=== PATIENT | female | born 1970 | race Caucasian/White ===

== ENCOUNTER 2023-12-09 12:36 | Outpatient (AMB) | payer MEDICARE, SELFPAY ==
[2023-12-09 12:39] VITALS: BP 122/62; PULSE 61; TEMP 37.1; O2SAT 98; BMI 21.6
--- NOTE | 2023-12-09 12:39 | MHC.OFFWIV ---
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 Patient Tobacco Use Status: Current everyday Tobacco user Allergies aspirin Allergy (Intermediate, Verified 12/09/23 12:47) vomiting blood ciprofloxacin [From Cipro] Allergy (Mild, Verified 12/09/23 12:47) temporary paralysis stains Allergy (Intermediate, Uncoded 12/09/23 12:47) severe body aches fentanyl Allergy (Mild, Uncoded 12/09/23 12:47) Difficulty Breathing prenisone Allergy (Mild, Uncoded 12/09/23 12:47) Swelling Do you need a note to return to daycare/school/sports/work: No HPI RADIOLOGY RESIDENT AB issues HPI Details Patient is a 53-year-old female who is new to us, and comes to the walk-in clinic complaining of a few months of abdominal bloating, belching with vomiting, abdominal discomfort, loose stools, malaise, and weight gain. She reports that symptoms started after she had a rash for which she was given prednisone for. She states that she has discussed this with her PCP who advised that she follow-up with her GI specialist, however she is still pending referral. She does have a history of acid reflux, and has continued her Protonix and sucralfate. She had a prescription for Zofran and Bentyl for which she was not refilled and ran out. She states that she has decreased her food intake to one small meal a day as a result of increased discomfort to the abdomen after eating. She has no pain during eating, and can tolerate vinegar and salad dressing. She denies fever or chills, chest pain or current shortness of breath, although she does feel like her abdominal distension makes breathing difficult when she lies on her left side. She reports a history of having an umbilical hernia, for which was not surgically repaired. [facility], [facility] Social History Patient Tobacco Use Status: Current everyday Tobacco user Review of Systems Const All systems reviewed & are unremarkable except as noted in HPI and below Physical Exam Vital Signs: Last Vital Signs Temp 98.7 F 12/09/23 12:39 Pulse 61 12/09/23 12:39 BP 122/62 12/09/23 12:39 Pulse Ox 98 12/09/23 12:39 Oxygen Delivery Method Room Air 12/09/23 12:39 BMI result Body Mass Index 21.6 Const General: cooperative, healthy appearing, no acute distress, alert, awake, Physically active, anxious, tired appearing and well groomed; No comfortable, diaphoretic, ill appearing, intoxicated appearing or poor hygiene Nutritional Appearance: average body habitus Orientation/consciousness: patient oriented x3 Limitations: no limitations Resp Effort & Inspection: normal respiratory effort, able to speak in complete sentences, no audible wheezes, no cough, no grunting, not labored, no nasal flaring, no retractions and symmetric chest movement Auscultation: clear to auscultation bilaterally, no crackles, no rales, no rhonchi, no wheezes, lung sounds not diminished and No rub present Cardio Palpation: normal PMI Rate: regular rate Rhythm: regular rhythm Heart sounds: S1 normal heart sound present and S2 normal heart sound present GI Palpation (GI): Soft to palpation (bloated), Tenderness to palpation present (GI), Guarding due to palpation present (GI) in the LLQ, not rigid, No hepatosplenomegaly present, Hernia present umbilical and No Rebound tenderness present Percussion: Yes normal to percussion General: Yes no CVA tenderness Back/Spine/Pelvis Back: no CVA tenderness Skin Other: Good color, warm and dry Neuro General: patient oriented x3 Psych Appearance: grossly normal Mental Status: mental status grossly normal Speech and movement: Normal speech and movement present Affect: normal affect Attitude: cooperative Thought process: Normal thought process present Insight: Good insight present (Psych) Judgement: Good judgement present (Psych) Results Reviewed Results Reviewed: Plain film x-ray shows no obvious obstruction, although an extensive degree stool in the abdomen. Assessment & Plan Assessment & Plan (1) Abdominal bloating: Code(s): R14.0 - Abdominal distension (gaseous) Plan: Patient now has chronic course of abdominal bloating and generalized (but greatest left lower quadrant) discomfort, associated with loose stools and belching with occasional vomiting. She is extremely anxious on exam today, as she worries about an etiology involving cancer. She has not had much success with seeing her PCP who is not part of the [facility], and she is pending GI referral. We discussed that the exam through the walk-in is limited, and that the safest place for her to rule out a surgical abdomen would be the emergency department. She appears stable with vital signs however, and per her report her tenderness is consistent with her chronic pain. As she does have a history of an umbilical hernia and her pain is adjacent to the umbilicus, it is possible that she has a strangulated hernia however. She declined the emergency department today against medical advice, as she states that it makes her extremely anxious to think about being there. So an x-ray was done today which shows no obvious obstruction, and I did order a CBC as well as a CMP. This should rule a few things out for her. I refilled her Zofran and her Bentyl, and we discussed that she should trial a bland diet, but that she should eliminate 1 source of possible allergen or irritant to her system, either dairy or gluten. In the meantime, she plans to call her PCP on Monday to follow up. If she cannot get in there soon, she plans to come to the walk-in to consider if she is a candidate at that point for an ultrasound of the abdomen. In the meantime, she knows to go to the emergency department if symptoms become more severe. I also wrote her for a very short course of lorazepam, in case she needs it to help with anxiety related to further imaging or going to the emergency department, as she reported that this might be necessary. Orders: Orders Complete Blood Count Auto Diff 12/09/23 R10.9 - Unspecified abdominal pain Comprehensive Met. Panel 12/09/23 R10.9 - Unspecified abdominal pain Lipase 12/09/23 R10.9 - Unspecified abdominal pain Medications: New ondansetron 4 mg PO Q8H PRN 30 tabs 0RF nausea and vomiting lorazepam 0.5 mg PO BID-TID PRN 3 tabs 0RF anxiety dicyclomine 10 mg PO TID PRN 60 caps 0RF abdominal pain Coding Level of Care Code New Pt Level 4 (34098) Diagnoses Abdominal bloating R14.0
== END 2023-12-09 14:26 | disposition home or self-care (01) ==
PROVIDERS: PCP Internal Medicine; Visit Provider Physician Assistant Medical
DX: R14.0 Abdominal distension (gaseous) (principal)
CPT/HCPCS: 99204

== ENCOUNTER 2023-12-09 13:43 | Outpatient (REF) | payer MEDICARE, SELFPAY ==
--- NOTE | ~2023-12-09 | XR_ITS ---
EXAMINATION: XR ABDOMEN COMPLETE CLINICAL INDICATION: Abdominal pain COMPARISON: None available. TECHNIQUE: 2 views of the abdomen. FINDINGS: The bowel gas pattern is normal with no evidence of ileus or obstruction. No unusual soft tissue calcifications are noted. The bones are unremarkable. XR/XR abdomen min 2V IMPRESSION: Unremarkable examination.
[2023-12-09 15:19] LABS: MANUAL DIFF FLAG NO
[2023-12-09 15:20] LABS: Basophils Absolute Auto 0.1 X10*3/uL (0.0-0.2); Basophils Percent Auto 0.5 % (0-2); Eosinophils Absolute Auto 0.1 X10*3/uL (0.0-0.4); Eosinophils Percent Auto 1.2 % (0-4); Hematocrit 41.9 % (37.0-47.0); Hemoglobin 14.2 g/dl (12.0-16.0); Imm Gran Abs Auto 0.02 X10*3/uL (0.00-0.03); Imm Gran Pct Auto 0.2 % (0.0-0.4); Lymphocytes Absolute Auto 2.6 X10*3/uL (1.2-4.9); Lymphocytes Percent Auto 28.2 % (20-40); Mean Corpuscular HGB Conc 33.9 g/dl (31.0-35.0); Mean Corpuscular Hemoglobin 29.8 pg (27.0-33.0); Monocytes Absolute Auto 0.6 X10*3/uL (0.1-1.2); Monocytes Percent Auto 6.3 % (2-11); Neutrophils Absolute Auto 5.8 x10*3/uL (2.0-8.3); Neutrophils Percent Auto 63.6 % (45-73); Platelet Count 282 X10*3/uL (160-400); Red Blood Count 4.76 X10*6/uL (4.20-5.50); Red Cell Distribution Width 13.2 % (11.0-16.0); White Blood Count 9.2 X10*3/uL (4.8-10.8)
[2023-12-09 15:39] LABS: Alanine Aminotransferase 10 U/L (0-31); Albumin Level 4.3 g/dL (3.5-5.0); Alkaline Phosphatase 114 U/L (39-117); Anion Gap 11 (12-20); Aspartate Amino Transferase 17 U/L (5-31); Bilirubin Total 0.2 mg/dL (0.0-1.0); Blood Urea Nitrogen 11 mg/dL (9-16); Calcium 9.7 mg/dL (8.4-10.2); Carbon Dioxide 28 mmol/L (22-29); Chloride 107 mmol/L (96-108); Estimated Glomerular Filt Rate > 60; Glucose Random 89 mg/dL (60-115); Lipase 15 U/L (8-78); Potassium 4.2 mmol/L (3.3-5.1); Sodium 142 mmol/L (135-145); Total Protein 7.5 g/dL (6.5-8.0)
== END 2023-12-09 13:44 | disposition home or self-care (01) ==
LOC: HO.HMGCX 13:43
PROVIDERS: PCP Internal Medicine; Visit Provider Physician Assistant Medical
DX: R10.9 Unspecified abdominal pain (principal)
CPT/HCPCS: 36415; 74019; 80053; 83690; 85025

== ENCOUNTER 2024-08-19 11:33 | Outpatient (REF) | payer MEDICARE, SELFPAY ==
[2024-08-19 18:01] LABS: Influenza A PCR NEGATIVE (Negative); Influenza B PCR NEGATIVE (Negative); Resp Syncy Virus RNA Qual PCR NEGATIVE (Negative); SARS COV2 PCR INHOUSE NEGATIVE (Negative)
== END 2024-08-19 11:34 | disposition home or self-care (01) ==
LOC: HO.LAB 11:33
PROVIDERS: Registered Nurse; PCP Internal Medicine
DX: J06.9 Acute upper respiratory infection, unspecified (principal)
CPT/HCPCS: 0241U; 87880; 99212

== ENCOUNTER 2024-08-19 11:33 | Outpatient (AMB) | payer MEDICARE, SELFPAY ==
[2024-08-19 11:54] VITALS: BP 116/84; PULSE 70; TEMP 36.1; O2SAT 98; BMI 20.8
--- NOTE | 2024-08-19 11:54 | AM.OFFWIN_ITS ---
Intake Vital Signs 08/19/24 11:54 Height 5 ft 1 in Weight 110 lb BMI 20.8 BP 116/84 Blood Pressure Location Lt brachial Position Sitting Pulse 70 Pulse Source Pulse Oximeter Temp 97.0 F Temp Source Temporal Artery Scan Pulse Oximetry (%) 98 Oxygen Delivery Method Room Air Intake Visit Reasons: EP sore throat/Ball of pus back of throat Intake Note: Pt presents to the office today for c/o sore throat, fatigue, weakness x2 days. Patient Tobacco Use Status: Current everyday Tobacco user Allergies aspirin Allergy (Intermediate, Verified 08/19/24 11:56) vomiting blood ciprofloxacin [From Cipro] Allergy (Mild, Verified 08/19/24 11:56) temporary paralysis stains Allergy (Intermediate, Uncoded 08/19/24 11:56) severe body aches fentanyl Allergy (Mild, Uncoded 08/19/24 11:56) Difficulty Breathing prenisone Allergy (Mild, Uncoded 08/19/24 11:56) Swelling HPI EP sore throat/Ball of pus back of throat HPI Details This note is constructed using voice recognition software. While every effort has been made to ensure accuracy, vp cardiovascular service line errors may have been included. The patient is a 54 year old female who presents to the clinic today with sore throat, cough, sinus congestion for the past 4 days. She denies fever, chills, shortness of breath. She reports she was around her grandson who had an upper respiratory infection. Her started a sore throat within the last day. She reports that last night she saw a yellow ball of pus in the back of her throat. She did nothing to try to help alleviate it. She did take some ibuprofen for the pain. [facility] Social History Patient Tobacco Use Status: Current everyday Tobacco user Review of Systems Const All systems reviewed & are unremarkable except as noted in HPI and below Physical Exam Vital Signs: Last Vital Signs Temp 97.0 F 08/19/24 11:54 Pulse 70 08/19/24 11:54 BP 116/84 08/19/24 11:54 Pulse Ox 98 08/19/24 11:54 Oxygen Delivery Method Room Air 08/19/24 11:54 BMI result Body Mass Index 20.8 Const General: cooperative, healthy appearing, comfortable and no acute distress Orientation/consciousness: patient oriented x3 Limitations: no limitations HEENT Head: Yes normal to inspection Ears: hearing grossly normal bilaterally, external ears normal and TM's normal bilaterally General nose exam: Normal external nose present, Normal nares present and No nasal discharge present Face and sinus: Yes normal facial exam and Yes sinuses nontender Mouth: Normal oral and palatal mucosa present and moist mucous membranes Throat: Yes tonsils normal, Yes uvula midline and Yes posterior oropharynx ab normal (Erythema) Eyes General: appearance normal, both eyes and all related structures Neck Neck: Yes normal visual inspection Resp Effort & Inspection: normal respiratory effort, able to speak in complete sentences, Actively coughing, no respiratory distress, not tachypneic, no tripod positioning and no use of accessory muscles Auscultation: clear to auscultation bilaterally Cardio Jugular venous distension: no JVD Rate: regular rate Rhythm: regular rhythm Heart sounds: S1 normal heart sound present, S2 normal heart sound present, no click, no gallops, no murmurs and no rubs Skin General skin exam: no rashes or lesions noted, elasticity normal and turgor normal Neuro General: patient oriented x3 Extrem General: Yes normal to inspection and Yes no clubbing, cyanosis or edema Results AMB Rapid Strep AMB Rapid Strep Negative Last Edit by Neris Souza CMA on 08/19/24 12:08 Assessment & Plan Assessment & Plan (1) URI (upper respiratory infection): Code(s): J06.9 - Acute upper respiratory infection, unspecified Qualifiers: URI type: unspecified URI Qualified Code(s): J06.9 - Acute upper respiratory infection, unspecified Plan: No mass in posterior pharynx as was reported by patient. Viral swab obtained to rule out Covid, Influenza, and RSV based on symptoms. Advised mask wearing while symptomatic and quarantine per current CDC guidelines. Reviewed at home support methods including hydration, humidification, vix vapor rub, sinus rinse, and otc treatment options. Discussed treatment with antiviral therapy for covid with paxlovid and with Tamiflu for influenza, including appropriate use and side effects, and need to start medication within 5 day of symptom onset, preferably within 48 hours of symptom onset. Patient wishes to decline antiviral therapy. Advised follow up with worsening symptoms such as dyspnea at rest, which would require emergent evaluation. Plan See above for full details and plan. Orders: Orders SARS-CoV2/FLU/RSV Today J06.9 - Acute upper respiratory infection, unspecified AMB Rapid Strep Screen Today Z13.9 - Encounter for screening, unspecified Coding Level of Care Code Est Pt Level 3 (56032) Diagnoses Upper respiratory tract infection, unspecified type J06.9 URI type: unspecified URI
== END 2024-08-19 12:23 | disposition home or self-care (01) ==
PROVIDERS: PCP Internal Medicine; Visit Provider Registered Nurse
DX: J06.9 Acute upper respiratory infection, unspecified (principal); Z13.9 Encounter for screening, unspecified

== ENCOUNTER 2024-10-17 15:51 | Outpatient (AMB) | payer MEDICARE, SELFPAY ==
[2024-10-17 15:55] VITALS: BP 130/74; PULSE 62; O2SAT 96; BMI 20.4
--- NOTE | 2024-10-17 15:55 | MHC.OFFVIS ---
Vital Signs 10/17/24 15:55 Height 5 ft 1 in Weight 108 lb BMI 20.4 BP 130/74 Blood Pressure Location Lt brachial Position Sitting Pulse 62 Pulse Source Pulse Oximeter Pulse Oximetry (%) 96 Oxygen Delivery Method Room Air Intake Visit Reasons: sleep apnea Intake Note: pt is here as a new patient, she has cpap using it every night, but states she is having episodes at night and it is affecting her every day life. Gas Or Petroleum Operator Required: No Allergies aspirin Allergy (Intermediate, Verified 10/17/24 16:34) vomiting blood ciprofloxacin [From Cipro] Allergy (Mild, Verified 10/17/24 16:34) temporary paralysis stains Allergy (Intermediate, Uncoded 10/17/24 16:34) severe body aches fentanyl Allergy (Mild, Uncoded 10/17/24 16:34) Difficulty Breathing prenisone Allergy (Mild, Uncoded 10/17/24 16:34) Swelling Medication List - Last Reconciled 10/17/24 by Lily Martinez MD levothyroxine 88 mcg PO DAILY methadone 10 mg PO Q6-8H PRN ondansetron 4 mg PO Q8H PRN pantoprazole (Protonix) 40 mg PO DAILY sucralfate (Carafate) 1 g PO BID HPI HPI sleep apnea: Details: THIS 54 YEARS OLD FEMALE IS BEING SEEN FOR THE 1ST TIME, IN RELATION TO HER SLEEP APNEA PROBLEM. THIS PATIENT IS OF A THIN BUILD, RELATIVELY ANXIOUS, COMES WITH HISTORY OF SLEEP APNEA DIAGNOSED SINCE 2012. THESE STUDY DONE IN 2013 [facility], INDICATES THAT SHE HAD A RELATIVELY MILD DEGREE OF MELISSA WITH TOTAL SLEEP TIME AHI OF 5 AND OXYGEN JAYDEN 90%. SHE HAD SLEEP-RELATED HYPOVENTILATION WITH END TIDAL CO2 LEVEL OF 63. PATIENT UNDERWENT CPAP TITRATION, . SHE REQUIRED ONLY 6 CM CPAP AND HER OXYGENATION WAS NORMAL IT IS NOT MENTIONED WHETHER HER AND TIDAL CO2 ALSO CAME TO NORMAL OR NOT. ANY WAYS SINCE 2013 SHE HAS BEEN ON CPAP, OF 6 CM, USING FULLFACE MASK. DURING ALL THESE YEARS SHE IS NOT BEING FOLLOWED BY IS SLEEP MEDICINE SPECIALIST. SHE TELLS ME THAT HER DAUGHTER WORKS AT SLEEP MEDICINE SERVICES OFFICE AND HAS BEEN PROVIDING HER NEW MASK OFF AND ON. SHE STILL HAS THE SAME CPAP MACHINE FROM 2013. I SPOKE TO THE DAUGHTER AND SHE DOES NOT KNOW MORE DETAILS ABOUT HER SAYS HE PAP USAGE. ACCORDING TO THE DAUGHTER SHE USES CPAP PROBABLY OFF AND ON. LATELY THE PATIENT HAS EXPERIENCED SOME DIFFICULTY IN SLEEPING EVEN WITH THE CPAP ON. AND SHE WAS TOLD THAT SHE NEEDS RE-EVALUATION FOR THE SLEEP APNEA PROBLEM. SHE GIVES HISTORY OF USING METHADONE FOR THE LAST 10+ YEARS. SAY IS IT WAS STARTED BY HER ARTHRITIS DOCTOR, TO TREAT FIBROMYALGIA AND DEGENERATIVE JOINT DISEASE. SHE HAS METHADONE 10 MG TABLETS AND SHE USES 1 2 OR 3 TABLETS PER DAY DEPENDING UPON HOW MUCH PAIN SHE HAS. SHE HAS USED LORAZEPAM 0.5 MG B.I.D. P.R.N. IN THE PAST BUT NOT AT PRESENT PATIENT ALSO SMOKES ABOUT 15 CIGARETTES A DAY, THROUGHOUT HER ADULT LIFE. SHE GETS SHORT OF BREATH ON WALKING, AND HAS FREQUENT DRY COUGH. SHE HAS NOT BEEN EVALUATED FOR HER COPD. DOES NOT USE ANY INHALERS. SHE HAS HISTORY OF GRAVES DISEASE SINCE LATE , SHE HAD A THYROIDECTOMY IN 2006. AFTER THAT SHE HAS BEEN ON THYROID REPLACEMENT WITH LEVOTHYROXINE 88 MCG DAILY. PATIENT ALSO HAS HISTORY OF GERD AND HE IS ON PROTONIX 40 MG DAILY ALONG WITH CARAFATE 1 G B.I.D. [facility] Medical History Hypoventilation COPD (chronic obstructive pulmonary disease) MELISSA on CPAP Hypothyroidism Social History Patient Tobacco Use Status: Current everyday Tobacco user Cigarette Packs Per Day: 10 Cigarettes Per Day: 0.5 Review of Systems Const All systems reviewed & are unremarkable except as noted in HPI and below Eyes Reports no additional complaints ENT Reports no additional complaints Card Denies chest pain, Denies irregular heart rhythm, Denies leg edema and Reports dyspnea on exertion (SHE HAS MODERATE AMOUNT OF DYSPNEA ON EXERTION) Resp Denies cough (MILD INTERMITTENT), Reports dyspnea on exertion (SHE HAS MODERATE AMOUNT OF DYSPNEA ON EXERTION) and Denies wheezing GI Reports dyspepsia and Reports heartburn (BEING TREATED WITH PROTONIX) Reports no additional complaints Musc Reports back pain, Reports myalgias and Reports other (PATIENT TELLS ME THAT SHE WAS DIAGNOSED TO HAVE FIBROMYALGIA, ) Skin/Breast Reports system reviewed and no additional complaints, except as documented Neuro Reports no additional complaints Psych Reports anxiety Endo Reports no additional complaints [place]/Lymph Reports no additional complaints Aller/Immun Reports no additional complaints and Denies wheezing Physical Exam Vital Signs: Last Vital Signs Pulse 62 10/17/24 15:55 BP 130/74 10/17/24 15:55 Pulse Ox 96 10/17/24 15:55 Oxygen Delivery Method Room Air 10/17/24 15:55 BMI result Body Mass Index 20.4 Const Other: PATIENT OF A THIN BUILD, SOMEWHAT ANXIOUS. General: comfortable, no acute distress, alert and awake Orientation/consciousness: patient oriented x3 HEENT Head: Yes normal to inspection General nose exam: No nasal polyps present and No nasal discharge present Face and sinus: Yes sinuses nontender Mouth: oropharynx normal Throat: Yes posterior oropharynx normal Eyes General: appearance normal, both eyes and all related structures Neck Neck: Yes normal visual inspection, Yes no lymphadenopathy, Yes trachea midline, Yes no JVD and Yes other (TRANSFERS SCAR IN FRONT FROM PREVIOUS THYROIDECTOMY) Thyroid: Thyroid normal Chest Chest palpation & inspection: normal inspection of the chest, normal palpation of entire chest wall and no tenderness Resp Other: PERCUSSION NOTE IS RESONANT, BREATH SOUNDS SLIGHTLY DISTANT, NO WHEEZES OR RHONCHI ARE HEARD Cardio Palpation: normal PMI Rate: regular rate Rhythm: regular rhythm Heart sounds: no gallops and no murmurs Peripheral pulses: Peripheral pulses 2+ throughout GI Palpation (GI): Soft to palpation, Tenderness to palpation present (GI), No hepatosplenomegaly present and Palpable mass present Auscultation: normal bowel sounds Back/Spine/Pelvis Thoracic/Lumbar Spine: thoracic and lumbar spine normal to inspection Skin General skin exam: no rashes or lesions noted Neuro General: patient oriented x3 and no focal motor deficits Cranial nerves: Yes CN's II-XII intact bilaterally Extrem General: Yes normal to inspection, Yes no clubbing, cyanosis or edema and Yes no calf tenderness Psych Appearance: grossly normal and well kempt Speech and movement: Normal speech and movement present Affect: Anxious affect present Assessment & Plan Assessment & Plan (1) Hypothyroidism: Comment: POST THYROIDECTOMY, 2006, PATIENT HAS HYPOTHYROIDISM TREATED WITH THYROID SUPPLEMENT Code(s): E03.9 - Hypothyroidism, unspecified Category: Medical Plan: TSH LEVEL ORDERED CONTINUE LEVOTHYROXINE 88 MCG DAILY (2) MELISSA on CPAP: Comment: DIAGNOSED TO HAVE SLEEP APNEA SINCE 2012. IT WAS VERY MILD WITH AHI OF 5, BUT SHE WAS NOTED TO HAVE HIGH END TIDAL CO2 ( 64 ) SHE UNDERWENT CPAP TITRATION STUDY IN THE SLEEP LAB, AND TREATED WITH PRESSURE OF 6 CM USING FULLFACE MASK, HAS BEEN USING CPAP SINCE THEN BUT NOBODY HAS BEEN FOLLOWING HER CLOSELY. LATELY SHE IS COMPLAINING OF DIFFICULTY IN SLEEPING IN SPITE OF USING THE CPAP. SHE FEELS IF SHE DOES NOT GET GOOD BREATH DURING THE NIGHT. SHE HAS BEEN REFERRED FOR THIS ISSUE. I THINK IT MAY BE DUE TO ANXIETY OR RELATED TO HER USE OF METHADONE ( QUESTION OF CENTRAL APNEAS) Code(s): G47.33 - Obstructive sleep apnea (adult) (pediatric) Category: Medical Plan: I THINK SHE SHOULD HAVE A POLYSOMNOGRAM STUDY IN THE SLEEP LAB/ AND IF FOUND TO HAVE SLEEP APNEA THEN SHE SHOULD HAVE CPAP TITRATION, TO FIND APPROPRIATE LEVEL OF PRESSURE. BECAUSE SHE USES METHADONE I THINK THERE IS A HIGH INDEX OF CENTRAL SLEEP APNEAS. (3) COPD (chronic obstructive pulmonary disease): Comment: PATIENT HAS HISTORY OF SMOKING 10-15 CIGARETTES A DAY FOR MANY YEARS, SHE COMPLAINS OF GETTING SHORT OF BREATH ON EXERTION, I SUSPECT THAT SHE HAS COPD, MAY ALSO HAVE CO2 RETENTION. Code(s): J44.9 - Chronic obstructive pulmonary disease, unspecified Category: Medical Plan: I MONITORING A COMPLETE PULMONARY FUNCTION TEST. ORDERING CO2 LEVEL. (4) Hypoventilation: Comment: BECAUSE SHE IS USING METHADONE ON A DAILY BASIS I SUSPECT THAT SHE HAS HYPOVENTILATION SYNDROME AND MAY HAVE CO2 RETENTION. Code(s): R06.89 - Other abnormalities of breathing Category: Medical Plan: CO2 LEVEL IS ORDERED Orders: Orders Venous Blood Gas Today J44.9 - Chronic obstructive pulmonary disease, unspecified, R06.89 - Other abnormalities of breathing TSH reflex Free T4 Today E03.9 - Hypothyroidism, unspecified RT PSG in-lab sleep study Today G47.33 - Obstructive sleep apnea (adult) (pediatric), R06.89 - Other abnormalities of breathing Coding Level of Care Code New Pt Level 4 (12419) Diagnoses Hypothyroidism E03.9 MELISSA on CPAP G47.33 COPD (chronic obstructive pulmonary disease) J44.9 Hypoventilation R06.89
--- OUTSIDE RECORDS SUMMARY | 2024-10-17 15:55 | XMS_ITS ---
Author Name [facility] Organization Unknown History of Medication Use Medication Directions Dispensed Refills Start Date End Date Stat us Synthroid 88 mcg tablet Take 1 tablet every day by oral route. 10/01/2024 active chlorhexidine gluconate 0.12 % mouthwash Place 15 mL twice a day by mucous membrane route. 08/21/2024 active olanzapine 5 mg tablet Take 1 tablet (5 mg total) by mouth every night at bedtime. 2022 3 completed levothyroxine 88 mcg tablet TAKE ONE TABLET BY MOUTH EVERY DAY IN THE MORNING ON AN EMPTY STOMACH 4 active valacyclovir 1 gram tablet Take 1 tablet (1,000 mg total) by mouth 2 (two) times a day for 7 days. 02/04/2022 2 completed lorazepam 0.5 mg tablet TAKE 1 TABLET BY MOUTH 2 TO 3 TIMES DAILY NEEDED FOR ANXIETY 4 active escitalopram 10 mg tablet Take 1 tablet every day by oral route. 08/30/2024 active escitalopram 10 mg tablet active amoxicillin 500 mg capsule TAKE ONE CAPSULE BY MOUTH THREE TIMES A DAY FOR 10 DAYS 3 completed meclizine 12.5 mg tablet Take 1 tablet (12.5 mg total) by mouth 3 (three) times a day as needed for dizziness or nausea. 09/13/2023 4 active prednisone 20 mg tablet Take 2 tablets (40 mg total) by mouth daily for 4 days, THEN 1 tablet (20 mg total) daily for 4 days. 02/04/2022 2 completed lurasidone 20 mg tablet Take 1 tablet (20 mg total) by mouth Every evening with dinner. 11/05/2021 2 completed Augmentin 875 mg-125 mg tablet active Allergies Allergen Reaction Severity Comment Documented Date Source Statu s CLAVULANIC ACID vomiting [facility] BUSPAR nausea [facility] AZITHROMYCIN [facility] ALUMINUM ASPIRIN [facility] CIPROFLOXACIN [facility] Problems Problem Status Onset Date Problem Type Date of Resoluti on Source Migraine without aura active 2021-11-05 ProblemAct [facility] Cigarette smoker active 2019-10-18 ProblemAct C T_PRIVIA Bipolar I disorder active 2021-11-05 ProblemAct [facility] Sleep apnea active 2024-09-26 ProblemAct CT_PRI VIA Fibromyalgia active 2019-10-18 ProblemAct [facility]_PR IVIA 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 2020-10-22 ProblemAct [facility]_P RIVIA Gastroesophageal reflux disease active 2019-10-18 ProblemAct [facility] Hypothyroidism active 2024-10-01 ProblemAct CT_ PRIVIA Chronic low back pain active 2019-10-18 ProblemAct [facility] Nausea active 2024-09-30 ProblemAct [facility]IV[facility] A Immunizations Vaccine Date Source Lot Number Status zoster vaccine subunit 10/08/2018 [employer] co mpleted influenza, seasonal, injectable 10/08/2018 [employer] [employer] completed diphtheria and tetanus toxoi ds, adsorbed for pediatric use 12/02/2003 [employer] [employer] completed tetanus toxoid, reduced diph theria toxoid, and acellular pertussis vaccine, adsorbed 10/08/2018 [employer] completed pneumococcal polysaccharide vaccine, 23 valent 10/08/2018 [employer] completed
--- OUTSIDE RECORDS SUMMARY | 2024-10-17 15:55 | XMS_ITS | Data Portability ---
Author Organization [place] Joshua farrell, [id number] [place] Address [address] [place] [address] Assessment No assessment recorded. Plan of Treatment Reminders Order Date Submit Date Provider Last Modified By Organization Details Last Modified Time Details Appointments [facility] 2024 03:00P M Bill Fonseca MD Not available Not available Not available Lab TSH + free T4, serum 2023 024 [place] [facility], [address], [address] [place] [address], [place], [address], 10/01/2024 16:06:25 H pylori urea breath test, co2 infrared 2023 024 JONATHAN Labanat[facility], [address], [address] [place] [address], [place], [address], 10/01/2024 16:06:31 CBC w/ auto diff 2023 024 JONATHANGUILLERMO [facility], [address], [facility], [place], [address], 10/01/2024 16:06:27 CMP, serum or plasma 2023 024 JONATHAN JANE, [address], [facility], [place], [address], 10/01/2024 16:06:28 lipid panel, serum 2023 024 [facility], [address], [facility], [place], [address], 10/01/2024 16:06:29 Referral None recorded. Procedures None recorded. Surgeries None recorded. Imaging holter monitor - palpitaio n 2022 023 [facility] (Outt Non-Invasive Cardiology Scheduling), [address] [facility], [place], [address], 07/03/2023 09:07:49 Medication Orders escitalop celestine 10 mg tablet 2023 024 [place] [facility], [address] [place] [address], [address], 08/30/2024 14:42:07 Augmentin 875 mg-125 mg tablet 2023 024 [facility], [address] [place] [address], [address], 08/30/2024 14:14:18 chlorhexi dine gluconate 0.12 % mouthwash 2023 024 [place] [facility], [address] [place] [address], [address], 08/21/2024 11:47:02 Pristiq 25 mg tablet,ex tended release 2022 023 [facility], [address] [place] [address], [address], 08/30/2024 14:16:07 amoxicill in 500 mg capsule 2022 023 [facility], [address] [place] [address], [address], 06/05/2023 15:17:53 Patient TargetsNo targets recorded. Patient InstructionsNo instructions recorded. Reason for Referral None Reported. Results Created Date Observation Date Name Description Value Unit Range Abnormal Flag Note LastModifiedBy Organization Detail LastModifiedTime 09/30/19 25 10/01/2024 TSH+F REE T4 TSH 5.960 uIU/m L 0.450- 4.500 above high normal Not Available [facility] ([facility]) [address] [place], [address], 10/01/2024 16:06:25 09/30/19 25 10/01/2024 TSH+F REE T4 T4,free(dire ct) 1.39 NG/dL 0.82-1 .77 normal Not Available [facility] ([facility]) [address] [place], [address], 10/01/2024 16:06:25 09/30/19 25 09/30/2024 CBC WITH DIFFE RENTI AL/PL ATELE T WBC 7.3 x10e3 /uL 3.4-10 .8 normal Not Available [facility] ([facility]) [address] [place], [address], 10/01/2024 16:06:27 09/30/19 25 09/30/2024 CBC WITH DIFFE RENTI AL/PL ATELE T RBC 4.31 x10e6 /uL 3.77-5 .28 normal Not Available [facility] ([facility]) [address] [place], [address], 10/01/2024 16:06:27 09/30/19 25 09/30/2024 CBC WITH DIFFE RENTI AL/PL ATELE T hemoglobin 13.3 g/dL 11.1-1 5.9 normal Not Available [facility] ([facility]) [address] [place], [address], 10/01/2024 16:06:27 09/30/19 25 09/30/2024 CBC WITH DIFFE RENTI AL/PL ATELE T hematocrit 38.7 % 34.0-4 6.6 normal Not Available [facility] ([facility]) [address] [place], [address], 10/01/2024 16:06:27 09/30/19 25 09/30/2024 CBC WITH DIFFE RENTI AL/PL ATELE T MCV 90 fL 79-97 normal Not Available [facility] ([facility]) [address] [place], [address], 10/01/2024 16:06:27 09/30/19 25 09/30/2024 CBC WITH DIFFE RENTI AL/PL ATELE T MCH 30.9 pg 26.6-3 3.0 normal Not Available [facility] ([facility]) [address] [facility], [place], [address], 10/01/2024 16:06:27 09/30/19 25 09/30/2024 CBC WITH DIFFE RENTI AL/PL ATELE T MCHC 34.4 g/dL 31.5-3 5.7 normal Not Available [facility] ([facility]) [address] [place], [address], 10/01/2024 16:06:27 09/30/19 25 09/30/2024 CBC WITH DIFFE RENTI AL/PL ATELE T RDW 12.7 % 11.7-1 5.4 Not Available [facility] ([facility]) [address] [place], [address], 10/01/2024 16:06:27 09/30/19 25 09/30/2024 CBC WITH DIFFE RENTI AL/PL ATELE T platelets 296 x10e3 /uL 150-45 0 normal Not Available [facility] ([facility]) [address] [place], [address], 10/01/2024 16:06:27 09/30/19 25 09/30/2024 CBC WITH DIFFE RENTI AL/PL ATELE T neutrophils 59 % not estab. normal Not Available [facility] ([facility]) [address] [place], [address], 10/01/2024 16:06:27 09/30/19 25 09/30/2024 CBC WITH DIFFE RENTI AL/PL ATELE T lymphs 31 % not estab. normal Not Available [facility] ([facility]) [address] [place], [address], 10/01/2024 16:06:27 09/30/19 25 09/30/2024 CBC WITH DIFFE RENTI AL/PL ATELE T monocytes 7 % not estab. normal Not Available [facility] ([facility]) [address] [place], [address], 10/01/2024 16:06:27 09/30/19 25 09/30/2024 CBC WITH DIFFE RENTI AL/PL ATELE T eos 3 % not estab. normal Not Available [facility] ([facility]) [address] [facility], [place], [address], 10/01/2024 16:06:27 09/30/19 25 09/30/2024 CBC WITH DIFFE RENTI AL/PL ATELE T basos 0 % not estab. normal Not Available [facility] ([facility]) [address] [place], [address], 10/01/2024 16:06:27 09/30/19 25 09/30/2024 CBC WITH DIFFE RENTI AL/PL ATELE T immature cells TURF GROWER Not Available [facility] ([facility]) [address] [place], [address], 10/01/2024 16:06:27 09/30/19 25 09/30/2024 CBC WITH DIFFE RENTI AL/PL ATELE T neutrophils (absolute) 4.2 x10e3 /uL 1.4-7. 0 normal Not Available [facility] ([facility]) [address] [place], [address], 10/01/2024 16:06:27 09/30/19 25 09/30/2024 CBC WITH DIFFE RENTI AL/PL ATELE T lymphs (absolute) 2.3 x10e3 /uL 0.7-3. 1 normal Not Available [facility] ([facility]) [address] [facility], [place], [address], 10/01/2024 16:06:27 09/30/19 25 09/30/2024 CBC WITH DIFFE RENTI AL/PL ATELE T monocytes(ab solute) 0.5 x10e3 /uL 0.1-0. 9 normal Not Available [facility] ([facility]) [address] [facility], [place], [address], 10/01/2024 16:06:27 09/30/19 25 09/30/2024 CBC WITH DIFFE RENTI AL/PL ATELE T eos (absolute) 0.3 x10e3 /uL 0.0-0. 4 normal Not Available [facility] ([facility]) [address] [facility], [place], [address], 10/01/2024 16:06:27 09/30/19 25 09/30/2024 CBC WITH DIFFE RENTI AL/PL ATELE T baso (absolute) 0.0 x10e3 /uL 0.0-0. 2 normal Not Available [facility] ([facility]) [address] [facility], [place], [address], 10/01/2024 16:06:27 09/30/19 25 09/30/2024 CBC WITH DIFFE RENTI AL/PL ATELE T immature granulocytes 0 % not estab. Not Available [facility] ([facility]) [address] [place], [address], 10/01/2024 16:06:27 09/30/19 25 09/30/2024 CBC WITH DIFFE RENTI AL/PL ATELE T immature grans (abs) 0.0 x10e3 /uL 0.0-0. 1 Not Available [facility] ([facility]) [address] [facility], [place], [address], 10/01/2024 16:06:27 09/30/19 25 09/30/2024 CBC WITH DIFFE RENTI AL/PL ATELE T NRBC TURF GROWER Not Available [facility] ([facility]) [address] [facility], [place], [address], 10/01/2024 16:06:27 09/30/19 25 09/30/2024 CBC WITH DIFFE RENTI AL/PL ATELE T hematology comments: TURF GROWER Not Available [facility] ([facility]) [address] [facility], [place], [address], 10/01/2024 16:06:27 09/30/19 25 10/01/2024 COMP. METAB OLIC PANEL (14) glucose 92 mg/dL 70-99 normal Not Available [facility] ([facility]) [address] [facility], [place], [address], 10/01/2024 16:06:28 09/30/19 25 10/01/2024 COMP. METAB OLIC PANEL (14) BUN 15 mg/dL 6-24 normal Not Available [facility] ([facility]) [address] [facility], [place], [address], 10/01/2024 16:06:28 09/30/19 25 10/01/2024 COMP. METAB OLIC PANEL (14) creatinine 0.79 mg/dL 0.57-1 .00 normal Not Available [facility] ([facility]) [address] [facility], [place], [address], 10/01/2024 16:06:28 09/30/19 25 10/01/2024 COMP. METAB OLIC PANEL (14) eGFR 88 mL/mi n/1.7 3 >59 normal Not Available [facility] ([facility]) [address] [facility] [place], [address], 10/01/2024 16:06:28 09/30/19 25 10/01/2024 COMP. METAB OLIC PANEL (14) BUN/creatini ne ratio 19 9-23 normal Not Available [facility] ([facility]) [address] [place], [address], 10/01/2024 16:06:28 09/30/19 25 10/01/2024 COMP. METAB OLIC PANEL (14) sodium 142 mmol/ L 134-14 4 normal Not Available [facility] ([facility]) [address] [place], [address], 10/01/2024 16:06:28 09/30/19 25 10/01/2024 COMP. METAB OLIC PANEL (14) potassium 4.8 mmol/ L 3.5-5. 2 normal Not Available [facility] ([facility]) [address] [place], [address], 10/01/2024 16:06:28 09/30/19 25 10/01/2024 COMP. METAB OLIC PANEL (14) chloride 104 mmol/ L 96-106 normal Not Available [facility] ([facility]) [address] [place], [address], 10/01/2024 16:06:28 09/30/19 25 10/01/2024 COMP. METAB OLIC PANEL (14) carbon dioxide, total 22 mmol/ L 20-29 normal Not Available [facility] ([facility]) [address] [place], [address], 10/01/2024 16:06:28 09/30/19 25 10/01/2024 COMP. METAB OLIC PANEL (14) calcium 9.9 mg/dL 8.7-10 .2 normal Not Available [facility] ([facility]) [address] [place], [address], 10/01/2024 16:06:28 09/30/19 25 10/01/2024 COMP. METAB OLIC PANEL (14) protein, total 6.6 g/dL 6.0-8. 5 normal Not Available [facility] ([facility]) [address] [place], [address], 10/01/2024 16:06:28 09/30/19 25 10/01/2024 COMP. METAB OLIC PANEL (14) albumin 4.2 g/dL 3.8-4. 9 normal Not Available [facility] ([facility]) [address] [place], [address], 10/01/2024 16:06:28 09/30/19 25 10/01/2024 COMP. METAB OLIC PANEL (14) globulin, total 2.4 g/dL 1.5-4. 5 Not Available [facility] ([facility]) [address] [place], [address], 10/01/2024 16:06:28 09/30/19 25 10/01/2024 COMP. METAB OLIC PANEL (14) bilirubin, total 0.3 mg/dL 0.0-1. 2 normal Not Available [facility] ([facility]) [address] [place], [address], 10/01/2024 16:06:28 09/30/19 25 10/01/2024 COMP. METAB OLIC PANEL (14) alkaline phosphatase 109 IU/L 44-121 normal Not Available [facility]) [address], [place], [address], 10/01/2024 16:06:28 09/30/19 25 10/01/2024 COMP. METAB OLIC PANEL (14) AST (SGOT) 24 IU/L 0-40 normal Not Available [facility] ([facility]) [address] [place], [address], 10/01/2024 16:06:28 09/30/19 25 10/01/2024 COMP. METAB OLIC PANEL (14) ALT (SGPT) 17 IU/L 0-32 normal Not Available [facility] ([facility]) [address], [place], [address], 10/01/2024 16:06:28 09/30/19 25 10/01/2024 LIPID PANEL cholesterol, total 237 mg/dL 100-19 9 above high normal Not Available [facility] ([facility]) [address] [facility] [place], [address], 10/01/2024 16:06:29 09/30/19 25 10/01/2024 LIPID PANEL triglyceride s 148 mg/dL 0-149 normal Not Available [facility] ([facility]) [address] [facility] [place], [address], 10/01/2024 16:06:29 09/30/19 25 10/01/2024 LIPID PANEL HDL cholesterol 45 mg/dL >39 normal Not Available [facility]) [address] [facility], [place], [address], 10/01/2024 16:06:29 09/30/19 25 10/01/2024 LIPID PANEL VLDL cholesterol anay 27 mg/dL 5-40 Not Available [facility] ([facility]) [address] [facility] [place], [address], 10/01/2024 16:06:29 09/30/19 25 10/01/2024 LIPID PANEL LDL chol calc ([facility]) 165 mg/dL 0-99 above high normal Not Available [facility] ([facility]) [address] [facility] [place], [address], 10/01/2024 16:06:29 09/30/19 25 10/01/2024 LIPID PANEL LDL calc comment: TURF GROWER Not Available [facility] ([facility]) [address] [facility] [place], [address], 10/01/2024 16:06:29 09/30/19 25 10/01/2024 H PYLOR I BREAT H TEST H pylori breath test NEGATI VE negati ve Not Available [facility] ([facility]) [address] [facility] [place], [address], 10/01/2024 16:06:31 09/07/19 24 davey r monit or No observ ation record ed. [facility] (Outt Non-Invasive Cardiology Scheduling) [address] [place], [address], 09/08/2023 08:37:08 12/09/19 24 12/09/2023 XR, abdom en No observ ation record ed. [email or web address] Not Available 12/10 13:22:50 12/27/19 24 12/25/2023 CT, abdom en + pelvi s, w/ contr ast No observ ation record ed. [facility]iology [address] [place], [address], 12/27/2023 17:34:41 Result Notes None recorded. Problems Name Problem SNOMED Code Status Onset Date Resolution Date Notes Provider Name and Address Organization Details Recorded Time Sleep apnea 23708909 Active 2024 Bill Fonseca MD [address] [place] [address], [address] [place] [address], [phone] , [place] [facility] 5 10:29:23 Nausea 513028146 Active 2024 Crystal Laviolette null, [place] [facility] 5 10:51:11 Hypothyro idism 71743510 Active 2024 Bill Fonseca MD [address] [place] [address], [address] [place] [address], [place], [address] , [place] [facility] 5 14:18:06 Vitamin D deficienc y 09483509 Active 2024 Bill Fonseca MD [address] [place] [address], [facility], [place], [address] , [place] [facility] 5 16:30:29 Fibromyal nabil 422809545 Active 2019 Fibromyalg ia affecting upper arm Not Available [facility] 3 03:03:01 Gastroeso phageal reflux disease 785457329 Active 2019 GERD (gastroeso phageal reflux disease) Not Available [facility] 3 03:03:01 Cigarette smoker 40217147 Active 2019 Smoking greater than 20 pack years Not Available [facility] 3 03:03:01 Chronic low back pain 631526621 Active 2019 Chronic bilateral low back pain with bilateral sciatica Not Available [facility] 3 03:03:01 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 Procedures Surgical History None recorded. Imaging Results Imaging Date Name Status LastModified by Kerry tatum Details LastModified Time 09/07/2023 holter monitor completed [facility] (Outt Non-Invasive Cardiology Scheduling) [address] [place], [address], 09/08/2023 08:37:08 12/09/2023 XR, abdomen [place] [id number] Information n ot available 12/11/2023 13:22:50 12/25/2023 CT, abdomen + pelvis, w/ contrast completed [facility] [address] [place], [address], 12/27/2023 17:34:41 Procedure Notes None recorded. Medical Equipment None Reported. Allergies Allergen ID Allergen Name Allergen Category Reaction Reaction Severity Criticality Documentation Date Start Date Code Code System Note Provider Name and Address Organization Details Recorded Time 201074 Buspar medicatio n nausea Not available low 06/05/2023 40512 0 RxNorm Not Available Not Available Not Available 054843 clavulani c acid Not available vomiting Not available low 08/30/2024 52934 RxNorm Not Available Not Available Not Available 56439 aluminum aspirin Not available Not available Not available Not available 12/29/20222020 611 RxNorm Not Available Not Available Not Available 08466 ciproflox acin medicatio n Not available Not available Not available 12/29/20222020 2551 RxNorm React ion: Other (See Comme nts), sever ity: Sever e;Tem porar y paral ysis Not Available Not Available Not Available 19648 azithromy jaden medicatio n Not available Not available Not available 12/29/20222020 14185 RxNorm React ion: Diarr hea, sever ity: Sever e;[place] ction : Nause a And Vomit ing, sever ity: Sever e Not Available Not Available Not Available Medications Name Sig Start Date Stop Date Status Note LastModified by Organization Details LastModified Time amoxicillin 500 mg capsule TAKE ONE CAPSULE BY MOUTH THREE TIMES A DAY FOR 10 DAYS 06/05 completed Not Available Not Available Not Available trazodone 50 mg tablet Take 1 tablet (50 mg total) by mouth every night at bedtime. 10/08 completed Not Available Not Available Not Available azithromyci n 250 mg tablet Take 2 tablets (500 mg) on Day 1, followed by 1 tablet (250 mg) once daily on Days 2 through 5. 08/10 completed Not Available Not Available Not Available citalopram 10 mg tablet Take 1 tablet (10 mg total) by mouth daily. 01/21 completed Not Available Not Available Not Available valacyclovi r 1 gram tablet Take 1 tablet (1,000 mg total) by mouth 2 (two) times a day for 7 days. 02/12 completed Not Available Not Available Not Available methadone 10 mg tablet TAKE ONE TABLET BY MOUTH EVERY 8 HOURS IF NEEDED FOR PAIN active Not Available Not Available No t Available sucralfate 1 gram tablet Take 1 tablet (1 g total) by mouth 4 (four) times a day. 06/05 completed Not Available Not Available Not Available prednisone 20 mg tablet Take 2 tablets (40 mg total) by mouth daily for 4 days, THEN 1 tablet (20 mg total) daily for 4 days. 02/13 completed Not Available Not Available Not Available olanzapine 5 mg tablet Take 1 tablet (5 mg total) by mouth every night at bedtime. 07/02 completed Not Available Not Available Not Available pantoprazol e 40 mg intravenous solution Inject 40 mg into the vein 2 (two) times a day. 04/14 completed Not Available Not Available Not Available meclizine 12.5 mg tablet Take 1 tablet (12.5 mg total) by mouth 3 (three) times a day as needed for dizziness or nausea. 08/30 completed Not Available Not Available Not Available prochlorper azine maleate 10 mg tablet Take 1 tablet (10 mg total) by mouth every 6 (six) hours as needed. 07/01 completed Not Available Not Available Not Available acyclovir 400 mg tablet Take 1 tablet (400 mg total) by mouth 3 (three) times a day for 10 days. 12/24 completed Not Available Not Available Not Available valacyclovi r 500 mg tablet Take 1 tablet (500 mg total) by mouth 2 (two) times a day for 7 days. 02/26 completed Not Available Not Available Not Available sulfamethox azole 800 mg-trimetho prim 160 mg tablet Take 1 tablet (160 mg of trimethop rim total) by mouth 2 (two) times a day for 10 days. 08/20 completed Not Available Not Available Not Available olanzapine 2.5 mg tablet Take 1 tablet (2.5 mg total) by mouth every night at bedtime. 07/01 completed Not Available Not Available Not Available amoxicillin 500 mg tablet Take 1 tablet every 8 hours by oral route. 08/30 completed Not Available Not Available Not Available levothyroxi ne 75 mcg tablet TAKE ONE TABLET BY MOUTH EVERY MORNING ON AN EMPTY STOMACH active Not Available Not Available No t Available levothyroxi ne 100 mcg tablet Take 1 tablet (100 mcg total) by mouth daily. 06/05 completed Not Available Not Available Not Available levothyroxi ne 88 mcg tablet TAKE ONE TABLET BY MOUTH EVERY DAY active Not Available Not Available No t Available amoxicillin 875 mg tablet TAKE ONE TABLET BY MOUTH TWICE A DAY FOR 10 DAYS 08/30 completed Not Available Not Available Not Available lorazepam 0.5 mg tablet TAKE 1 TABLET BY MOUTH 2 TO 3 TIMES DAILY NEEDED FOR ANXIETY 08/30 completed Not Available Not Available Not Available pantoprazol e 40 mg tablet,fátima yed release TAKE ONE TABLET BY MOUTH EVERY DAY active Not Available Not Available No t Available hydroxyzine HCl 25 mg tablet TAKE ONE TABLET BY MOUTH THREE TIMES A DAY NEEDED FOR ANXIETY OR ITCHING active Not Available Not Available No t Available ondansetron 4 mg disintegrat ing tablet DISSOLVE ONE TABLET BY MOUTH EVERY 8 HOURS NEEDED FOR NAUSEA AND VOMITING active Not Available Not Available No t Available dicyclomine 10 mg capsule TAKE ONE CAPSULE BY MOUTH THREE TIMES A DAY NEEDED FOR ABDOMINAL PAIN active Not Available Not Available No t Available amoxicillin 875 mg-potassiu m clavulanate 125 mg tablet TAKE 1 TABLET EVERY 12 HOURS BY ORAL ROUTE 08/30 completed Not Available Not Available Not Available escitalopra m 10 mg tablet TAKE ONE TABLET BY MOUTH EVERY DAY active Not Available Not Available No t Available chlorhexidi ne gluconate 0.12 % mouthwash PLACE 15 ML TWICE A DAY BY MUCOUS MEMBRANE ROUTE active Not Available Not Available No t Available aripiprazol e 2 mg tablet Take 1 tablet (2 mg total) by mouth daily. 12/30 completed Not Available Not Available Not Available lurasidone 20 mg tablet Take 1 tablet (20 mg total) by mouth Every evening with dinner. 11/09 completed Not Available Not Available Not Available Pristiq 25 mg tablet,exte nded release Take 1 tablet every day by oral route. 08/30 completed Not Available Not Available Not Available molnupiravi r 200 mg capsule (EUA) Take 4 capsules (800 mg total) by mouth every 12 (twelve) hours for 5 days. Swallow capsule whole. Do NOT open, break, or crush. 08/28 completed Not Available Not Available Not Available Vitals Date Recorded Body height Body mass index (BMI) Body weight Oxygen saturation Oxygen saturation in Arterial blood by Pulse oximetry Respiratory rate Systolic blood pressure Diastolic blood pressure Provider Name and Address Organization Details Last Updated DateTime 4 154.94 cm 20.8 kg/m2 20914.1 6 g 98 % 98 % 64 /min 120 mm[Hg] 68 mm[Hg] Amy smith [place] - [facility] 14:09:43 Social History Question Answer Notes LastModified by Organizat ion Details LastModified Time Tobacco Smoking Status Current Every Day Smoker Not Available [facility] 12/31/2022 02:24:28 What Is Your Level Of Alcohol Consumption? None Information not available 08/30/2024 Do You Wear A Helmet When Biking? Yes Information not available 08/30/2024 What Is Your Level Of Caffeine Consumption? Moderate Information not available 08/30/2024 Are You A Caregiver? No Information not available 08/30/2024 What Type Of Diet Are You Following? REGULAR Information not available 08/30/2024 Are There Any Guns Present In Your Home? No Information not available 08/30/2024 Do You Use Insect Repellent Routinely? Yes Information not available 08/30/2024 Where Do You Live? [facility] Information not available 08/30/2024 How Long Have You Lived There? 9 Information not available 08/30/2024 What Was The Date Of Your Most Recent Tobacco Screening? 08/30/2024 Information not available 08/30/2024 How Many Children Do You Have? 1 Information not available 08/30/2024 Do You Have Any Pets? No Information not available 08/30/2024 What Is Your Relationship Status? Single Information not available 08/30/2024 Do You Use Your Seat Belt Or Car Seat Routinely? Yes Information not available 08/30/2024 Do You Have Smoke And Carbon Monoxide Detectors In Your Home? Yes Information not available 08/30/2024 Do You Feel Stressed (tense, Restless, Nervous, Or Anxious, Or Unable To Sleep At Night)? [id number] Information not available 08/30/2024 Do You Use Any Illicit Or Recreational Drugs? Yes Information not available 08/30/2024 Do You Use Sunscreen Routinely? Yes Information not available 08/30/2024 Sex: Unknown Functional Status Question Answer Note LastModified by Organization D etails LastModified Time What is your exercise level? None Information not available 08/30/2024 Mental Status None recorded. Family History Nothing Reported Notes:Problem: Heart disease Relation: Paternal grandfather Problem: Hypertension Relation: Sister Problem: Ovarian cancer Relation: Natural mother Problem: Ovarian cancer Relation: Natural mother Problem: Hypertension Relation: Sister Problem: Heart disease Relation: Paternal grandfather Problem: Heart disease Relation: Paternal grandfather Problem: Ovarian cancer Relation: Natural mother Problem: Hypertension Relation: Sister Medical History No medical history recorded. Gynecological HistoryNo gynecological history recorded. Obstetrics History GPAL:G 0 P 0 0 0 0 Immunizations Vaccine Type Date Status Note Provider Nam e and Address Organization Details Recorded Time Influenza, split virus, trivalent, preservative 9 completed Not Available [facility] 12/30/2022 07:57:04 DT (pediatric) 4 completed Not Available [facility] 12/30/2022 07:57:05 zoster recombinant 9 completed Not Available [facility] 12/30/2022 07:57:05 Tdap 9 completed Not Available [facility] 12/30/2022 07:57:05 pneumococcal polysaccharide PPV23 9 completed Not Available [facility] 12/30/2022 07:57:05 Past Encounters Encounter ID Performer Location Encounter Start Date Encounter Closed Date Diagnosis/Indication Diagnosis SNOMED-CT Code Diagnosis ICD10 Code Diagnosis Note [id number] Bill Fonseca MD [facility] [facility] [address] [place] [address] 04/14/2023 13:56:44 04/14/2023 15:27:39 Influenza-like symptoms 895152313 R68.89 We will start patient on amoxicilli n 500 mg 3 times a day for probable infectious lesion in the mouth. Patient will check for COVID and symptomati c treatment. Advised patient to keep her fluids up so that she will get dehydrated . She will call us if COVID turns out positive. [id number] Bill Fonseca MD [facility] [address] [place] [address] 06/05/2023 09:32:04 06/05/2023 15:45:53 Anxiety state [id number] F41.1 So we talked about trying something new for her anxiety which she agreed to try Pristiq 25 mg daily. We are hoping that she can tolerate the medication long enough to be able to see if it can help her. Suggest she continue therapy as well. 09-07-22: Reported Holter showing mostly normal sinus rhythm with no significan t arrhythmia s. Occasional PSVT's noted but mostly not with patient's symptoms. Discussed with patient and she wants to decrease levothyrox ine dose to 75 mcg daily and recheck in a few months. ETL Palpitations 59992801 R0 0.2 We will send her for 24-hour Holter monitor and if it is normal we will send her for an echocardio gram and if it is normal we will send her for a stress test. [id number] Bill Fonseca MD [facility] [place] [address] 08/21/2024 11:11:05 08/21/2024 11:48:47 Sore throat 821652085 J02.9 Possible possible infected cyst or viral ulceration of the throat. We will treat her with Augmentin 875 mg twice a day and if she is not improving we will have to have her come in and have us check her out in person. We will also add Hibiclens gargle in case it is a cold sore. [id number] Bill Fonseca MD [facility] [address] [place] [address] 08/30/2024 13:48:03 08/30/2024 14:50:35 Adult health examination [id number] Z00.00 Mary Beth continues to be overwhelme d by her anxiety and depression and we are encouraged by her recent weight gain and suggest starting low impact cardio exercises. She refuses all vaccinatio ns but is up-to-date with her Tdap Pneumovax and Shingrix. She refuses colon cancer screening nor mammograms nor Pap smears. She will allow us to check her CBC CMP and cholestero l panel Bipolar I disorder [id number] F31.9 Strongly urged patient to start looking for a psychiatri st for long-term medical management . She refuses to see therapist but is willing to have me try her on Lexapro 10 mg daily and we will follow her up in 1 month for a televisit to determine if she has any improvemen t on the medication . 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 Gastroesop hageal reflux disease 805770819 K21.9 Will Protonix 40 mg daily and check for H. pylori breath test. We reviewed dyspepsia diet changes again Fibromyalgia M 79.7 Maintain methadone for her chronic pain. Cigarette smoker [id number] 7 F17.210 Which showed up she actually is able to quit smoking over the New Year's. [id number] Bill Fonseca MD [facility] [address] [place] [address] 09/24/2024 13:40:58 09/24/2024 14:39:37 Bipolar I disorder 392515445 F31.9 Will discontinu e Lexapro since the patient does not feel that it is helping much. 46 okay thank you. Very encouraged by the patient's incentive to schedule appointmen t with therapist which I hope will be a long-term solution for her. Hypothyroidism 40463648 E03.9 Still being awaiting her repeat TSH and free T4 levels will continue levothyrox ine at 75 mcg daily. 10-01-24: Reported TSH remains high on levothyrox ine 75 mcg daily. Patient agreed to increase dose but also requested to try brand-name Synthroid which she will call in and recheck in 6 weeks. ETL Cigarette smoker [id number] 7 F17.210 Hopefully she will eventually cut her smoking completely but right now she is tapering off and we are informed when she finally quit completely . Health Concerns Section Related Observation LastModified by Organization Detai ls LastModified Time None Recorded Concern Status LastModified by Organization Details LastModified Time None Recorded Advance Directives Directive None Recorded Payers Encounter Date Sequence Insurance Name Policy Number Policy Grewal Covered Member ID Grewal Member ID Guarantor Name 04/14/2023 1 MEDICARE B-[place]: [facility] Mary Beth Gil [id number] Mary Beth Calderon 06/05/2023 1 MEDICARE B-[place]: [facility] Mary Beth Gil [id number] Mary Beth Calderon 08/21/2024 1 MEDICARE B-CT: LYN Gil [id number] Mary Beth Calderon 08/30/2024 1 MEDICARE B-CT: LYN Gil [id number] Mary Beth Calderon 09/24/2024 1 MEDICARE B-CT: LYN Gil [id number] Mary Beth Calderon Notes Date Note Type Note Provider Name and Address Organization Details Recorded Time 04/14/2023 text/html Virtual VisitRep orted bypatient.Patient identity verified by:Known established patient I shared my identity credentials with the patient:Yes [place] [facility] [place] Patient location:Home Provider location:I was located at my office I educated the patient on the nature of a virtual visit:Yes Emergency plan agreed upon:Yes The patient was seen through synchronous audio and video technology:Yes Any documented vital signs were obtained during the telehealth visit via: Mary Beth is seen today via TeleMed video for an acute visit. She has been feeling flulike symptoms for over a week very tired, poor appetite and initially constipated but now stools are getting more loose. There has been no vomiting, no melena no hematochezia. She also had 2 lesions in her mouth 1 of which she poked open with a pin and did not see any significant bleeding but some gel-like discharge. She denies having any shortness of breath or cough or productive sputum. She does feel occasionally lightheaded but no dizziness or falls. She had not taken a COVID test yet because she does not have a kit at home. No recent change in medication she remains on chronic pain medicines for her fibromyalgia and levothyroxine 100 mcg/day for hypothyroidism.She continues to be on pantoprazole 40 mg daily and sucralfate 1 g as needed 4 times a day for indigestion and GERD.Chronic anxiety still on as needed use of hydroxyzine or lorazepam Bill Fonseca MD [address], [address], [place], [address], [facility] 04/14/2023 15:11:12 06/05/2023 text/html Virtual VisitRep orted bypatient.Patient identity verified by:Known established patient I shared my identity credentials with the patient:Yes Patient is currently located in the state of:[place]; [place] Patient location:Home Provider location:I was located at my office I educated the patient on the nature of a virtual visit:Yes Emergency plan agreed upon:Yes The patient was seen through synchronous audio and video technology:Yes Any documented vital signs were obtained during the telehealth visit via: Mary Beth is seen today via TeleMed video for worsening of her anxiety and palpitations. She was seen in the hospital yesterday because she was having severe anxiety and palpitation and was instructed by the ED doctor to have a Holter monitor done. She also feels lightheaded when she stands up. She denies having any chest pains but always has shortness of breath when she is having a panic attack as well as palpitations. She has been tried on multiple antianxiety medications namely BuSpar which caused nausea Paxil and Lexapro which did not help, Effexor which did not help. She is worried that she might have a heart condition because she has family history of heart disease. We will try to set her up to do psychotherapy which did not seem to help at all as well She continues to be on methadone for chronic pain, hypothyroidism controlled by levothyroxine 88 mcg daily. And GERD controlled on Protonix 40 mg daily. She has done some improvement lately apparently gaining a few pounds over the past few months which was an issue in the past. Bill Fonseca MD [address], [address], [place], [address], [facility] 09/08/2023 08:14:54 08/21/2024 text/html Virtual VisitRep orted bypatient.Patient identity verified by:Known established patient I shared my identity credentials with the patient:Yes Patient is currently located in the state of:[place]; [place] Patient location:Home Provider location:I was located at my office I educated the patient on the nature of a virtual visit:Yes Emergency plan agreed upon:Yes The patient was seen through synchronous audio and video technology:Yes Any documented vital signs were obtained during the telehealth visit via: Mary Beth in today for an acute visit via TeleMed video due to a severe sore throat for the past 5 days. She was seen by an urgent care clinic but did not clinically see a lesion in her throat but her left side is very severely painful. She denies having any congestion or cough nor fever. She was able to send us a picture what looks like a cyst on the left posterior pharyngeal area. She denies having any cold sores in her mouth or gum pain. She has been taking ibuprofen 800 mg 3 times a day with minimal improvement. There is been no discharge or bleeding from the throat area. Bill Fonseca MD [address] [place] [address], [address] [place] [address], [address], [facility] 08/21/2024 11:47:20 08/30/2024 text/html Mary Beth is here today for her annual physical examination. She continues to be in a lot of distress and presently untreated for her anxiety and depression because she is unable to tolerate any medications and refused to see therapist because she does not think they know what they are doing. She used to have a psychiatrist who retired and she is having a hard time finding a replacement. She has been tried on multiple classes of medication including antipsychotic, bipolar and antidepressant medications. Her anxiety remains severe and she is unable to sleep and has diffuse body pains specially her stomach. She continues to be on pain medications for her fibromyalgiaShe is also still on Protonix 40 mg daily which is another worry for her about not being able to tolerate medicine in the past to treat H. pylori which was never apparently treated. She has constant abdominal pain and apparently with good bowel movement and no urinary issues. Hypothyroidism still on levothyroxine 75 mcg daily.She continues to smoke and again talks about quitting this new year. Bill Fonseca MD [address] [place] [address], [address] [place] [address], [place], [address], [facility] 08/30/2024 15:09:00 09/24/2024 text/html Virtual VisitRep orted bypatient.Patient identity verified by:Known established patient I shared my identity credentials with the patient:Yes Patient is currently located in the [facility]:[place]; [place] Patient location:Home Provider location:I was located at my office I educated the patient on the nature of a virtual visit:Yes Emergency plan agreed upon:Yes The patient was seen through synchronous audio and video technology:Yes Any documented vital signs were obtained during the telehealth visit via: Mary Beth is seen today via TeleMed video for follow-up of her depression and hypothyroidism as well as smoking cessation.We started her on Lexapro 10 mg daily which she is tolerating well with only started it 2 weeks ago because she had an upper respiratory infection last month. She has not noticed any significant improvement with her bipolar disorder but does not have any side effects from the medication. She is in the process of setting up an appointment with a therapist which is highly encouraged and have been requesting her to do so for years. We are still awaiting her blood test for her TSH and free T4, with her levothyroxine at 75 mcg daily. She is also slowly cutting back on her cigarettes down to 3 a day and she has declined medications in the past as well as last visit. Bill Fonseca MD [address] [place] [address], [address], [place], [address], [facility] 10/01/2024 14:18:08 OBGyn Episode No OBEpisode recorded.
--- OUTSIDE RECORDS SUMMARY | 2024-10-17 15:55 | XMS_ITS | Patient Health Record ---
Author Organization [facility] Address [address] [address] Care Team Providers Care Steel Construction Worker Name Role Phone ALIZA MARTINI MD Primary Care Provider Unavailabl e Reason For Referral No Information Plan Of Treatment No Information Insurance Providers Payer Name Payer Address Payer Phone Subscriber Number Group Number Insured Name Patient Relationship to Insured Coverage Start Date Coverage End Date MEDICARE [address] [place], [place] [id number] [phone] NYDIA OWENS Self - patient is the insured
--- OUTSIDE RECORDS SUMMARY | 2024-10-17 15:55 | XMS_ITS | Clinical Summary ---
Author Organization [facility] it Address [address] [place] [address] Care Team Providers Care Aircraft Inspection Record Clerk Name Role Phone Bill Fonseca MD Primary Care Provider [phone] Surgical History Surgery Date Site/Laterality Comments TOTAL THYROIDECTOMY PROCEDURE:TOTAL THYROIDECTOMY CHOLECYSTECTOMY PROCEDURE:CHOLECYSTECTOMY BREAST SURGERY PROCEDURE:BREAST SURGERY Medical History Medical History Date Comments Fibromyalgia DX:Fibromyalgia Chronic bilateral low back p ain with bilateral sciatica DX:Chronic bilateral low yisel k pain with bilateral sciatica GERD (gastroesophageal reflux disease) DX:GERD (gastroesophageal reflux disease) Hypothyroidism DX:Hypothyroidis m Anxiety DX:Anxiety Family History Medical History Relation Name Comments Ovarian cancer Mother Heart disease Paternal Grandfather Hypertension Sister Relation Name Status Comments Mother Paternal Grandfather Sister Social History Tobacco Use Types Packs/Day Years Used Date Smoking Tobacco: Every Day Cigarettes Smokeless Tobacco: Never Alcohol Use Standard Drinks/Week Comments No 0 (1 standard drink = 0.6 oz pur e alcohol) Comments Unknown Sex and Gender Information Value Date Recorded Sex Assigned at Not on file Legal Sex Female 8:57 AM EST Gender Identity Not on file Sexual Orientation Not on file Obstetrics History Last Filed Vital Signs Vital Sign Reading Time Taken Comments Blood Pressure 128/80 10/03/2023 1:05 PM EST Pulse 64 10/03/2023 1:05 PM EST Temperature - - Respiratory Rate - - Oxygen Saturation - - Inhaled Oxygen Concentration - - Weight 52.1 kg (114 lb 12.8 oz) 10/03/2023 1:05 PM EST Height 154.9 cm (5' 1 ) 10/03/2023 1:05 PM EST Body Mass Index 21.69 10/03/2023 1:05 PM EST Plan of Treatment Health Maintenance Due Date Last Done Comments Breast Cancer Screening 1968 Hepatitis B Vaccines (1 of 3 - 19+ 3-dose series) 1987 Cervical Cancer Screening: P ap Smear 1989 Zoster Vaccines (2 of 2) 12/03/2018 10/08/2018 Pneumococcal Vaccine: Pediatrics (0 to 5 Years) and At-Risk Patients (6 to 64 Years) (2 of 2 - PCV) 10/08/2019 10/08/2018 Colorectal Cancer Screening: Colonoscopy 08/07/2022 Depression Screening 08/07/2022 HIV Screening 08/07/2022 Hepatitis C Screening 08/07/2022 Medicare Annual Wellness Visit 08/07/2022 Social Influencers of Health Screening 08/07/2022 COVID-19 Vaccine (1 - 2023-2 5 season) 2024 Influenza Vaccine (#1) 2024 10/08/2018 DTaP,Tdap,and Td Vaccines (3 - Td or Tdap) 10/08/2028 10/08/2018, 12/02/2003 HIB Vaccines Aged Out No longer eligi ble based on patient's age to complete this topic HPV Vaccines Aged Out No longer eligi ble based on patient's age to complete this topic Hepatitis A Vaccines Aged Out No long er eligible based on patient's age to complete this topic IPV Vaccines Aged Out No longer eligi ble based on patient's age to complete this topic MMR Vaccines Aged Out No longer eligi ble based on patient's age to complete this topic Meningococcal ACWY Vaccine Aged Out N o longer eligible based on patient's age to complete this topic RSV Immunization Patients Under 20 months Aged Out No longer eligible b ased on patient's age to complete this topic Varicella Vaccines Aged Out No longer eligible based on patient's age to complete this topic Care Teams Aircraft Inspection Record Clerk Relationship Specialty Start Date End Date Bill Fonseca MD PCP - General Internal Medicine 10/18/19
--- OUTSIDE RECORDS SUMMARY | 2024-10-17 15:55 | XMS_ITS | Clinical Summary ---
Author Organization [facility] Address [address] [place] [address] Care Team Providers Care Sandblasting Supervisor Name Role Phone Bill Fonseca MD Primary Care Provider [phone] Allergies Active Allergy Reactions Criticality Noted Date Comments Aspirin 10/22/2020 Ciprofloxacin Other (See Comments) High 10/22/2020 Temporary paralysis Azithromycin Diarrhea,Nausea And Vomiting High 08/09/2021 Medications Medication Sig Dispensed Refills Start Date End Date Status pantoprazole (PROTONIX) 40 MG injectionIndications:G astroesophageal Reflux Disease Inject 40 mg into the vein 2 (two) times a day. 60 each 3 11/08/2022 Active Active Problems Problem Noted Date Diagnosed Date Migraine without aura or status migrainosus 12/2021 Bipolar 1 disorder 11/05/2021 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 Chronic bilateral low back pain with bilateral s ciatica 10/18/2019 Fibromyalgia affecting upper arm 10/18/2019 GERD (gastroesophageal reflux disease) 0 Smoking greater than 20 pack years 10/18/2019 Resolved Problems Problem Noted Date Diagnosed Date Resolved Date Generalized rash 12/30/2022 12/30/2022 Anxiety and depression 07/09/202111/05 Anxiety state 10/18/2019 07/09/2021 Immunizations Name Administration Dates Next Due Adacel (Tdap) 10/08/2018 DT 12/02/2003 Influenza Trivalent (Fluzone /Afluria) 5.0mL Multi-dose Vial 10/08/2018 Pneumococcal Polysaccharide PPSV23 10/08/2018 Shingrix Vaccine (Zoster Recombinant) 10/08/2018 Family History Medical History Relation Name Comments Ovarian cancer Mother Heart disease Paternal Grandfather Hypertension Sister Relation Name Status Comments Mother Paternal Grandfather Sister Social History Tobacco Use Types Packs/Day Years Used Date Smoking Tobacco: Every Day Cigarettes 1 30 Smokeless Tobacco: Never Tobacco Cessation:Ready to Q uit: Not Asked; Counseling Given: Not Answered Alcohol Use Standard Drinks/Week Comments No 0 (1 standard drink = 0.6 oz pur e alcohol) Ex alcoholic Sex and Gender Information Value Date Recorded Sex Assigned at Not on file Gender Identity Not on file Sexual Orientation Not on file Job Start Date Occupation Industry Not on file Not on file Not on file Last Filed Vital Signs Vital Sign Reading Time Taken Comments Blood Pressure 128/80 10/03/2023 1:05 PM EST Pulse 64 10/03/2023 1:05 PM EST Temperature 36.2 ??C (97.2 ??F) 12/30/2022 3:22 PM ED T Respiratory Rate 17 10/07/2022 3:10 PM EST Oxygen Saturation 98% 10/03/2023 1:05 PM EST Inhaled Oxygen Concentration - - Weight 52.1 kg (114 lb 12.8 oz) 10/03/2023 1:05 PM EST Height 154.9 cm (5' 1 ) 10/03/2023 1:05 PM EST Body Mass Index 21.69 10/03/2023 1:05 PM EST Plan of Treatment Health Maintenance Due Date Last Done Comments Hepatitis B Vaccines (1 of 3 - 3-dose series) 1968 Hepatitis C Screening 1968 Lung Cancer Screening (Low Dose CT) 1968 Breast Cancer Screening (Mammogram) 2018 Pneumococcal Vaccine (2 of 2 - PCV) 10/08/2019 10/08/2018 Depression Screening 11/05/2022 11/05/2021, 11/05/2021, 10/22/2020, Additional history exists Preventative Health Evaluation 11/05/2022 11/05/2021, 11/05/2021, 10/22/2020, Additional history exists Tobacco Cessation Counseling 11/05/2022 11/05/2021, 10/22/2020 Cervical Cancer Screening (Pap Smear) 11/05/2024 11/05/2021, 10/20/2010 (Pt Reported - Need documentation) Colon Cancer Screening (Colonoscopy) 08/10/2025 08/10/2015 DTap / Tdap / Td Discontinued 10/08/2018, 07/2012, 12/02/2003 Influenza Vaccine Discontinued 10/22/2020 (De clined), 10/08/2018 Shingrix-Zoster Vaccine Addressed 10/22/19 21 (Declined), 10/08/2018 Overridden with the intention of not completing the topic COVID-19 Vaccine Discontinued RSV Ped < 20 months Aged Out No longe r eligible based on patient's age to complete this topic Care Teams Sandblasting Supervisor Relationship Specialty Start Date End Date Bill Fonseca MD PCP - General Internal Medicine 10/18/19
--- OUTSIDE RECORDS SUMMARY | 2024-10-17 16:25 | XMS_ITS | Clinical Summary ---
Author Organization [facility] Address [address] [place] [address] Care Team Providers Care Member Certification Manager Name Role Phone Bill Fonseca MD Primary Care Provider [phone] Allergies Active Allergy Reactions Criticality Noted Date [...] age to complete this topic Care Teams Member Certification Manager Relationship Specialty Start Date End Date Bill Fonseca MD PCP - General Internal Medicine 10/18/19
--- OUTSIDE RECORDS SUMMARY | 2024-10-17 16:25 | XMS_ITS | Clinical Summary ---
Author Organization [facility] it Address [address] [place] [address] Care Team Providers Care Press Catcher Name Role Phone Bill Fonseca MD Primary Care Provider [phone] Surgical History Surgery Date Site/Laterality Comments TOTAL [...] age to complete this topic Care Teams Press Catcher Relationship Specialty Start Date End Date Bill Fonseca MD PCP - General Internal Medicine 10/18/19
--- OUTSIDE RECORDS SUMMARY | 2024-10-17 16:25 | XMS_ITS | Data Portability ---
Author Organization [place] - [facility] Address [address] [place] [address] Care Team Providers Care Chief Steward/Stewardess Name Role Phone GWEN MARTINI Primary Care Provider [phone] Assessment Encounter Date Assessment Date Assessment LastModified by Organization Details LastModified Time 08/03/2021 08/03/2021 Overview/History : 51 y/o F with PMH of Graves Disease, DJD, Early Heart Disease, ITP, Fibromyalgia, new to and new to provider, is seeking further evaluation for cough, fatigue, diarrhea, loss of taste, and body aches x 5 days. The patient states that she was exposed to her neighbors upstairs who were found to have been positive for COVID-19 today. The patient has a decreased appetite, but has been staying adequately hydrated with water and pedialyte. Patient denies any chest pain, shortness of breath, fevers, chills, abdominal pain, nausea, or vomiting. Patient is not vaccinated for COVID-19. Exam: AAOx3 elderly female, non-toxic appearing, in no acute distress, ambulatory Head: NC/AT EENT: (+) moist mucous membranes, (-) erythema/bulging of TMs, (-) EAC drainage/edema, (-) tonsillar erythema/edema/e xudates Heart: RRR with no murmurs, rubs or gallops Lungs: CTABL with no ronchi, wheezes or rales present Abd: Soft, non-tender, non-distended Back: (-) CVA tenderness Extremities: Freely moving with no edema, 2+ distal pulses DDx considered, but not limited to: COVID-19 versus Other Viral Syndrome Work up/Results: Patient is non-toxic appearing in no acute distress. Patient's vital signs are stable. Patient is afebrile to 97.9. HR is 62. BP is 122/86. RR is 20. O2sat is 95% on RA. Patient has fatigue, dry cough, diarrhea and body aches with known direct COVID-19 exposure. Will assess with rapid COVID-19 test on scene and if negative will send out COVID-19 PCR. Rapid COVID-19 is positive on scene. Plan/Discussion: Advised patient and daughter that patient's rapid COVID-19 test on scene is positive which explains patient's symptoms. Advised that patient is a prime candidate for monoclonal antibody therapy and needs to follow up with PCP as soon as possible to get that coordinated. Upon completion of my assessment, I attempted to contact the patient's primary care provider and spoke to the on-call provider, Dr. Rodriguez, who was made aware of patient case and status and agrees that patient is a candidate for monoclonal antibody treatment. freight caller provider, Dr. Rodriguez, states she will contact patient to coordinate monoclonal antibody therapy. Advised patient to quarantine from 10 day from symptom onset as per the CDC guidelines Advised patient to stay hydrated with lots of oral fluids, including water, gatorade, and pedialyte and to take Tylenol as needed for fevers if one were to develop. Patient verbalized her understanding. Advised to monitor for fevers, chills, nausea, vomiting, diarrhea, chest pain, shortness of breath, abdominal pain, weakness, lethargy, and fatigue and if this is to occur then to call 911 and go to the ER or call back for re-evaluation. Patient verbalized her understanding of the diagnosis and need for follow up with PCP, as well as ER/ return precautions. In order to obtain further information and compare any laboratory results/values, I have accessed old patient records. This information was pertinent in my medical decision making today. Proper Personal Protective Equipment (PPE), including gloves, eye protection and masks were donned and doffed appropriately and all equipment cleaned using approved technique with germicidal disposable wipes prior to and after care of this patient according to [facility]'s infection prevention protocols. Not available 08/03/2021 19:41:38 10/09/2021 10/09/2021 Overview/History : 51 year old known to but new to provider with history of fibromyalgia, graves dx, ITP, anemia being seen today for overall malaise; Day 6 of worsening general body aches, headaches (had migraine at onset), this AM first fever 101 relieved with Tylenol. . Sore throat, some cough, nausea, no vomiting; diarrhea this AM. Currently being worked up by PCP, for body tremors. Has been talking to PCP almost daily this week who has been suggesting symptomatic treatment, rest, fluids. At end of exam states has been taking meclizine and dramamine wiht ? contributing to fatigue. Smokes 1 PPD, but less with illness Exam: Non-toxic female, walking around without difficulty, afebrile at 97.9, sats 95%. Some left ear canal redness appearing from trauma from q tips. Lungs clear, oropharynx without redness, exudate, abd soft, nontender; no pain DDx considered, but not limited to: Viral illness/URI with mild cough, phlegm Gastroenteritis: diarrhea x approx 6 hours. Pneumonia: history of pneumonia, lungs clear. Bronchitis: from smoking, ?chronic phlegm Work up/Results: Rapid influenza: negative Rapid COVID negative. Plan/Discussion: -Discussed viral illness with symptomatic treatment. To stop taking both OTC dramamine and Rx meclizine as same medication which will increase fatigue. Not having dizziness -May continue zofran to help with nausea and to continue to increase fluides. -Continue tylenol for temperature -Discussed smoking cessation, declines Nicoderm patch offer -Avoid q tips as scratched right ear canal -To continue to follow up with PCP but call/seek medical attention if any worsening fever, cough, vomiting, diarrhea Proper Personal Protective Equipment (PPE), including gloves, eye protection, masks, and gowns, shoe covers were donned and doffed appropriately and all equipment cleaned using approved technique with germicidal disposable wipes prior to and after care of this patient according to [facility] infection prevention protocols. brenna Not available 10/09/2021 17:46:30 12/09/2021 12/09/2021 Overview/History : 51 YO F new to provider and known to Being seen today for > 1 month of sore throat, malaise, fatigue She has been in contact w/ her PCP about this at length per her report She speaks w/ him multiple times per week She was prescribed amoxicillin to help w/ this however still having sx's. Of note she did not get rash when taking amoxicillin. Noone in her home is having similar sx's. She reports a complicated PMH. She reports neg covid and flu tests at onset of sx's w/ our service. She reports her PCP wants us to do a throat cx and mono test and relay him the results . Otherwise she denies fever/chills, abd pain, cp, SOB, numbness/tinglin g, focal weakness, ear pain. No other assoc sx's. Exam: Vitals: VSS and afebrile. Of note our temporal thermometer did measure pt temp being slightly high however she has her usual thermometer she uses next to her. She checks her temp multiple times per day and hers is unchanged from her baseline at 97.9F. She is to f/u if this number increases. I do not suspect she is actually febrile or having low grade temp at this time. Constitutional: 51 yo Well developed, well nourished, pleasant patient in no apparent distress. She is sitting upright on the couch and she is not toxic appearing. Eyes: PERRL at 4mm, EOM's intact, No swelling, no discharge, sclera / conjunctiva clear ENT: TMs/ Canals clear without evidence of infection, no nasal discharge, no erythema/ exudate noted in oropharynx, moist mucous membranes, uvula is midline CV: Normal HR, reg rhythm, no rubs/ murmurs/ gallops heard, 2+ radial pulses bilaterally Pulm: breath sounds clear and equal bilaterally, no wheeze/ rhonchi or rales on auscultation. Speaks in full sentences, no increased work of breathing. GI: Soft, non-tender to palpation. No masses, normal bowel sounds. : No CVA tenderness bilaterally. MS: Self ambulatory patient, moves all limbs without deficit, no evidence of trauma Neuro: No focal deficits, A&O x4, CN? s II-XII grossly normal, gait is not ataxic Skin: No rash. No cyanosis or pallor. Psych: Calm, cooperative, non-manic. Pleasant. DDx considered, but not limited to: Mononucleosis - considered d/t > 1 mo fatigue and malaise. Rapid neg on scene and EBV ab test pend. Doubt this as she just took amoxicillin w/o rash but will check as her sx's do paint a picture of mono Strep Throat - doubt this, just took abx, no better, no fever, throat is w/o erythema or exudates, no fever. Rapid neg and cx pending per pt request Anemia (worsening) - doubt this as VSS. She does have baseline hgb of 11.5 most recently. Checking to see if this is worsening. Lyte Derangement - doubt this as no specific sx's, checking BMP to fully eval CO poisoning - doubt this as well but she is worried about gas leak on her street. Her CO detector is functional per her report and has no alerted her once ad other members of the house do not have any similar sx's. 'They never get sick though per her report. She would like this checked. test pending. Work up/Results: CBC/BMP/EBV ab/CO blood tests all collected [place] [facility] Rapid mono and strep neg Strep cx pending Plan/Discussion: Malaise and Fatigue: -W/ sore throat -Sx's ongoing for > 1 month -No definitive cause yet -Pt very close w/ her PCP who recc our service to cx her throat and take some tests -She called him on scene as she reports many times he will call back right away, unfortunately no call back so unsure exactly what has and hasn't been checked yet -D/t this checking throat cx, testing for mono, CBC and BMP. Per pt request d/t gas leak on her street will test for CO level although doubt this as per above. -We will f/u with results and send them to PCP -She trusts him most w/ her care -She is going to call him luis armando -She has no other sx's or concerns at this time -She will f.u emergently w/ any cp, SOB, weakness waldemar focal, lethargy, AMS, abd pain, inability to complete her ADLs We will f/u and coordinate w/ PCP w/ our findings. She would like him to guide tx if possible Pt is on agreement and verbalizes understanding with the above plans at this time. Pt has no other questions or concerns at this time. All questiosn are answered to the best of my ability. Pt thanks us for our visit today. In order to obtain further information and compare any laboratory results/values, I have accessed [facility]. This information was pertinent in my medical decision making today. Time On Scene with Patient: 01:21:08 [email or web address] Not available 12/09/2021 22:53:57 Plan of Treatment Reminders Order Date Submit Date Provider Last Modified By Organization Details Last Modified Time Details Appointments None recorded. Lab rapid strep group A, throat 2021 022 [facility], [address], [place], [address], 21:17:08 streptoco ccus group A, culture, throat 2021 [facility], [address] [place], [address], 06:58:48 mononucle osis, heterophi le Ab, blood 2021 022 [employer] [facility], [address], [place], [address], 21:17:10 tiff-b arr virus (ebv) IgG + IgM panel, serum 2021 [facility], [address] [place], [address], 16:08:27 carboxyhe moglobin (co), blood 2021 [facility], [address] [place], [address], 05:57:25 BMP, serum or plasma 2021 022 [facility], [address] [place], [address], 06:13:30 CBC w/ auto diff 2021 [facility], [address] [place], [address], 05:48:01 rapid flu (A+B) 2021 022 [facility], [address], [place], [address], 17:49:27 rapid SARS CoV 2 Ag, QL IA, respirato ry specimen 2021 022 [facility], [address], [place], [address], 17:49:25 rapid SARS CoV + SARS CoV 2 Ag, QL IA, respirato ry specimen 2020 021 [facility], [address], [place], [address], 19:12:26 Referral None recorded. Procedures None recorded. Surgeries None recorded. Imaging None recorded. Medication Orders None recorded. Patient TargetsNo targets recorded. Patient Instructions Encounter Date Encounter Id Patient Instructions Last Modified By Organization Details Last Modified Time 08/03/2021 [id number] [facility] you [facility] yo [facility]. We cannot always find the exact cause of your symptoms during your initial visit. Please follow up with your primary care provider or specialist within 12-24 hours to be rechecked or seek medical attention if your symptoms do not go away or get worse. If you develop any new or worsening symptoms and need after hours care, please go to nearest ER and/or call 911. If you have additional concerns or develop a change in your condition between 8am-10pm, please call [facility] at [phone] to help navigate your care. Not available 08/03/2021 19:41:56 10/09/2021 [id number] -You were seen today for general malaise, fever, diarrhea x 1 day; most likely viral illness -Continue with tylenol for any fever -Do not take meclizine with dramamine as same drug that will increase drowsiness/somnole nce -Your flu and COVID tests are negative -Consider nicotine patch -Avoid q tips as scratched right ear canal -To continue to follow up with PCP but call/seek medical attention if any worsening fever, cough, vomiting, diarrhea brenna Not available 10/09/2021 14:43:24 Reason for Referral None Reported. Results Created Date Observation Date Name Description Value Unit Range Abnormal Flag Note LastModifiedBy Organization Detail LastModifiedTime 08/03/20 21 08/03/2021 rapid SARS CoV + SARS CoV 2 Ag, QL IA, respi rator y speci men Covid-19 (ref: neg) positi ve Not Available [facility] - [address] [place], [address], 08/03/2021 18:59:14 08/03/20 21 08/03/2021 rapid SARS CoV + SARS CoV 2 Ag, QL IA, respi rator y speci men Control Visual ized/V alid Not Available [facility] - [address] [place], [address], 08/03/2021 18:59:14 08/03/20 21 08/03/2021 rapid SARS CoV + SARS CoV 2 Ag, QL IA, respi rator y speci men Location [facility], [facility], [address] [place] [address], [id number] Not Available [facility] - [facility] [address] [place], [address], 08/03/2021 18:59:14 10/09/19 22 10/09/2021 rapid SARS CoV 2 Ag, QL IA, respi rator y speci men Covid-19 (ref: neg) negati ve Not Available [facility] - [facility] [address] [place], [address], 10/09/2021 17:45:52 10/09/19 22 10/09/2021 rapid SARS CoV 2 Ag, QL IA, respi rator y speci men Control Visual ized/V alid Not Available [facility] - [address] [place], [address], 10/09/2021 17:45:52 10/09/19 22 10/09/2021 rapid SARS CoV 2 Ag, QL IA, respi rator y speci men Location [facility], [facility], [address] [place] [address], [id number] Not Available [facility] - Home [address] [place] [address], [address], 10/09/2021 17:45:52 10/09/19 22 10/09/2021 rapid flu (A+B) Flu A (ref: neg) negati ve Not Available [facility] - [address] [place], [address], 10/09/2021 17:45:29 10/09/19 22 10/09/2021 rapid flu (A+B) Flu B (ref: neg) negati ve Not Available [facility] - Home [address] [place] [address], [address], 10/09/2021 17:45:29 10/09/19 22 10/09/2021 rapid flu (A+B) Control Visual ized/V alid Not Available [facility] - Home [address] [place] [address], [address], 10/09/2021 17:45:29 10/09/19 22 10/09/2021 rapid flu (A+B) Location [facility], [address] [place] [address], [id number] Not Available [facility] - Home [address] [place] [address], [address], 10/09/2021 17:45:29 12/10/19 22 12/10/2021 COMPL ETE CBC WITH DIFF WBC 6.2 K/mm3 (4.0-1 1.0) Not Available [facility] [address], [place], [address], 12/10/2021 05:48:01 12/10/19 22 12/10/2021 COMPL ETE CBC WITH DIFF RBC 4.17 M/mm3 (4.20- 5.40) low Not Available [facility] [address] [place], [address], 12/10/2021 05:48:01 12/10/19 22 12/10/2021 COMPL ETE CBC WITH DIFF HGB 12.7 gm/dL (11.7- 15.5) Not Available [facility] [address] [place], [address], 12/10/2021 05:48:01 12/10/19 22 12/10/2021 COMPL ETE CBC WITH DIFF HCT 38.7 % (35.7- 45.8) Not Available [facility] [address] [place], [address], 12/10/2021 05:48:01 12/10/19 22 12/10/2021 COMPL ETE CBC WITH DIFF MCV 92.8 fL (80.0- 100.0) Not Available [facility] [address] [place], [address], 12/10/2021 05:48:01 12/10/19 22 12/10/2021 COMPL ETE CBC WITH DIFF MCH 30.5 pg (27.0- 34.0) Not Available [facility] [address] [place], [address], 12/10/2021 05:48:01 12/10/19 22 12/10/2021 COMPL ETE CBC WITH DIFF MCHC 32.8 g/dL (33.0- 37.0) low Not Available [facility] [address] [place], [address], 12/10/2021 05:48:01 12/10/19 22 12/10/2021 COMPL ETE CBC WITH DIFF plt 226 K/mm3 (150-4 60) Not Available [facility] [address] [place], [address], 12/10/2021 05:48:01 12/10/19 22 12/10/2021 COMPL ETE CBC WITH DIFF RDW-SD 44.0 fL (<47.0 ) Not Available [facility] [address] [place], [address], 12/10/2021 05:48:01 12/10/19 22 12/10/2021 COMPL ETE CBC WITH DIFF MPV 9.5 fL (9.4-1 2.4) Not Available [facility] [address] [place], [address], 12/10/2021 05:48:01 12/10/19 22 12/10/2021 COMPL ETE CBC WITH DIFF automated NRBC 0.0 #/100 _WBC' s Not Available [facility] [address] [place], [address], 12/10/2021 05:48:01 12/10/19 22 12/10/2021 COMPL ETE CBC WITH DIFF abs. NRBC 0.0 K/mm3 Not Available [facility] [address] [place], [address], 12/10/2021 05:48:01 12/10/19 22 12/10/2021 COMPL ETE CBC WITH DIFF neut # 3.1 K/mm3 (1.3-7 .0) Not Available [facility] [address] [place], [address], 12/10/2021 05:48:01 12/10/19 22 12/10/2021 COMPL ETE CBC WITH DIFF lymph # 2.5 K/mm3 (0.8-3 .1) Not Available [facility] [address] [place], [address], 12/10/2021 05:48:01 12/10/19 22 12/10/2021 COMPL ETE CBC WITH DIFF mono# 0.5 K/mm3 (0.4-0 .9) Not Available [facility] [address] [place], [address], 12/10/2021 05:48:01 12/10/19 22 12/10/2021 COMPL ETE CBC WITH DIFF eo # 0.1 K/mm3 (0.0-0 .4) Not Available [facility] [address] [place], [address], 12/10/2021 05:48:01 12/10/19 22 12/10/2021 COMPL ETE CBC WITH DIFF baso # 0.0 K/mm3 (0.0-0 .1) Not Available [facility] [address] [place], [address], 12/10/2021 05:48:01 12/10/19 22 12/10/2021 COMPL ETE CBC WITH DIFF abs. imm gran 0.0 K/mm3 Not Available [facility] [address] [place], [address], 12/10/2021 05:48:01 12/10/19 22 12/10/2021 COMPL ETE CBC WITH DIFF neut 49.6 % (44-76 ) Not Available [facility] [address] [place], [address], 12/10/2021 05:48:01 12/10/19 22 12/10/2021 COMPL ETE CBC WITH DIFF lymph 40.2 % (15-43 ) Not Available [facility] [address] [place], [address], 12/10/2021 05:48:01 12/10/19 22 12/10/2021 COMPL ETE CBC WITH DIFF monocyte 7.3 % (4.5-1 0.5) Not Available [facility] [address] [place], [address], 12/10/2021 05:48:01 12/10/19 22 12/10/2021 COMPL ETE CBC WITH DIFF eo 2.1 % (0-6) Not Available [facility] [address] [place], [address], 12/10/2021 05:48:01 12/10/19 22 12/10/2021 COMPL ETE CBC WITH DIFF baso 0.5 % (0-2) Not Available [facility] [address] [place], [address], 12/10/2021 05:48:01 12/10/19 22 12/10/2021 COMPL ETE CBC WITH DIFF imm gran 0.3 % Not Available [facility] [address] [place], [address], 12/10/2021 05:48:01 12/10/19 22 12/10/2021 CARBO XYHEM OGLOB IN carboxyhemog lobin 7 % (0-5.0 ) high Not Available [facility] [address] [place], [address], 12/10/2021 05:57:25 12/10/19 22 12/10/2021 BASIC METAB OLIC PANEL glucose 79 mg/dL (70-99 ) Not Available [facility] [address] [place], [address], 12/10/2021 06:13:30 12/10/19 22 12/10/2021 BASIC METAB OLIC PANEL BUN 10 mg/dL (6-20) Not Available [facility] [address] [place], [address], 12/10/2021 06:13:30 12/10/19 22 12/10/2021 BASIC METAB OLIC PANEL creatinine 0.9 mg/dL (0.5-1 .0) Not Available [facility] [address], [address], 12/10/2021 06:13:30 12/10/19 22 12/10/2021 BASIC METAB OLIC PANEL sodium 143 mmol/ L (133-1 45) Not Available [facility] [address], [address], 12/10/2021 06:13:30 12/10/19 22 12/10/2021 BASIC METAB OLIC PANEL potassium 4.0 mmol/ L (3.6-5 .2) Not Available [facility] [address] [place], [address], 12/10/2021 06:13:30 12/10/19 22 12/10/2021 BASIC METAB OLIC PANEL chloride 104 mmol/ L (98-10 7) Not Available [facility] [address] [place], [address], 12/10/2021 06:13:30 12/10/19 22 12/10/2021 BASIC METAB OLIC PANEL bicarbonate 28 mmol/ L (22-29 ) Not Available [facility] [address] [place], [address], 12/10/2021 06:13:30 12/10/19 22 12/10/2021 BASIC METAB OLIC PANEL anion gap 11 (4-17) Not Available [facility] [address] [place], [address], 12/10/2021 06:13:30 12/10/19 22 12/10/2021 BASIC METAB OLIC PANEL calcium 9.5 mg/dL (8.6-1 0.5) Not Available [facility] [address] [place], [address], 12/10/2021 06:13:30 12/10/1912/10/2021 BASIC METAB OLIC PANEL estimated GFR creatinine 77 mL/mi n/1.7 3_M2 Creat inine based estim ated glome rular filtr ation rate (eGFR ) is calcu lated using the Chron ic Kidne y Disea se Epide miolo gy Colla borat ion (CKD- EPI). The CKD-E PI calcu latio n is not valid ated in child steffi (<18 years ), pregn ant woman or in racia l or ethni c subgr oups. Not Available [facility] [address] [place], [address], 12/10/2021 06:13:30 12/10/19 22 12/11/2021 EBV ANTIB ODIES viral capsid Ab IgM high >160. 0 Refer ence range : 0.0 to 35.9 Unit: U/mL (NOTE ) Negat gerald <36.0 Equiv ocal 36.0 - 43.9 Posit gerald >43.9 Not Available [facility] [address] [place], [address], 12/11/2021 16:08:27 12/10/19 22 12/11/2021 EBV ANTIB ODIES viral capsid Ab IgG 288.0 high Refer ence range : 0.0 to 17.9 Unit: U/mL (NOTE ) Negat gerald <18.0 Equiv ocal 18.0 - 21.9 Posit gerald >21.9 Not Available [facility] [address] [place], [address], 12/11/2021 16:08:27 12/10/19 22 12/11/2021 EBV ANTIB ODIES anti ebv nuc. Ag IgG 392.0 high Refer ence range : 0.0 to 17.9 Unit: U/mL (NOTE ) Negat gerald <18.0 Equiv ocal 18.0 - 21.9 Posit gerald >21.9 Not Available [facility] [address], [place], [address], 12/11/2021 16:08:27 12/10/19 22 12/11/2021 EBV ANTIB ODIES interpretati on Commen t (NOTE ) EBV Inter preta tion Chart Jha: Antib harley Prese nt + Antib harley Absen t - Inter preta tion VCA-I gM VCA-I gG EBNA- IgG No previ ous infec tion/ - - - Susce ptibl e Prima ry infec tion (new + + - or recen t) Past Infec tion +or- + + See comme nt below * + - - *Resu lts indic ate infec tion with EBV at some time howev er canno t predi ct the timin g of the infec tion since antib odies to EBNA usual ly devel op after prima ry infec tion or, alter nativ dena, appro ximat dena 5-10% of patie nts with EBV never devel op antib odies to EBNA. Test perfo rmed by [facility], [address], [place] [address] Not Available [facility] [address] [place], [address], 12/11/2021 16:08:27 12/10/19 22 12/10/2021 GROUP A STREP CULT. specimen description THROAT SWAB Not Available [facility] [address] [place], [address], 12/12/2021 06:58:48 12/10/19 22 12/10/2021 GROUP A STREP CULT. special requests NONE Not Available [facility] [address] [place], [address], 12/12/2021 06:58:48 12/10/19 22 12/12/2021 GROUP A STREP CULT. culture NO GROUP A BETA HEMOLY TIC STREPT OCOCCI ISOLAT ED Not Available [facility] [address] [place], [address], 12/12/2021 06:58:48 12/10/19 22 12/12/2021 GROUP A STREP CULT. report status FINAL 2021 Not Available [facility] [address] [place], [address], 12/12/2021 06:58:48 12/10/19 22 12/09/2021 rapid strep group A, throa t Strep A (ref: neg) negati ve Not Available [facility] [address] [place], [address], 12/09/2021 20:28:40 12/10/19 22 12/09/2021 rapid strep group A, throa t Control Visual ized/V alid Not Available [facility] [address] [place], [address], 12/09/2021 20:28:40 12/10/19 22 12/09/2021 rapid strep group A, throa t Location [facility] [address] [place] [address], [id number] [phone] Not Available [facility] [address] [place], [address], 12/09/2021 20:28:40 12/10/19 22 12/09/2021 monon ucleo sis, heter ophil e Ab, blood Yancey (ref: neg) negati ve Not Available [facility] [address] [place], [address], 12/09/2021 20:20:34 12/10/19 22 12/09/2021 monon ucleo sis, heter ophil e Ab, blood Control Visual ized/V alid Not Available [facility] [address] [place], [address], 12/09/2021 20:20:34 12/10/19 22 12/09/2021 monon ucleo sis, heter ophil e Ab, blood Location [facility], [address] [place] [address], [id number] [phone] Not Available [facility] [address] [place], [address], 12/09/2021 20:20:34 Result Notes None recorded. Procedures Surgical History Date Name Laterality Status Provider Name and Address Organization Details Recorded Time 022 Venipuncture - DH completed RACQUEL Craig [address] [place], [address], [place] [facility] 12/09/2021 22:42:18 cholecystectomy completed RACQUEL RASHEED [address] [place], [address], [place] [facility] 08/03/2021 18:54:33 excision of cyst of breast completed RACQUEL RASHEED [address] [place], [address], [place] [facility] 08/03/2021 18:54:40 procedure on eye completed RACQUEL AVALOS [address] [place], [address], [place] [facility] 08/03/2021 18:54:48 Imaging Results None recorded. Procedure Notes None recorded. Medical Equipment None Reported. Allergies Allergen ID Allergen Name Allergen Category Reaction Reaction Severity Criticality Documentation Date Start Date Code Code System Note Provider Name and Address Organization Details Recorded Time 863985 aspirin medicatio n Not available Not available Not available 08/03/2021 1191 RxNorm RACQUEL RASHEED [address], [place], [address], [place] [facility] 18:52:05 780323 Cipro medicatio n Not available Not available Not available 08/03/2021 68213 3 RxNorm RACQUEL RASHEED [address], [place], [address], [place] [facility] 18:52:30 213805 fentanyl medicatio n Not available Not available Not available 08/03/2021 4337 RxNoRACQUEL Valenzuela [address], [place], [address], [place] [facility] 18:52:38 158717 Product containin g 3-hydroxy -3-methyl glutaryl- coenzyme A reductase inhibitor (product) medicatio n Not available Not available Not available 08/03/2021 92704 009 SNOMED RACQUEL RASHEED [address], [place], [address], [place] [facility] 18:52:47 161345 prednison e medicatio n Not available Not available Not available 08/03/2021 8640 RxNorm RACQUEL RASHEED [address], [place], [address], [place] [facility] 18:52:54 562711 azithromy jaden medicatio n Not available Not available Not available 12/09/2021 00447 RxNorm RACQUEL Ray [address], [place], [address], [place] [facility] 2 20:12:33 Medications Name Sig Start Date Stop Date Status Note LastModified by Organization Details LastModified Time amoxicillin 500 mg capsule TAKE ONE CAPSULE BY MOUTH THREE TIMES A DAY FOR 10 DAYS active Not Available Not Available No t Available trazodone 50 mg tablet TAKE ONE TABLET BY MOUTH AT BEDTIME active Not Available Not Available No t Available azithromyci n 250 mg tablet TAKE 2 TABLETS BY MOUTH ON DAY 1, FOLLOWED BY 1 TABLET ONCE DAILY ON DAYS 2-5 10/09 completed Not Available Not Available Not Available citalopram 10 mg tablet TAKE ONE TABLET BY MOUTH EVERY DAY active Not Available Not Available No t Available methadone 10 mg tablet TAKE ONE TABLET BY MOUTH EVERY 8 HOURS NEEDED FOR PAIN active Not Available Not Available No t Available sucralfate 1 gram tablet TAKE ONE TABLET BY MOUTH FOUR TIMES A DAY active Not Available Not Available No t Available prednisone 20 mg tablet TAKE 2 TABLETS BY MOUTH FOR 4 DAYS THEN 1 TABLET BY MOUTH FOR 4 DAYS active Not Available Not Available No t Available Protonix 20 mg tablet,fátima yed release Take 2 tablets every day by oral route. active Not Available Not Available No t Available meclizine 12.5 mg tablet TAKE ONE TABLET BY MOUTH THREE TIMES A DAY NEEDED FOR DIZZINESS OR NAUSEA active Not Available Not Available No t Available acyclovir 400 mg tablet TAKE ONE TABLET BY MOUTH THREE TIMES A DAY FOR 10 DAYS active Not Available Not Available No t Available sulfamethox azole 800 mg-trimetho prim 160 mg tablet TAKE ONE TABLET BY MOUTH TWICE A DAY FOR 10 DAYS UNTIL FINISHED 10/09 completed Not Available Not Available Not Available olanzapine 2.5 mg tablet TAKE ONE TABLET BY MOUTH EVERY DAY AT BEDTIME 12/09 completed Not Available Not Available Not Available levothyroxi ne 75 mcg tablet TAKE ONE TABLET BY MOUTH EVERY DAY IN THE MORNING ON AN EMPTY STOMACH active Not Available Not Available No t Available lorazepam 0.5 mg tablet TAKE ONE TABLET BY MOUTH EVERY 8 HOURS NEEDED FOR UP TO 5 DAYS active Not Available Not Available No t Available ondansetron 4 mg disintegrat ing tablet DISSOLVE ONE TABLET BY MOUTH THREE TIMES A DAY NEEDED FOR NAUSEA active Not Available Not Available No t Available Vitals Date Recorded Heart rate Respiratory rate Body temperature Oxygen saturation Oxygen saturation in Arterial blood by Pulse oximetry Systolic blood pressure Diastolic blood pressure Provider Name and Address Organization Details Last Updated DateTime 1 62 /min 20 /min 97.9 [degF] 95 % 95 % 122 mm[Hg] 86 mm[Hg] Not Available [facility] 1 18:57:21 Date Recorded Oxygen saturation Oxygen saturation in Arterial blood by Pulse oximetry Body temperature Heart rate Respiratory rate Systolic blood pressure Diastolic blood pressure Provider Name and Address Organization Details Last Updated DateTime 2 97 % 97 % 98 [degF] 71 /min 18 /min 112 mm[Hg] 78 mm[Hg] Not Available [facility] 2 13:51:41 Date Recorded Oxygen saturation Oxygen saturation in Arterial blood by Pulse oximetry Respiratory rate Heart rate Body temperature Systolic blood pressure Diastolic blood pressure Provider Name and Address Organization Details Last Updated DateTime 2 95 % 95 % 16 /min 84 /min 99.8 [degF] 138 mm[Hg] 74 mm[Hg] Not Available [facility] 2 20:15:51 Social History Question Answer Notes LastModified by Organizat ion Details LastModified Time Tobacco Smoking Status Current Every Day Smoker 5 cigs x 30 years RACQUEL RASHEED [address] [place] [address], [address], [place] [facility] 08/03/2021 18:54:24 What Is Your Level Of Alcohol Consumption? None Information not available 08/03/2021 Do You Use Any Illicit Or Recreational Drugs? No Information not available 08/03/2021 Do You Or Have You Ever Used Any Other Forms Of Tobacco Or Nicotine? No Information not available 08/03/2021 Sex: Unknown Functional Status None recorded. Mental Status None recorded. Family History Relationship Description Onset Age of this Age Resolved Age Notes LastModified by Organization Details LastModified Time Father Malignant neoplastic disease [facility] Not available 10/09 13:48:39 Medical History Condition Response Diabetes N Coronary Artery Disease N CHF N Parkinson's Disease N Cancer N Stroke N Dementia N Hypothyroidism N Asthma N COPD N Depression N High Cholesterol N Rheumatoid Arthritis N Pulmonary Embolism N Hypertension N Osteoporosis N A-fib N Kidney Disease N Gynecological HistoryNo gynecological history recorded. Obstetrics History GPAL:G 0 P 0 0 0 0 Past Encounters Encounter ID Performer Location Encounter Start Date Encounter Closed Date Diagnosis/Indication Diagnosis SNOMED-CT Code Diagnosis ICD10 Code Diagnosis Note [id number] RACQUEL RASHEED [facility] [address] [place] [address] 08/03/2021 18:42:10 08/06/2021 10:47:05 Exposure to SARS-CoV-2 484316016 Z20.822 COVID-19 820082086 U07.1 History of Graves' disease 2120164237 96534 Z86.39 Cigarette smoker 8176256 7 F17.210 [id number] Lydia Gilman NP [facility] [address] [place] [address] 10/09/2021 13:45:34 10/11/2021 11:41:46 Malaise and fatigue 299037233 R53.81 Viral syndrome 616190636 B34.9 [id number] RACQUEL Johnson [facility] [address] [place] [address] 12/09/2021 20:07:38 12/10/2021 11:06:51 Malaise and fatigue 185318771 R53.81 Pain in throat 040593169 R07.0 Health Concerns Section Related Observation LastModified by Organization Detai ls LastModified Time None Recorded Concern Status LastModified by Organization Details LastModified Time None Recorded Advance Directives Directive None Recorded Payers Encounter Date Sequence Insurance Name Policy Number Policy Grewal Covered Member ID Grewal Member ID Guarantor Name 08/03/2021 1 [place]ARE [place] [facility] Mary Beth Khouryt [id number] Mary Beth Sanchez Vanwart 10/09/2021 1 [place] [facility] Mary Beth Sanchez Vanwart [id number] Mary Beth Sanchez Vanwart 12/09/2021 1 [place] [facility] Mary Beth Stewartwart [id number] Mary Beth Daniel Khouryt Notes Date Note Type Note Provider Name and Address Organization Details Recorded Time 08/03/2021 text/html 51 y/o F with PM H of Graves Disease, DJD, Early Heart Disease, ITP, Fibromyalgia, new to and new to provider, is seeking further evaluation for cough, fatigue, diarrhea, loss of taste, and body aches x 5 days. The patient states that she was exposed to her neighbors upstairs who were found to have been positive for COVID-19 today. The patient has a decreased appetite, but has been staying adequately hydrated with water and pedialyte. Patient denies any chest pain, shortness of breath, fevers, chills, abdominal pain, nausea, or vomiting. Patient is not vaccinated for COVID-19. RACQUEL RASHEED [address], [place], [address], [place] [facility] 08/03/2021 19:42:06 10/09/2021 text/html 51 year old know n to but new to provider with history of fibromyalgia, graves dx, ITP, anemia being seen today for overall malaise; Day 6 of worsening general body aches, headaches (had migraine at onset), this AM first fever 101 middle of night took tylenol. Sore throat, swollen glands, some int cough with yellow phlegm, 'beyond nausea despite zofran, meclizine. No vomiting. Diarrhea started last night. Able to drink, decreased solids. Had pneumonia, COVID in August, left ED AMA . Has white bumps in throat. Normally smokes 1PPD; now down to 5 a day due to illness. Lydia Gilman NP [address], [place], [address], [place] [facility] 10/09/2021 17:49:50 12/09/2021 text/html 51 YO F new to provider and known to Being seen today for > 1 month of sore throat, malaise, fatigueShe has been in contact w/ her PCP about this at length per her reportShe speaks w/ him multiple times per weekShe was prescribed amoxicillin to help w/ this however still having sx's. Of note she did not get rash when taking amoxicillin. Noone in her home is having similar sx's. She reports a complicated PMH. She reports neg covid and flu tests at onset of sx's w/ our service. She reports her PCP wants us to do a throat cx and mono test and relay him the results . Otherwise she denies fever/chills, abd pain, cp, SOB, numbness/tingling , focal weakness, ear pain. No other assoc sx's. RACQUEL Craig [address] [place], [address], [place] [facility] 12/09/2021 22:54:10 OBGyn Episode No OBEpisode recorded.
== END 2024-10-17 16:24 | disposition home or self-care (01) ==
PROVIDERS: PCP Internal Medicine; Visit Provider Internal Medicine
DX: E03.9 Hypothyroidism, unspecified (principal); G47.33 Obstructive sleep apnea (adult) (pediatric); J44.9 Chronic obstructive pulmonary disease, unspecified; R06.89 Other abnormalities of breathing
CPT/HCPCS: 99204

== ENCOUNTER 2024-10-17 15:53 | Outpatient (REF) | payer MEDICARE, SELFPAY ==
--- OUTSIDE RECORDS SUMMARY | 2024-10-17 16:28 | XMS_ITS | Continuity of Care Document ---
Author Organization [place], [facility] [place] Address [address] [place] [address] Assessment No assessment recorded. Plan of Treatment Reminders Order Date Submit Date Provider Last Modified By Organization Details Last Modified Time Details Appointments [facility] Virtual Visit 2024 03:00P M Bill Fonseca MD Not available Not available Not available Lab None recorded . Referral None recorded . Procedures None recorded . Surgeries None recorded . Imaging None recorded . Medication Orders None recorded . Patient TargetsNo targets recorded. Patient InstructionsNo instructions recorded. Reason for Referral None Reported. Problems Name Problem SNOMED Code Status Onset Date Resolution Date Notes Provider Name and Address Organization Details Recorded Time Sleep apnea 83197029 Active 2024 Bill Fonseca MD [address] [place] [address], [address] [place] [address], [address] , [facility] 5 10:29:23 Nausea 641855474 Active 2024 Crystal Laviolette null, [facility] 5 10:51:11 Hypothyro idism 59868691 Active 2024 Bill Fonseca MD [address] [place] [address], [address], [place], [address] , [facility] 5 14:18:06 Vitamin D deficienc y 44846814 Active 2024 Bill Fonseca MD [address] [place] [address], [address], [place], [address] , [facility] 5 16:30:29 Fibromyal nabil 533713505 Active 2019 Fibromyalg ia affecting upper arm Not Available [facility] 3 03:03:01 Gastroeso phageal reflux disease 603346550 Active 2019 GERD (gastroeso phageal reflux disease) Not Available [facility] 3 03:03:01 Cigarette smoker 95710171 Active 2019 Smoking greater than 20 pack years Not Available [facility] 3 03:03:01 Chronic low back pain 758853188 Active 2019 Chronic bilateral low back pain with bilateral sciatica Not Available [facility] 3 03:03:01 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 Medical Equipment None Reported. Allergies Allergen ID Allergen Name Allergen Category Reaction Reaction Severity Criticality Documentation Date Start Date Code Code System Note Provider Name and Address Organization Details Recorded Time 176772 Buspar medicatio n nausea Not available low 06/05/2023 15830 0 RxNorm Not Available Not Available Not Available 259264 clavulani c acid Not available vomiting Not available low 08/30/2024 34486 RxNorm Not Available Not Available Not Available 81073 aluminum aspirin Not available Not available Not available Not available 12/29/20222020 611 RxNorm Not Available Not Available Not Available 39886 ciproflox acin medicatio n Not available Not available Not available 12/29/20222020 2551 RxNorm React ion: Other (See Comme nts), sever ity: Sever e;Tem porar y paral ysis Not Available Not Available Not Available 89970 azithromy jaden medicatio n Not available Not available Not available 12/29/20222020 72687 RxNorm React ion: Diarr hea, sever ity: Sever e;Myrna ction : Nause a And Vomit ing, [...] Not Available Not Available Not Available Vitals None Recorded Social History Question Answer Notes LastModified by Organizat ion Details LastModified Time Tobacco Smoking Status Current Every Day Smoker Not Available [facility] 12/31/2022 02:24:28 What Is Your Level Of [...] not available 08/30/2024 Where Do You Live? [facility] Information not available 08/30/2024 How Long Have [...] Anxious, Or Unable To Sleep At Night)? [id number] Information not available 08/30/2024 Do You Use [...] Recorded Time Influenza, split virus, trivalent, preservative 02/04/201 9 completed Not Available [facility] 12/30/2022 07:57:04 DT (pediatric) 4 completed Not Available [facility] 12/30/2022 07:57:05 zoster recombinant 9 completed Not Available [facility] 12/30/2022 07:57:05 Tdap 9 completed Not Available [facility] 12/30/2022 07:57:05 pneumococcal polysaccharide PPV23 9 completed Not Available [facility] 12/30/2022 07:57:05 Past Encounters Encounter ID Performer Location Encounter Start Date Encounter Closed Date Diagnosis/Indication Diagnosis SNOMED-CT Code Diagnosis ICD10 Code Diagnosis Note [id number] Bill Fonseca MD [facility] [address] [place] [address] 08/30/2024 13:48:03 08/30/2024 14:50:35 Adult health examination 147081008 Z00.00 Mary Beth continues to be overwhelme [...] and cholestero l panel Bipolar I disorder 61168 6008 F31.9 Strongly urged patient to start [...] . 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 Gastroesop hageal reflux disease 516916381 K21.9 Will Protonix 40 mg daily and check for H. pylori breath test. We reviewed dyspepsia diet changes again Fibromyalgia M 79.7 Maintain methadone for her chronic pain. Cigarette smoker 8462843 7 F17.210 Which showed up she actually is able to quit smoking over the New Year's. [id number] Bill Fonseca MD [facility] [address] [place] [address] 09/24/2024 13:40:58 09/24/2024 14:39:37 Bipolar I disorder 234190558 F31.9 Will discontinu e Lexapro since the patient does not feel that it is helping much. 46 okay thank you. Very encouraged by the patient's incentive to schedule appointmen t with therapist which I hope will be a long-term solution for her. Hypothyroidism 58251552 E03.9 Still being awaiting her repeat TSH and free T4 levels will continue levothyrox ine at 75 mcg daily. 10-01-24: Reported TSH remains high on levothyrox ine 75 mcg daily. Patient agreed to increase dose but also requested to try brand-name Synthroid which she will call in and recheck in 6 weeks. ETL Cigarette smoker 9971641 7 F17.210 Hopefully she will eventually cut her smoking completely but right now she is tapering off and we are informed when she finally quit completely . Health Concerns Section Related Observation LastModified by Organization Detai ls LastModified Time None Recorded Concern Status LastModified by Organization Details LastModified Time None Recorded Payers Encounter Date Sequence Insurance Name Policy Number Policy Grewal Covered Member ID Grewal Member ID Guarantor Name 09/24/2024 1 MEDICARE B-[place]: [employer] Mary Beth Gil [id number] Mary Beth Stewart Tarunelvia Notes Date Note Type Note Provider Name and Address Organization Details Recorded Time 09/24/2024 text/html Virtual VisitReported bypatient.Patient identity verified by:Known established patient I shared my identity credentials with the patient:Yes Patient is currently located in the state of:[facility] Patient location:Home Provider location:I was located at [...] well as last visit. Bill Fonseca MD [address] [place] [address], [address], [place], [address], [place] [facility] 10/01/2024 14:18:08 OBGyn Episode No OBEpisode recorded.
[2024-10-17 16:49] LABS: VBG Base Excess 6.5 mmol/L; VBG HCO3 32 mmol/L (22-26); VBG pCO2 51 mmHg; VBG pO2 29 mmHg
[2024-10-17 16:50] LABS: Venous Blood Gas Refer to POC result
[2024-10-17 17:52] LABS: TSH reflex Free T4 3.81 uIU/mL (0.32-4.0)
== END 2024-10-17 15:54 | disposition home or self-care (01) ==
LOC: HO.LAB 15:53
PROVIDERS: PCP Internal Medicine; Visit Provider Internal Medicine
DX: E03.9 Hypothyroidism, unspecified (principal); R06.89 Other abnormalities of breathing; J44.9 Chronic obstructive pulmonary disease, unspecified; G47.33 Obstructive sleep apnea (adult) (pediatric)
CPT/HCPCS: 36415; 82803; 84443; 99202

== ENCOUNTER → 2024-10-28 19:30 | Outpatient (BNV) | payer MEDICARE, SELFPAY | PROVIDERS: PCP Internal Medicine; Visit Provider Internal Medicine | DX: G47.30 Sleep apnea, unspecified (principal) | CPT/HCPCS: 95810 ==

== ENCOUNTER → 2024-10-28 20:30 | Outpatient (REF) | payer MEDICARE, SELFPAY ==
--- OUTSIDE RECORDS SUMMARY | 2024-10-28 21:17 | XMS_ITS | Data Portability ---
Author Organization [place] - [place] Joshua farrell, [place]_[facility] [place] Address [address] [place] [address] Assessment No assessment recorded. Plan of Treatment Reminders Order Date Submit Date Provider Last Modified By Organization Details Last Modified Time Details Appointments [facility] 2024 10:40A M Bill Fonseca MD Not available Not available Not available Lab TSH + free T4, serum 2023 024 JONATHAN [facility] (Centralized Electronic Ordering - All Locations), Patient Can Go To The Location Of Their Choice, 10/01/2024 16:06:25 H pylori urea breath test, co2 infrared 2023 024 JONATHAN [facility] (Centralized Electronic Ordering - All Locations), Patient Can Go To The Location Of Their Choice, 10/01/2024 16:06:31 CBC w/ auto diff 2023 JONATHAN [facility] (Centralized Electronic Ordering - All Locations), Patient Can Go To The Location Of Their Choice, 10/01/2024 16:06:27 CMP, serum or plasma 2023 024 JONATHAN [facility] (Centralized Electronic Ordering - All Locations), Patient Can Go To The Location Of Their Choice, 10/01/2024 16:06:28 lipid panel, serum 2023 024 JONATHAN [facility] (Centralized Electronic Ordering - All Locations), Patient Can Go To The Location Of Their Choice, 10/01/2024 16:06:29 Referral None recorded. Procedures None recorded. Surgeries None recorded. Imaging holter monitor - palpitaio n 2022 023 [email or web address] [facility] (Outt Non-Invasive Cardiology Scheduling), [address] [place], [address], 07/03/2023 09:07:49 Medication Orders mirtazapi ne 7.5 mg tablet 2024 025 [facility], [address] [place] [address], [address], 10/21/2024 15:23:45 escitalop celestine 10 mg tablet 2023 024 [email or web address], [address] [place] [address], [address], 10/21/2024 15:16:50 Augmentin 875 mg-125 mg tablet 2023 024 [facility], [address] [place] [address], [address], 08/30/2024 14:14:18 chlorhexi dine gluconate 0.12 % mouthwash 2023 024 [facility], [address] [place] [address], [address], 08/21/2024 11:47:02 Pristiq 25 mg tablet,ex tended release 2022 023 [email or web address], [address] [place] [address], [address], 08/30/2024 14:16:07 Patient TargetsNo targets recorded. Patient InstructionsNo instructions recorded. Reason for Referral None Reported. Results Created Date Observation Date Name Description Value Unit Range Abnormal Flag Note LastModifiedBy Organization Detail LastModifiedTime 09/30/1910/01/2024 TSH+F REE T4 TSH 5.960 uIU/m L 0.450- 4.500 above high normal Not Available [facility] ([facility]) [address] [facility], [place], [address], 10/01/2024 16:06:25 09/30/19 25 10/01/2024 TSH+F REE T4 T4,free(dire ct) 1.39 NG/dL 0.82-1 .77 normal Not Available [facility] ([facility]) [address] [place], [address], 10/01/2024 16:06:25 09/30/19 25 09/30/2024 CBC WITH DIFFE RENTI AL/PL ATELE T WBC 7.3 x10e3 /uL 3.4-10 .8 normal Not Available [facility] ([facility]) [address] [place], [address], 10/01/2024 16:06:27 09/30/19 25 09/30/2024 CBC WITH DIFFE RENTI AL/PL ATELE T RBC 4.31 x10e6 /uL 3.77-5 .28 normal Not Available [facility] ([facility]) [address] [place], [address], 10/01/2024 16:06:27 09/30/19 25 09/30/2024 CBC WITH DIFFE RENTI AL/PL ATELE T hemoglobin 13.3 g/dL 11.1-1 5.9 normal Not Available [facility] ([facility]) [address] [place], [address], 10/01/2024 16:06:27 09/30/19 25 09/30/2024 CBC WITH DIFFE RENTI AL/PL ATELE T hematocrit 38.7 % 34.0-4 6.6 normal Not Available [facility] ([facility]) [address] [place], [address], 10/01/2024 16:06:27 09/30/19 25 09/30/2024 CBC WITH DIFFE RENTI AL/PL ATELE T MCV 90 fL 79-97 normal Not Available [facility] ([facility]) [address] [facility] [place], [address], 10/01/2024 16:06:27 09/30/19 25 09/30/2024 CBC WITH DIFFE RENTI AL/PL ATELE T MCH 30.9 pg 26.6-3 3.0 normal Not Available [facility] ([facility]) [address] [facility], [place], [address], 10/01/2024 16:06:27 09/30/19 25 09/30/2024 CBC WITH DIFFE RENTI AL/PL ATELE T MCHC 34.4 g/dL 31.5-3 5.7 normal Not Available [facility] ([facility]) [address] [facility], [place], [address], 10/01/2024 16:06:27 09/30/19 25 09/30/2024 CBC WITH DIFFE RENTI AL/PL ATELE T RDW 12.7 % 11.7-1 5.4 Not Available [facility] ([facility]) [address] [facility], [place], [address], 10/01/2024 16:06:27 09/30/19 25 09/30/2024 CBC WITH DIFFE RENTI AL/PL ATELE T platelets 296 x10e3 /uL 150-45 0 normal Not Available [facility] ([facility]) [address] [place], [address], 10/01/2024 16:06:27 09/30/19 25 09/30/2024 CBC WITH DIFFE RENTI AL/PL ATELE T neutrophils 59 % not estab. normal Not Available [facility] ([facility]) [address] [place], [address], 10/01/2024 16:06:27 09/30/19 25 09/30/2024 CBC WITH DIFFE RENTI AL/PL ATELE T lymphs 31 % not estab. normal Not Available [facility] ([facility]) [address] [place], [address], 10/01/2024 16:06:27 09/30/19 25 09/30/2024 CBC WITH DIFFE RENTI AL/PL ATELE T monocytes 7 % not estab. normal Not Available [facility] ([facility]) [address] [facility], [place], [address], 10/01/2024 16:06:27 09/30/19 25 09/30/2024 CBC WITH DIFFE RENTI AL/PL ATELE T eos 3 % not estab. normal Not Available [facility] ([facility]) [address] [place], [address], 10/01/2024 16:06:27 09/30/19 25 09/30/2024 CBC WITH DIFFE RENTI AL/PL ATELE T basos 0 % not estab. normal Not Available [facility] ([facility]) [address] [place], [address], 10/01/2024 16:06:27 09/30/19 25 09/30/2024 CBC WITH DIFFE RENTI AL/PL ATELE T immature cells CHANGE MANAGEMENT SPECIALIST Not Available [facility] ([facility]) [address] [place], [address], 10/01/2024 16:06:27 09/30/19 25 09/30/2024 CBC WITH DIFFE RENTI AL/PL ATELE T neutrophils (absolute) 4.2 x10e3 /uL 1.4-7. 0 normal Not Available [facility] ([facility]) [address] [place], [address], 10/01/2024 16:06:27 09/30/19 25 09/30/2024 CBC WITH DIFFE RENTI AL/PL ATELE T lymphs (absolute) 2.3 x10e3 /uL 0.7-3. 1 normal Not Available [facility] ([facility]) [address] [place], [address], 10/01/2024 16:06:27 09/30/19 25 09/30/2024 CBC WITH DIFFE RENTI AL/PL ATELE T monocytes(ab solute) 0.5 x10e3 /uL 0.1-0. 9 normal Not Available [facility] ([facility]) [address] [facility], [place], [address], 10/01/2024 16:06:27 09/30/19 25 09/30/2024 CBC WITH DIFFE RENTI AL/PL ATELE T eos (absolute) 0.3 x10e3 /uL 0.0-0. 4 normal Not Available [facility] ([facility]) [address] [place], [address], 10/01/2024 16:06:27 09/30/19 25 09/30/2024 CBC WITH DIFFE RENTI AL/PL ATELE T baso (absolute) 0.0 x10e3 /uL 0.0-0. 2 normal Not Available [facility] ([facility]) [address] [place], [address], 10/01/2024 16:06:27 09/30/19 25 09/30/2024 CBC WITH DIFFE RENTI AL/PL ATELE T immature granulocytes 0 % not estab. Not Available [facility] ([facility]) [address] [place], [address], 10/01/2024 16:06:27 09/30/19 25 09/30/2024 CBC WITH DIFFE RENTI AL/PL ATELE T immature grans (abs) 0.0 x10e3 /uL 0.0-0. 1 Not Available [facility] ([facility]) [address] [place], [address], 10/01/2024 16:06:27 09/30/19 25 09/30/2024 CBC WITH DIFFE RENTI AL/PL ATELE T NRBC CHANGE MANAGEMENT SPECIALIST Not Available [facility] ([facility]) [address] [place], [address], 10/01/2024 16:06:27 09/30/19 25 09/30/2024 CBC WITH DIFFE BEAR AL/SOLANGE [facility] hematology comments: CHANGE MANAGEMENT SPECIALIST Not Available [facility] ([facility]) [address], [place], [id number], 10/01/2024 16:06:27 09/30/19 25 10/01/2024 COMP. METAB OLIC PANEL (14) glucose 92 mg/dL 70-99 normal Not Available [facility] ([facility]) [address], [place], [id number], 10/01/2024 16:06:28 09/30/19 25 10/01/2024 COMP. METAB OLIC PANEL (14) BUN 15 mg/dL 6-24 normal Not Available [facility] ([facility]) [address], [place], [address], 10/01/2024 16:06:28 09/30/19 25 10/01/2024 COMP. METAB OLIC PANEL (14) creatinine 0.79 mg/dL 0.57-1 .00 normal Not Available [facility] ([facility]) [address], [place], [address], 10/01/2024 16:06:28 09/30/19 25 10/01/2024 COMP. METAB OLIC PANEL (14) eGFR 88 mL/mi n/1.7 3 >59 normal Not Available [facility] ([facility]) [address], [place], [id number], 10/01/2024 16:06:28 09/30/19 25 10/01/2024 COMP. METAB OLIC PANEL (14) BUN/creatini ne ratio 19 9-23 normal Not Available [facility] ([facility]) [address], [place], [id number], 10/01/2024 16:06:28 09/30/19 25 10/01/2024 COMP. METAB OLIC PANEL (14) sodium 142 mmol/ L 134-14 4 normal Not Available [facility] ([facility]) [address] [facility] [place], [address], 10/01/2024 16:06:28 09/30/19 25 10/01/2024 COMP. METAB OLIC PANEL (14) potassium 4.8 mmol/ L 3.5-5. 2 normal Not Available [facility] ([facility]) [address] [facility] [place], [address], 10/01/2024 16:06:28 09/30/19 25 10/01/2024 COMP. METAB OLIC PANEL (14) chloride 104 mmol/ L 96-106 normal Not Available [facility] ([facility]) [address] [facility] [place], [address], 10/01/2024 16:06:28 09/30/19 25 10/01/2024 COMP. METAB OLIC PANEL (14) carbon dioxide, total 22 mmol/ L 20-29 normal Not Available [facility] ([facility]) [address] [facility] [place], [address], 10/01/2024 16:06:28 09/30/19 25 10/01/2024 COMP. METAB OLIC PANEL (14) calcium 9.9 mg/dL 8.7-10 .2 normal Not Available [facility] ([facility]) [address] [facility] [place], [address], 10/01/2024 16:06:28 09/30/19 25 10/01/2024 COMP. METAB OLIC PANEL (14) protein, total 6.6 g/dL 6.0-8. 5 normal Not Available [facility] ([facility]) [address] [facility] [place], [address], 10/01/2024 16:06:28 09/30/19 25 10/01/2024 COMP. METAB OLIC PANEL (14) albumin 4.2 g/dL 3.8-4. 9 normal Not Available [facility] ([facility]) [address] [place], [id number], 10/01/2024 16:06:28 09/30/19 25 10/01/2024 COMP. METAB OLIC PANEL (14) globulin, total 2.4 g/dL 1.5-4. 5 Not Available [facility] ([facility]) [address] [place], [id number], 10/01/2024 16:06:28 09/30/19 25 10/01/2024 COMP. METAB OLIC PANEL (14) bilirubin, total 0.3 mg/dL 0.0-1. 2 normal Not Available [facility] ([facility]) [address] [place], [id number], 10/01/2024 16:06:28 09/30/19 25 10/01/2024 COMP. METAB OLIC PANEL (14) alkaline phosphatase 109 IU/L 44-121 normal Not Available [facility]) [address] [place], [id number], 10/01/2024 16:06:28 09/30/19 25 10/01/2024 COMP. METAB OLIC PANEL (14) AST (SGOT) 24 IU/L 0-40 normal Not Available [facility] ([facility]) [address] [facility] [place], [address], 10/01/2024 16:06:28 09/30/19 25 10/01/2024 COMP. METAB OLIC PANEL (14) ALT (SGPT) 17 IU/L 0-32 normal Not Available [facility] ([facility]) [address] [facility] [place], [id number], 10/01/2024 16:06:28 09/30/19 25 10/01/2024 LIPID PANEL cholesterol, total 237 mg/dL 100-19 9 above high normal Not Available [facility] ([facility]) [address] [place], [address], 10/01/2024 16:06:29 09/30/19 25 10/01/2024 LIPID PANEL triglyceride s 148 mg/dL 0-149 normal Not Available [facility] ([facility]) [address] [place], [id number], 10/01/2024 16:06:29 09/30/19 25 10/01/2024 LIPID PANEL HDL cholesterol 45 mg/dL >39 normal Not Available [facility]) [address] [place], [address], 10/01/2024 16:06:29 09/30/19 25 10/01/2024 LIPID PANEL VLDL cholesterol anay 27 mg/dL 5-40 Not Available [facility] ([facility]) [address] [facility] [place], [address], 10/01/2024 16:06:29 09/30/19 25 10/01/2024 LIPID PANEL LDL chol calc ([facility]) 165 mg/dL 0-99 above high normal Not Available [facility] ([facility]) [address] [place], [address], 10/01/2024 16:06:29 09/30/19 25 10/01/2024 LIPID PANEL LDL calc comment: CHANGE MANAGEMENT SPECIALIST Not Available [facility] ([facility]) [address] [facility] [place], [address], 10/01/2024 16:06:29 09/30/19 25 10/01/2024 H PYLOR I BREAT H TEST H pylori breath test NEGATI VE negati ve Not Available [facility] ([facility]) [address] [facility] [place], [address], 10/01/2024 16:06:31 09/07/19 24 davey r monit or No observ ation record ed. [facility] (Outt Non-Invasive Cardiology Scheduling) [address] [place], [address], 09/08/2023 08:37:08 12/09/19 24 12/09/2023 XR, abdom en No observ ation record ed. [email or web address] Not Available 12/10 13:22:50 12/27/19 24 12/25/2023 CT, abdom en + pelvi s, w/ contr ast No observ ation record ed. [facility] [address] [place], [address], 12/27/2023 17:34:41 Result Notes None recorded. Problems Name Problem SNOMED Code Status Onset Date Resolution Date Notes Provider Name and Address Organization Details Recorded Time Sleep apnea 45963091 Active 2024 Bill Fonseca MD [address] [place] [address], [address] Floor, [place], [address] , [place] [facility] 5 10:29:23 Nausea 727555225 Active 2024 Crystal Laviolette null, [place] [facility] 5 10:51:11 Hypothyro idism 87070460 Active 2024 Bill Fonseca MD [address] [place] [address], [address] Floor, [place], [address] , [place] [facility] 5 14:18:06 Vitamin D deficienc y 19072049 Active 2024 Bill Fonseca MD [address] [place] [address], [facility] Floor, [place], [address] , [place] [facility] 5 16:30:29 Fibromyal nabil 876952526 Active 2019 Fibromyalg ia affecting upper arm Not Available [facility] 3 03:03:01 Gastroeso phageal reflux disease 443291745 Active 2019 GERD (gastroeso phageal reflux disease) Not Available [facility] 3 03:03:01 Cigarette smoker 62911702 Active 2019 Smoking greater than 20 pack years Not Available [facility] 3 03:03:01 Chronic low back pain 779680718 Active 2019 Chronic bilateral low back pain with bilateral sciatica Not Available [facility] 3 03:03:01 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 Procedures Surgical History None recorded. Imaging Results Imaging Date Name Status LastModified by Organiz ation Details LastModified Time 09/07/2023 holter monitor completed [facility] (Outt Non-Invasive Cardiology Scheduling) [address] [place] [address], [address], 09/08/2023 08:37:08 12/09/2023 XR, abdomen [place] [address] Information n ot available 12/11/2023 13:22:50 12/25/2023 CT, abdomen + pelvis, w/ contrast completed [facility] [address] [place] [address], [address], 12/27/2023 17:34:41 Procedure Notes None recorded. Medical Equipment None Reported. Allergies Allergen ID Allergen Name Allergen Category Reaction Reaction Severity Criticality Documentation Date Start Date Code Code System Note Provider Name and Address Organization Details Recorded Time 725348 Buspar medicatio n nausea Not available low 06/05/2023 42230 0 RxNorm Not Available Not Available Not Available 529034 clavulani c acid Not available vomiting Not available low 08/30/2024 59965 RxNorm Not Available Not Available Not Available 09623 aluminum aspirin Not available Not available Not available Not available 12/29/20222020 611 RxNorm Not Available Not Available Not Available 61917 ciproflox acin medicatio n Not available Not available Not available 12/29/20222020 2551 RxNorm React ion: Other (See Comme nts), sever ity: Sever e;Tem porar y paral ysis Not Available Not Available Not Available 63996 azithromy jaden medicatio n Not available Not available Not available 12/29/20222020 19066 RxNorm React ion: Diarr hea, sever ity: [...] MOUTH EVERY MORNING ON AN EMPTY STOMACH 10/18 completed Not Available Not Available Not Available levothyroxi ne 100 mcg tablet Take [...] A DAY NEEDED FOR ANXIETY OR ITCHING 10/21 completed Not Available Not Available Not Available ondansetron 4 mg disintegrat ing tablet [...] TAKE ONE TABLET BY MOUTH EVERY DAY 10/21 completed Not Available Not Available Not Available mirtazapine 7.5 mg tablet Take 1 tablet every day by oral route. 2024 active Not Available Not Available Not Avai lable chlorhexidi ne gluconate 0.12 % mouthwash PLACE [...] and Address Organization Details Last Updated DateTime 154.94 cm 20.8 kg/m2 69309.1 6 g 98 % 98 % 64 /min 120 mm[Hg] 68 mm[Hg] Amy smith [place] [facility] 14:09:43 Social History Question Answer Notes LastModified by Organizat ion Details LastModified Time Tobacco Smoking Status Current Every Day Smoker Not Available [facility] 12/31/2022 02:24:28 What Is Your Level Of [...] available 08/30/2024 [facility] Information not available 08/30/2024 How Long Have [...] Anxious, Or Unable To Sleep At Night)? [id number] Information not available 08/30/2024 Do You Use [...] virus, trivalent, preservative 9 completed Not Available [facility] 12/30/2022 07:57:04 DT (pediatric) 4 completed Not Available [facility] 12/30/2022 07:57:05 zoster recombinant 9 completed Not Available [facility] 12/30/2022 07:57:05 Tdap 9 completed Not Available [facility] 12/30/2022 07:57:05 pneumococcal polysaccharide PPV23 9 completed Not Available [facility] 12/30/2022 07:57:05 Past Encounters Encounter ID Performer Location Encounter Start Date Encounter Closed Date Diagnosis/Indication Diagnosis SNOMED-CT Code Diagnosis ICD10 Code Diagnosis Note [id number] Bill Fonseca MD [facility]_ [facility]_[address] [facility] [address] [place] [address] 04/14/2023 13:56:44 04/14/2023 15:27:39 Influenza-like symptoms 266249703 R68.89 We will start patient on amoxicilli n 500 mg 3 times a day for probable infectious lesion in the mouth. Patient will check for COVID and symptomati c treatment. Advised patient to keep her fluids up so that she will get dehydrated . She will call us if COVID turns out positive. [id number] Bill Fonseca MD [facility] [address] [place] [address] 06/05/2023 09:32:04 06/05/2023 15:45:53 Anxiety state 167858098 F41.1 So we talked about trying something [...] recheck in a few months. ETL Palpitations 68289097 R0 0.2 We will send her for 24-hour Holter monitor and if it is normal we will send her for an echocardio gram and if it is normal we will send her for a stress test. [id number] MD ROYER Zuñiga_[facility]_ IM_[address] [place] [address] 08/21/2024 11:11:05 08/21/2024 11:48:47 Sore throat 131182810 J02.9 Possible possible infected cyst or viral ulceration of the throat. We will treat her with Augmentin 875 mg twice a day and if she is not improving we will have to have her come in and have us check her out in person. We will also add Hibiclens gargle in case it is a cold sore. [id number] Bill Fonseca MD [facility]16 [address] [place] [address] 08/30/2024 13:48:03 08/30/2024 14:50:35 Adult health examination 681957071 Z00.00 Mary Beth continues to be overwhelme [...] and cholestero l panel Bipolar I disorder 69629 6008 F31.9 Strongly urged patient to start [...] . 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 Gastroesop hageal reflux disease 990811053 K21.9 Will Protonix 40 mg daily and check for H. pylori breath test. We reviewed dyspepsia diet changes again Fibromyalgia 172981532 M 79.7 Maintain methadone for her chronic pain. Cigarette smoker 8648120 7 F17.210 Which showed up she actually is able to quit smoking over the New Year's. [id number] Bill Fonseca MD [facility]_ [facility]16 [address] [place] [address] 09/24/2024 13:40:58 09/24/2024 14:39:37 Bipolar I disorder 824796181 F31.9 Will discontinu e Lexapro since the patient does not feel that it is helping much. 46 okay thank you. Very encouraged by the patient's incentive to schedule appointmen t with therapist which I hope will be a long-term solution for her. Hypothyroidism 61895769 E03.9 Still being awaiting her repeat TSH and free T4 levels will continue levothyrox ine at 75 mcg daily. 10-01-24: Reported TSH remains high on levothyrox ine 75 mcg daily. Patient agreed to increase dose but also requested to try brand-name Synthroid which she will call in and recheck in 6 weeks. ETL 10-18-24: Reported normal TSH levels on levothyrox ine 88 mcg daily. Patient also feels much better so we will continue present dose and continue to monitor in few months. ETL Cigarette smoker 5692276 7 F17.210 Hopefully she will eventually cut her smoking completely but right now she is tapering off and we are informed when she finally quit completely . [id number] Bill Fonseca MD [facility]_ [facility]16 [address] [place] [address] 10/21/2024 13:24:18 10/21/2024 15:35:24 Bipolar I disorder 614719351 F31.9 Discussed different options and would try her on mirtazapin e 7.5 mg at bedtime to help her with her insomnia as well as bipolar disorder and maybe even improve her appetite. We will follow her up in 1 month to reassess these issues. Hypothyroidism 79039563 E03.9 Seems to be doing well on levothyrox ine 88 mcg daily with normal TSH levels on that dose. Will continue present management and recheck in 6 months. Cigarette smoker 7739411 7 F17.210 Eagerly waiting sleep study but continue to encourage patient to quit smoking completely . Health Concerns Section Related Observation LastModified by Organization Detai ls LastModified Time None Recorded Concern Status LastModified by Organization Details LastModified Time None Recorded Advance Directives Directive None Recorded Payers Encounter Date Sequence Insurance Name Policy Number Policy Grewal Covered Member ID Grewal Member ID Guarantor Name 06/05/2023 1 [place] [employer] Mary Beth Stewartenid [id number] Mary Beth Van Wart 08/21/2024 1 [place]ICARE [place]: [place] Mary Beth Stewartenid [id number] Mary Beth Van Wart 08/30/2024 1 [place]ICARE [place]: NGS Mary Beth Sanchez Louise [id number] Mary Beth Van Wart 09/24/2024 1 [place]ICARE [place]: NGS Mary Beth Stewartfelishat [id number] Mary Beth Van Wart 10/21/2024 1 MEDICARE [place]: NGS Mary Beth Stewartfelishat [id number] Mary Beth Van Wart Notes Date Note Type Note Provider Name and Address Organization Details Recorded Time 06/05/2023 text/html Virtual VisitRep orted bypatient.Patient identity verified by:Known established patient I shared my identity credentials with the patient:Yes Patient is currently located in the state of:[place]; [place] Patient location:Home Provider location:I was located at [...] issue in the past. Bill Fonseca MD [address] [place] [address], [address] Floor, [place], [address], [facility] 09/08/2023 08:14:54 08/21/2024 text/html Virtual VisitRep orted bypatient.Patient identity verified by:Known established patient I shared my identity credentials with the patient:Yes Patient is currently located in the state of:[facility] Patient location:Home Provider location:I was located [...] from the throat area. Bill Fonseca MD [address] [place] [address], [address] [place] [address], [phone], [facility] 08/21/2024 11:47:20 08/30/2024 text/html Mary Beth is [...] quitting this new year. Bill Fonseca MD [address] [place] [address], [address] [place] [address], [phone], [facility] 08/30/2024 15:09:00 09/24/2024 text/html Virtual VisitRep orted bypatient.Patient identity verified by:Known established patient I shared my identity credentials with the patient:Yes Patient is currently located in the state of:[facility] Patient location:Home Provider location:I was located [...] well as last visit. Bill Fonseca MD [address] [place] [address], [address] [place] [address], [phone], [facility] 10/18/2024 12:26:29 10/21/2024 text/html Virtual VisitRep orted bypatient.Patient identity verified by:Known established patient I shared my identity credentials with the patient:Yes Patient is currently located in the state of:[facility] Patient location:Home Provider location:I was located at my office I educated the patient on the nature of a virtual visit:Yes Emergency plan agreed upon:Yes The patient was seen through synchronous audio and video technology:Yes Any documented vital signs were obtained during the telehealth visit via: Mary Beth seen today for follow-up of her bipolar disorder, hypothyroidism and hypoxemia. She recently had a TSH level done after levothyroxine was increased to 88 mcg daily and she feels much better on the higher dose. TSH levels were within normal limits on this present dose after 1 month of medication. She was also seen recently by pulmonary medicine due to hypoxemia and she is scheduled for sleep study but continue to encourage her to quit smoking which she is still now at half a pack a day. Still feeling depressed off Lexapro which she felt was not helping her at all. And she is still trying to get to increase her weight more having poor appetite in spite of taking the Lexapro in the past. She also has difficulty sleeping and is in the process of having a new psychiatrist appointment. Bill Fonseca MD [address] [place] [address], [address] [place] [address], [phone], [facility] 10/21/2024 15:31:34 OBGyn Episode No OBEpisode recorded.
--- OUTSIDE RECORDS SUMMARY | 2024-10-28 21:18 | XMS_ITS | Clinical Summary ---
Author Organization [facility] Address [address] [place] [address] Care Team Providers Care Rake Operator Name Role Phone Bill Fonseca MD Primary Care Provider [phone] Allergies Active Allergy Reactions Criticality Noted Date [...] age to complete this topic Care Teams Rake Operator Relationship Specialty Start Date End Date Bill Fonseca MD PCP - General Internal Medicine 10/18/19
--- OUTSIDE RECORDS SUMMARY | 2024-10-28 21:18 | XMS_ITS | Continuity of Care Document ---
Author Organization [facility], [place]_[facility]_16 [place] Address [address] [place] [address] Assessment No assessment recorded. Plan of Treatment Reminders Order Date Submit Date Provider Last Modified By Organization Details Last Modified Time Details Appointments [facility] Virtual Visit 2024 10:40A M Bill Fonseca MD Not available Not available Not available Lab None recorded. Referral None recorded. Procedures None recorded. Surgeries None recorded. Imaging None recorded. Medication Orders mirtazapi ne 7.5 mg tablet 2024 025 [id number], [address] [place], [address], 10/21/2024 15:23:45 Patient TargetsNo targets recorded. Patient InstructionsNo instructions recorded. Reason for Referral None Reported. Problems Name Problem SNOMED Code Status Onset Date Resolution Date Notes Provider Name and Address Organization Details Recorded Time Sleep apnea 62156142 Active 2024 Bill Fonseca MD [address] [place] [address], [facility], [place], [address] , [facility] 5 10:29:23 Nausea 845590662 Active 2024 Crystal Amirahmick oseguera, [facility] [place] 5 10:51:11 Hypothyro idism 10599600 Active 2024 Bill Fonseca MD [address] [place] [address], [address] Floor, [place], [address] , [facility] [place] 5 14:18:06 Vitamin D deficienc y 07753494 Active 2024 Bill Fonseca MD [address] [place] [address], [address] Floor, [place], [address] , [place] [facility] 5 16:30:29 Fibromyal nabil 343545517 Active 2019 Fibromyalg ia affecting upper arm Not Available [facility] 3 03:03:01 Gastroeso phageal reflux disease 897278739 Active 2019 GERD (gastroeso phageal reflux disease) Not Available [facility] 3 03:03:01 Cigarette smoker 73202803 Active 2019 Smoking greater than 20 pack years Not Available [facility] 3 03:03:01 Chronic low back pain 517133617 Active 2019 Chronic bilateral low back pain with bilateral sciatica Not Available [facility] 3 03:03:01 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 618075193 Active 2020 Hypothyroi dism due to Renetta' s thyroiditi s Not Available [facility] 3 03:03:01 Bipolar I disorder 058572522 Active 2021 Bipolar 1 disorder Not Available [facility] 3 03:03:01 Migraine without aura 70699183 Active 2021 Migraine without aura or status migrainosu s Not Available [facility] 3 03:03:01 Problem Notes None recorded. Medical Equipment None Reported. Allergies Allergen ID Allergen Name Allergen Category Reaction Reaction Severity Criticality Documentation Date Start Date Code Code System Note Provider Name and Address Organization Details Recorded Time 297711 Buspar medicatio n nausea Not available low 06/05/2023 24964 0 RxNorm Not Available Not Available Not Available 362942 clavulani c acid Not available vomiting Not available low 08/30/2024 33192 RxNorm Not Available Not Available Not Available 43778 aluminum aspirin Not available Not available Not available Not available 12/29/20222020 611 RxNorm Not Available Not Available Not Available 94006 ciproflox acin medicatio n Not available Not available Not available 12/29/20222020 2551 RxNorm React ion: Other (See Comme nts), sever ity: Sever e;Tem porar y paral ysis Not Available Not Available Not Available 57663 azithromy jaden medicatio n Not available Not available Not available 12/29/20222020 52308 RxNorm React ion: Diarr hea, sever ity: Sever e;Fonda ction : Nause a And Vomit ing, [...] Status Current Every Day Smoker Not Available [facility] 12/31/2022 02:24:28 What Is Your Level Of [...] not available 08/30/2024 Where Do You Live? [facility] Information not available 08/30/2024 How Long [...] Anxious, Or Unable To Sleep At Night)? ON42061-5 Information not available 08/30/2024 Do You Use [...] virus, trivalent, preservative 9 completed Not Available [facility] 12/30/2022 07:57:04 DT (pediatric) 4 completed Not Available [facility] 12/30/2022 07:57:05 zoster recombinant 9 completed Not Available [facility] 12/30/2022 07:57:05 Tdap 9 completed Not Available [facility] 12/30/2022 07:57:05 pneumococcal polysaccharide PPV23 9 completed Not Available [facility] 12/30/2022 07:57:05 Past Encounters Encounter ID Performer Location Encounter Start Date Encounter Closed Date Diagnosis/Indication Diagnosis SNOMED-CT Code Diagnosis ICD10 Code Diagnosis Note [id number] Bill Fonseca MD [place] [address] [place] [address] 09/24/2024 13:40:58 09/24/2024 14:39:37 Bipolar I disorder 499388447 F31.9 Will discontinu e Lexapro since the patient does not feel that it is helping much. 46 okay thank you. Very encouraged by the patient's incentive to schedule appointmen t with therapist which I hope will be a long-term solution for her. Hypothyroidism 76670416 E03.9 Still being awaiting her repeat TSH [...] monitor in few months. ETL Cigarette smoker 2316475 7 F17.210 Hopefully she will eventually cut her smoking completely but right now she is tapering off and we are informed when she finally quit completely . [id number] Bill Fonseca MD [place] [address] [place] [address] 10/21/2024 13:24:18 10/21/2024 15:35:24 Bipolar I disorder 990946066 F31.9 Discussed different options and would try her on mirtazapin e 7.5 mg at bedtime to help her with her insomnia as well as bipolar disorder and maybe even improve her appetite. We will follow her up in 1 month to reassess these issues. Hypothyroidism 32226779 E03.9 Seems to be doing well on levothyrox ine 88 mcg daily with normal TSH levels on that dose. Will continue present management and recheck in 6 months. Cigarette smoker 0382356 7 F17.210 Eagerly waiting sleep study but continue to encourage patient to quit smoking completely . Health Concerns Section Related Observation LastModified by Organization Detai ls LastModified Time None Recorded Concern Status LastModified by Organization Details LastModified Time None Recorded Payers Encounter Date Sequence Insurance Name Policy Number Policy Grewal Covered Member ID Grewal Member ID Guarantor Name 10/21/2024 1 MEDICARE B-CT: NGS Mary Beth Gil [id number] Mary Beth Stewart Tarun[employer] Notes Date Note Type Note Provider Name and Address Organization Details Recorded Time 10/21/2024 text/html Virtual VisitReported bypatient.Patient identity verified by:Known established patient I shared my identity credentials with the patient:Yes Patient is currently located in the state of:[facility] Patient location:Home Provider location:I was located [...] a new psychiatrist appointment. Bill Fonseca MD [address] [place] [address], [address], [place], [address], [place] [facility] 10/21/2024 15:31:34 OBGyn Episode No OBEpisode recorded.
--- OUTSIDE RECORDS SUMMARY | 2024-10-28 21:18 | XMS_ITS | Data Portability ---
Author Organization [place] - [facility] Address [address] [place] [address] Care Team Providers Care Electrician Research Name Role Phone GWEN MARTINI Primary Care Provider Assessment Encounter Date Assessment Date Assessment LastModified [...] is a candidate for monoclonal antibody treatment. call center specialist provider, Dr. Rodriguez, states she will contact [...] after care of this patient according to [facility]'s infection prevention protocols. Not available 08/03/2021 19:41:38 [...] after care of this patient according to [facility] infection [facility]. brenna Not available 10/09/2021 [...] blood tests all collected and brought to [facility], pend Rapid mono and strep neg Strep [...] today. Time On Scene with Patient: 01:21:08 crumplik Not available 12/09/2021 22:53:57 Plan of Treatment Reminders Order Date Submit Date Provider Last Modified By Organization Details Last Modified Time Details Appointments None recorded. Lab rapid strep group A, throat 2021 crumplik [facility], [address] [place], [address], 21:17:08 streptoco ccus group A, culture, throat 2021 JONATHAN [facility] (Centralized Electronic Ordering - All Locations), Patient Can Go To The Location Of Their Choice, 06:58:48 mononucle osis, heterophi le Ab, blood 2021 crumplik [facility], [address] [facility], [place], [address], 21:17:10 tiff-b arr virus (ebv) IgG + IgM panel, serum 2021 JONATHAN [facility] (Centralized Electronic Ordering - All Locations), Patient Can Go To The Location Of Their Choice, 16:08:27 carboxyhe moglobin (co), blood 2021 JONATHAN [facility] (Centralized Electronic Ordering - All Locations), Patient Can Go To The Location Of Their Choice, 05:57:25 BMP, serum or plasma 2021 JONATHAN [facility] (Centralized Electronic Ordering - All Locations), Patient Can Go To The Location Of Their Choice, 06:13:30 CBC w/ auto diff 2021 JONATHAN [facility] (Centralized Electronic Ordering - All Locations), Patient Can Go To The Location Of Their Choice, 05:48:01 rapid flu (A+B) 02/05/ 2022 02/05/2 [facility], [address], [place], [address], 17:49:27 rapid SARS CoV 2 Ag, QL IA, respirato ry specimen 2021 [facility], [address], [place], [address], 2 17:49:25 rapid SARS CoV + SARS CoV 2 Ag, QL IA, respirato ry specimen 2020 021 [facility], [address], [place], [address], 19:12:26 Referral None recorded. Procedures None recorded. Surgeries None recorded. Imaging None recorded. Medication Orders None recorded. Patient TargetsNo targets recorded. Patient Instructions Encounter Date Encounter Id Patient Instructions Last Modified By Organization Details Last Modified Time 08/03/2021 [id number] Thank you for yo ur visit with [facility] today. We cannot always find the exact [...] in your condition between 8am-10pm, please call [facility] at [phone] to help navigate your care. Not available 08/03/2021 19:41:56 10/09/2021 [id number] -You were seen today for general malaise, [...] if any worsening fever, cough, vomiting, diarrhea [facility] Not available 10/09/2021 14:43:24 Reason for Referral None Reported. Results Created Date Observation Date Name Description Value Unit Range Abnormal Flag Note LastModifiedBy Organization Detail LastModifiedTime 08/03/20 21 08/03/2021 rapid SARS CoV + SARS CoV 2 Ag, QL IA, respi rator y speci men Covid-19 (ref: neg) positi ve Not Available [facility] - Home [address] [place], [address], 08/03/2021 18:59:14 08/03/20 21 08/03/2021 rapid SARS CoV + SARS CoV 2 Ag, QL IA, respi rator y speci men Control Visual ized/V alid Not Available [facility] - Home [address] [place], [address], 08/03/2021 18:59:14 08/03/20 21 08/03/2021 rapid SARS CoV + SARS CoV 2 Ag, QL IA, respi rator y speci men Location [facility], [address] [place] [address], [id number] Not Available [facility] - Home [address] [place], [address], 08/03/2021 18:59:14 10/09/19 22 10/09/2021 rapid SARS CoV 2 Ag, QL IA, respi rator y speci men Covid-19 (ref: neg) negati ve Not Available [facility] - Home [address] [place], [address], 10/09/2021 17:45:52 10/09/19 22 10/09/2021 rapid SARS CoV 2 Ag, QL IA, respi rator y speci men Control Visual ized/V alid Not Available [facility] - Home [address] [place], [address], 10/09/2021 17:45:52 10/09/19 22 10/09/2021 rapid SARS CoV 2 Ag, QL IA, respi rator y speci men Location [facility], [address] [place] [address], [id number] Not Available [facility] - Home [address] [place] [address], [address], 10/09/2021 17:45:52 10/09/19 22 10/09/2021 rapid flu (A+B) Flu A (ref: neg) negati ve Not Available [facility] - Home [address] [place] [address], [address], 10/09/2021 17:45:29 10/09/19 22 10/09/2021 rapid flu (A+B) Flu B (ref: neg) negati ve Not Available [facility] - [address], [address], 10/09/2021 17:45:29 10/09/19 22 10/09/2021 rapid flu (A+B) Control Visual ized/V alid Not Available [facility] - Home [address] [place] [address], [address], 10/09/2021 17:45:29 10/09/19 22 10/09/2021 rapid flu (A+B) Location [facility], [address] [place] [address], [phone] Not Available [facility] - Home [address] [place] [address], [address], 10/09/2021 17:45:29 12/10/19 22 12/10/2021 COMPL ETE CBC WITH DIFF WBC 6.2 K/mm3 (4.0-1 1.0) Not Available [facility] (Centralized Electronic Ordering - All Locations) Patient Can Go To The Location Of Their Choice, [id number] 12/10/2021 05:48:01 12/10/19 22 12/10/2021 COMPL ETE CBC WITH DIFF RBC 4.17 M/mm3 (4.20- 5.40) low Not Available [facility] (Centralized Electronic Ordering - All Locations) Patient Can Go To The Location Of Their Choice, 12/10/2021 05:48:01 12/10/1912/10/2021 COMPL ETE CBC WITH DIFF HGB 12.7 gm/dL (11.7- 15.5) Not Available [facility] (Centralized Electronic Ordering - All Locations) Patient Can Go To The Location Of Their Choice, 12/10/2021 05:48:12/10/1912/10/2021 COMPL ETE CBC WITH DIFF HCT 38.7 % (35.7- 45.8) Not Available [facility] (Centralized Electronic Ordering - All Locations) Patient Can Go To The Location Of Their Choice, 12/10/2021 05:48:12/10/1912/10/2021 COMPL ETE CBC WITH DIFF MCV 92.8 fL (80.0- 100.0) Not Available [facility] (Centralized Electronic Ordering - All Locations) Patient Can Go To The Location Of Their Choice, 12/10/2021 05:48:12/10/1912/10/2021 COMPL ETE CBC WITH DIFF MCH 30.5 pg (27.0- 34.0) Not Available [facility] (Centralized Electronic Ordering - All Locations) Patient Can Go To The Location Of Their Choice, 12/10/2021 05:48:12/10/1912/10/2021 COMPL ETE CBC WITH DIFF MCHC 32.8 g/dL (33.0- 37.0) low Not Available [facility] (Centralized Electronic Ordering - All Locations) Patient Can Go To The Location Of Their Choice, 12/10/2021 05:48:01 12/10/1912/10/2021 COMPL ETE CBC WITH DIFF plt 226 K/mm3 (150-4 60) Not Available [facility] (Centralized Electronic Ordering - All Locations) Patient Can Go To The Location Of Their Choice, 12/10/2021 05:48:12/10/1912/10/2021 COMPL ETE CBC WITH DIFF RDW-SD 44.0 fL (<47.0 ) Not Available [facility] (Centralized Electronic Ordering - All Locations) Patient Can Go To The Location Of Their Choice, 12/10/2021 05:48:01 12/10/192022 COMPL ETE CBC WITH DIFF MPV 9.5 fL (9.4-1 2.4) Not Available [facility] (Centralized Electronic Ordering - All Locations) Patient Can Go To The Location Of Their Choice, 12/10/2021 05:48:01 12/10/19 22 12/10/2021 COMPL ETE CBC WITH DIFF automated NRBC 0.0 #/100 _WBC' s Not Available [facility] (Centralized Electronic Ordering - All Locations) Patient Can Go To The Location Of Their Choice, 12/10/2021 05:48:01 12/10/19 22 12/10/2021 COMPL ETE CBC WITH DIFF abs. NRBC 0.0 K/mm3 Not Available [facility] (Centralized Electronic Ordering - All Locations) Patient Can Go To The Location Of Their Choice, 12/10/2021 05:48:01 12/10/1912/10/2021 COMPL ETE CBC WITH DIFF neut # 3.1 K/mm3 (1.3-7 .0) Not Available [facility] (Centralized Electronic Ordering - All Locations) Patient Can Go To The Location Of Their Choice, 12/10/2021 05:48:01 12/10/1912/10/2021 COMPL ETE CBC WITH DIFF lymph # 2.5 K/mm3 (0.8-3 .1) Not Available [facility] (Centralized Electronic Ordering - All Locations) Patient Can Go To The Location Of Their Choice, 12/10/2021 05:48:01 12/10/1912/10/2021 COMPL ETE CBC WITH DIFF mono# 0.5 K/mm3 (0.4-0 .9) Not Available [facility] (Centralized Electronic Ordering - All Locations) Patient Can Go To The Location Of Their Choice, 12/10/2021 05:48:01 12/10/1912/10/2021 COMPL ETE CBC WITH DIFF eo # 0.1 K/mm3 (0.0-0 .4) Not Available [facility] (Centralized Electronic Ordering - All Locations) Patient Can Go To The Location Of Their Choice, 12/10/2021 05:48:01 12/10/1912/10/2021 COMPL ETE CBC WITH DIFF baso # 0.0 K/mm3 (0.0-0 .1) Not Available [facility] (Centralized Electronic Ordering - All Locations) Patient Can Go To The Location Of Their Choice, 12/10/2021 05:48:01 12/10/1912/10/2021 COMPL ETE CBC WITH DIFF abs. imm gran 0.0 K/mm3 Not Available [facility] (Central[facility] Ordering - All Locations) Patient Can Go To The Location Of Their Choice, 12/10/2021 05:48:01 12/10/1912/10/2021 COMPL ETE CBC WITH DIFF neut 49.6 % (44-76 ) Not Available [facility] (Centralized Electronic Ordering - All Locations) Patient Can Go To The Location Of Their Choice, 12/10/2021 05:48:01 12/10/1912/10/2021 COMPL ETE CBC WITH DIFF lymph 40.2 % (15-43 ) Not Available [facility] (Centralized Electronic Ordering - All Locations) Patient Can Go To The Location Of Their Choice, 12/10/2021 05:48:01 12/10/1912/10/2021 COMPL ETE CBC WITH DIFF monocyte 7.3 % (4.5-1 0.5) Not Available [facility] (Centralized Electronic Ordering - All Locations) Patient Can Go To The Location Of Their Choice, 12/10/2021 05:48:01 12/10/1912/10/2021 COMPL ETE CBC WITH DIFF eo 2.1 % (0-6) Not Available [facility] (Centralized Electronic Ordering - All Locations) Patient Can Go To The Location Of Their Choice, 12/10/2021 05:48:01 12/10/1912/10/2021 COMPL ETE CBC WITH DIFF baso 0.5 % (0-2) Not Available [facility] (Centralized Electronic Ordering - All Locations) Patient Can Go To The Location Of Their Choice, 12/10/2021 05:48:01 12/10/1912/10/2021 COMPL ETE CBC WITH DIFF imm gran 0.3 % Not Available [facility] (Centralized Electronic Ordering - All Locations) Patient Can Go To The Location Of Their Choice, 12/10/2021 05:48:01 12/10/1912/10/2021 CARBO XYHEM OGLOB IN carboxyhemog lobin 7 % (0-5.0 ) high Not Available [facility] (Centralized Electronic Ordering - All Locations) Patient Can Go To The Location Of Their Choice, 12/10/2021 05:57:25 12/10/1912/10/2021 BASIC METAB OLIC PANEL glucose 79 mg/dL (70-99 ) Not Available [facility] (Centralized Electronic Ordering - All Locations) Patient Can Go To The Location Of Their Choice, 12/10/2021 06:13:30 12/10/1912/10/2021 BASIC METAB OLIC PANEL BUN 10 mg/dL (6-20) Not Available [facility] (Centralized Electronic Ordering - All Locations) Patient Can Go To The Location Of Their Choice, 12/10/2021 06:13:30 12/10/1912/10/2021 BASIC METAB OLIC PANEL creatinine 0.9 mg/dL (0.5-1 .0) Not Available [facility] (Centralized Electronic Ordering - All Locations) Patient Can Go To The Location Of Their Choice, 12/10/2021 06:13:30 12/10/1912/10/2021 BASIC METAB OLIC PANEL sodium 143 mmol/ L (133-1 45) Not Available [facility] (Centralized Electronic Ordering - All Locations) Patient Can Go To The Location Of Their Choice, 12/10/2021 06:13:30 12/10/1912/10/2021 BASIC METAB OLIC PANEL potassium 4.0 mmol/ L (3.6-5 .2) Not Available [facility] (Centralized Electronic Ordering - All Locations) Patient Can Go To The Location Of Their Choice, 12/10/2021 06:13:30 12/10/1912/10/2021 BASIC METAB OLIC PANEL chloride 104 mmol/ L (98-10 7) Not Available [facility] (Centralized Electronic Ordering - All Locations) Patient Can Go To The Location Of Their Choice, 12/10/2021 06:13:30 12/10/1912/10/2021 BASIC METAB OLIC PANEL bicarbonate 28 mmol/ L (22-29 ) Not Available [facility] (Centralized Electronic Ordering - All Locations) Patient Can Go To The Location Of Their Choice, 12/10/2021 06:13:30 12/10/1912/10/2021 BASIC METAB OLIC PANEL anion gap 11 (4-17) Not Available [facility] (Centralized Electronic Ordering - All Locations) Patient Can Go To The Location Of Their Choice, 12/10/2021 06:13:30 12/10/1912/10/2021 BASIC METAB OLIC PANEL calcium 9.5 mg/dL (8.6-1 0.5) Not Available [facility] (Centralized Electronic Ordering - All Locations) Patient Can Go To The Location Of Their Choice, 12/10/2021 06:13:30 12/10/1912/10/2021 BASIC METAB OLIC PANEL [...] ethni c subgr oups. Not Available [facility] (Centralized Electronic Ordering - All Locations) Patient Can Go To The Location Of Their Choice, 12/10/2021 06:13:30 12/10/1912/11/2021 EBV ANTIB ODIES viral capsid Ab IgM high >160. 0 Refer ence range : 0.0 to 35.9 Unit: U/mL (NOTE ) Negat gerald <36.0 Equiv ocal 36.0 - 43.9 Posit gerald >43.9 Not Available [facility] (Centralized Electronic Ordering - All Locations) Patient Can Go To The Location Of Their Choice, 12/11/2021 16:08:27 12/10/1912/11/2021 EBV ANTIB ODIES viral capsid Ab IgG 288.0 high Refer ence range : 0.0 to 17.9 Unit: U/mL (NOTE ) Negat gerald <18.0 Equiv ocal 18.0 - 21.9 Posit gerald >21.9 Not Available [facility] (Centralized Electronic Ordering - All Locations) Patient Can Go To The Location Of Their Choice, 12/11/2021 16:08:27 12/10/1912/11/2021 EBV ANTIB ODIES anti ebv nuc. Ag IgG 392.0 high Refer ence range : 0.0 to 17.9 Unit: U/mL (NOTE ) Negat gerald <18.0 Equiv ocal 18.0 - 21.9 Posit gerald >21.9 Not Available [facility] (Centralized Electronic Ordering - All Locations) Patient Can Go To The Location Of Their Choice, 12/11/2021 16:08:27 12/10/19 22 12/11/2021 EBV ANTIB [...] Test perfo rmed by [facility], [address] [place] [address] Not Available [facility] (Centralized Electronic Ordering - All Locations) Patient Can Go To The Location Of Their Choice, 12/11/2021 16:08:27 12/10/1912/10/2021 GROUP A STREP CULT. specimen description THROAT SWAB Not Available [facility] (Centralized Electronic Ordering - All Locations) Patient Can Go To The Location Of Their Choice, 12/12/2021 06:58:48 12/10/19 22 12/10/2021 GROUP A STREP CULT. special requests NONE Not Available [facility] (Centralized [facility] Ordering - All Locations) Patient Can Go To The Location Of Their Choice, [facility] 12/12/2021 06:58:48 12/10/19 22 12/12/2021 GROUP A STREP CULT. culture NO GROUP A BETA HEMOLY TIC STREPT OCOCCI ISOLAT ED Not Available [facility] (Centralized Electronic Ordering - All Locations) Patient Can Go To The Location Of Their Choice, [facility] 12/12/2021 06:58:48 12/10/19 22 12/12/2021 GROUP A STREP CULT. report status FINAL 2021 Not Available [facility] (Centralized Electronic Ordering - All Locations) Patient Can Go To The Location Of Their Choice, [facility] 12/12/2021 06:58:48 12/10/19 22 12/09/2021 rapid strep group A, throa t Strep A (ref: neg) negati ve Not Available [facility] - Home [address] [place] [address], [address], 12/09/2021 20:28:40 12/10/19 22 12/09/2021 rapid strep group A, throa t Control Visual ized/V alid Not Available [facility] - Home [address] [place] [address], [address], 12/09/2021 20:28:40 12/10/19 22 12/09/2021 rapid strep group A, throa t Location [facility] , [address] [place] [address], [id number] Not Available [facility] - Home [address] [place] [address], [address], 12/09/2021 20:28:40 12/10/19 22 12/09/2021 monon ucleo sis, heter ophil e Ab, blood [place] (ref: neg) negati ve Not Available [facility] - Home [address] [place], [address], 12/09/2021 20:20:34 12/10/19 22 12/09/2021 monon ucleo sis, heter ophil e Ab, blood Control Visual ized/V alid Not Available [facility] - Home [address] [place] [address] [place], [address], 12/09/2021 20:20:34 12/10/19 22 12/09/2021 monon ucleo sis, heter ophil e Ab, blood Location [facility], [address] [place] [address], [id number] [phone] Not Available [facility] - Home [address] [place], [address], 12/09/2021 20:20:34 Result Notes None recorded. Procedures Surgical History Date Name Laterality Status Provider Name and Address Organization Details Recorded Time 022 Venipuncture - DH completed RACQUEL Craig [address] [place], [address], [place] [facility] 12/09/2021 22:42:18 cholecystectomy completed RACQUEL RASHEED [address] [place], [address], [place] [facility] 08/03/2021 18:54:33 excision of cyst of breast completed RACQUEL RASHEED [address] [place], [address], [place] [facility] 08/03/2021 18:54:40 procedure on eye completed RACQUEL AVALOS [address] [place], [address], [place] [facility] 08/03/2021 18:54:48 Imaging Results None recorded. Procedure Notes None recorded. Medical Equipment None Reported. Allergies Allergen ID Allergen Name Allergen Category Reaction Reaction Severity Criticality Documentation Date Start Date Code Code System Note Provider Name and Address Organization Details Recorded Time 305445 aspirin medicatio n Not available Not available Not available 08/03/2021 1191 RxNorm RACQUEL RASHEED [address] [place], [address], [place] [facility] 18:52:05 693819 Cipro medicatio n Not available Not available Not available 08/03/2021 39886 3 RxNorm RACQUEL RASHEED [address] [place], [address], [place] [facility] 18:52:30 923309 fentanyl medicatio n Not available Not available Not available 08/03/2021 4337 RxNorm RACQUEL RASHEED [address], [place], [address], [place] [facility] 18:52:38 608510 Product containin g 3-hydroxy -3-methyl glutaryl- coenzyme A reductase inhibitor (product) medicatio n Not available Not available Not available 08/03/2021 20964 009 SNOMED RACQUEL RASHEED [address], [place], [place], [address], [place] [facility] 18:52:47 706871 prednison e medicatio n Not available Not available Not available 08/03/2021 8640 RxNorm RACQUEL RASHEED [address], [place], [address], [place] [facility] 1 18:52:54 771454 azithromy jaden medicatio n Not available Not available Not available 12/09/2021 38927 RxNorm RACQUEL Ray [address], [place], [address], [place] [facility] 2 [...] % 122 mm[Hg] 86 mm[Hg] Not Available [facility] 1 18:57:21 Date Recorded Oxygen saturation Oxygen saturation in Arterial blood by Pulse oximetry Body temperature Heart rate Respiratory rate Systolic blood pressure Diastolic blood pressure Provider Name and Address Organization Details Last Updated DateTime 2 97 % 97 % 98 [degF] 71 /min 18 /min 112 mm[Hg] 78 mm[Hg] Not Available [facility] 2 13:51:41 Date Recorded Oxygen saturation Oxygen saturation in Arterial blood by Pulse oximetry Respiratory rate Heart rate Body temperature Systolic blood pressure Diastolic blood pressure Provider Name and Address Organization Details Last Updated DateTime 2 95 % 95 % 16 /min 84 /min 99.8 [degF] 138 mm[Hg] 74 mm[Hg] Not Available [facility] 20:15:51 Social History Question Answer Notes LastModified by Organizat ion Details LastModified Time Tobacco Smoking Status Current Every Day Smoker 5 cigs x 30 years RACQUEL RASHEED [address] [place], [address], [place] [facility] 08/03/2021 18:54:24 What Is Your Level Of [...] Details LastModified Time Father Malignant neoplastic disease [facility] Not available 10/09 13:48:39 Medical History Condition [...] SNOMED-CT Code Diagnosis ICD10 Code Diagnosis Note [id number] RACQUEL RASHEED [facility] [address] [place] [address] 08/03/2021 18:42:10 08/06/2021 10:47:05 Exposure to SARS-CoV-2 519785973 Z20.822 COVID-19 173596459 U07.1 History of Graves' disease 3326187643 93468 Z86.39 Cigarette smoker 6324610 7 F17.210 [id number] Lydia Gilman NP [facility] [address] [place] [address] 10/09/2021 13:45:34 10/11/2021 11:41:46 Malaise and fatigue 398331097 R53.81 Viral syndrome 809883410 B34.9 [id number] RACQUEL Johnson [facility] [address] [place] [address] 12/09/2021 20:07:38 12/10/2021 11:06:51 Malaise and fatigue 489603841 R53.81 Pain in throat 526700925 R07.0 Health Concerns Section Related Observation LastModified by Organization Detai ls LastModified Time None Recorded Concern Status LastModified by Organization Details LastModified Time None Recorded Advance Directives Directive None Recorded Payers Encounter Date Sequence Insurance Name Policy Number Policy Grewal Covered Member ID Grewal Member ID Guarantor Name 08/03/2021 1 MEDICARE B-AL: [facility] Mary Beth F Vanwart [id number] Mary Beth F Vanwart 10/09/2021 1 MEDICARE B-AL: [facility] Mary Beth F Vanwart [id number] Mary Beth F Vanwart 12/09/2021 1 MEDICARE B-AL: [facility] Mary Beth F Vanwart [id number] Mary Beth F Vanwart Notes Date Note Type Note Provider Name [...] vaccinated for COVID-19. RACQUEL RASHEED [address], [place], [address], [place] [facility] 08/03/2021 19:42:06 10/09/2021 text/html [...] to illness. Lydia Gilman NP [address], [place], [address], [place] [facility] 10/09/2021 17:49:50 12/09/2021 text/html [...] other assoc sx's. RACQUEL Craig [address], [place], [address], [place] [facility] 12/09/2021 22:54:10 OBGyn Episode No OBEpisode recorded.
--- OUTSIDE RECORDS SUMMARY | 2024-10-28 21:18 | XMS_ITS | Patient Health Record ---
Author Organization [facility] Address [address] [address] Care Team Providers Care Wharf Builder Name Role Phone ALIZA MARTINI MD Primary Care Provider Unavailabl e Reason For Referral No Information Plan Of Treatment No Information Insurance Providers Payer Name Payer Address Payer Phone Subscriber Number Group Number Insured Name Patient Relationship to Insured Coverage Start Date Coverage End Date MEDICARE [address] [place] [id number] NYDIA OWENS Self - patient is the insured
--- OUTSIDE RECORDS SUMMARY | 2024-10-28 21:18 | XMS_ITS | Clinical Summary ---
Author Organization [facility] it Address [address] [place] [address] Care Team Providers Care Gizzard Peeler Name Role Phone Bill Fonseca MD Primary Care Provider [phone] Surgical History Surgery Date Site/Laterality Comments TOTAL [...] (2 of 2) 12/03/2018 10/08/2018 Pneumococcal Vaccine: 50+ Years (2 of 2 - PCV) 10/08/2019 10/08/2018 Pneumococcal Vaccine: Pediatrics (0 to 5 [...] patient's age to complete this topic Meningococcal B Vacine Aged Out No lo nger eligible based on patient's age to complete this topic RSV Immunization Patients Under 20 months Aged Out No longer eligible b ased on patient's age to complete this topic Varicella Vaccines Aged Out No longer eligible based on patient's age to complete this topic Care Teams Gizzard Peeler Relationship Specialty Start Date End Date Bill Fonseca MD PCP - General Internal Medicine 10/18/19
== END ==
LOC: HO.SL 20:30
PROVIDERS: PCP Internal Medicine; Visit Provider Internal Medicine
DX: G47.33 Obstructive sleep apnea (adult) (pediatric) (principal); R09.89 Other specified symptoms and signs involving the circulatory and respiratory systems
CPT/HCPCS: 95810

== ENCOUNTER 2024-11-26 15:44 | Outpatient (REF) | payer MEDICARE, SELFPAY ==
--- NOTE | 2024-11-26 15:49 | PFT_ITS ---
Indication: COPD Spirometry [FEV1 to FVC 80%; FEV1 2.4 L; FVC 2.99 L. no significant response to bronchodilators noted.] Lung Volumes [Total lung capacity 98% predicted; residual volume 107% predicted] Diffusion Capacity [DLCO 72% predicted] Comparisons [None] Interpretation [No obstructive nor restrictive ventilatory defects identified. No significant response to bronchodilators noted. Normal lung volumes. The patient does have a mild isolated diffusion impairment. Clinical correlation warranted.] MTDD
[2024-11-26 16:41] VITALS: PULSE 60; O2SAT 96
--- OUTSIDE RECORDS SUMMARY | 2024-11-26 19:28 | XMS_ITS | Patient Health Record ---
Author Organization [facility] Address [address] [address] Care Team Providers Care Manager Of Disaster Recovery Name Role Phone ALIZA MARTINI MD Primary Care Provider Unavailabl e Reason For Referral No Information Plan Of Treatment No Information Insurance Providers Payer Name Payer Address Payer Phone Subscriber Number Group Number Insured Name Patient Relationship to Insured Coverage Start Date Coverage End Date MEDICARE [address] [place], [place] [id number] NYDIA OWENS Self - patient is the insured
--- OUTSIDE RECORDS SUMMARY | 2024-11-26 19:28 | XMS_ITS | Clinical Summary ---
Author Organization [facility] Address [address] [place] [address] Care Team Providers Care Social Service Liaison Name Role Phone Bill Fonseca MD Primary Care Provider [phone] Allergies Active Allergy Reactions Criticality Noted Date [...] age to complete this topic Care Teams Social Service Liaison Relationship Specialty Start Date End Date Bill Fonseca MD PCP - General Internal Medicine 10/18/19
--- OUTSIDE RECORDS SUMMARY | 2024-11-26 19:28 | XMS_ITS | Clinical Summary ---
Author Organization [facility] it Address [address] [place] [address] Care Team Providers Care Freelance Data Entry Name Role Phone Bill Fonseca MD Primary Care Provider [phone] Surgical History Surgery Date Site/Laterality Comments TOTAL [...] age to complete this topic Care Teams Freelance Data Entry Relationship Specialty Start Date End Date Bill Fonseca MD PCP - General Internal Medicine 10/18/19
--- OUTSIDE RECORDS SUMMARY | 2024-11-26 19:28 | XMS_ITS | Data Portability ---
Author Organization [place] [facility] Address [address] [place] [address] Care Team Providers Care Director Of Employer Services Name Role Phone GWEN MARTINI Primary Care [...] is a candidate for monoclonal antibody treatment. inbound call center representative provider, Dr. Rodriguez, states she will contact [...] after care of this patient according to [facility]'s infection prevention protocols. Not available 08/03/2021 19:41:38 [...] after care of this [facility]. brenna Not available 10/09/2021 [...] blood tests all collected and brought to [facility], pend Rapid mono and strep neg Strep [...] throat 2021 [facility], [address] [place], [address], 21:17:08 streptoco ccus group A, culture, throat 2021 JONATHAN [facility] (Centralized Electronic Ordering - All Locations), Patient Can Go To The Location Of Their Choice, 06:58:48 mononucle osis, heterophi le Ab, blood 2021 [facility], [address] [facility], [place], [address], 21:17:10 tiff-b arr virus (ebv) IgG + [...] rapid flu (A+B) 02/05/ 2022 02/05/2 022 [facility], [address], [place], [address], 17:49:27 rapid SARS CoV 2 Ag, QL IA, respirato ry specimen 2021 022 [facility], [address], [place], [address], 2 17:49:25 rapid SARS CoV + SARS CoV 2 Ag, QL IA, respirato ry specimen 2020 021 [facility], [address], [place], [address], 19:12:26 Referral None recorded. Procedures None recorded. Surgeries None recorded. Imaging None recorded. Medication Orders None recorded. Patient TargetsNo targets recorded. Patient Instructions Encounter Date Encounter Id Patient Instructions Last Modified By Organization Details Last Modified Time 08/03/2021 [id number] Thank you for yo ur [facility]. We cannot always find the [...] in your condition between 8am-10pm, please call [facility] at [phone] to help navigate your care. Not available 08/03/2021 19:41:56 10/09/2021 [id number] -You were seen today for general malaise, [...] if any worsening fever, cough, vomiting, diarrhea [facility] Not available 10/09/2021 14:43:24 Reason for Referral None Reported. Results Created Date Observation Date Name Description Value Unit Range Abnormal Flag Note LastModifiedBy Organization Detail LastModifiedTime 08/03/20 21 08/03/2021 rapid SARS CoV + SARS CoV 2 Ag, QL IA, respi rator y speci men Covid-19 (ref: neg) positi ve Not Available [facility] [address] [place], [address], 08/03/2021 18:59:14 08/03/20 21 08/03/2021 rapid SARS CoV + SARS CoV 2 Ag, QL IA, respi rator y speci men Control Visual ized/V alid Not Available [facility] [address] [place], [address], 08/03/2021 18:59:14 08/03/20 21 08/03/2021 rapid SARS CoV + SARS CoV 2 Ag, QL IA, respi rator y speci men Location [facility], [facility], [address] [place] [address], [id number] [phone] Not Available [facility] [address] [place], [address], 08/03/2021 18:59:14 10/09/19 22 10/09/2021 rapid SARS CoV 2 Ag, QL IA, respi rator y speci men Covid-19 (ref: neg) negati ve Not Available [facility] [address] [place], [address], 10/09/2021 17:45:52 10/09/19 22 10/09/2021 rapid SARS CoV 2 Ag, QL IA, respi rator y speci men Control Visual ized/V alid Not Available [facility] [address] [place], [address], 10/09/2021 17:45:52 10/09/19 22 10/09/2021 rapid SARS CoV 2 Ag, QL IA, respi rator y speci men Location [facility], [address] [place] [address], [id number] Not Available [facility] - Home [address] [place] [address], [address], 10/09/2021 17:45:52 10/09/19 22 10/09/2021 rapid flu (A+B) Flu A (ref: neg) negati ve Not Available [facility] - Home [address] [place] [address], [address], 10/09/2021 17:45:29 10/09/19 22 10/09/2021 rapid flu (A+B) Flu B (ref: neg) negati ve Not Available [facility] - [address], [address], 10/09/2021 17:45:29 10/09/19 22 10/09/2021 rapid flu (A+B) Control Visual ized/V alid Not Available [facility] - Home [address] [place] [address], [phone], 10/09/2021 17:45:29 10/09/19 22 10/09/2021 rapid flu (A+B) Location [facility], [address] [place] [address], [id number] [phone] Not Available [facility] Home [address] [place] [address], [address], 10/09/2021 17:45:29 12/10/19 22 12/10/2021 COMPL ETE CBC WITH DIFF WBC 6.2 K/mm3 (4.0-1 1.0) Not Available [facility] (Centralized Electronic Ordering - All Locations) Patient Can Go To The Location Of Their Choice, [address] 12/10/2021 05:48:01 12/10/19 22 12/10/2021 COMPL ETE [...] by [facility], [address] [place] [address] Not Available [facility] (Centralized Electronic Ordering - [...] Go To The Location Of Their Choice, [facility] 12/12/2021 06:58:48 12/10/19 22 12/12/2021 GROUP A STREP CULT. culture NO GROUP A BETA HEMOLY TIC STREPT OCOCCI ISOLAT ED Not Available [facility] (Centralized Electronic Ordering - All Locations) Patient Can Go To The Location Of Their Choice, [facility] 12/12/2021 06:58:48 12/10/19 22 12/12/2021 GROUP A STREP CULT. report status FINAL 2021 Not Available [facility] (Centralized Electronic Ordering - All Locations) Patient Can Go To The Location Of Their Choice, [facility] 12/12/2021 06:58:48 12/10/19 22 12/09/2021 rapid strep group A, throa t Strep A (ref: neg) negati ve Not Available [facility] [address] [place] [address], [address], 12/09/2021 20:28:40 12/10/19 22 12/09/2021 rapid strep group A, throa t Control Visual ized/V alid Not Available [facility] - Home [address] [place] [address], [address], 12/09/2021 20:28:40 12/10/19 22 12/09/2021 rapid strep group A, throa t Location [facility] , [address] [place] [address], [id number] Not Available [facility] Home [address] [place] [address], [address], 12/09/2021 20:28:40 12/10/19 22 12/09/2021 monon ucleo sis, heter ophil e Ab, blood [place] (ref: neg) negati ve Not Available [facility] [address] [place], [address], 12/09/2021 20:20:34 12/10/19 22 12/09/2021 monon ucleo sis, heter ophil e Ab, blood Control Visual ized/V alid Not Available [facility] Home [address] [place] [address] [place], [address], 12/09/2021 20:20:34 12/10/19 22 12/09/2021 monon ucleo sis, heter ophil e Ab, blood Location [facility], [address] [place] [address], [id number] [phone] Not Available [facility] [address] [place], [address], 12/09/2021 20:20:34 Result Notes None recorded. Procedures Surgical History Date Name Laterality Status Provider Name and Address Organization Details Recorded Time 022 Venipuncture - DH completed RACQUEL Craig [address] [place], [address], [place] [facility] 12/09/2021 22:42:18 cholecystectomy completed RACQUEL RASHEED [address] [place], [address], [place] [facility] 08/03/2021 18:54:33 excision of cyst of breast completed RACQUEL RASHEED [address] [place], [address], [place] [facility] 08/03/2021 18:54:40 procedure on eye completed RACQUEL AVALOS [address] [place], [address], [place] [facility] 08/03/2021 18:54:48 Imaging Results None recorded. Procedure Notes None recorded. Medical Equipment None Reported. Allergies Allergen ID Allergen Name Allergen Category Reaction Reaction Severity Criticality Documentation Date Start Date Code Code System Note Provider Name and Address Organization Details Recorded Time [id number] aspirin medicatio n Not available Not available Not available 08/03/2021 1191 RxNorm RACQUEL RASHEED [address] [place], [address], [place] [facility] 18:52:05 403885 Cipro medicatio n Not available Not available Not available 08/03/2021 82931 3 RxNorm RACQUEL RASHEED [address] [place], [address], [place] [facility] 18:52:30 895901 fentanyl medicatio n Not available Not available Not available 08/03/2021 4337 RxNorm RACQUEL RASHEED [address], [place], [address], [place] [facility] 18:52:38 663912 Product containin g 3-hydroxy -3-methyl glutaryl- coenzyme A reductase inhibitor (product) medicatio n Not available Not available Not available 08/03/2021 35731 009 SNOMED RACQUEL RASHEED [address], [place], [place], [address], [place] [facility] 18:52:47 921803 prednison e medicatio n Not available Not available Not available 08/03/2021 8640 RxNorm RACQUEL RASHEED [address], [place], [address], [place] [facility] 1 18:52:54 948945 azithromy jaden medicatio n Not available Not available Not available 12/09/2021 72824 RxNorm RACQUEL Ray [address], [place], [address], [place] [facility] 2 [...] mm[Hg] 86 mm[Hg] Not Available [facility] 1 18:57:21 Date Recorded Oxygen saturation Oxygen saturation in Arterial blood by Pulse oximetry Body temperature Heart rate Respiratory rate Systolic blood pressure Diastolic blood pressure Provider Name and Address Organization Details Last Updated DateTime 2 97 % 97 % 98 [degF] 71 /min 18 /min 112 mm[Hg] 78 mm[Hg] Not Available [facility] 2 13:51:41 Date Recorded Oxygen saturation Oxygen saturation in Arterial blood by Pulse oximetry Respiratory rate Heart rate Body temperature Systolic blood pressure Diastolic blood pressure Provider Name and Address Organization Details Last Updated DateTime 2 95 % 95 % 16 /min 84 /min 99.8 [degF] 138 mm[Hg] 74 mm[Hg] Not Available [facility] 20:15:51 Social History Question Answer Notes LastModified by Organizat ion Details LastModified Time Tobacco Smoking Status Current Every Day Smoker 5 cigs x 30 years RACQUEL RASHEED [address] [place], [address], [place] [facility] 08/03/2021 18:54:24 What Is Your Level Of [...] Details LastModified Time Father Malignant neoplastic disease [facility] Not available 10/09 13:48:39 Medical History Condition Response Diabetes N Coronary Artery Disease N CHF N Parkinson's Disease N Cancer N Dementia N Stroke N Depression N Asthma N COPD N Hypothyroidism N High Cholesterol N Rheumatoid Arthritis N Pulmonary Embolism N Hypertension N A-fib N Osteoporosis N Kidney Disease N Gynecological HistoryNo gynecological history recorded. Obstetrics History GPAL:G 0 P 0 0 0 0 Past Encounters Encounter ID Performer Location Encounter Start Date Encounter Closed Date Diagnosis/Indication Diagnosis SNOMED-CT Code Diagnosis ICD10 Code Diagnosis Note [id number] RACQUEL RASHEED [facility] [address] [place] [address] 08/03/2021 18:42:10 08/06/2021 10:47:05 Exposure to SARS-CoV-2 825377755 Z20.822 COVID-19 486375405 U07.1 History of Graves' disease 8486787131 81332 Z86.39 Cigarette smoker 0442152 7 F17.210 [id number] Lydia Gilman NP [facility] [address] [place] [address] 10/09/2021 13:45:34 10/11/2021 11:41:46 Malaise and fatigue 567293475 R53.81 Viral syndrome 642783065 B34.9 [id number] RACQUEL Johnson [facility] [address] [place] [address] 12/09/2021 20:07:38 12/10/2021 11:06:51 Malaise and fatigue 257883986 R53.81 Pain in throat 202674388 R07.0 Health Concerns Section Related Observation LastModified by Organization Detai ls LastModified Time None Recorded Concern Status LastModified by Organization Details LastModified Time None Recorded Advance Directives Directive None Recorded Payers Encounter Date Sequence Insurance Name Policy Number Policy Grewal Covered Member ID Grewal Member ID Guarantor Name 08/03/2021 1 MEDICARE B-[place]: [facility] Mary Beth F Vanwart [id number] Mary Beth F Vanwart 10/09/2021 1 MEDICARE B-[place]: [facility] Mary Beth F Vanwart [id number] Mary Beth F Vanwart 12/09/2021 1 MEDICARE B-[place]: [facility] Mary Beth F Vanwart [id number] Mary Beth F Vanwart Notes Date [...] for COVID-19. RACQUEL RASHEED [address], [place], [address], [place] [facility] 08/03/2021 19:42:06 10/09/2021 text/html [...] illness. Lydia Gilman NP [address], [place], [address], [place] [facility] 10/09/2021 17:49:50 12/09/2021 text/html [...] assoc sx's. RACQUEL Craig [address], [place], [address], [place] [facility] 12/09/2021 22:54:10 OBGyn Episode No OBEpisode recorded.
--- OUTSIDE RECORDS SUMMARY | 2024-11-26 19:28 | XMS_ITS | Data Portability ---
Author Organization [place] - [place] Joshua farrell, [facility]_IM_01 [facility] Address [address] [place] [address] Assessment No assessment recorded. Plan of Treatment [...] - palpitaio n 2022 023 claviolett e1 [facility] (Outt Non-Invasive Cardiology Scheduling), [address] [facility], [place], [address], 07/03/2023 09:07:49 Medication Orders mirtazapi ne 7.5 mg tablet 2024 025 [facility], [address] [place] [address], [address], 11/21/2024 17:15:07 escitalop celestine 10 mg tablet 2023 024 [facility], [address] [place] [address], [address], 10/21/2024 15:16:50 Augmentin 875 mg-125 mg tablet 2023 024 [facility], [address] [place] [address], [address], 08/30/2024 14:14:18 chlorhexi dine gluconate 0.12 % mouthwash 2023 024 JONATHAN [facility], [address] [place] [address], [address], 08/21/2024 11:47:02 Pristiq 25 mg tablet,ex tended release 2022 023 [facility], [address] [place] [address], [address], 08/30/2024 14:16:07 Patient TargetsNo targets recorded. Patient InstructionsNo instructions recorded. Reason for Referral None Reported. Results Created Date Observation Date Name Description Value Unit Range Abnormal Flag Note LastModifiedBy Organization Detail LastModifiedTime 09/30/1910/01/2024 TSH+F REE T4 TSH 5.960 uIU/m L 0.450- 4.500 above high normal Not Available [facility] ([facility]) [address] [facility], [place], [address], 10/01/2024 16:06:25 09/30/19 25 10/01/2024 TSH+F REE T4 T4,free(dire ct) 1.39 NG/dL 0.82-1 .77 normal Not Available [facility] ([facility]) [address] [place], [address], 10/01/2024 16:06:25 09/30/19 25 09/30/2024 CBC WITH DIFFE RENTI AL/PL ATELE T WBC 7.3 x10e3 /uL 3.4-10 .8 normal Not Available [facility] ([facility]) [address] [place], [address], 10/01/2024 16:06:27 09/30/19 25 09/30/2024 CBC WITH DIFFE RENTI AL/PL ATELE T RBC 4.31 x10e6 /uL 3.77-5 .28 normal Not Available [facility] ([facility]) [address] [place], [address], 10/01/2024 16:06:27 09/30/19 25 09/30/2024 CBC WITH DIFFE RENTI AL/PL ATELE T hemoglobin 13.3 g/dL 11.1-1 5.9 normal Not Available [facility] ([facility]) [address] [place], [address], 10/01/2024 16:06:27 09/30/1909/30/2024 CBC WITH DIFFE RENTI AL/PL ATELE T hematocrit 38.7 % 34.0-4 6.6 normal Not Available [facility] ([facility]) [address] [place], [address], 10/01/2024 16:06:27 09/30/19 25 09/30/2024 CBC WITH DIFFE RENTI AL/PL ATELE T MCV 90 fL 79-97 normal Not Available [facility] ([facility]) [address] [facility], [place], [address], 10/01/2024 16:06:27 09/30/19 25 09/30/2024 CBC WITH DIFFE RENTI AL/PL ATELE T MCH 30.9 pg 26.6-3 3.0 normal Not Available [facility] ([facility]) [address] [facility], [place], [address], 10/01/2024 16:06:27 09/30/19 25 09/30/2024 CBC WITH DIFFE RENTI AL/PL ATELE T MCHC 34.4 g/dL 31.5-3 5.7 normal Not Available [facility] ([facility]) [address] [facility], [place], [address], 10/01/2024 16:06:27 09/30/19 25 09/30/2024 CBC WITH DIFFE RENTI AL/PL ATELE T RDW 12.7 % 11.7-1 5.4 Not Available [facility] ([facility]) [address] [facility], [place], [address], 10/01/2024 16:06:27 09/30/19 25 09/30/2024 CBC WITH DIFFE RENTI AL/PL ATELE T platelets 296 x10e3 /uL 150-45 0 normal Not Available [facility] ([facility]) [address] [place], [address], 10/01/2024 16:06:27 09/30/19 25 09/30/2024 CBC WITH DIFFE RENTI AL/PL ATELE T neutrophils 59 % not estab. normal Not Available [facility] ([facility]) [address] [place], [address], 10/01/2024 16:06:27 09/30/19 25 09/30/2024 CBC WITH DIFFE RENTI AL/PL ATELE T lymphs 31 % not estab. normal Not Available [facility] ([facility]) [address] [place], [address], 10/01/2024 16:06:27 09/30/19 25 09/30/2024 CBC WITH DIFFE RENTI AL/PL ATELE T monocytes 7 % not estab. normal Not Available [facility] ([facility]) [address] [place], [address], 10/01/2024 16:06:27 09/30/19 25 09/30/2024 CBC WITH DIFFE RENTI AL/PL ATELE T eos 3 % not estab. normal Not Available [facility] ([facility]) [address] [place], [address], 10/01/2024 16:06:27 09/30/19 25 09/30/2024 CBC WITH DIFFE RENTI AL/PL ATELE T basos 0 % not estab. normal Not Available [facility] ([facility]) [address] [place], [address], 10/01/2024 16:06:27 09/30/19 25 09/30/2024 CBC WITH DIFFE RENTI AL/PL ATELE T immature cells [employer] Not Available [facility] ([facility]) [address] [place], [address], 10/01/2024 16:06:27 09/30/19 25 09/30/2024 CBC WITH DIFFE RENTI AL/PL ATELE T neutrophils (absolute) 4.2 x10e3 /uL 1.4-7. 0 normal Not Available [facility] ([facility]) [address] [place], [address], 10/01/2024 16:06:27 09/30/19 25 09/30/2024 CBC WITH DIFFE RENTI AL/PL ATELE T lymphs (absolute) 2.3 x10e3 /uL 0.7-3. 1 normal Not Available [facility] ([facility]) [address] [place], [address], 10/01/2024 16:06:27 09/30/19 25 09/30/2024 CBC WITH DIFFE RENTI AL/PL ATELE T monocytes(ab solute) 0.5 x10e3 /uL 0.1-0. 9 normal Not Available [facility] ([facility]) [address] [facility], [place], [address], 10/01/2024 16:06:27 09/30/19 25 09/30/2024 CBC WITH DIFFE RENTI AL/PL ATELE T eos (absolute) 0.3 x10e3 /uL 0.0-0. 4 normal Not Available [facility] ([facility]) [address] [facility], [place], [address], 10/01/2024 16:06:27 09/30/19 25 09/30/2024 CBC WITH DIFFE RENTI AL/PL ATELE T baso (absolute) 0.0 x10e3 /uL 0.0-0. 2 normal Not Available [facility] ([facility]) [address] [place], [address], 10/01/2024 16:06:27 09/30/19 25 09/30/2024 CBC WITH DIFFE RENTI AL/PL ATELE T immature granulocytes 0 % not estab. Not Available [facility] ([facility]) [address] [place], [address], 10/01/2024 16:06:27 09/30/19 25 09/30/2024 CBC WITH DIFFE RENTI AL/PL ATELE T immature grans (abs) 0.0 x10e3 /uL 0.0-0. 1 Not Available [facility] ([facility]) [address] [place], [address], 10/01/2024 16:06:27 09/30/19 25 09/30/2024 CBC WITH DIFFE RENTI AL/PL ATELE T NRBC [employer] Not Available [facility] ([facility]) [address] [place], [address], 10/01/2024 16:06:27 09/30/19 25 09/30/2024 CBC WITH DIFFE BEAR AL/SOLANGE Thornton hematology comments: [employer] Not Available [facility] ([facility]) [address] [place] [address], [place], [address], 10/01/2024 16:06:27 09/30/19 25 10/01/2024 COMP. METAB OLIC PANEL (14) glucose 92 mg/dL 70-99 normal Not Available [facility] ([facility]) [address] [place] [address], [place], [address], 10/01/2024 16:06:28 09/30/19 25 10/01/2024 COMP. METAB OLIC PANEL (14) BUN 15 mg/dL 6-24 normal Not Available [facility] ([facility]) [address] [facility], [place], [address], 10/01/2024 16:06:28 09/30/19 25 10/01/2024 COMP. METAB OLIC PANEL (14) creatinine 0.79 mg/dL 0.57-1 .00 normal Not Available [facility] ([facility]) [address] [facility], [place], [address], 10/01/2024 16:06:28 09/30/19 25 10/01/2024 COMP. METAB OLIC PANEL (14) eGFR 88 mL/mi n/1.7 3 >59 normal Not Available [facility] ([facility]) [address] [facility], [place], [address], 10/01/2024 16:06:28 09/30/19 25 10/01/2024 COMP. METAB OLIC PANEL (14) BUN/creatini ne ratio 19 9-23 normal Not Available [facility] ([facility]) [address] [facility], [place], [address], 10/01/2024 16:06:28 09/30/19 25 10/01/2024 COMP. METAB OLIC PANEL (14) sodium 142 mmol/ L 134-14 4 normal Not Available [facility] ([facility]) [address] [facility] [place] [place], [address], 10/01/2024 16:06:28 09/30/19 25 10/01/2024 COMP. METAB OLIC PANEL (14) potassium 4.8 mmol/ L 3.5-5. 2 normal Not Available [facility] ([facility]) [address] [facility] [place], [address], 10/01/2024 16:06:28 09/30/19 25 10/01/2024 COMP. METAB OLIC PANEL (14) chloride 104 mmol/ L 96-106 normal Not Available [facility] ([facility]) [address] [facility] [place] [place], [address], 10/01/2024 16:06:28 09/30/19 25 10/01/2024 COMP. METAB OLIC PANEL (14) carbon dioxide, total 22 mmol/ L 20-29 normal Not Available [facility] ([facility]) [address] [facility] [place], [address], 10/01/2024 16:06:28 09/30/19 25 10/01/2024 COMP. METAB OLIC PANEL (14) calcium 9.9 mg/dL 8.7-10 .2 normal Not Available [facility] ([facility]) [address] [facility] [place], [address], 10/01/2024 16:06:28 09/30/19 25 10/01/2024 COMP. METAB OLIC PANEL (14) protein, total 6.6 g/dL 6.0-8. 5 normal Not Available [facility] ([facility]) [address] [facility] [place], [address], 10/01/2024 16:06:28 09/30/19 25 10/01/2024 COMP. METAB OLIC PANEL (14) albumin 4.2 g/dL 3.8-4. 9 normal Not Available [facility] ([facility]) [address] [place], [address], 10/01/2024 16:06:28 09/30/19 25 10/01/2024 COMP. METAB OLIC PANEL (14) globulin, total 2.4 g/dL 1.5-4. 5 Not Available [facility] ([facility]) [address] [place], [address], 10/01/2024 16:06:28 09/30/19 25 10/01/2024 COMP. METAB OLIC PANEL (14) bilirubin, total 0.3 mg/dL 0.0-1. 2 normal Not Available [facility] ([facility]) [address] [place], [address], 10/01/2024 16:06:28 09/30/19 25 10/01/2024 COMP. METAB OLIC PANEL (14) alkaline phosphatase 109 IU/L 44-121 normal Not Available [facility] ([facility]) [address] [place], [address], 10/01/2024 16:06:28 09/30/19 25 10/01/2024 COMP. METAB OLIC PANEL (14) AST (SGOT) 24 IU/L 0-40 normal Not Available [facility] ([facility]) [address] [place], [address], 10/01/2024 16:06:28 09/30/19 25 10/01/2024 COMP. METAB OLIC PANEL (14) ALT (SGPT) 17 IU/L 0-32 normal Not Available [facility] [address] [facility] [place] [address], 10/01/2024 16:06:28 09/30/19 25 10/01/2024 LIPID PANEL cholesterol, total 237 mg/dL 100-19 9 above high normal Not Available [facility] ([facility]) [address] [place], [address], 10/01/2024 16:06:29 09/30/19 25 10/01/2024 LIPID PANEL triglyceride s 148 mg/dL 0-149 normal Not Available [facility] ([facility]) [address] [place], [address], 10/01/2024 16:06:29 09/30/19 25 10/01/2024 LIPID PANEL HDL cholesterol 45 mg/dL >39 normal Not Available [facility]) [address] [place], [address], 10/01/2024 16:06:29 09/30/19 25 10/01/2024 LIPID PANEL VLDL cholesterol anay 27 mg/dL 5-40 Not Available [facility] ([facility]) [address] [facility] [place] [place], [address], 10/01/2024 16:06:29 09/30/19 25 10/01/2024 LIPID PANEL LDL chol calc ([facility]) 165 mg/dL 0-99 above high normal Not Available [facility] ([facility]) [address] [place], [address], 10/01/2024 16:06:29 09/30/19 25 10/01/2024 LIPID PANEL LDL calc comment: [employer] Not Available [facility] ([facility]) [address] [facility] [place], [address], 10/01/2024 16:06:29 09/30/19 25 10/01/2024 H PYLOR I BREAT H TEST H pylori breath test NEGATI VE negati ve Not Available [facility] ([facility]) [address] [facility] [place], [address], 10/01/2024 16:06:31 09/07/19 24 davey r monit or No observ ation record ed. [facility] (Outt Non-Invasive Cardiology Scheduling) [address] [place], [address], 09/08/2023 08:37:08 12/09/19 24 12/09/2023 XR, abdom en No observ ation record ed. [email or web address] Not Available 12/10 13:22:50 12/27/19 24 12/25/2023 CT, abdom en + pelvi s, w/ contr ast No observ ation record ed. [facility] Radiology [address] [place], [address], 12/27/2023 17:34:41 Result Notes None recorded. Problems Name Problem SNOMED Code Status Onset Date Resolution Date Notes Provider Name and Address Organization Details Recorded Time Sleep apnea 40411475 Active 2024 Bill Fonseca MD [address] [place] [address], [address] [facility], [place], [address] , [place] [facility] 5 10:29:23 Nausea 155646388 Active 2024 Crystal Laviolette null, [place] [facility] 5 10:51:11 Hypothyro idism 04789713 Active 2024 Bill Fonseca MD [address] [place] [address], [address] Floor, [place], [address] , [place] [facility] 5 14:18:06 Vitamin D deficienc y 06194382 Active 2024 Bill Fonseca MD [address] [place] [address], [facility], [place], [address] , [place] [facility] 5 16:30:29 Fibromyal nabil 738531252 Active 2019 Fibromyalg ia affecting upper arm Not Available [facility] 3 03:03:01 Gastroeso phageal reflux disease 849532998 Active 2019 GERD (gastroeso phageal reflux disease) Not Available [facility] 3 03:03:01 Cigarette smoker 79640486 Active 2019 Smoking greater than 20 pack years Not Available [facility] 3 03:03:01 Chronic low back pain 209212726 Active 2019 Chronic bilateral low back pain with bilateral sciatica Not Available [facility] 3 03:03:01 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 Procedures Surgical History None recorded. Imaging Results Imaging Date Name Status LastModified by Organiz ation Details LastModified Time 09/07/2023 holter monitor completed [facility] (Outt Non-Invasive Cardiology Scheduling) [address] [place] [address], [address], 09/08/2023 08:37:08 12/09/2023 XR, abdomen [place] [address] Information n ot available 12/11/2023 13:22:50 12/25/2023 CT, abdomen + pelvis, w/ contrast completed [facility] [address] [place], [address], 12/27/2023 17:34:41 Procedure Notes None recorded. Medical Equipment None Reported. Allergies Allergen ID Allergen Name Allergen Category Reaction Reaction Severity Criticality Documentation Date Start Date Code Code System Note Provider Name and Address Organization Details Recorded Time 386615 Buspar medicatio n nausea Not available low 06/05/2023 40627 0 RxNorm Not Available Not Available Not Available 570977 clavulani c acid Not available vomiting Not available low 08/30/2024 99581 RxNorm Not Available Not Available Not Available 73090 aluminum aspirin Not available Not available Not available Not available 12/29/20222020 611 RxNorm Not Available Not Available Not Available 74787 ciproflox acin medicatio n Not available Not available Not available 12/29/20222020 2551 RxNorm React ion: Other (See Comme nts), sever ity: Sever e;Tem porar y paral ysis Not Available Not Available Not Available 04607 azithromy jaden medicatio n Not available Not available Not available 12/29/20222020 35391 RxNorm React ion: Diarr hea, sever ity: Sever e;[place] ction : Nause a And Vomit ing, [...] Available hydroxyzine HCl 25 mg tablet TAKE 25 MG BY MOUTH 3 THREE) TIMES A DAY NEEDED FOR ITCHING OR ANXIETY active Not Available Not Available No t [...] Available Not Available mirtazapine 7.5 mg tablet TAKE ONE TABLET BY MOUTH EVERY DAY 11/21 completed Not Available Not Available Not Available chlorhexidi ne gluconate 0.12 % mouthwash [...] Updated DateTime 4 154.94 cm 20.8 kg/m2 48959.1 6 g 98 % 98 % 64 /min 120 mm[Hg] 68 mm[Hg] Amy smith [place] - [facility] 14:09:43 Social History Question Answer Notes LastModified by Organizat ion Details LastModified Time Tobacco Smoking Status Current Every Day Smoker Not Available [facility] 12/31/2022 02:24:28 What Is Your Level Of [...] not available 08/30/2024 Where Do You Live? [facility] Information not available 08/30/2024 How Long [...] Anxious, Or Unable To Sleep At Night)? OD92935-7 Information not available 08/30/2024 Do You Use [...] preservative 9 completed Not Available [facility] 12/30/2022 07:57:04 DT (pediatric) 4 completed Not Available [facility] 12/30/2022 07:57:05 zoster recombinant 9 completed Not Available [facility] 12/30/2022 07:57:05 Tdap 9 completed Not Available [facility] 12/30/2022 07:57:05 pneumococcal polysaccharide PPV23 9 completed Not Available [facility] 12/30/2022 07:57:05 Past Encounters Encounter ID Performer Location Encounter Start Date Encounter Closed Date Diagnosis/Indication Diagnosis SNOMED-CT Code Diagnosis ICD10 Code Diagnosis Note [id number] Bill Fonseca MD [facility]_ IM_[address] [facility] [address] [place] [address] 04/14/2023 13:56:44 04/14/2023 15:27:39 Influenza-like symptoms 906387787 R68.89 We will start patient on amoxicilli n 500 mg 3 times a day for probable infectious lesion in the mouth. Patient will check for COVID and symptomati c treatment. Advised patient to keep her fluids up so that she will get dehydrated . She will call us if COVID turns out positive. [id number] Bill Fonseca MD [facility]16 [facility] [address] [place] [address] 06/05/2023 09:32:04 06/05/2023 15:45:53 Anxiety state 337282649 F41.1 So we talked about trying something [...] recheck in a few months. ETL Palpitations 62271038 R0 0.2 We will send her for 24-hour Holter monitor and if it is normal we will send her for an echocardio gram and if it is normal we will send her for a stress test. [id number] Bill Fonseca MD [facility]_[address] [place] [address] 08/21/2024 11:11:05 08/21/2024 11:48:47 Sore throat 296415140 J02.9 Possible possible infected cyst or viral ulceration of the throat. We will treat her with Augmentin 875 mg twice a day and if she is not improving we will have to have her come in and have us check her out in person. We will also add Hibiclens gargle in case it is a cold sore. [id number] Bill Fonseca MD [facility]16 [address] [address] [place] [address] 08/30/2024 13:48:03 08/30/2024 14:50:35 Adult health examination 339185014 Z00.00 Mary Beth continues to be overwhelme [...] and cholestero l panel Bipolar I disorder 15250 6008 F31.9 Strongly urged patient to start [...] . 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 Gastroesop hageal reflux disease 960750489 K21.9 Will Protonix 40 mg daily and check for H. pylori breath test. We reviewed dyspepsia diet changes again Fibromyalgia M 79.7 Maintain methadone for her chronic pain. Cigarette smoker 2998084 7 F17.210 Which showed up she actually is able to quit smoking over the New Year's. [id number] Bill Fonseca MD [facility]16 [address] [place] [address] 09/24/2024 13:40:58 09/24/2024 14:39:37 Bipolar I disorder 323966265 F31.9 Will discontinu e Lexapro since the patient does not feel that it is helping much. 46 okay thank you. Very encouraged by the patient's incentive to schedule appointmen t with therapist which I hope will be a long-term solution for her. Hypothyroidism 43470518 E03.9 Still being awaiting her repeat TSH [...] monitor in few months. ETL Cigarette smoker 7854936 7 F17.210 Hopefully she will eventually cut her smoking completely but right now she is tapering off and we are informed when she finally quit completely . [id number] Bill Fonseca MD [facility]16 [address] [place] [address] 10/21/2024 13:24:18 10/21/2024 15:35:24 Bipolar I disorder 412070158 F31.9 Discussed different options and would try her on mirtazapin e 7.5 mg at bedtime to help her with her insomnia as well as bipolar disorder and maybe even improve her appetite. We will follow her up in 1 month to reassess these issues. Hypothyroidism 44199444 E03.9 Seems to be doing well on levothyrox ine 88 mcg daily with normal TSH levels on that dose. Will continue present management and recheck in 6 months. Cigarette smoker 7362714 7 F17.210 Eagerly waiting sleep study but [...] MEDICARE B-[place]: N[employer] Mary Beth Gil [id number] Mary Beth Van Wart 08/21/2024 1 MEDICARE B-CT: NGS Mary Beth Khouryelvia [id number] Mary Beth Van Wart 08/30/2024 1 MEDICARE B-CT: NGS Mary Beth Sanchez Louise [id number] Mary Beth Van Wart 09/24/2024 1 MEDICARE B-CT: NGS Mary Beth Stewartenid [id number] Mary Beth Van Wart 10/21/2024 1 MEDICARE B-CT: LYN Khouryt [id number] Mary Beth Van Wart Notes Date Note Type Note Provider Name and Address Organization Details Recorded Time 06/05/2023 text/html Virtual VisitRep orted bypatient.Patient identity verified by:Known established patient I shared my identity credentials with the patient:Yes Patient is currently located in the state of:[place]; [place] Patient location:Home Provider location:I was located at [...] which was an issue in the past. Blil Fonseca MD [address] [place] [address], 1[address] Floor, [place], [address], [facility] 09/08/2023 08:14:54 08/21/2024 text/html Virtual VisitRep orted bypatient.Patient identity verified by:Known established patient I shared my identity credentials with the patient:Yes Patient is currently located in the state of:[facility] Patient location:Home Provider location:I was located [...] from the throat area. Bill Fonseca MD [address] [place] [address], [address] [place] [address], [phone], [facility] 08/21/2024 11:47:20 08/30/2024 text/html Mary [...] quitting this new year. Bill Fonseca MD [address] [place] [address], [address] [place] [address], [phone], [facility] 08/30/2024 15:09:00 09/24/2024 text/html Virtual VisitRep orted bypatient.Patient identity verified by:Known established patient I shared my identity credentials with the patient:Yes Patient is currently located in the state of:[facility] Patient location:Home Provider location:I was located [...] well as last visit. Bill Fonseca MD [address] [place] [address], [address] [place] [address], [phone], [facility] 10/18/2024 12:26:29 10/21/2024 text/html Virtual VisitRep orted bypatient.Patient identity verified by:Known established patient I shared my identity credentials with the patient:Yes Patient is currently located in the state of:[facility] Patient location:Home Provider location:I was located [...] a new psychiatrist appointment. Bill Fonseca MD [address] [place] [address], [address] [place] [address], [phone], [facility] 10/21/2024 15:31:34 OBGyn Episode No OBEpisode recorded.
== END 2024-11-26 15:45 | disposition home or self-care (01) ==
LOC: HO.RESP 15:44
PROVIDERS: PCP Internal Medicine; Visit Provider Internal Medicine
DX: J44.9 Chronic obstructive pulmonary disease, unspecified (principal)
CPT/HCPCS: 94010; 94640; 94727; 94729

== ENCOUNTER → 2024-11-26 15:49 | Outpatient (BNV) | payer MEDICARE, SELFPAY | PROVIDERS: PCP Internal Medicine; Visit Provider Hospitalist | DX: R06.09 Other forms of dyspnea (principal) | CPT/HCPCS: 94060; 94727; 94729 ==

== ENCOUNTER 2024-12-11 16:02 | Outpatient (AMB) | payer MEDICARE, SELFPAY ==
[2024-12-11 16:04] VITALS: BP 130/80; PULSE 79; O2SAT 95; BMI 17.3
--- NOTE | 2024-12-11 16:04 | A.OFFVIS_ITS ---
Vital Signs 12/11/24 16:04 Height 5 ft 1 in Weight 91 lb 7.869 oz BMI 17.3 BP 130/80 Blood Pressure Location Lt brachial Position Sitting Pulse 79 Pulse Source Pulse Oximeter Pulse Oximetry (%) 95 Oxygen Delivery Method Room Air Intake Visit Reasons: Sleep apnea Intake Note: pt is here for follow up of sleep study and pft. 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 Drapery Supervisor Required: No Allergies aspirin Allergy (Intermediate, Verified 12/11/24 16:29) vomiting blood ciprofloxacin [From Cipro] Allergy (Mild, Verified 12/11/24 16:29) temporary paralysis stains Allergy (Intermediate, Uncoded 12/11/24 16:29) severe body aches fentanyl Allergy (Mild, Uncoded 12/11/24 16:29) Difficulty Breathing prenisone Allergy (Mild, Uncoded 12/11/24 16:29) Swelling Medication List - Last Reconciled 12/11/24 by Lily Martinez MD levothyroxine 88 mcg PO DAILY methadone 10 mg PO Q6-8H PRN ondansetron 4 mg PO Q8H PRN pantoprazole (Protonix) 40 mg PO DAILY sucralfate (Carafate) 1 g PO BID Do you need a note to return to daycare/school/sports/work: No HPI HPI Sleep apnea: Details: 54 YEARS OLD FEMALE, COMES FOR. FOLLOW-UP AFTER 2 MONTHS SHE HAS HAD PULMONARY FUNCTION TEST WELL LAB BASED POLYSOMNOGRAM STUDY. PATIENT HAS HISTORY OF BEING TREATED FOR A MILD DEGREE OF SLEEP APNEA SINCE 2012. HOWEVER SHE HAS HAD CHRONIC CO2 RETENTION, BUT WELL COMPENSATED. SHE HAS HYPOTHYROIDISM WHICH IS WELL CONTROLLED. 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 Q 6-8 HOURS P.R.N. FOR CHRONIC PAIN AND ANXIETY. DENIES ANY COUGH OR WHEEZING. SHE CLAIMS THAT THE HOUSE THAT SHE LIVES IN HAS I WILL BASED HEATING, AND IT IS BECAUSE OF THAT THAT SHE GETS SOME RESPIRATORY PROBLEMS WHEN SHE IS IN THE HOUSE. WHEN SHE GOES OUTDOORS SHE IS FINE. [facility] Medical History Hypoventilation COPD (chronic obstructive pulmonary disease) MELISSA on CPAP Hypothyroidism Social History Patient Tobacco Use Status: Current everyday Tobacco user Cigarette Packs Per Day: 0.5 Cigarettes Per Day: 10 Review of Systems Const All systems reviewed & are unremarkable except as noted in HPI and below Eyes Reports no additional complaints ENT Reports no additional complaints Card Denies chest pain, Denies irregular heart rhythm, Denies leg edema and Reports dyspnea on exertion (SHE HAS MODERATE AMOUNT OF DYSPNEA ON EXERTION) Resp Denies cough (MILD INTERMITTENT), Reports dyspnea on exertion (SHE HAS MODERATE AMOUNT OF DYSPNEA ON EXERTION) and Denies wheezing GI Reports dyspepsia and Reports heartburn (BEING TREATED WITH PROTONIX) Reports no additional complaints Musc Reports back pain, Reports myalgias and Reports other (PATIENT TELLS ME THAT SHE WAS DIAGNOSED TO HAVE FIBROMYALGIA, ) Skin/Breast Reports system reviewed and no additional complaints, except as documented Neuro Reports no additional complaints Psych Reports anxiety Endo Reports no additional complaints [place]/Lymph Reports no additional complaints Aller/Immun Reports no additional complaints and Denies wheezing Physical Exam Vital Signs: Last Vital Signs Pulse 79 12/11/24 16:04 BP 130/80 12/11/24 16:04 Pulse Ox 95 12/11/24 16:04 Oxygen Delivery Method Room Air 12/11/24 16:04 BMI result Body Mass Index 17.3 Const Other: PATIENT OF A THIN BUILD, SOMEWHAT ANXIOUS. General: comfortable, no acute distress, alert and awake Orientation/consciousness: patient oriented x3 HEENT Head: Yes normal to inspection General nose exam: No nasal polyps present and No nasal discharge present Face and sinus: Yes sinuses nontender Mouth: oropharynx normal Throat: Yes posterior oropharynx normal Eyes General: appearance normal, both eyes and all related structures Neck Neck: Yes normal visual inspection, Yes no lymphadenopathy, Yes trachea midline, Yes no JVD and Yes other (TRANSFERS SCAR IN FRONT FROM PREVIOUS THYROIDECTOMY) Thyroid: Thyroid normal Chest Chest palpation & inspection: normal inspection of the chest, normal palpation of entire chest wall and no tenderness Resp Other: PERCUSSION NOTE IS RESONANT, BREATH SOUNDS SLIGHTLY DISTANT, NO WHEEZES OR RHONCHI ARE HEARD Cardio Palpation: normal PMI Rate: regular rate Rhythm: regular rhythm Heart sounds: no gallops and no murmurs Peripheral pulses: Peripheral pulses 2+ throughout GI Palpation (GI): Soft to palpation, Tenderness to palpation present (GI), No hepatosplenomegaly present and Palpable mass present Auscultation: normal bowel sounds Back/Spine/Pelvis Thoracic/Lumbar Spine: thoracic and lumbar spine normal to inspection Skin General skin exam: no rashes or lesions noted Neuro General: patient oriented x3 and no focal motor deficits Cranial nerves: Yes CN's II-XII intact bilaterally Extrem General: Yes normal to inspection, Yes no clubbing, cyanosis or edema and Yes no calf tenderness Psych Appearance: grossly normal and well kempt Speech and movement: Normal speech and movement present Affect: Anxious affect present Results Reviewed Results Reviewed: VENOUS BLOOD GAS STUDY ON HER LAST VISIT, C/W MILD CHRONIC HYPERCAPNIA. PH= 7.40 PCO2 51 ( CHRONICALLY COMPENSATED HYPERCAPNIA ) PULMONARY FUNCTION TEST IS ESSENTIALLY NORMAL, THERE IS NO EVIDENCE OF OBSTRUCTIVE OR RESTRICTIVE PULMONARY DISORDER. LAB BASED POLYSOMNOGRAM STUDY IS NEGATIVE FOR SLEEP APNEA AND ALSO THERE WAS NO NOCTURNAL HYPOXEMIA. Assessment & Plan Assessment & Plan (1) Hypoventilation: Comment: BECAUSE SHE IS USING METHADONE ON A DAILY BASIS , SHE HAS MILD CHRONIC HYPOVENTILATION SYNDROME. IT IS WELL COMPENSATED , PCO2 LEVEL 51 WITH A NORMAL PH . Code(s): R06.89 - Other abnormalities of breathing Category: Medical Plan: I EXPLAINED TO THE PATIENT THAT HER MILD HYPOVENTILATION SYNDROME IS MOST LIKELY RELATED TO USE OF METHADONE. SHE MUST TRY TO CUT DOWN THE USE OF METHADONE. (2) COPD (chronic obstructive pulmonary disease): Comment: PATIENT HAS HISTORY OF SMOKING 10-15 CIGARETTES A DAY FOR MANY YEARS, SHE COMPL AINS OF GETTING SHORT OF BREATH ON EXERTION . CLINICALLY COPD WAS SUSPECTED. HOWEVER PULMONARY FUNCTION TEST IS ESSENTIALLY NORMAL . Code(s): J44.9 - Chronic obstructive pulmonary disease, unspecified Category: Medical Plan: EXPLAINED ABOUT THE RESULTS AND REASSURED THAT SHE DOES NOT HAVE COPD OR BRONCHIAL ASTHMA. BUT STILL IT IS IMPORTANT FOR HER TO QUIT SMOKING COMPLETELY. (3) MELISSA on CPAP: Comment: SHE CARRIED DIAGNOSIS OF MILD OBSTRUCTIVE SLEEP APNEA SINCE 2013, AND HAD BEEN USING THE CPAP BUT NOT ALL THE TIMES. CURRENT POLYSOMNOGRAM STUDY SHOWS THAT THERE IS NO SLEEP APNEA. AND THERE IS NO NOCTURNAL HYPOXEMIA. Code(s): G47.33 - Obstructive sleep apnea (adult) (pediatric) Category: Medical Plan: RESULTS ARE EXPLAINED TO THE PATIENT, REASSURED, AND SHE DOES NOT NEED TO USE CPAP AT NIGHT. Coding Level of Care Code Est Pt Level 3 (85397) Diagnoses Hypoventilation R06.89 COPD (chronic obstructive pulmonary disease) J44.9 MELISSA on CPAP G47.33
--- OUTSIDE RECORDS SUMMARY | 2024-12-11 17:43 | XMS_ITS | Clinical Summary ---
Author Organization [facility] it Address [address] [place] [address] Care Team Providers Care Lapeler Name Role Phone Bill Fonseca MD Primary Care Provider [phone] Surgical History Surgery Date Site/Laterality Comments TOTAL [...] age to complete this topic Meningococcal B Vaccine Aged Out No l onger eligible based on patient's age to complete this topic RSV Immunization Patients Under 20 months Aged Out No longer eligible b ased on patient's age to complete this topic Varicella Vaccines Aged Out No longer eligible based on patient's age to complete this topic Care Teams Lapeler Relationship Specialty Start Date End Date Bill Fonseca MD PCP - General Internal Medicine 10/18/19
--- OUTSIDE RECORDS SUMMARY | 2024-12-11 17:43 | XMS_ITS | Data Portability ---
Author Organization [place] - [place] Joshua crawfordut, [facility]_01 [place] Address [address] [place] [address] Assessment No assessment recorded. Plan of Treatment [...] - palpitaio n 2022 023 [email or web address] [email or web address] [facility] (Outt Non-Invasive Cardiology Scheduling), [address] [facility], [place], [address], 07/03/2023 09:07:49 Medication Orders mirtazapi ne 7.5 mg tablet 2024 025 [facility], [address] [place] [address], [address], 11/21/2024 17:15:07 escitalop celestine 10 mg tablet 2023 024 [facility], [address] [place] [address], [address], 10/21/2024 15:16:50 Augmentin 875 mg-125 mg tablet 2023 024 [facility], [address] [place] [address], [address], 08/30/2024 14:14:18 chlorhexi dine gluconate 0.12 % mouthwash 2023 024 [facility], [address] [place] [address], [address], 08/21/2024 11:47:02 Pristiq 25 mg tablet,ex tended release 2022 023 [facility], [address] [place] [address], [address], 08/30/2024 14:16:07 Patient TargetsNo targets recorded. Patient InstructionsNo instructions recorded. Reason for Referral None Reported. Results Created Date Observation Date Name Description Value Unit Range Abnormal Flag Note LastModifiedBy Organization Detail LastModifiedTime 09/30/1910/01/2024 TSH+F REE T4 TSH 5.960 uIU/m L 0.450- 4.500 above high normal Not Available [facility] ([facility]) [address] [facility], [place], [address], 10/01/2024 16:06:25 09/30/19 25 10/01/2024 TSH+F REE T4 T4,free(dire ct) 1.39 NG/dL 0.82-1 .77 normal Not Available [facility] ([facility]) [address] [place], [address], 10/01/2024 16:06:25 09/30/19 25 09/30/2024 CBC WITH DIFFE RENTI AL/PL ATELE T WBC 7.3 x10e3 /uL 3.4-10 .8 normal Not Available [facility] ([facility]) [address] [place], [address], 10/01/2024 16:06:27 09/30/19 25 09/30/2024 CBC WITH DIFFE RENTI AL/PL ATELE T RBC 4.31 x10e6 /uL 3.77-5 .28 normal Not Available [facility] ([facility]) [address] [place], [address], 10/01/2024 16:06:27 09/30/19 25 09/30/2024 CBC WITH DIFFE RENTI AL/PL ATELE T hemoglobin 13.3 g/dL 11.1-1 5.9 normal Not Available [facility] ([facility]) [address] [place], [address], 10/01/2024 16:06:27 09/30/1909/30/2024 CBC WITH DIFFE RENTI AL/PL ATELE T hematocrit 38.7 % 34.0-4 6.6 normal Not Available [facility] ([facility]) [address] [place], [address], 10/01/2024 16:06:27 09/30/19 25 09/30/2024 CBC WITH DIFFE RENTI AL/PL ATELE T MCV 90 fL 79-97 normal Not Available [facility] ([facility]) [address] [facility], [place], [address], 10/01/2024 16:06:27 09/30/19 25 09/30/2024 CBC WITH DIFFE RENTI AL/PL ATELE T MCH 30.9 pg 26.6-3 3.0 normal Not Available [facility] ([facility]) [address] [facility], [place], [address], 10/01/2024 16:06:27 09/30/19 25 09/30/2024 CBC WITH DIFFE RENTI AL/PL ATELE T MCHC 34.4 g/dL 31.5-3 5.7 normal Not Available [facility] ([facility]) [address] [facility], [place], [address], 10/01/2024 16:06:27 09/30/19 25 09/30/2024 CBC WITH DIFFE RENTI AL/PL ATELE T RDW 12.7 % 11.7-1 5.4 Not Available [facility] ([facility]) [address] [facility], [place], [address], 10/01/2024 16:06:27 09/30/19 25 09/30/2024 CBC WITH DIFFE RENTI AL/PL ATELE T platelets 296 x10e3 /uL 150-45 0 normal Not Available [facility] ([facility]) [address] [place], [address], 10/01/2024 16:06:27 09/30/19 25 09/30/2024 CBC WITH DIFFE RENTI AL/PL ATELE T neutrophils 59 % not estab. normal Not Available [facility] ([facility]) [address] [place], [address], 10/01/2024 16:06:27 09/30/19 25 09/30/2024 CBC WITH DIFFE RENTI AL/PL ATELE T lymphs 31 % not estab. normal Not Available [facility] ([facility]) [address] [place], [address], 10/01/2024 16:06:27 09/30/19 25 09/30/2024 CBC WITH DIFFE RENTI AL/PL ATELE T monocytes 7 % not estab. normal Not Available [facility] ([facility]) [address] [place], [address], 10/01/2024 16:06:27 09/30/19 25 09/30/2024 CBC WITH DIFFE RENTI AL/PL ATELE T eos 3 % not estab. normal Not Available [facility] ([facility]) [address] [place], [address], 10/01/2024 16:06:27 09/30/19 25 09/30/2024 CBC WITH DIFFE RENTI AL/PL ATELE T basos 0 % not estab. 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 0 normal Not Available [facility] ([facility]) [address] [place], [address], 10/01/2024 16:06:27 09/30/19 25 09/30/2024 CBC WITH DIFFE RENTI AL/PL ATELE T lymphs (absolute) 2.3 x10e3 /uL 0.7-3. 1 normal Not Available [facility] ([facility]) [address] [place], [address], 10/01/2024 16:06:27 09/30/19 25 09/30/2024 CBC WITH DIFFE RENTI AL/PL ATELE T monocytes(ab solute) 0.5 x10e3 /uL 0.1-0. 9 normal Not Available [facility] ([facility]) [address] [facility], [place], [address], 10/01/2024 16:06:27 09/30/19 25 09/30/2024 CBC WITH DIFFE RENTI AL/PL ATELE T eos (absolute) 0.3 x10e3 /uL 0.0-0. 4 normal Not Available [facility] ([facility]) [address] [facility], [place], [address], 10/01/2024 16:06:27 09/30/19 25 09/30/2024 CBC WITH DIFFE RENTI AL/PL ATELE T baso (absolute) 0.0 x10e3 /uL 0.0-0. 2 normal Not Available [facility] ([facility]) [address] [place], [address], 10/01/2024 16:06:27 09/30/19 25 09/30/2024 CBC WITH DIFFE RENTI AL/PL ATELE T immature granulocytes 0 % not estab. Not Available [facility] ([facility]) [address] [place], [address], 10/01/2024 16:06:27 09/30/19 25 09/30/2024 CBC WITH DIFFE RENTI AL/PL ATELE T immature grans (abs) 0.0 x10e3 /uL 0.0-0. 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 METAB OLIC PANEL (14) glucose 92 mg/dL 70-99 normal Not Available [facility] ([facility]) [address], [place], [address], 10/01/2024 16:06:28 09/30/19 25 10/01/2024 COMP. METAB OLIC PANEL (14) BUN 15 mg/dL 6-24 normal Not Available [facility] ([facility]) [address] [facility], [place], [address], 10/01/2024 16:06:28 09/30/19 25 10/01/2024 COMP. METAB OLIC PANEL (14) creatinine 0.79 mg/dL 0.57-1 .00 normal Not Available [facility] ([facility]) [address] [facility], [place], [address], 10/01/2024 16:06:28 09/30/19 25 10/01/2024 COMP. METAB OLIC PANEL (14) eGFR 88 mL/mi n/1.7 3 >59 normal Not Available [facility] ([facility]) [address] [facility], [place], [address], 10/01/2024 16:06:28 09/30/19 25 10/01/2024 COMP. METAB OLIC PANEL (14) BUN/creatini ne ratio 19 9-23 normal Not Available [facility] ([facility]) [address] [facility], [place], [address], 10/01/2024 16:06:28 09/30/19 25 10/01/2024 COMP. METAB OLIC PANEL (14) sodium 142 mmol/ L 134-14 4 normal Not Available [facility] ([facility]) [address] [facility] [place], [address], 10/01/2024 16:06:28 09/30/19 25 10/01/2024 COMP. METAB OLIC PANEL (14) potassium 4.8 mmol/ L 3.5-5. 2 normal Not Available [facility] ([facility]) [address] [facility] [place], [address], 10/01/2024 16:06:28 09/30/19 25 10/01/2024 COMP. METAB OLIC PANEL (14) chloride 104 mmol/ L 96-106 normal Not Available [facility] ([facility]) [address] [facility] [place], [address], 10/01/2024 16:06:28 09/30/19 25 10/01/2024 COMP. METAB OLIC PANEL (14) carbon dioxide, total 22 mmol/ L 20-29 normal Not Available [facility] ([facility]) [address] [facility] [place], [address], 10/01/2024 16:06:28 09/30/19 25 10/01/2024 COMP. METAB OLIC PANEL (14) calcium 9.9 mg/dL 8.7-10 .2 normal Not Available [facility] ([facility]) [address] [facility] [place], [address], 10/01/2024 16:06:28 09/30/19 25 10/01/2024 COMP. METAB OLIC PANEL (14) protein, total 6.6 g/dL 6.0-8. 5 normal Not Available [facility] ([facility]) [address] [facility] [place], [address], 10/01/2024 16:06:28 09/30/19 25 10/01/2024 COMP. METAB OLIC PANEL (14) albumin 4.2 g/dL 3.8-4. 9 normal Not Available [facility] ([facility]) [address] [place], [address], 10/01/2024 16:06:28 09/30/19 25 10/01/2024 COMP. METAB OLIC PANEL (14) globulin, total 2.4 g/dL 1.5-4. 5 Not Available [facility] ([facility]) [address] [place], [address], 10/01/2024 16:06:28 09/30/19 25 10/01/2024 COMP. METAB OLIC PANEL (14) bilirubin, total 0.3 mg/dL 0.0-1. 2 normal Not Available [facility] ([facility]) [address] [place], [address], 10/01/2024 16:06:28 09/30/19 25 10/01/2024 COMP. METAB OLIC PANEL (14) alkaline phosphatase 109 IU/L 44-121 normal Not Available [facility] ([facility]) [address] [place], [address], 10/01/2024 16:06:28 09/30/19 25 10/01/2024 COMP. METAB OLIC PANEL (14) AST (SGOT) 24 IU/L 0-40 normal Not Available [facility] ([facility]) [address] [place], [address], 10/01/2024 16:06:28 09/30/19 25 10/01/2024 COMP. METAB OLIC PANEL (14) ALT (SGPT) 17 IU/L 0-32 normal Not Available [facility] ([facility] [address] [facility] [place], [address], 10/01/2024 16:06:28 09/30/19 25 10/01/2024 LIPID PANEL cholesterol, total 237 mg/dL 100-19 9 above high normal Not Available [facility] ([facility]) [address] [place], [address], 10/01/2024 16:06:29 09/30/19 25 10/01/2024 LIPID PANEL triglyceride s 148 mg/dL 0-149 normal Not Available [facility] ([facility]) [address] [place], [address], 10/01/2024 16:06:29 09/30/19 25 10/01/2024 LIPID PANEL HDL cholesterol 45 mg/dL >39 normal Not Available [facility] ([facility]) [address] [place], [address], 10/01/2024 16:06:29 09/30/19 25 10/01/2024 LIPID PANEL VLDL cholesterol anay 27 mg/dL 5-40 Not Available [facility] ([facility]) [address] [facility] [place], [address], 10/01/2024 16:06:29 09/30/19 25 10/01/2024 LIPID PANEL LDL chol calc ([facility]) 165 mg/dL 0-99 above high normal Not Available [facility] ([facility]) [address] [place], [address], 10/01/2024 16:06:29 09/30/19 25 10/01/2024 LIPID PANEL LDL calc comment: SELF PROPELLED MINING MACHINE OPERATOR Not Available [facility] ([facility]) [address] [facility] [place], [address], 10/01/2024 16:06:29 09/30/19 25 10/01/2024 H PYLOR I BREAT H TEST H pylori breath test NEGATI VE negati ve Not Available [facility] ([facility]) [address] [facility] [place], [address], 10/01/2024 16:06:31 09/07/19 24 davey r monit or No observ ation record ed. [facility] (Outt Non-Invasive Cardiology Scheduling) [address] [place], [address], 09/08/2023 08:37:08 12/09/19 24 12/09/2023 XR, abdom en No observ ation record ed. Not Available 12/10 13:22:50 12/27/19 24 12/25/2023 CT, abdom en + pelvi s, w/ contr ast No observ ation record ed. [facility] [address] [place], [address], 12/27/2023 17:34:41 Result Notes None recorded. Problems Name Problem SNOMED Code Status Onset Date Resolution Date Notes Provider Name and Address Organization Details Recorded Time Sleep apnea 27019572 Active 2024 Bill Fonseca MD [address] [place] [address], [address] [facility], [place], [address] , [place] [facility] 5 10:29:23 Nausea 782974825 Active 2024 Crystal Laviolette null, [place] [facility] 5 10:51:11 Hypothyro idism 16008201 Active 2024 Bill Fonseca MD [address] [place] [address], 1[address] Floor, [place], [address] , [place] [facility] 5 14:18:06 Vitamin D deficienc y 34058793 Active 2024 Bill Fonseca MD [address] [place] [address], [facility], [place], [address] , [place] [facility] 5 16:30:29 Fibromyal nabil 764910764 Active 2019 Fibromyalg ia affecting upper arm Not Available [facility] 3 03:03:01 Gastroeso phageal reflux disease 801832903 Active 2019 GERD (gastroeso phageal reflux disease) Not Available [facility] 3 03:03:01 Cigarette smoker 47972454 Active 2019 Smoking greater than 20 pack years Not Available [facility] 3 03:03:01 Chronic low back pain 515226336 Active 2019 Chronic bilateral low back pain with bilateral sciatica Not Available [facility] 3 03:03:01 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 Procedures Surgical History None recorded. Imaging Results Imaging Date Name Status LastModified by Organiz ation Details LastModified Time 09/07/2023 holter monitor completed [facility] (Outt Non-Invasive Cardiology Scheduling) [address] [place] [address], [address], 09/08/2023 08:37:08 12/09/2023 XR, abdomen [place] [address] Information n ot available 12/11/2023 13:22:50 12/25/2023 CT, abdomen + pelvis, w/ contrast completed [facility] [address] [place], [address], 12/27/2023 17:34:41 Procedure Notes None recorded. Medical Equipment None Reported. Allergies Allergen ID Allergen Name Allergen Category Reaction Reaction Severity Criticality Documentation Date Start Date Code Code System Note Provider Name and Address Organization Details Recorded Time 936048 Buspar medicatio n nausea Not available low 06/05/2023 70071 0 RxNorm Not Available Not Available Not Available 886307 clavulani c acid Not available vomiting Not available low 08/30/2024 87237 RxNorm Not Available Not Available Not Available 94975 aluminum aspirin Not available Not available Not available Not available 12/29/20222020 611 RxNorm Not Available Not Available Not Available 73390 ciproflox acin medicatio n Not available Not available Not available 12/29/20222020 2551 RxNorm React ion: Other (See Comme nts), sever ity: Sever e;Tem porar y paral ysis Not Available Not Available Not Available 80709 azithromy jaden medicatio n Not available Not available Not available 12/29/20222020 28648 RxNorm React ion: Diarr hea, sever ity: [...] Updated DateTime 4 154.94 cm 20.8 kg/m2 89148.1 6 g 98 % 98 % 64 /min 120 mm[Hg] 68 mm[Hg] Amy smith [place] - [place] [facility] 14:09:43 Social History Question Answer Notes LastModified by Organizat ion Details LastModified Time Tobacco Smoking Status Current Every Day Smoker Not Available [facility] 12/31/2022 02:24:28 What Is Your [...] not available 08/30/2024 Where Do You Live? [facility] Information not available 08/30/2024 How Long [...] Anxious, Or Unable To Sleep At Night)? FW40049-3 Information not available 08/30/2024 Do You Use [...] virus, trivalent, preservative 9 completed Not Available [facility] 12/30/2022 07:57:04 DT (pediatric) 4 completed Not Available [facility] 12/30/2022 07:57:05 zoster recombinant 9 completed Not Available [facility] 12/30/2022 07:57:05 Tdap 9 completed Not Available [facility] 12/30/2022 07:57:05 pneumococcal polysaccharide PPV23 9 completed Not Available [facility] 12/30/2022 07:57:05 Past Encounters Encounter ID Performer Location Encounter Start Date Encounter Closed Date Diagnosis/Indication Diagnosis SNOMED-CT Code Diagnosis ICD10 Code Diagnosis Note [id number] Bill Fonseca MD [facility] [facility] [address] [place] [address] 04/14/2023 13:56:44 04/14/2023 15:27:39 Influenza-like symptoms 836842111 R68.89 We will start patient on amoxicilli n 500 mg 3 times a day for probable infectious lesion in the mouth. Patient will check for COVID and symptomati c treatment. Advised patient to keep her fluids up so that she will get dehydrated . She will call us if COVID turns out positive. [id number] Bill Fonseca MD [facility] [address] [place] [address] 06/05/2023 09:32:04 06/05/2023 15:45:53 Anxiety state 454766147 F41.1 So we talked about trying something [...] recheck in a few months. ETL Palpitations 89699814 R0 0.2 We will send her for 24-hour Holter monitor and if it is normal we will send her for an echocardio gram and if it is normal we will send her for a stress test. [id number] Bill Fonseca MD [facility] [place] [address] 08/21/2024 11:11:05 08/21/2024 11:48:47 Sore throat 464818833 J02.9 Possible possible infected cyst or viral ulceration of the throat. We will treat her with Augmentin 875 mg twice a day and if she is not improving we will have to have her come in and have us check her out in person. We will also add Hibiclens gargle in case it is a cold sore. [id number] Bill Fonseca MD [facility]16 [address] [place] [address] 08/30/2024 13:48:03 08/30/2024 14:50:35 Adult health examination 697933646 Z00.00 Mary Beth continues to be overwhelme [...] and cholestero l panel Bipolar I disorder 13095 6008 F31.9 Strongly urged patient to start [...] . 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 Gastroesop hageal reflux disease 512304257 K21.9 Will Protonix 40 mg daily and check for H. pylori breath test. We reviewed dyspepsia diet changes again Fibromyalgia M 79.7 Maintain methadone for her chronic pain. Cigarette smoker 2022690 7 F17.210 Which showed up she actually is able to quit smoking over the New Year's. [id number] Bill Fonseca MD [facility]16 [address] [place] [address] 09/24/2024 13:40:58 09/24/2024 14:39:37 Bipolar I disorder 285617955 F31.9 Will discontinu e Lexapro since the patient does not feel that it is helping much. 46 okay thank you. Very encouraged by the patient's incentive to schedule appointmen t with therapist which I hope will be a long-term solution for her. Hypothyroidism 67875260 E03.9 Still being awaiting her repeat TSH [...] monitor in few months. ETL Cigarette smoker 5579101 7 F17.210 Hopefully she will eventually cut her smoking completely but right now she is tapering off and we are informed when she finally quit completely . [id number] Bill Fonseca MD [facility]16 [address] [place] [address] 10/21/2024 13:24:18 10/21/2024 15:35:24 Bipolar I disorder 608536038 F31.9 Discussed different options and would try her on mirtazapin e 7.5 mg at bedtime to help her with her insomnia as well as bipolar disorder and maybe even improve her appetite. We will follow her up in 1 month to reassess these issues. Hypothyroidism 18543901 E03.9 Seems to be doing well on levothyrox ine 88 mcg daily with normal TSH levels on that dose. Will continue present management and recheck in 6 months. Cigarette smoker 0914875 7 F17.210 Eagerly waiting sleep study but [...] B-[place]: [employer] Mary Beth Gil [id number] Mary Beth Van Wart 08/21/2024 1 MEDICARE B-CT: NGS Mary Beth Khouryelvia [id number] Mary Beth Van Wart 08/30/2024 1 MEDICARE B-CT: NGS Mary Beth Sanchez Louise [id number] Mary Beth Van Wart 09/24/2024 1 MEDICARE B-CT: NGS Mary Beth Stewartenid [id number] Mary Beth Van Wart 10/21/2024 1 MEDICARE B-CT: LYN Khouryt [id number] Mary Beth Van Wart Notes Date Note Type Note Provider Name and Address Organization Details Recorded Time 06/05/2023 text/html Virtual VisitRep orted bypatient.Patient identity verified by:Known established patient I shared my identity credentials with the patient:Yes Patient is currently located in the state of:[place]; [place] Patient location:Home Provider location:I was located at [...] issue in the past. Bill Fonseca MD [address] [place] [address], 1[address] Floor, [place], [address], [facility] 09/08/2023 08:14:54 08/21/2024 text/html Virtual VisitRep orted bypatient.Patient identity verified by:Known established patient I shared my identity credentials with the patient:Yes Patient is currently located in the state of:[facility] Patient location:Home Provider location:I was [...] from the throat area. Bill Fonseca MD [address] [place] [address], [address] [place] [address], [phone], [facility] 08/21/2024 11:47:20 08/30/2024 text/html Mary Beth is [...] quitting this new year. Bill Fonseca MD [address] [place] [address], [address] [place] [address], [address], [facility] 08/30/2024 15:09:00 09/24/2024 text/html Virtual VisitRep orted bypatient.Patient identity verified by:Known established patient I shared my identity credentials with the patient:Yes Patient is currently located in the state of:[facility] Patient location:Home Provider location:I was [...] well as last visit. Bill Fonseca MD [address] [place] [address], [address] [place] [address], [phone], [facility] 10/18/2024 12:26:29 10/21/2024 text/html Virtual VisitRep orted bypatient.Patient identity verified by:Known established patient I shared my identity credentials with the patient:Yes Patient is currently located in the state of:[facility] Patient location:Home Provider location:I was [...] a new psychiatrist appointment. Bill Fonseca MD [address] [place] [address], [address] [place] [address], [phone], [facility] 10/21/2024 15:31:34 OBGyn Episode No OBEpisode recorded.
== END 2024-12-11 16:27 | disposition home or self-care (01) ==
LOC: HO.HPS 16:02
PROVIDERS: PCP Internal Medicine; Visit Provider Internal Medicine
DX: R06.89 Other abnormalities of breathing (principal); J44.9 Chronic obstructive pulmonary disease, unspecified; G47.33 Obstructive sleep apnea (adult) (pediatric)
CPT/HCPCS: 99213

== ENCOUNTER → 2024-12-11 16:02 | Outpatient (BNVA) | payer MEDICARE, SELFPAY | PROVIDERS: PCP Internal Medicine; Visit Provider Internal Medicine | DX: J44.9 Chronic obstructive pulmonary disease, unspecified (principal); G47.33 Obstructive sleep apnea (adult) (pediatric); R06.89 Other abnormalities of breathing; Z99.89 Dependence on other enabling machines and devices | CPT/HCPCS: 99212 ==

== ENCOUNTER 2025-05-20 15:44 | Outpatient (AMB) | payer MEDICARE, SELFPAY ==
--- NOTE | 2025-05-20 15:53 | A.OFFVIS_ITS ---
Vital Signs 05/20/25 15:54 Height 5 ft 1 in Weight 100 lb 12.02 oz BMI 19.0 BP 128/74 Blood Pressure Location Rt brachial Position Sitting Pulse 61 Pulse Source Pulse Oximeter Pulse Oximetry (%) 96 Oxygen Delivery Method Room Air Intake Visit Reasons: Hypothyroidism Intake Note: NEW Patient presents today to establish care for Hyperthyroidism: Mold Injector Required: No Accompanied by: Significant Other Allergies aspirin Allergy (Intermediate, Verified 05/20/25 15:55) vomiting blood ciprofloxacin (From Cipro) Allergy (Mild, Verified 05/20/25 15:55) temporary paralysis stains Allergy (Intermediate, Uncoded 05/20/25 15:55) severe body aches fentanyl Allergy (Mild, Uncoded 05/20/25 15:55) Difficulty Breathing prenisone Allergy (Mild, Uncoded 05/20/25 15:55) Swelling HPI Comments Details: History of Present Illness: - The patient was diagnosed with Graves' disease and had a thyroidectomy in 1996 due to severe reactions to hyperthyroidism medications, specifically methimazole (rash). - In 2006, a thyroid scan indicated thyroid tissue regrowth. - The patient reports a history of medication challenges and is currently experiencing significant symptoms including severe fatigue, nausea, vomiting, bradycardia with pulse dropping to 42, significant weight fluctuations, brittle nails, and anxiety. - The patient reports hot intolerance, preferring colder weather as heat exacerbates symptoms. - The patient states that generic levothyroxine formulations exacerbate symptoms and prefers brand name Synthroid. - The patient was previously on 75 mcg of levothyroxine but was increased to 88 mcg about a year ago, which worsened symptoms and led to severe anxiety and heart issues. The patient self-adjusted the dose to approximately 66 mcg due to symptom severity. - The patient experiences a lump in the neck, which is painful and sometimes increases in size. - Previously on 75 mcg levothyroxine, increased to 88 mcg; currently self-dosing approximately 66 mcg due to adverse effects. - Prefers Synthroid brand over generic. Physical exam General: Alert, well-nourished, no acute distress. Neck: Supple, this is a small, painful lump in the anterior neck, mobile. Cardiac: Regular rate and rhythm, no murmurs. No edema. Lungs: Clear to auscultation bilaterally. Abdomen: Soft, non-tender, nondistended Extremities: No ulcers, no tremor of outstretched hands Neuro: Alert, oriented. Labs Most recent labs from records as below 10/17/2024 TSH 3.81 Imaging Patient reported that after her thyroidectomy she had a scan showing that there is a growth in the right thyroid, she also having ?a lump in her anterior neck, and she had a previous ultrasound, but the records were not sent to us. [facility] Medical History Hypoventilation COPD (chronic obstructive pulmonary disease) MELISSA on CPAP Hypothyroidism Family History (Updated 05/20/25 @ 16:02 by RHONA De Anda) Father No problems noted. Mother No problems noted. Social History Patient Tobacco Use Status: Current everyday Tobacco user Cigarette Packs Per Day: 0.5 Cigarettes Per Day: 10 Physical Exam Vital Signs: Last Vital Signs Pulse 61 05/20/25 15:54 BP 128/74 05/20/25 15:54 Pulse Ox 96 05/20/25 15:54 Oxygen Delivery Method Room Air 05/20/25 15:54 BMI result Body Mass Index 19.0 Assessment & Plan Assessment & Plan (1) Hypothyroidism: Comment: POST THYROIDECTOMY, 2006, PATIENT HAS HYPOTHYROIDISM TREATED WITH THYROID SUPPLEMENT Code(s): E03.9 - Hypothyroidism, unspecified Category: Medical (2) Vitamin D deficiency: Code(s): E55.9 - Vitamin D deficiency, unspecified Category: Medical Plan Assessment Hypothyroidism due to total thyroidectomy in 1976. She currently have multiple symptoms not all seem to be related to her thyroid dysfunction. She had been taking irregular here with thyroxine doses. She reports a growth in her anterior neck, which I palpated in the exam, given the painful nature of the nodule/lump, does not seems to be atypical thyroid nodule. Vitamin-D deficiency which was reported by the patient, she endorses not taking vitamin-D supplementation and note having check her levels in a while. Plan -Adjust thyroid medication to Synthroid, starting at 75 mcg daily on an empty stomach with water, to be taken 30-60 minutes before --food, and from calcium/iron by at least 4 hours. -Discussed thyroid physiology and utility of labs and assessment of thyroid function, especially emphasized reliability of TSH -Conduct a TSH and Free T4 test in six weeks to monitor thyroid function. -Request thyroid ultrasound records from [facility] or PCP for further evaluation of the neck mass. -Order Vitamin D level assessment due to suspected deficiency. -Follow-up scheduled in two months to review lab results and adjust treatment as necessary. -Educate the patient on the importance of consistent medication dosing and monitoring. -Discuss potential referral to primary care for further evaluation of systemic symptoms not directly related to thyroid function. Orders: Orders TSH reflex Free T4 6 Weeks E03.9 - Hypothyroidism, unspecified Free T4 (Free Thyroxine) 6 Weeks E03.9 - Hypothyroidism, unspecified Vitamin D 25-OH Total 05/20/25 E55.9 - Vitamin D deficiency, unspecified Thyroid Peroxidase Antibodies 6 Weeks E03.9 - Hypothyroidism, unspecified Medications: New Synthroid (levothyroxine) 75 mcg PO DAILY 30 tabs 0RF NS Coding Level of Care Code New Pt Level 4 (03805) Diagnoses Hypothyroidism E03.9 Vitamin D deficiency E55.9 Time Spent (min) 45 Comment Time spent on review of previous records, history, exam/plan and patient education.
[2025-05-20 15:54] VITALS: BP 128/74; PULSE 61; O2SAT 96; BMI 19.0
--- OUTSIDE RECORDS SUMMARY | 2025-05-20 18:54 | XMS_ITS | Clinical Summary ---
Author Organization [facility] it Address [address] [place] [address] Care Team Providers Care Lighting Engineering Technician Name Role Phone Bill Fonseca MD Primary Care Provider [phone] Surgical History Surgery Date Site/Laterality Comments TOTAL [...] 10/08/2019 10/08/2018 Colorectal Cancer Screening: Colonoscopy 08/07/2022 HIV Screening 08/07/2022 Hepatitis C Screening 08/07/2022 Medicare Annual Wellness Visit 08/07/2022 Social Influencers of Health Screening 08/07/2022 Depression Screening 09/04/2024 COVID-19 Vaccine (1 - 2023-2 5 season) 2025 Influenza Vaccine (#1) 2025 10/08/2018 DTaP,Tdap,and Td Vaccines (3 - Td [...] age to complete this topic Care Teams Lighting Engineering Technician Relationship Specialty Start Date End Date Bill Fonseca MD PCP - General Internal Medicine 10/18/19
--- OUTSIDE RECORDS SUMMARY | 2025-05-20 18:54 | XMS_ITS ---
Author Name [facility] Organization Unknown History of Medication Use Medication Directions Dispensed Refills Start Date End Date [facility] mirtazapine 7.5 mg tablet Take 1 tablet every day by oral route. 10/21/2024 active Synthroid 88 mcg tablet Take 1 tablet every day by oral route. 10/01/2024 active escitalopram 10 mg tablet Take 1 tablet every day by oral route. 08/30/2024 active chlorhexidine gluconate 0.12 % mouthwash Place 15 mL twice a day by mucous membrane route. 08/21/2024 active meclizine 12.5 mg tablet Take 1 tablet (12.5 mg total) by mouth 3 (three) times a day as needed for dizziness or nausea. 09/13/2023 4 active olanzapine 5 mg tablet Take 1 tablet (5 mg total) by mouth every night at bedtime. 2022 3 completed prednisone 20 mg tablet Take 2 tablets (40 mg total) by mouth daily for 4 days, THEN 1 tablet (20 mg total) daily for 4 days. 02/04/2022 2 completed valacyclovir 1 gram tablet Take 1 tablet (1,000 mg total) by mouth 2 (two) times a day for 7 days. 02/04/2022 2 completed lurasidone 20 mg tablet Take 1 tablet (20 mg total) by mouth Every evening with dinner. 11/05/2021 2 completed levothyroxine 88 mcg tablet TAKE ONE TABLET BY MOUTH EVERY DAY IN THE MORNING ON AN EMPTY STOMACH 4 active lorazepam 0.5 mg tablet TAKE 1 TABLET BY MOUTH 2 TO 3 TIMES DAILY NEEDED FOR ANXIETY 4 active amoxicillin 500 mg capsule TAKE ONE CAPSULE BY MOUTH THREE TIMES A DAY FOR 10 DAYS 3 completed Augmentin 875 mg-125 mg tablet active escitalopram 10 mg tablet active mirtazapine 7.5 mg tablet active Allergies Allergen Reaction Severity Comment Documented Date Source Statu s ALUMINUM ASPIRIN [facility] AZITHROMYCIN [facility] CIPROFLOXACIN [facility] BUSPAR NAUSEA [facility] CLAVULANIC ACID VOMITING [facility] Problems Problem Status Onset Date Problem Type Date of Resoluti on Source Sleep apnea active 2024-09-26 ProblemAct [facility] VIA Mass of pharynx active 2024-12-[address] [facility] Fibromyalgia active 2019-10-18 ProblemAct [facility] Numbness active 2025-02-24 ProblemAct [facility] A Bipolar I disorder active 2021-11-05 ProblemAct [facility] 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 2020-10-22 ProblemAct [facility] Vitamin D deficiency active 2024-10-01 ProblemAct [facility] Cigarette smoker active 2019-10-18 ProblemAct C T[facility]IV[facility] Migraine without aura active 2021-11-05 ProblemAct [facility] Hypothyroidism active 2024-10-01 Problem[address] [facility]_ [facility] Chronic low back pain active 2019-10-18 ProblemAct [facility] Nausea active 2024-09-30 ProblemAct [facility] A Gastroesophageal reflux disease active 2019-10-18 ProblemAct [facility] Immunizations Vaccine Date Source Lot Number Status influenza, seasonal, injectable 10/08/2018 [facility] UNK completed pneumococcal polysaccharide vaccine, 23 valent 10/08/2018 [facility] UNK completed tetanus toxoid, reduced diph theria toxoid, and acellular pertussis vaccine, adsorbed 10/08/2018 [facility] UNK completed zoster vaccine subunit 10/08/2018 [facility]IA UNK co mpleted diphtheria and tetanus toxoi ds, adsorbed for pediatric use 12/02/2003 [facility] UNK completed Encounters Encounter Type Encounter Reason Primary Diagnosis Location Date Ambulatory [facility] 11/21/2023 Care Team Organization Name Specialty Phone Email Start Date End [facility] 08/22/2024 [facility] 08/06/2022 024 [facility] GWEN MARTINI Primary Care 07/12/2022 04/22/2024
--- OUTSIDE RECORDS SUMMARY | 2025-05-20 18:54 | XMS_ITS | Patient Health Record ---
Author Organization [facility] Address [address] [address] Care Team Providers Care Editor In Chief Name Role Phone ALIZA MARTINI MD Primary Care Provider Unavailabl e Reason For Referral No Information Plan Of Treatment No Information Insurance Providers Payer Name Payer Address Payer Phone Subscriber Number Group Number Insured Name Patient Relationship to Insured Coverage Start Date Coverage End Date MEDICARE [address] [place], [place] [id number] [phone] NYDIA OWENS Self - patient is the insured
== END 2025-05-20 16:46 | disposition home or self-care (01) ==
LOC: HO.ENCR 15:44
PROVIDERS: PCP Internal Medicine; Visit Provider Student in an Organized Health Care Education/Training Program
DX: E03.9 Hypothyroidism, unspecified (principal); E55.9 Vitamin D deficiency, unspecified
CPT/HCPCS: 99204

== ENCOUNTER → 2025-05-20 15:44 | Outpatient (BNVA) | payer MEDICARE, SELFPAY | PROVIDERS: PCP Internal Medicine; Visit Provider Student in an Organized Health Care Education/Training Program | DX: E89.0 Postprocedural hypothyroidism (principal); E55.9 Vitamin D deficiency, unspecified; Z79.890 Hormone replacement therapy | CPT/HCPCS: 99202 ==

== ENCOUNTER 2025-06-09 15:53 | Outpatient (AMB) | payer MEDICARE, SELFPAY ==
[2025-06-09 15:59] VITALS: BP 148/82; PULSE 64; O2SAT 97; BMI 19.0
--- NOTE | 2025-06-09 15:59 | MHC.OFFVIS ---
Vital Signs 06/09/25 15:59 Height 5 ft 1 in Weight 100 lb 4.965 oz BMI 19.0 BP 148/82 H Blood Pressure Location Lt brachial Position Sitting Pulse 64 Pulse Source Pulse Oximeter Pulse Oximetry (%) 97 Oxygen Delivery Method Room Air Intake Visit Reasons: Sleep apnea Intake Note: pt is here for follow up and is having issues with her bp and low pulse. she is waking up at night with this panic feeling and makes her feel like she cannot breath, and than she gets very distorted on what is going on. Artificial Leather Calender Operator Required: No Mutual Fund Manager: Mutual Fund Manager offered & declined Allergies aspirin Allergy (Intermediate, Verified 06/09/25 16:22) vomiting blood ciprofloxacin (From Cipro) Allergy (Mild, Verified 06/09/25 16:22) temporary paralysis stains Allergy (Intermediate, Uncoded 06/09/25 16:22) severe body aches fentanyl Allergy (Mild, Uncoded 06/09/25 16:22) Difficulty Breathing prenisone Allergy (Mild, Uncoded 06/09/25 16:22) Swelling Medication List - Last Reconciled 06/09/25 by Lily Martinez MD methadone 10 mg PO Q6-8H PRN ondansetron 4 mg PO Q8H PRN pantoprazole (Protonix) 40 mg PO DAILY sucralfate (Carafate) 1 g PO BID Synthroid (levothyroxine) 75 mcg PO DAILY NS Do you need a note to return to daycare/school/sports/work: No HPI HPI Sleep apnea: Details: THIS 54 YEARS OLD FEMALE COMES AFTER 6 MONTHS FOR FOLLOW-UP. THIS LADY HAS HAD DIAGNOSIS OF SLEEP APNEA, AND BRONCHIAL ASTHMA IN THE PAST. BUT WE HAVE DONE POLYSOMNOGRAM STUDY IN THE SLEEP LAB WHICH WAS TOTALLY NEGATIVE FOR SLEEP APNEA. AND ALSO DID PULMONARY FUNCTION TEST WHICH WAS PERFECTLY NORMAL. SINCE HER LAST VISIT I HAD EXPLAINED TO HER THAT SHE DOES NOT NEED ANY TREATMENT FROM PULMONARY POINT OF VIEW. SHE COMES TODAY FOR FOLLOW-UP AND SAY IS THAT SOMETIME DURING THE NIGHT SHE FEELS IF SHE IS SHORT OF BREATH. BUT SHE DOES NOT NEED TO USE ANY INHALER. SHE SAY IS HER BLOOD PRESSURE HAS BEEN LOW AND HEART RATE SOMETIME WAS TOO SLOW. RECENTLY DIAGNOSED TO HAVE HYPOTHYROIDISM AND HAS BEEN STARTED ON SYNTHROID 75 MCG DAILY. FOR HER CHRONIC PAIN CONTROLLED SHE IS STILL ON METHADONE 10 MG ABOUT TWICE A DAY. SHE STILL SMOKES ABOUT 2-3 CIGARETTES A DAY . HAS CUT IT WEIGHT DOWN. [facility] Medical History Hypoventilation COPD (chronic obstructive pulmonary disease) MELISSA on CPAP Hypothyroidism Family History Father No problems noted. Mother No problems noted. Social History Patient Tobacco Use Status: Current everyday Tobacco user Cigarette Packs Per Day: 0.5 Cigarettes Per Day: 3 Review of Systems Const All systems reviewed & are unremarkable except as noted in HPI and below Eyes Reports no additional complaints ENT Reports no additional complaints Card Denies chest pain, Denies irregular heart rhythm, Denies leg edema and Reports dyspnea on exertion (SHE HAS MODERATE AMOUNT OF DYSPNEA ON EXERTION) Resp Denies cough (MILD INTERMITTENT), Reports dyspnea on exertion (SHE HAS MODERATE AMOUNT OF DYSPNEA ON EXERTION) and Denies wheezing GI Reports dyspepsia and Reports heartburn (BEING TREATED WITH PROTONIX) Reports no additional complaints Musc Reports back pain, Reports myalgias and Reports other (PATIENT TELLS ME THAT SHE WAS DIAGNOSED TO HAVE FIBROMYALGIA, ) Skin/Breast Reports system reviewed and no additional complaints, except as documented Neuro Reports no additional complaints Psych Reports anxiety Endo Reports no additional complaints [place]/Lymph Reports no additional complaints Aller/Immun Reports no additional complaints and Denies wheezing Physical Exam Vital Signs: Last Vital Signs Pulse 64 06/09/25 15:59 BP 148/82 H 06/09/25 15:59 Pulse Ox 97 06/09/25 15:59 Oxygen Delivery Method Room Air 06/09/25 15:59 BMI result Body Mass Index 19.0 Const Other: PATIENT OF A THIN BUILD, SOMEWHAT ANXIOUS. General: comfortable, no acute distress, alert and awake Orientation/consciousness: patient oriented x3 HEENT Head: Yes normal to inspection General nose exam: No nasal polyps present and No nasal discharge present Face and sinus: Yes sinuses nontender Mouth: oropharynx normal Throat: Yes posterior oropharynx normal Eyes General: appearance normal, both eyes and all related structures Neck Neck: Yes normal visual inspection, Yes no lymphadenopathy, Yes trachea midline, Yes no JVD and Yes other (TRANSFERS SCAR IN FRONT FROM PREVIOUS THYROIDECTOMY) Thyroid: Thyroid normal Chest Chest palpation & inspection: normal inspection of the chest, normal palpation of entire chest wall and no tenderness Resp Other: PERCUSSION NOTE IS RESONANT, BREATH SOUNDS SLIGHTLY DISTANT, NO WHEEZES OR RHONCHI ARE HEARD Cardio Palpation: normal PMI Rate: regular rate Rhythm: regular rhythm Heart sounds: no gallops and no murmurs Peripheral pulses: Peripheral pulses 2+ throughout GI Palpation (GI): Soft to palpation, Tenderness to palpation present (GI), No hepatosplenomegaly present and Palpable mass present Auscultation: normal bowel sounds Back/Spine/Pelvis Thoracic/Lumbar Spine: thoracic and lumbar spine normal to inspection Skin General skin exam: no rashes or lesions noted Neuro General: patient oriented x3 and no focal motor deficits Cranial nerves: Yes CN's II-XII intact bilaterally Extrem General: Yes normal to inspection, Yes no clubbing, cyanosis or edema and Yes no calf tenderness Psych Appearance: grossly normal and well kempt Speech and movement: Normal speech and movement present Affect: Anxious affect present Assessment & Plan Assessment & Plan (1) COPD (chronic obstructive pulmonary disease): Comment: PATIENT HAS HISTORY OF SMOKING 10-15 CIGARETTES A DAY FOR MANY YEARS, SHE COMPLAINS OF GETTING SHORT OF BREATH ON EXERTION . CLINICALLY COPD WAS SUSPECTED. HOWEVER PULMONARY FUNCTION TEST WAS ESSENTIALLY NORMAL . SHE HAS CUT DOWN THE CIGARETTES TO 2-3 A DAY. Code(s): J44.9 - Chronic obstructive pulmonary disease, unspecified Category: Medical Plan: I REASSURED HER THAT SHE DOES NOT HAVE ANY DEGREE OF COPD OR ASTHMA . SHE DOES NOT NEED TO USE ANY BRONCHODILATOR INHALER. WHEN SHE GETS SHORT OF BREATH SHE NEEDS TO SIT DOWN TO RELAX AND TAKE DEEP BREATHS . (2) Hypoventilation: Comment: BECAUSE SHE WAS USING METHADONE ON A DAILY BASIS , SHE HAD MILD CHRONIC HYPOVENTILATION SYNDROME. SHE IS CUTTING DOWN ON THE DOSE OF METHADONE, AND SHE HAS NO PERIODS OF HYPOVENTILATION. Code(s): R06.89 - Other abnormalities of breathing Category: Medical Plan: AGAIN REASSURED AND I ADVISED HER TO SLOWLY CUT DOWN THE DOSE OF METHADONE. MAY DO DEEP BREATHING EXERCISES 2 TO 3 TIMES A DAY. (3) MELISSA on CPAP: Comment: SHE CARRIED DIAGNOSIS OF MILD OBSTRUCTIVE SLEEP APNEA SINCE 2012, AND HAD BEEN USING THE CPAP BUT NOT ALL THE TIMES. POLYSOMNOGRAM STUDY WAS ESSENTIALLY NORM Code(s): G47.33 - Obstructive sleep apnea (adult) (pediatric) Category: Medical Plan: ONCE AGAIN EXPLAINED THAT SHE DOES NOT HAVE ANY SLEEP APNEA AND SHE DOES NOT NEED TO USE CPAP. Coding Level of Care Code Est Pt Level 3 (42890) Diagnoses COPD (chronic obstructive pulmonary disease) J44.9 Hypoventilation R06.89 MELISSA on CPAP G47.33
--- OUTSIDE RECORDS SUMMARY | 2025-06-09 18:13 | XMS_ITS | Clinical Summary ---
Author Organization [facility] Address [address] [place] [address] Care Team Providers Care Seedling Sorter Name Role Phone Bill Fonseca MD Primary Care Provider [phone] Allergies Active Allergy Reactions Criticality Noted Date [...] 64 10/03/2023 1:05 PM EST Temperature 36.2 C (97.2 F) 12/30/2022 3:22 PM EDT Respiratory Rate 17 10/07/2022 3:10 PM EST [...] age to complete this topic Care Teams Seedling Sorter Relationship Specialty Start Date End Date Bill Fonseca MD PCP - General Internal Medicine 10/18/19
--- OUTSIDE RECORDS SUMMARY | 2025-06-09 18:13 | XMS_ITS | Clinical Summary ---
Author Organization [facility] it Address [address] [place] [address] Care Team Providers Care Optoelectronics Engineer Name Role Phone Bill Fonseca MD Primary Care Provider [phone] Surgical History Surgery Date Site/Laterality Comments TOTAL [...] Last Done Comments Breast Cancer Screening 1968 Colorectal Cancer Screening: Colonoscopy 1968 Hepatitis B Vaccines (1 of 3 - 19+ 3-dose series) 1987 Cervical Cancer Screening: P ap Smear 1989 Zoster Vaccines (2 of 2) 12/03/2018 10/08/2018 Pneumococcal Vaccine: 50+ Years (2 of 2 - PCV) 10/08/2019 10/08/2018 HIV Screening 08/07/2022 Hepatitis C Screening 08/07/2022 Medicare Annual Wellness Visit 08/07/2022 Social Influencers of Health Screening 08/07/2022 Depression Screening 09/04/2024 COVID-19 Vaccine (1 - 2023-2 5 season) 2025 Influenza Vaccine (#1) 2025 10/08/2018 DTaP,Tdap,and Td Vaccines (3 - Td or Tdap) 10/08/2028 10/08/2018, 12/02/2003 RSV Immunization Adult Patients (1 - 1-dose 75+ series) 2043 HIB Vaccines Aged Out No longer eligi [...] age to complete this topic Care Teams Optoelectronics Engineer Relationship Specialty Start Date End Date Bill Fonseca MD PCP - General Internal Medicine 10/18/19
--- OUTSIDE RECORDS SUMMARY | 2025-06-09 18:13 | XMS_ITS | Data Portability ---
Author Organization [place] Joshua Nielsen cticut, [facility] [place] Address [address] [place] [address] Assessment No assessment recorded. Plan of Treatment Reminders Order Date Submit Date Provider Last Modified By Organization Details Last Modified Time Details Appointments None recorded. Lab TSH + free T4, serum 2023 JONATHAN [facility] (Centralized Electronic Ordering - All Locations), Patient Can Go To The Location Of Their Choice, [address] 16:06:25 H pylori urea breath test, co2 infrared 2023 024 JONATHAN [facility] (Centralized Electronic Ordering - All Locations), Patient Can Go To The Location Of Their Choice, 16:06:31 CBC w/ auto diff 2023 024 JONATHAN [facility] (Centralized Electronic Ordering - All Locations), Patient Can Go To The Location Of Their Choice, 16:06:27 CMP, serum or plasma 2023 024 JONATHAN [facility] (Centralized Electronic Ordering - All Locations), Patient Can Go To The Location Of Their Choice, [address] 16:06:28 lipid panel, serum 2023 024 JONATHAN [facility] (Centralized Electronic Ordering - All Locations), Patient Can Go To The Location Of Their Choice, [address] 16:06:29 Referral otolaryngol ogist referral - Chronic pharyngeal mass 2024 025 claviolet [email or web address] Parag Beebe MD, [address], [address], [place], [address], 02:18:38 Procedures None recorded. Surgeries None recorded. Imaging XR, thoracic spine [address] (Imaging), [address] [place] [address], [address], 5 08:22:27 XR, lumbar spine [address] (Imaging), [address] [place] [address], [address], 5 08:22:27 Medication Orders mirtazapine 7.5 mg tablet 2024 025 [facility], [address] [place] [address], [address], 5 17:15:07 escitalopra m 10 mg tablet 2023 024 [facility], [address] [place] [address], [address], 5 15:16:50 Patient TargetsNo targets recorded. Patient InstructionsNo instructions recorded. 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 Mass of pharynx Chronic pharyngeal mass Referring Physician: Bill Fonseca, Internal Medicine, Encounter Date: 12/19/2024 Results Created Date Observation Date Name Description Value Unit Range Abnormal Flag Note LastModifiedBy Organization Detail LastModifiedTime 09/30/1910/01/2024 TSH+F REE T4 TSH 5.960 uIU/m L 0.450- 4.500 above high normal Not Available [facility] ([facility]) [address] [facility], [place], [address], 10/01/2024 16:06:25 09/30/19 25 10/01/2024 TSH+F REE T4 T4,free(dire ct) 1.39 NG/dL 0.82-1 .77 normal Not Available [facility] ([facility]) [address] [place], [address], 10/01/2024 16:06:25 09/30/19 25 09/30/2024 CBC WITH DIFFE RENTI AL/PL ATELE T WBC 7.3 x10e3 /uL 3.4-10 .8 normal Not Available [facility] ([facility]) [address] [place], [address], 10/01/2024 16:06:27 09/30/19 25 09/30/2024 CBC WITH DIFFE RENTI AL/PL ATELE T RBC 4.31 x10e6 /uL 3.77-5 .28 normal Not Available [facility] ([facility]) [address] [place], [address], 10/01/2024 16:06:27 09/30/19 25 09/30/2024 CBC WITH DIFFE RENTI AL/PL ATELE T hemoglobin 13.3 g/dL 11.1-1 5.9 normal Not Available [facility] ([facility]) [address] [place], [address], 10/01/2024 16:06:27 09/30/19 25 09/30/2024 CBC WITH DIFFE RENTI AL/PL ATELE T hematocrit 38.7 % 34.0-4 6.6 normal Not Available [facility] ([facility]) [address] [place], [address], 10/01/2024 16:06:27 09/30/19 25 09/30/2024 CBC WITH DIFFE RENTI AL/PL ATELE T MCV 90 fL 79-97 normal Not Available [facility] ([facility]) [address] [place], [address], 10/01/2024 16:06:27 09/30/19 25 09/30/2024 CBC WITH DIFFE RENTI AL/PL ATELE T MCH 30.9 pg 26.6-3 3.0 normal Not Available [facility] ([facility]) [address] [facility], [place], [address], 10/01/2024 16:06:27 09/30/19 25 09/30/2024 CBC WITH DIFFE RENTI AL/PL ATELE T MCHC 34.4 g/dL 31.5-3 5.7 normal Not Available [facility] ([facility]) [address] [facility], [place], [address], 10/01/2024 16:06:27 09/30/19 25 09/30/2024 CBC WITH DIFFE RENTI AL/PL ATELE T RDW 12.7 % 11.7-1 5.4 Not Available [facility] ([facility]) [address] [facility], [place], [address], 10/01/2024 16:06:27 09/30/19 25 09/30/2024 CBC WITH DIFFE RENTI AL/PL ATELE T platelets 296 x10e3 /uL 150-45 0 normal Not Available [facility] ([facility]) [address] [place], [address], 10/01/2024 16:06:27 09/30/19 25 09/30/2024 CBC WITH DIFFE RENTI AL/PL ATELE T neutrophils 59 % not estab. normal Not Available [facility] ([facility]) [address] [place], [address], 10/01/2024 16:06:27 09/30/19 25 09/30/2024 CBC WITH DIFFE RENTI AL/PL ATELE T lymphs 31 % not estab. normal Not Available [facility] ([facility]) [address] [place], [address], 10/01/2024 16:06:27 09/30/19 25 09/30/2024 CBC WITH DIFFE RENTI AL/PL ATELE T monocytes 7 % not estab. normal Not Available [facility] ([facility]) [address] [place], [address], 10/01/2024 16:06:27 09/30/19 25 09/30/2024 CBC WITH DIFFE RENTI AL/PL ATELE T eos 3 % not estab. normal Not Available [facility] ([facility]) [address] [place], [address], 10/01/2024 16:06:27 09/30/19 25 09/30/2024 CBC WITH DIFFE RENTI AL/PL ATELE T basos 0 % not estab. normal Not Available [facility] ([facility]) [address] [facility], [place], [address], 10/01/2024 16:06:27 09/30/19 25 09/30/2024 CBC WITH DIFFE RENTI AL/PL ATELE T immature cells [employer] Not Available [facility] ([facility]) [address] [place], [address], 10/01/2024 16:06:27 09/30/19 25 09/30/2024 CBC WITH DIFFE RENTI AL/PL ATELE T neutrophils (absolute) 4.2 x10e3 /uL 1.4-7. 0 normal Not Available [facility] ([facility]) [address] [place], [address], 10/01/2024 16:06:27 09/30/19 25 09/30/2024 CBC WITH DIFFE RENTI AL/PL ATELE T lymphs (absolute) 2.3 x10e3 /uL 0.7-3. 1 normal Not Available [facility] ([facility]) [address] [place], [address], 10/01/2024 16:06:27 09/30/19 25 09/30/2024 CBC WITH DIFFE RENTI AL/PL ATELE T monocytes(ab solute) 0.5 x10e3 /uL 0.1-0. 9 normal Not Available [facility] ([facility]) [address] [facility], [place], [address], 10/01/2024 16:06:27 09/30/19 25 09/30/2024 CBC WITH DIFFE RENTI AL/PL ATELE T eos (absolute) 0.3 x10e3 /uL 0.0-0. 4 normal Not Available [facility] ([facility]) [address] [facility], [place], [address], 10/01/2024 16:06:27 09/30/19 25 09/30/2024 CBC WITH DIFFE RENTI AL/PL ATELE T baso (absolute) 0.0 x10e3 /uL 0.0-0. 2 normal Not Available [facility] ([facility]) [address] [facility], [place], [address], 10/01/2024 16:06:27 09/30/19 25 09/30/2024 CBC WITH DIFFE RENTI AL/PL ATELE T immature granulocytes 0 % not estab. Not Available [facility] ([facility]) [address] [facility], [place], [address], 10/01/2024 16:06:27 09/30/19 25 09/30/2024 CBC WITH DIFFE RENTI AL/PL ATELE T immature grans (abs) 0.0 x10e3 /uL 0.0-0. 1 Not Available [facility] ([facility]) [address] [place], [address], 10/01/2024 16:06:27 09/30/19 25 09/30/2024 CBC WITH DIFFE RENTI AL/PL ATELE T NRBC [employer] Not Available [facility] ([facility]) [address] [facility], [place], [address], 10/01/2024 16:06:27 09/30/19 25 09/30/2024 CBC WITH DIFFE RENTI AL/PL ATELE T hematology comments: [employer] Not Available [facility] ([facility]) [address] [place], [address], 10/01/2024 16:06:27 09/30/19 25 10/01/2024 COMP. METAB OLIC PANEL (14) glucose 92 mg/dL 70-99 normal Not Available [facility] ([facility]) [address] [place], [address], 10/01/2024 16:06:28 09/30/19 25 10/01/2024 COMP. METAB OLIC PANEL (14) BUN 15 mg/dL 6-24 normal Not Available [facility] ([facility]) [address] [place], [address], 10/01/2024 16:06:28 09/30/19 25 10/01/2024 COMP. METAB OLIC PANEL (14) creatinine 0.79 mg/dL 0.57-1 .00 normal Not Available [facility] ([facility]) [address] [place], [address], 10/01/2024 16:06:28 09/30/19 25 10/01/2024 COMP. METAB OLIC PANEL (14) eGFR 88 mL/mi n/1.7 3 >59 normal Not Available [facility] ([facility]) [address] [place], [address], 10/01/2024 16:06:28 09/30/19 25 10/01/2024 COMP. METAB OLIC PANEL (14) BUN/creatini ne ratio 19 9-23 normal Not Available [facility] ([facility]) [address] [place], [address], 10/01/2024 16:06:28 09/30/19 25 10/01/2024 COMP. METAB OLIC PANEL (14) sodium 142 mmol/ L 134-14 4 normal Not Available [facility] ([facility]) [address] [place], [address], 10/01/2024 16:06:28 09/30/19 25 10/01/2024 COMP. METAB OLIC PANEL (14) potassium 4.8 mmol/ L 3.5-5. 2 normal Not Available [facility] ([facility] [address] [place], [address], 10/01/2024 16:06:28 09/30/19 25 10/01/2024 COMP. METAB OLIC PANEL (14) chloride 104 mmol/ L 96-106 normal Not Available [facility] ([facility]) [address] [place], [address], 10/01/2024 16:06:28 09/30/19 25 10/01/2024 COMP. METAB OLIC PANEL (14) carbon dioxide, total 22 mmol/ L 20-29 normal Not Available [facility] ([facility]) [address] [place], [address], 10/01/2024 16:06:28 09/30/19 25 10/01/2024 COMP. METAB OLIC PANEL (14) calcium 9.9 mg/dL 8.7-10 .2 normal Not Available [facility] ([facility]) [address] [place], [address], 10/01/2024 16:06:28 09/30/19 25 10/01/2024 COMP. METAB OLIC PANEL (14) protein, total 6.6 g/dL 6.0-8. 5 normal Not Available [facility] ([facility]) [address] [place], [address], 10/01/2024 16:06:28 09/30/19 25 10/01/2024 COMP. METAB OLIC PANEL (14) albumin 4.2 g/dL 3.8-4. 9 normal Not Available [facility] ([facility]) [address] [place], [address], 10/01/2024 16:06:28 09/30/19 25 10/01/2024 COMP. METAB OLIC PANEL (14) globulin, total 2.4 g/dL 1.5-4. 5 Not Available [facility] ([facility]) [address] [place], [address], 10/01/2024 16:06:28 09/30/19 25 10/01/2024 COMP. METAB OLIC PANEL (14) bilirubin, total 0.3 mg/dL 0.0-1. 2 normal Not Available [facility] ([facility]) [address] [place], [address], 10/01/2024 16:06:28 09/30/19 25 10/01/2024 COMP. METAB OLIC PANEL (14) alkaline phosphatase 109 IU/L 44-121 normal Not Available [facility] ([facility]) [address] [place], [address], 10/01/2024 16:06:28 09/30/19 25 10/01/2024 COMP. METAB OLIC PANEL (14) AST (SGOT) 24 IU/L 0-40 normal Not Available [facility] ([facility]) [address] [place], [address], 10/01/2024 16:06:28 09/30/19 25 10/01/2024 COMP. METAB OLIC PANEL (14) ALT (SGPT) 17 IU/L 0-32 normal Not Available [facility] ([facility]) [address] [place], [address], 10/01/2024 16:06:28 09/30/19 25 10/01/2024 LIPID PANEL cholesterol, total 237 mg/dL 100-19 9 above high normal Not Available [facility] ([facility]) [address] [place], [address], 10/01/2024 16:06:29 09/30/19 25 10/01/2024 LIPID PANEL triglyceride s 148 mg/dL 0-149 normal Not Available [facility] ([facility]) [address] [place], [address], 10/01/2024 16:06:29 09/30/19 25 10/01/2024 LIPID PANEL HDL cholesterol 45 mg/dL >39 normal Not Available [facility] ([facility]) [address] [place], [address], 10/01/2024 16:06:29 09/30/19 25 10/01/2024 LIPID PANEL VLDL cholesterol anay 27 mg/dL 5-40 Not Available [facility] ([facility]) [address] [place], [address], 10/01/2024 16:06:29 09/30/19 25 10/01/2024 LIPID PANEL LDL chol calc ([facility]) 165 mg/dL 0-99 above high normal Not Available [facility] ([facility]) [address] [place], [address], 10/01/2024 16:06:29 09/30/19 25 10/01/2024 LIPID PANEL LDL calc comment: [employer] Not Available [facility] ([facility]) [address] [place], [address], 10/01/2024 16:06:29 09/30/19 25 10/01/2024 H PYLOR I BREAT H TEST H pylori breath test NEGATI VE negati ve Not Available [facility] ([facility]) [address] [place], [address], 10/01/2024 16:06:31 Result Notes None recorded. Problems Name Problem SNOMED Code Status Onset Date Resolution Date Notes Provider Name and Address Organization Details Recorded Time Fibromyal nabil 904125920 Active 2019 Fibromyalg ia affecting upper arm Not Available [facility] 3 03:03:01 Gastroeso phageal reflux disease 690181703 Active 2019 GERD (gastroeso phageal reflux disease) Not Available [facility] 04/29/202 3 03:03:01 Cigarette smoker 07615288 Active 2019 Smoking greater than 20 pack years Not Available [facility] 3 03:03:01 Chronic low back pain 944878844 Active 2019 Chronic bilateral low back pain with bilateral sciatica Not Available [facility] 3 03:03:01 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 420063749 Active 2020 Hypothyroi dism due to Renetta' s thyroiditi s Kinga Tony null, [place] [facility] 5 09:29:55 Bipolar I disorder 344746616 Active 2021 Bipolar 1 disorder Not Available [facility] 3 03:03:01 Migraine without aura 98195582 Active 2021 Migraine without aura or status migrainosu s Not Available [facility] 3 03:03:01 Sleep apnea 35032969 Active 2024 Bill Fonseca MD [address] [place] [address], [address] [place] [address], [address] , [place] [facility] 5 10:29:23 Nausea 862795366 Active 2024 Crystal Epifanio null, [place] - [place] [facility] 5 10:51:11 Hypothyro idism 98967659 Active 2024 Bill Fonseca MD [address] [place] [address], [address] [place] [address], [place], [address] , [place] [facility] 5 14:18:06 Vitamin D deficienc y 72359952 Active 2024 Bill Fonseca MD [address] [place] [address], [address] [place] [address], [place], [address] , [place] [facility] 5 16:30:29 Mass of pharynx Active 2024 Bill Fonseca MD [address] [place] [address], [address] [place] [address], [address] , [place] [facility] 5 11:37:38 Numbness 89129073 Active 2024 Bill Fonseca MD [address] [place] [address], [address] [place] [address], [place], [address] , [place] [facility] 5 16:21:30 Problem Notes None recorded. Medical Equipment None Reported. Allergies Allergen ID Allergen Name Allergen Category Reaction Reaction Severity Criticality Documentation Date Start Date Code Code System Note Provider Name and Address Organization Details Recorded Time 267381 Buspar medicatio n nausea Not available low 06/05/2023 50626 0 RxNorm Bill Fonseca MD [address] [place] [address], [address] [place] [address], [place], [address], [place] [facility] 3 15:23:00 305800 clavulani c acid Not available vomiting Not available low 08/30/2024 94540 RxNorm Bill Fonseca MD [address] [place] [address], [address] [place] [address], [place], [address], [place] [facility] 4 14:18:12 [address]291 aluminum aspirin Not available Not available Not available Not available 12/29/20222020 611 RxNorm Not Available [facility] 3 07:35:02 22631 ciproflox acin medicatio n Not available Not available Not available 12/29/20222020 2551 RxNorm React ion: Other (See Comme nts), sever ity: Sever e;Tem porar y paral ysis Not Available [facility] 3 07:35:02 79522 azithromy jaden medicatio n Not available Not available Not available 12/29/20222020 65177 RxNorm React ion: Diarr hea, sever ity: Sever e;Myrna ction : Nause a And Vomit ing, sever ity: Sever e Not Available [facility] 3 07:35:03 Medications Name Sig Start Date Stop Date [...] Not Available Not Available Not Available amoxicillin 875 mg tablet TAKE ONE [...] Not Available Not Available No t Available Synthroid 88 mcg tablet Take 1 tablet every day by oral route. 2024 active Not Available Not Available Not Avai lable hydroxyzine HCl 25 mg tablet TAKE 25 [...] height Body mass index (BMI) Body weight Heart rate Oxygen saturation Oxygen saturation in Arterial blood by Pulse oximetry Systolic And Diastolic Provider Name and Address Organization Details Last Updated DateTime 5 154.94 cm 19.8 kg/m2 63576.2 g 70 /min 99 % 99 % 116/74 mm[Hg] Haritha Nicolas [facility] 5 16:01:04 Date Recorded Body height Body mass index (BMI) Body weight Oxygen saturation Oxygen saturation in Arterial blood by Pulse oximetry Respiratory rate Systolic And Diastolic Provider Name and Address Organization Details Last Updated DateTime 4 154.94 cm 20.8 kg/m2 79212.1 6 g 98 % 98 % 64 /min 120/68 mm[Hg] Amy smith [facility] 4 14:09:43 Social History Question Answer Notes LastModified by Organizat ion Details LastModified Time Tobacco Smoking Status Current Every Day Smoker Not Available [facility] 12/31/2022 02:24:28 Do You Wear A Helmet When Biking? [...] not available 08/30/2024 Where [facility] You Live? [facility] Information not available 08/30/2024 How Long Have [...] Functional Status Question Answer Note LastModified by [employer] Details LastModified Time Do you use any illicit or recreational drugs? Yes Information not available 08/30/2024 What is your level of alcohol consumption? None Information not available 08/30/2024 What is your exercise level? None Information not available 08/30/2024 Mental Status Question Answer Note LastModified by Organization D etails LastModified Time Do you feel stressed (tense, restless, nervous, or anxious, or unable to sleep at night)? [id number] Information not available 08/30/2024 Family History Nothing Reported Notes:Problem: Heart disease [...] virus, trivalent, preservative 9 completed Not Available [facility] 12/30/2022 07:57:04 DT (pediatric) 4 completed Not Available [facility] 12/30/2022 07:57:05 zoster recombinant 9 completed Not Available [facility] 12/30/2022 07:57:05 Tdap 9 completed Not Available [facility] 12/30/2022 07:57:05 pneumococcal polysaccharide PPV23 9 completed Not Available [facility] 12/30/2022 07:57:05 Past Encounters Encounter ID Performer Location Encounter Start Date Encounter Closed Date Diagnosis/Indication Diagnosis SNOMED-CT Code Diagnosis ICD10 Code Diagnosis IMO Codes Diagnosis Note [id number] Bill Fonseca MD [facility] [place] [address] 04/14/2023 13:56:44 04/14/2023 15:27:39 Influenza-like symptoms 689529895 R68.89 We will start patient on amoxicilli n 500 mg 3 times a day for probable infectious lesion in the mouth. Patient will check for COVID and symptomati c treatment. Advised patient to keep her fluids up so that she will get dehydrated . She will call us if COVID turns out positive. [id number] MD ROYER Zuñiga_[facility]_ IM_[address] [place] [address] 06/05/2023 09:32:04 06/05/2023 15:45:53 Anxiety state 229758546 F41.1 So we talked about trying something [...] recheck in a few months. ETL Palpitations 74155448 R0 0.2 We will send her for 24-hour Holter monitor and if it is normal we will send her for an echocardio gram and if it is normal we will send her for a stress test. [id number] Bill Fonseca MD [facility] [place] [address] 08/21/2024 11:11:05 08/21/2024 11:48:47 Sore throat 431491409 J02.9 Possible possible infected cyst or viral ulceration of the throat. We will treat her with Augmentin 875 mg twice a day and if she is not improving we will have to have her come in and have us check her out in person. We will also add Hibiclens gargle in case it is a cold sore. [id number] Bill Fonseca MD [facility] [place] [address] 08/30/2024 13:48:03 08/30/2024 14:50:35 Adult health examination 021835111 Z00.00 Mary Beth continues to be overwhelme [...] and cholestero l panel Bipolar I disorder 34502 6008 F31.9 Strongly urged patient to start [...] . 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 Gastroesop hageal reflux disease 114267465 K21.9 Will Protonix 40 mg daily and check for H. pylori breath test. We reviewed dyspepsia diet changes again Fibromyalgia 182466709 M 79.7 Maintain methadone for her chronic pain. Cigarette smoker 9718504 7 F17.210 Which showed up she actually is able to quit smoking over the New Year's. [id number] Bill Fonseca MD [facility] [place] [address] 09/24/2024 13:40:58 09/24/2024 14:39:37 Bipolar I disorder 550835289 F31.9 Will discontinu e Lexapro since the patient does not feel that it is helping much. 46 okay thank you. Very encouraged by the patient's incentive to schedule appointmen t with therapist which I hope will be a long-term solution for her. Hypothyroidism 56464143 E03.9 Still being awaiting her repeat TSH [...] monitor in few months. ETL Cigarette smoker 8718023 7 F17.210 Hopefully she will eventually cut her smoking completely but right now she is tapering off and we are informed when she finally quit completely . [id number] Bill Fonseca MD [facility] [place] [address] 10/21/2024 13:24:18 10/21/2024 15:35:24 Bipolar I disorder 143291414 F31.9 Discussed different options and would try her on mirtazapin e 7.5 mg at bedtime to help her with her insomnia as well as bipolar disorder and maybe even improve her appetite. We will follow her up in 1 month to reassess these issues. Hypothyroidism 01006039 E03.9 Seems to be doing well on levothyrox ine 88 mcg daily with normal TSH levels on that dose. Will continue present management and recheck in 6 months. Cigarette smoker 9594775 7 F17.210 Eagerly waiting sleep study but continue to encourage patient to quit smoking completely . [id number] Bill Fonseca MD [facility] IM_[address] [place] [address] 12/19/2024 11:24:18 12/19/2024 12:00:25 Mass of pharynx 1060203935 2108 J39.2 623270 Due to the chronicity of this mass in the posterior pharynx. We will schedule patient to see ENT for better evaluation . At the moment it is neither too painful nor is it bleeding or having any discharge so we will hold off on any management today. Bipolar I disorder 40368 6008 F31.9 Patient climbed any replacemen t for the mirtazapin e for her sleep and bipolar disorder. [id number] Bill [facility]seca MD [facility] [address] [place] [address] 02/24/2025 15:51:39 02/24/2025 16:35:32 Numbness 44588421 R20.0 24082 Will start with an x-ray of the TL spine which may need to be followed by an MRI to rule out spondylosi s and possible radiculopa thy. Also will need to rule out MS. Health Concerns Section Related Observation LastModified by Organization Detai ls LastModified Time None Recorded Concern Status LastModified by Organization Details LastModified Time None Recorded Advance Directives Directive None Recorded Payers Insurance Date Sequence Insurance Name Policy Number Policy Rgewal Covered Member ID Grewal Member ID Guarantor Name 02/24/2025 1 MEDICARE B-[place]: NGS Mary Beth Sanchez Louise [id number] Mary Beth Calderon 02/24/2025 1 MEDICARE B-MA: NATIONAL GOVERNMENT SERVICES Mary Beth Gil [id number] Mary Beth Calderon 02/24/2025 1 GENERIC COMMERCIAL - MOVED HOLD Mary Beth Caldeorn [id number] Mary Beth Calderon 02/24/2025 MEDICARE B-CT: NGS Mary Beth Gil [id number] Mary Beth Calderon Notes Date Note Type Note Provider Name and Address Organization Details Recorded Time 08/30/2024 text/html Mary Beth is here today [...] quitting this new year. Bill Fonseca MD [address] [place] [address], [address] Floor, [place], [address], [place] [facility] 08/30/2024 15:09:00 09/24/2024 text/html Virtual VisitRep orted by PatientIdentity:For patient identity verified by, patient reportsknown established patient. For i shared my identity credentials with the patient, patient reportsyes.Location:F or patient is currently located in the state of, patient [place] For patient location, patient reportshome. For provider location, patient reportsi was located at my office.Virtual Visit Education:For i educated the patient on the nature of a virtual visit, patient reportsyes. For emergency plan agreed upon, patient reportsyes.Virtual Visit Technology:For the patient was seen through synchronous audio and video technology, patient reportsyes. For any documented vital signs were obtained during the telehealth visit via, patient reports__. Mary Beth is seen today via TeleMed [...] well as last visit. Bill Fonseca MD [address] [place] [address], [address] Floor, [place], [address] [place] [facility] 10/18/2024 12:26:29 10/21/2024 text/html Virtual VisitRep orted by PatientIdentity:For patient identity verified by, patient reportsknown established patient. For i shared my identity credentials with the patient, patient reportsyes.Location:F or patient is currently located in the state of, [facility]. For patient location, patient reportssumner. For provider location, patient reportsi was located at my office.Virtual Visit Education:For i educated the patient on the nature of a virtual visit, patient reportsyes. For emergency plan agreed upon, patient reportsyes.Virtual Visit Technology:For the patient was seen through synchronous audio and video technology, patient reportsyes. For any documented vital signs were obtained during the telehealth visit via, patient reports__. Mary Beth seen today for follow-up of [...] a new psychiatrist appointment. Bill Fonseca MD [address] [place] [address], [address] [place], [address], [facility] 10/21/2024 15:31:34 12/19/2024 text/html Virtual VisitRep orted by PatientIdentity:For patient identity verified by, patient reportsknown established patient. For i shared my identity credentials with the patient, patient reportsyes.Location:F or patient is currently located in the state of, patient reportspr([place]). [facility] For provider location, patient reportsi was located at my office.Virtual Visit Education:For i educated the patient on the nature of a virtual visit, patient reportsyes. For emergency plan agreed upon, patient reportsyes.Virtual Visit Technology:For the patient was seen through synchronous audio and video technology, patient reportsyes. For any documented vital signs were obtained during the telehealth visit via, patient reports__. Mary Beth is seen today via TeleMed video for an acute visit. Apparently she continues to have a mass in her throat which was initially noted in August 2024. Due to the fact that we did the visit also with TeleMed video, we had presume it was an infection so we started her on antibiotics and chlorhexidine rinse which apparently did not subside the swelling and mass in her throat. There has been no bleeding or discharge and it has not affected her swallowing but she continues to feel the mass in the back of her throat. We also started her on mirtazapine 7.5 mg at bedtime to help her with sleep and appetite but it has not helped her so she has stopped taking the medication. Bill Fonseca MD [address] [place] [address], [address] [facility], [place], [address], [facility] 12/19/2024 11:44:27 02/24/2025 text/html Mary Beth seen today for an acute visit because she felt a numbness over her right upper abdomen lower chest area over the past 2 weeks stretching from midline right side to midline in the back. There was no trauma or falls and no skin changes nor swelling no rash in the area. She does not recall having any strenuous activity or falls nor trauma. She denies having any other focal neurological deficits and no headaches. She had no recent changes in her medication, and continues to be on methadone for her chronic low back pain and fibromyalgia. Bill Fonseca MD [address] [place] [address], [address] Floor, [place], [address], [place] - [place] [facility] 02/24/2025 16:39:54 OBGyn Episode No OBEpisode recorded.
== END 2025-06-09 16:20 | disposition home or self-care (01) ==
LOC: HO.HPS 15:54
PROVIDERS: PCP Internal Medicine; Visit Provider Internal Medicine
DX: J44.9 Chronic obstructive pulmonary disease, unspecified (principal); R06.89 Other abnormalities of breathing; G47.33 Obstructive sleep apnea (adult) (pediatric)
CPT/HCPCS: 99213

== ENCOUNTER → 2025-06-09 15:53 | Outpatient (BNVA) | payer MEDICARE, SELFPAY | PROVIDERS: PCP Internal Medicine; Visit Provider Internal Medicine | DX: G47.33 Obstructive sleep apnea (adult) (pediatric) (principal); Z99.89 Dependence on other enabling machines and devices; R06.89 Other abnormalities of breathing; F17.210 Nicotine dependence, cigarettes, uncomplicated; Z79.891 Long term (current) use of opiate analgesic | CPT/HCPCS: 99212 ==

== ENCOUNTER 2025-06-25 13:46 | Outpatient (REF) | payer MEDICARE, SELFPAY ==
--- OUTSIDE RECORDS SUMMARY | 2025-06-25 20:36 | XMS_ITS | Data Portability ---
Author Organization [place] - [place] Joshua farrell, [facility]_IM[facility] [place] Address [address] [place] [address] Assessment No assessment recorded. Plan of Treatment [...] Chronic pharyngea l mass [address] [facility] Parag Beebe MD, [address], [address], [place], [address], 12/29/2024 02:18:38 Procedures None recorded. Surgeries None recorded. Imaging XR, thoracic spine [address] (Imaging), [address] [place] [address], [address], 03/10/2025 08:22:27 XR, lumbar spine [address] (Imaging), [address] [place] [address], [address], 03/10/2025 08:22:27 Medication Orders mirtazapi ne 7.5 mg tablet 2024 025 [facility], [address] [place] [address], [address], 11/21/2024 17:15:07 escitalop celestine 10 mg tablet 2023 024 [facility], [address] [place] [address], [address], 10/21/2024 15:16:50 Patient TargetsNo targets recorded. Patient InstructionsNo instructions recorded. 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 Mass of pharynx Chronic pharyngeal mass Referring Physician: Bill Fonseca, Internal Medicine, Encounter Date: 12/19/2024 Results Created Date Observation Date Name Description Value Unit Range Abnormal Flag Note LastModifiedBy Organization Detail LastModifiedTime 09/30/1910/01/2024 TSH+F REE T4 TSH 5.960 uIU/m L 0.450- 4.500 above high normal Not Available [facility] ([facility]) [address] [facility], [place], [address], 10/01/2024 16:06:09/30/1910/01/2024 TSH+F REE T4 T4,free(dire ct) 1.39 NG/dL 0.82-1 .77 normal Not Available [facility] ([facility]) [address] [place], [address], 10/01/2024 16:06:25 09/30/19 25 09/30/2024 CBC WITH DIFFE RENTI AL/PL ATELE T WBC 7.3 x10e3 /uL 3.4-10 .8 normal Not Available [facility] ([facility]) [address] [place], [address], 10/01/2024 16:06:27 09/30/1909/30/2024 CBC WITH DIFFE RENTI AL/PL ATELE T RBC 4.31 x10e6 /uL 3.77-5 .28 normal Not Available [facility] ([facility]) [address] [place], [address], 10/01/2024 16:06:27 09/30/1909/30/2024 CBC WITH DIFFE RENTI AL/PL ATELE T hemoglobin 13.3 g/dL 11.1-1 5.9 normal Not Available [facility] ([facility]) [address] [place], [address], 10/01/2024 16:06:27 09/30/1909/30/2024 CBC WITH DIFFE RENTI AL/PL ATELE T hematocrit 38.7 % 34.0-4 6.6 normal Not Available [facility] ([facility]) [address] [place], [address], 10/01/2024 16:06:27 09/30/1909/30/2024 CBC WITH DIFFE RENTI AL/PL ATELE T MCV 90 fL 79-97 normal Not Available [facility] ([facility]) [address] [place], [address], 10/01/2024 16:06:27 09/30/19 25 09/30/2024 CBC WITH DIFFE RENTI AL/PL ATELE T MCH 30.9 pg 26.6-3 3.0 normal Not Available [facility] ([facility]) [address] [facility], [place], [address], 10/01/2024 16:06:27 09/30/19 25 09/30/2024 CBC WITH DIFFE RENTI AL/PL ATELE T MCHC 34.4 g/dL 31.5-3 5.7 normal Not Available [facility] ([facility]) [address] [facility], [place], [address], 10/01/2024 16:06:27 09/30/19 25 09/30/2024 CBC WITH DIFFE RENTI AL/PL ATELE T RDW 12.7 % 11.7-1 5.4 Not Available [facility] ([facility]) [address] [facility], [place], [address], 10/01/2024 16:06:27 09/30/19 25 09/30/2024 CBC WITH DIFFE RENTI AL/PL ATELE T platelets 296 x10e3 /uL 150-45 0 normal Not Available [facility] ([facility]) [address] [facility], [place], [address], 10/01/2024 16:06:27 09/30/19 25 09/30/2024 CBC WITH DIFFE RENTI AL/PL ATELE T neutrophils 59 % not estab. normal Not Available [facility] ([facility]) [address] [place], [address], 10/01/2024 16:06:27 09/30/19 25 09/30/2024 CBC WITH DIFFE RENTI AL/PL ATELE T lymphs 31 % not estab. normal Not Available [facility] ([facility]) [address] [place], [address], 10/01/2024 16:06:27 09/30/19 25 09/30/2024 CBC WITH DIFFE RENTI AL/PL ATELE T monocytes 7 % not estab. normal Not Available [facility] ([facility]) [address] [facility], [place], [address], 10/01/2024 16:06:27 09/30/19 25 09/30/2024 CBC WITH DIFFE RENTI AL/PL ATELE T eos 3 % not estab. normal Not Available [facility] ([facility]) [address] [facility], [place], [address], 10/01/2024 16:06:27 09/30/19 25 09/30/2024 CBC WITH DIFFE RENTI AL/PL ATELE T basos 0 % not estab. normal Not Available [facility] ([facility]) [address] [facility], [place], [address], 10/01/2024 16:06:27 09/30/19 25 09/30/2024 CBC WITH DIFFE RENTI AL/PL ATELE T immature cells TRANSPORTATION JOB TITLES Not Available [facility] ([facility]) [address] [place], [address], 10/01/2024 16:06:27 09/30/19 25 09/30/2024 CBC WITH DIFFE RENTI AL/PL ATELE T neutrophils (absolute) 4.2 x10e3 /uL 1.4-7. 0 normal Not Available [facility] ([facility]) [address] [place], [address], 10/01/2024 16:06:27 09/30/19 25 09/30/2024 CBC WITH DIFFE RENTI AL/PL ATELE T lymphs (absolute) 2.3 x10e3 /uL 0.7-3. 1 normal Not Available [facility] ([facility]) [address] [place], [address], 10/01/2024 16:06:27 09/30/19 25 09/30/2024 CBC WITH DIFFE RENTI AL/PL ATELE T monocytes(ab solute) 0.5 x10e3 /uL 0.1-0. 9 normal Not Available [facility] ([facility]) [address] [place], [address], 10/01/2024 16:06:27 09/30/19 25 09/30/2024 CBC WITH DIFFE RENTI AL/PL ATELE T eos (absolute) 0.3 x10e3 /uL 0.0-0. 4 normal Not Available [facility] ([facility]) [address] [place], [address], 10/01/2024 16:06:27 09/30/19 25 09/30/2024 CBC WITH DIFFE RENTI AL/PL ATELE T baso (absolute) 0.0 x10e3 /uL 0.0-0. 2 normal Not Available [facility] ([facility]) [address] [place], [address], 10/01/2024 16:06:27 09/30/19 25 09/30/2024 CBC WITH DIFFE RENTI AL/PL ATELE T immature granulocytes 0 % not estab. Not Available [facility] ([facility]) [address] [place], [address], 10/01/2024 16:06:27 09/30/19 25 09/30/2024 CBC WITH DIFFE RENTI AL/PL ATELE T immature grans (abs) 0.0 x10e3 /uL 0.0-0. 1 Not Available [facility] ([facility]) [address] [place], [address], 10/01/2024 16:06:27 09/30/19 25 09/30/2024 CBC WITH DIFFE RENTI AL/PL ATELE T NRBC TRANSPORTATION JOB TITLES Not Available [facility] ([facility]) [address] [place], [address], 10/01/2024 16:06:27 09/30/19 25 09/30/2024 CBC WITH DIFFE BEAR AL/PL JOSE T hematology comments: TRANSPORTATION JOB TITLES Not Available [facility] ([facility]) [address] [facility], [place], [address], 10/01/2024 16:06:27 09/30/19 25 10/01/2024 COMP. METAB OLIC PANEL (14) glucose 92 mg/dL 70-99 normal Not Available [facility] ([facility]) [address] [facility] [place], [address], 10/01/2024 16:06:28 09/30/19 25 10/01/2024 COMP. METAB OLIC PANEL (14) BUN 15 mg/dL 6-24 normal Not Available [facility] ([facility]) [address] [facility], [place], [address], 10/01/2024 16:06:28 09/30/19 25 10/01/2024 COMP. METAB OLIC PANEL (14) creatinine 0.79 mg/dL 0.57-1 .00 normal Not Available [facility] ([facility]) [address] [facility] [place], [address], 10/01/2024 16:06:28 09/30/19 25 10/01/2024 COMP. METAB OLIC PANEL (14) eGFR 88 mL/mi n/1.7 3 >59 normal Not Available [facility] ([facility]) [address] [facility] [place], [address], 10/01/2024 16:06:28 09/30/19 25 10/01/2024 COMP. METAB OLIC PANEL (14) BUN/creatini ne ratio 19 9-23 normal Not Available [facility] ([facility]) [address] [facility] [place], [address], 10/01/2024 16:06:28 09/30/19 25 10/01/2024 COMP. METAB OLIC PANEL (14) sodium 142 mmol/ L 134-14 4 normal Not Available [facility] ([facility]) [address] [place], [address], 10/01/2024 16:06:28 09/30/19 25 10/01/2024 COMP. METAB OLIC PANEL (14) potassium 4.8 mmol/ L 3.5-5. 2 normal Not Available [facility] ([facility]) [address] [place], [address], 10/01/2024 16:06:28 09/30/19 25 10/01/2024 COMP. METAB OLIC PANEL (14) chloride 104 mmol/ L 96-106 normal Not Available [facility] ([facility]) [address] [place], [address], 10/01/2024 16:06:28 09/30/19 25 10/01/2024 COMP. METAB OLIC PANEL (14) carbon dioxide, total 22 mmol/ L 20-29 normal Not Available [facility] ([facility]) [address] [place], [address], 10/01/2024 16:06:28 09/30/19 25 10/01/2024 COMP. METAB OLIC PANEL (14) calcium 9.9 mg/dL 8.7-10 .2 normal Not Available [facility] ([facility] [address] [facility] [place], [address], 10/01/2024 16:06:28 09/30/19 25 10/01/2024 COMP. METAB OLIC PANEL (14) protein, total 6.6 g/dL 6.0-8. 5 normal Not Available [facility] ([facility]) [address] [place], [address], 10/01/2024 16:06:28 09/30/19 25 10/01/2024 COMP. METAB OLIC PANEL (14) albumin 4.2 g/dL 3.8-4. 9 normal Not Available [facility] ([facility] [address] [facility] [place], [address], 10/01/2024 16:06:28 09/30/19 25 10/01/2024 COMP. METAB OLIC PANEL (14) globulin, total 2.4 g/dL 1.5-4. 5 Not Available [facility] ([facility]) [address] [place], [address], 10/01/2024 16:06:28 09/30/19 25 10/01/2024 COMP. METAB OLIC PANEL (14) bilirubin, total 0.3 mg/dL 0.0-1. 2 normal Not Available [facility] ([facility]) [address] [place], [address], 10/01/2024 16:06:28 09/30/19 25 10/01/2024 COMP. METAB OLIC PANEL (14) alkaline phosphatase 109 IU/L 44-121 normal Not Available [facility] ([facility]) [address] [place], [address], 10/01/2024 16:06:28 09/30/19 25 10/01/2024 COMP. METAB OLIC PANEL (14) AST (SGOT) 24 IU/L 0-40 normal Not Available [facility] ([facility]) [address] [place], [address], 10/01/2024 16:06:28 09/30/19 25 10/01/2024 COMP. METAB OLIC PANEL (14) ALT (SGPT) 17 IU/L 0-32 normal Not Available [facility] ([facility]) [address] [place], [address], 10/01/2024 16:06:28 09/30/19 25 10/01/2024 LIPID PANEL cholesterol, total 237 mg/dL 100-19 9 above high normal Not Available [facility] ([facility]) [address] [place], [address], 10/01/2024 16:06:29 01/27/20 25 10/01/2024 LIPID PANEL triglyceride s 148 mg/dL 0-149 normal Not Available [facility] ([facility]) [address] [place], [address], 10/01/2024 16:06:29 09/30/19 25 10/01/2024 LIPID PANEL HDL cholesterol 45 mg/dL >39 normal Not Available [facility] ([facility]) [address] [place], [address], 10/01/2024 16:06:29 09/30/19 25 10/01/2024 LIPID PANEL VLDL cholesterol anay 27 mg/dL 5-40 Not Available [facility] ([facility]) [address] [place], [address], 10/01/2024 16:06:29 09/30/19 25 10/01/2024 LIPID PANEL LDL chol calc ([facility]) 165 mg/dL 0-99 above high normal Not Available [facility] ([facility]) [address] [place], [address], 10/01/2024 16:06:29 09/30/1910/01/2024 LIPID PANEL LDL calc comment: TRANSPORTATION JOB TITLES Not Available [facility] ([facility]) [address] [place], [address], 10/01/2024 16:06:29 09/30/19 25 10/01/2024 H PYLOR I BREAT H TEST H pylori breath test NEGATI VE negati ve Not Available [facility] ([facility]) [address] [place], [address], 10/01/2024 16:06:31 Result Notes None recorded. Problems Name Problem SNOMED Code Status Onset Date Resolution Date Notes Provider Name and Address Organization Details Recorded Time Fibromyal nabil 668619401 Active 2019 Fibromyalg ia affecting upper arm Not Available [facility] 3 03:03:01 Gastroeso phageal reflux disease 757329314 Active 2019 GERD (gastroeso phageal reflux disease) Not Available [facility] 3 03:03:01 Cigarette smoker 53804137 Active 2019 Smoking greater than 20 pack years Not Available [facility] 3 03:03:01 Chronic low back pain 229523432 Active 2019 Chronic bilateral low back pain with bilateral sciatica Not Available [facility] 3 03:03:01 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 942223457 Active 2020 Hypothyroi dism due to Renetta' s thyroiditi s Kinga Rodasadaircoleman null, [place] [facility] 5 09:29:55 Bipolar I disorder 802054003 Active 2021 Bipolar 1 disorder Not Available [facility] 3 03:03:01 Migraine without aura 45435171 Active 2021 Migraine without aura or status migrainosu s Not Available [facility] 3 03:03:01 Sleep apnea 65126554 Active 2024 Bill Fonseca MD [address] [place] [address], [address] [place] [address], [address] , [place] [facility] 5 10:29:23 Nausea 217840336 Active 2024 Crystal Epifanio null, [place] [facility] 5 10:51:11 Hypothyro idism 26345359 Active 2024 Bill Fonseca MD [address] [place] [address], [address] [place] [address], [address] , [place] [facility] 5 14:18:06 Vitamin D deficienc y 95356033 Active 2024 Bill Fonseca MD [address] [place] [address], [address] [place] [address], [address] , [place] [facility] 5 16:30:29 Mass of pharynx Active 2024 Bill Fonseca MD [address] [place] [address], [address] [place] [address], [address] , [facility] 5 11:37:38 Numbness 71805793 Active 2024 Bill Fonseca MD [address] [place] [address], [address] [place] [address], [address] , [facility] 5 16:21:30 Intermitt ent palpitati ons 013194031 Active 2024 Bill Fonseca MD [address] [place] [address], [address] [place] [address], [address] , [facility] 5 16:57:28 Problem Notes None recorded. Medical Equipment None Reported. Allergies Allergen ID Allergen Name Allergen Category Reaction Reaction Severity Criticality Documentation Date Start Date Code Code System Note Provider Name and Address Organization Details Recorded Time 304921 Buspar medicatio n nausea Not available low 06/05/2023 02385 0 RxNorm Bill Fonseca MD [address] [place] [address], [address] [place] [address], [address] [place] [address] 0, [facility] 3 15:23:00 466019 clavulani c acid Not available vomiting Not available low 08/30/2024 58477 RxNorm Bill Fonseca MD [address] [place] [address], [address] [place] [address], [address] [place] [address] 0, [facility] 4 14:18:12 08446 aluminum aspirin Not available Not available Not available Not available 12/29/20222020 611 RxNorm Not Available [facility] 3 07:35:02 28725 ciproflox acin medicatio n Not available Not available Not available 12/29/20222020 2551 RxNorm React ion: Other (See Comme nts), sever ity: Sever e;Tem porar y paral ysis Not Available [facility] 3 07:35:02 88864 azithromy jaden medicatio n Not available Not available Not available 12/29/20222020 58878 RxNorm React ion: Diarr hea, sever ity: Sever e;Myrna ction : Nause a And Vomit ing, sever ity: Sever e Not Available [facility] 3 07:35:03 Medications Name Sig Start [...] Updated DateTime 5 154.94 cm 19.8 kg/m2 78899.2 g 70 /min 99 % 99 % 116/74 mm[Hg] Haritha Nicolas [place] - [place] [facility] 5 16:01:04 Date Recorded Body height Body mass index (BMI) Body weight Oxygen saturation Oxygen saturation in Arterial blood by Pulse oximetry Respiratory rate Systolic And Diastolic Provider Name and Address Organization Details Last Updated DateTime 4 154.94 cm 20.8 kg/m2 78972.1 6 g 98 % 98 % 64 /min 120/68 mm[Hg] Amy smith [place] [facility] 4 14:09:43 Social History Question Answer Notes LastModified by [email or web address] Details LastModified Time Tobacco Smoking Status Current Every Day Smoker Not Available [facility] 12/31/2022 02:24:28 Do You Wear A Helmet [...] not available 08/30/2024 Where Do You Live? [facility] Information not available 08/30/2024 How Long [...] anxious, or unable to sleep at night)? [id number] Information not available 08/30/2024 Family History Nothing [...] virus, trivalent, preservative 9 completed Not Available [facility] 12/30/2022 07:57:04 DT (pediatric) 4 completed Not Available [facility] 12/30/2022 07:57:05 zoster recombinant 9 completed Not Available [facility] 12/30/2022 07:57:05 Tdap 9 completed Not Available [facility] 12/30/2022 07:57:05 pneumococcal polysaccharide PPV23 9 completed Not Available [facility] 12/30/2022 07:57:05 Past Encounters Encounter ID Performer Location Encounter Start Date Encounter Closed Date Diagnosis/Indication Diagnosis SNOMED-CT Code Diagnosis ICD10 Code Diagnosis IMO Codes Diagnosis Note [id number] Bill Fonseca MD [facility]_ IM_[address] [place] [address] 04/14/2023 13:56:44 04/14/2023 15:27:39 Influenza-like symptoms 801657588 R68.89 We will start patient on amoxicilli n 500 mg 3 times a day for probable infectious lesion in the mouth. Patient will check for COVID and symptomati c treatment. Advised patient to keep her fluids up so that she will get dehydrated . She will call us if COVID turns out positive. [id number] Bill Fonseca MD [facility]16 [address] [facility],[address] [place] [address] 06/05/2023 09:32:04 06/05/2023 15:45:53 Anxiety state 666128054 F41.1 So we talked about trying something [...] recheck in a few months. ETL Palpitations 01811427 R0 0.2 We will send her for 24-hour Holter monitor and if it is normal we will send her for an echocardio gram and if it is normal we will send her for a stress test. [id number] Bill Fonseca MD [facility] [place] [address] 08/21/2024 11:11:05 08/21/2024 11:48:47 Sore throat 857186569 J02.9 Possible possible infected cyst or viral ulceration of the throat. We will treat her with Augmentin 875 mg twice a day and if she is not improving we will have to have her come in and have us check her out in person. We will also add Hibiclens gargle in case it is a cold sore. [id number] Bill Fonseca MD [facility]16 [address] [place] [address] 08/30/2024 13:48:03 08/30/2024 14:50:35 Adult health examination 485592859 Z00.00 Mary Beth continues to be overwhelme [...] and cholestero l panel Bipolar I disorder 54836 6008 F31.9 Strongly urged patient to start [...] . 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 Gastroesop hageal reflux disease 696828023 K21.9 Will Protonix 40 mg daily and check for H. pylori breath test. We reviewed dyspepsia diet changes again Fibromyalgia 925477071 M 79.7 Maintain methadone for her chronic pain. Cigarette smoker 1391818 7 F17.210 Which showed up she actually is able to quit smoking over the New Year's. [id number] Bill Fonseca MD [facility]16 [address] [place] [address] 09/24/2024 13:40:58 09/24/2024 14:39:37 Bipolar I disorder 652864222 F31.9 Will discontinu e Lexapro since the patient does not feel that it is helping much. 46 okay thank you. Very encouraged by the patient's incentive to schedule appointmen t with therapist which I hope will be a long-term solution for her. Hypothyroidism 32610401 E03.9 Still being awaiting her repeat TSH [...] monitor in few months. ETL Cigarette smoker 9721216 7 F17.210 Hopefully she will eventually cut her smoking completely but right now she is tapering off and we are informed when she finally quit completely . [id number] MD [facility] [address] [place] [address] 10/21/2024 13:24:18 10/21/2024 15:35:24 Bipolar I disorder 541821711 F31.9 Discussed different options and would try her on mirtazapin e 7.5 mg at bedtime to help her with her insomnia as well as bipolar disorder and maybe even improve her appetite. We will follow her up in 1 month to reassess these issues. Hypothyroidism 26928131 E03.9 Seems to be doing well on levothyrox ine 88 mcg daily with normal TSH levels on that dose. Will continue present management and recheck in 6 months. Cigarette smoker 6602871 7 F17.210 Eagerly waiting sleep study but continue to encourage patient to quit smoking completely . [id number] MD ROYER [facility] _[address] [place] [address] 12/19/2024 11:24:18 12/19/2024 12:00:25 Mass of pharynx 9259723019 2108 J39.2 [id number] Due to the chronicity of this mass in the posterior pharynx. We will schedule patient to see ENT for better evaluation . At the moment it is neither too painful nor is it bleeding or having any discharge so we will hold off on any management today. Bipolar I disorder 16288 6008 F31.9 Patient climbed any replacemen t for the mirtazapin e for her sleep and bipolar disorder. [id number] MD ROYER [facility]16 [address] [place] [address] 02/24/2025 15:51:39 02/24/2025 16:35:32 Numbness 86994770 R20.0 68979 Will start with an x-ray of the [...] ID Guarantor Name 02/24/2025 1 MEDICARE B-CT: [facility] Mary Beth Gil [id number] Mary Beth Stewart Faustina 02/24/2025 1 MEDICARE B-MA: [employer] Mary Beth Gil [id number] Mary Beth Stewart Faustina 02/24/2025 1 GENERIC COMMERCIAL - MOVED HOLD Mary Beth Stewart Faustina [id number] Mary Beth Stewart Faustina 02/24/2025 MEDICARE B-CT: LYN Gil [id number] Mary Beth Stewart Faustina Notes Date [...] quitting this new year. Bill Fonseca MD [address] [place] [address], [address], [place], [address], [place] - [place] [facility] 08/30/2024 15:09:00 09/24/2024 text/html Virtual VisitRep orted by PatientIdentity:For patient identity verified by, patient reportsknown established patient. For i shared my identity credentials with the patient, patient reportsyes.Location:F or patient is currently located in the state of, patient reportsct(pr). For patient location, patient reportshome. For provider [...] well as last visit. Bill Fonseca MD [address] [place] [address], [address] [place] [address], [place], [address], [place] - [place] [facility] 10/18/2024 12:26:29 10/21/2024 text/html Virtual VisitRep orted by PatientIdentity:For patient identity verified by, patient reportsknown established patient. For i shared my identity credentials with the patient, patient reportsyes.Location:F or patient is currently located in the state of, patient reportsct(pr). For patient location, patient reportshome. For provider [...] a new psychiatrist appointment. Bill Fonseca MD [address] [place] [address], [address], [place], [address] [place] [facility] 10/21/2024 15:31:34 12/19/2024 text/html Virtual VisitRep orted by PatientIdentity:For patient identity verified by, patient reportsknown established patient. For i shared my identity credentials with the patient, patient reportsyes.Location:F or patient is currently located in the state of, [facility] For patient location, patient reportswaverly. For provider location, patient reportsi was located [...] stopped taking the medication. Bill Fonseca MD [address] [place] [address], [address] [place] [address], [address], [place] - [place] [facility] 12/19/2024 11:44:27 02/24/2025 text/html Mary Beth [...] back pain and fibromyalgia. Bill Fonseca MD [address] [place] [address], [address] [place] [address], [place], [address], [place] - [place] [facility] 02/24/2025 16:39:54 OBGyn Episode No OBEpisode recorded.
--- OUTSIDE RECORDS SUMMARY | 2025-06-25 20:36 | XMS_ITS | Patient Health Record ---
Author Organization [facility] Address [address] [address] Care Team Providers Care Panel Raiser Operator Name Role Phone ALIZA MARTINI MD Primary Care Provider Unavailabl e Reason For Referral No Information Plan Of Treatment No Information Insurance Providers Payer Name Payer Address Payer Phone Subscriber Number Group Number Insured Name Patient Relationship to Insured Coverage Start Date Coverage End Date MEDICARE [address] [place], [place] [id number] NYDIA OWENS Self - patient is the insured
--- OUTSIDE RECORDS SUMMARY | 2025-06-25 20:36 | XMS_ITS | Data Portability ---
Author Organization [place] [facility] Address [address] [place] [address] Care Team Providers Care Customer Service Representative Teacher Name Role Phone GWEN MARTINI Primary Care [...] candidate for monoclonal antibody treatment. call center team leader provider, Dr. Rodriguez, states she will contact [...] after care of this patient according to [facility] infection prevention protocols. Not available [...] after care of this patient according to [facility] infection prevention protocols. brenna Not available 10/09/2021 [...] trauma Neuro: No focal deficits, A&O x4, CN s II-XII grossly normal, gait is not [...] blood tests all collected and brought to [facility], pend Rapid mono [...] throat 2021 [facility], [address], [place], [address], 21:17:08 streptoco ccus group A, culture, throat 2021 JONATHAN [facility] (Centralized Electronic Ordering - All Locations), Patient Can Go To The Location Of Their Choice, 06:58:48 mononucle osis, heterophi le Ab, blood 2021 [facility], [address], [place], [address], 21:17:10 tiff-b arr virus (ebv) IgG + [...] Of Their Choice, 05:48:01 rapid flu (A+B) 2021 022 [facility], [address], [place], [address], 17:49:27 rapid SARS CoV 2 Ag, QL IA, respirato ry specimen 2021 022 [facility], [address], [place], [address], 2 17:49:25 rapid SARS CoV + SARS CoV 2 Ag, QL IA, respirato ry specimen 2020 021 [facility], [address], [place], [address], 19:12:26 Referral None recorded. Procedures None recorded. Surgeries None recorded. Imaging None recorded. Medication Orders None recorded. Patient TargetsNo targets recorded. Patient Instructions Encounter Date Encounter Id Patient Instructions Last Modified By Organization Details Last Modified Time 08/03/2021 [id number] Thank you for yo ur visit with [facility]. We cannot always find the exact [...] in your condition between 8am-10pm, please call [facility] at [phone] to help navigate your care. Not available 08/03/2021 19:41:56 10/09/2021 [id number] -You were seen today for general malaise, [...] if any worsening fever, cough, vomiting, diarrhea [facility] Not available 10/09/2021 14:43:24 Reason for Referral None Reported. Results Created Date Observation Date Name Description Value Unit Range Abnormal Flag Note LastModifiedBy Organization Detail LastModifiedTime 08/03/20 21 08/03/2021 rapid SARS CoV + SARS CoV 2 Ag, QL IA, respi rator y speci men Covid-19 (ref: neg) positi ve Not Available [facility] [address] [place], [address], 08/03/2021 18:59:14 08/03/20 21 08/03/2021 rapid SARS CoV + SARS CoV 2 Ag, QL IA, respi rator y speci men Control Visual ized/V alid Not Available [facility] [address] [place], [address], 08/03/2021 18:59:14 08/03/20 21 08/03/2021 rapid SARS CoV + SARS CoV 2 Ag, QL IA, respi rator y speci men Location [facility], Dispat [facility], [address] [place] [address], [id number] Not Available [facility] [address] [place], [address], 08/03/2021 18:59:14 10/09/19 22 10/09/2021 rapid SARS CoV 2 Ag, QL IA, respi rator y speci men Covid-19 (ref: neg) negati ve Not Available [facility] [address] [place], [address], 10/09/2021 17:45:52 10/09/19 22 10/09/2021 rapid SARS CoV 2 Ag, QL IA, respi rator y speci men Control Visual ized/V alid Not Available [facility] [address] [place], [address], 10/09/2021 17:45:52 10/09/19 22 10/09/2021 rapid SARS CoV 2 Ag, QL IA, respi rator y speci men Location [facility], [address] [place] [address], [id number] Not Available [facility] - Home [address] [place] [address], [address], 10/09/2021 17:45:52 10/09/19 22 10/09/2021 rapid flu (A+B) Flu A (ref: neg) negati ve Not Available [facility] - [address], [address], 10/09/2021 17:45:29 10/09/19 22 10/09/2021 rapid flu (A+B) Flu B (ref: neg) negati ve Not Available [facility] - [address], [address], 10/09/2021 17:45:29 10/09/19 22 10/09/2021 rapid flu (A+B) Control Visual ized/V alid Not Available [facility] - [address], [address], 10/09/2021 17:45:29 10/09/19 22 10/09/2021 rapid flu (A+B) Location [facility], [address] [place] [address], [id number] Not Available [facility] - [address], [address], 10/09/2021 17:45:29 12/10/19 22 12/10/2021 COMPL ETE CBC WITH DIFF WBC 6.2 K/mm3 (4.0-1 1.0) Not Available [facility] (Centralized Electronic Ordering - All Locations) Patient Can Go To The Location Of Their Choice, [address] 12/10/2021 05:48:01 12/10/19 22 12/10/2021 COMPL ETE [...] 12/10/2021 05:48:12/10/1912/10/2021 COMPL ETE CBC WITH DIFF plt 226 [...] 05:48:01 12/10/1912/10/2021 COMPL ETE CBC WITH DIFF MPV 9.5 [...] Choice, 12/11/2021 16:08:27 12/10/1912/11/2021 EBV ANTIB ODIES interpretati on Commen t [...] prima ry infec tion or, alter nativ edna, appro ximat dena 5-10% of patie nts with EBV never devel op antib odies to [facility]. Test perfo rmed by [facility], [address] [place] [address] Not Available [facility] (Centralized Electronic Ordering - [...] Go To The Location Of Their Choice, [facility] 12/12/2021 06:58:48 12/10/19 22 12/12/2021 GROUP A STREP CULT. culture NO GROUP A BETA HEMOLY TIC STREPT OCOCCI ISOLAT ED Not Available [facility] (Centralized Electronic Ordering - All Locations) Patient Can Go To The Location Of Their Choice, [facility] 12/12/2021 06:58:48 12/10/19 22 12/12/2021 GROUP A STREP CULT. report status FINAL 2021 Not Available [facility] (Centralized Electronic Ordering - All Locations) Patient Can Go To The Location Of Their Choice, [facility] 12/12/2021 06:58:48 12/10/19 22 12/09/2021 rapid strep group A, throa t Strep A (ref: neg) negati ve Not Available [facility] [address] [place], [address], 12/09/2021 20:28:40 12/10/19 22 12/09/2021 rapid strep group A, throa t Control Visual ized/V alid Not Available [facility] [address] [place], [address], 12/09/2021 20:28:40 12/10/19 22 12/09/2021 rapid strep group A, throa t Location [facility] , [address] [place] [address], [id number] Not Available [facility] [address] [place], [address], 12/09/2021 20:28:40 12/10/19 22 12/09/2021 monon ucleo sis, heter ophil e Ab, blood Barnes (ref: neg) negati ve Not Available [facility] [address] [place], [address], 12/09/2021 20:20:34 12/10/19 22 12/09/2021 monon ucleo sis, heter ophil e Ab, blood Control Visual ized/V alid Not Available [facility] [address] [place], [address], 12/09/2021 20:20:34 12/10/19 22 12/09/2021 monon ucleo sis, heter ophil e Ab, blood Location [facility], [address] [place] [address], [id number] Not Available [facility] [address] [place], [address], 12/09/2021 20:20:34 Result Notes None recorded. Procedures Surgical History Date Name Laterality Status Provider Name and Address Organization Details Recorded Time 022 Venipuncture - DH completed RACQUEL Craig [address] [place], [address], [place] [facility] 12/09/2021 22:42:18 cholecystectomy completed RACQUEL RASHEED [address] [place], [address], [place] [facility] 08/03/2021 18:54:33 excision of cyst of breast completed RACQUEL RASHEED [address] [place], [address], [place] [facility] 08/03/2021 18:54:40 procedure on eye completed RACQUEL AVALOS [address] [place], [address], [place] [facility] 08/03/2021 18:54:48 Imaging Results None recorded. Procedure Notes None recorded. Medical Equipment None Reported. Allergies Allergen ID Allergen Name Allergen Category Reaction Reaction Severity Criticality Documentation Date Start Date Code Code System Note Provider Name and Address Organization Details Recorded Time 685037 aspirin medicatio n Not available Not available Not available 08/03/2021 1191 RxNorm RACQUEL RASHEED [address] [place], [address], [place] [facility] 18:52:05 [id number] Cipro medicatio n Not available Not available Not available 08/03/2021 58111 3 RxNorm RACQUEL RASHEED [address] [place], [address], [place] [facility] 1 18:52:30 824266 fentanyl medicatio n Not available Not available Not available 08/03/2021 4337 RxNorm RACQUEL RASHEED [address], [place], [address], [place] [facility] 1 18:52:38 232171 Product containin g 3-hydroxy -3-methyl glutaryl- coenzyme A reductase inhibitor (product) medicatio n Not available Not available Not available 08/03/2021 50174 009 SNOMED RACQUEL RASHEED [address], [place], [address], [place] [facility] 1 18:52:47 770102 prednison e medicatio n Not available Not available Not available 08/03/2021 8640 RxNorm RACQUEL RASHEED [address], [place], [address], [place] [facility] 1 18:52:54 582559 azithromy jaden medicatio n Not available Not available Not available 12/09/2021 92246 RxNorm RACQUEL Ray [address], [place], [address], [place] [facility] [...] Available No t Available Vitals Date Recorded Oxygen saturation Oxygen saturation in Arterial blood by Pulse oximetry Body temperature Heart rate Respiratory rate Systolic And Diastolic Provider Name and Address Organization Details Last Updated DateTime 2 97 % 97 % 98 [degF] 71 /min 18 /min 112/78 mm[Hg] Not Available [facility] 2 13:51:41 Date Recorded Oxygen saturation Oxygen saturation in Arterial blood by Pulse oximetry Respiratory rate Heart rate Body temperature Systolic And Diastolic Provider Name and Address Organization Details Last Updated DateTime 2 95 % 95 % 16 /min 84 /min 99.8 [degF] 138/74 mm[Hg] Not Available [facility] 2 20:15:51 Date Recorded Heart rate Respiratory rate Body temperature Oxygen saturation Oxygen saturation in Arterial blood by Pulse oximetry Systolic And Diastolic Provider Name and Address Organization Details Last Updated DateTime 1 62 /min 20 /min 97.9 [degF] 95 % 95 % 122/86 mm[Hg] Not Available [facility] 18:57:21 Social History None recorded. Functional Status Question Answer Note LastModified by Organizat ion Details LastModified Time Do you use any illicit or recreational drugs? No Information not available 08/03/2021 Do you or have you ever used any other forms of tobacco or nicotine? No Information not available 08/03/2021 What is your level of alcohol consumption? None Information not available 08/03/2021 Mental Status None recorded. Family History Relationship Description Onset Age of this Age Resolved Age Notes LastModified by Organization Details LastModified Time Father Malignant neoplastic disease [facility] Not available 10/09 13:48:39 Medical History Condition Response Diabetes N Coronary Artery Disease N CHF N Parkinson's Disease N Cancer N Stroke N Dementia N Hypothyroidism N COPD N Asthma N Depression N High Cholesterol N Rheumatoid Arthritis N Pulmonary Embolism N Hypertension N A-fib N Osteoporosis N Kidney Disease N Gynecological HistoryNo gynecological history recorded. Obstetrics History GPAL:G 0 P 0 0 0 0 Past Encounters Encounter ID Performer Location Encounter Start Date Encounter Closed Date Diagnosis/Indication Diagnosis SNOMED-CT Code Diagnosis ICD10 Code Diagnosis IMO Codes Diagnosis Note [id number] RACQUEL RASHEED [facility] [address] [place] [place] [address] 08/03/2021 18:42:10 08/06/2021 10:47:05 Exposure to SARS-CoV-2 937335640 Z20.822 COVID-19 947511396 U07.1 History of Graves' disease 9186057180 67146 Z86.39 Cigarette smoker 6226940 7 F17.210 [id number] Lydia Gilman NP [facility] [address] [facility] [place] [address] 10/09/2021 13:45:34 10/11/2021 11:41:46 Malaise and fatigue 107853690 R53.81 Viral syndrome 363985428 B34.9 [id number] RACQUEL Johnson [facility] [address] [facility] [place] [address] 12/09/2021 20:07:38 12/10/2021 11:06:51 Malaise and fatigue 573122685 R53.81 Pain in throat 961930102 R07.0 Health Concerns Section Related Observation LastModified by Organization Detai ls LastModified Time None Recorded Concern Status LastModified by Organization Details LastModified Time None Recorded Advance Directives Directive None Recorded Payers Insurance Date Sequence Insurance Name Policy Number Policy Grewal Covered Member ID Grewal Member ID Guarantor Name 12/09/2021 1 [place]ICARE B-[place]: [employer] Mary Beth Gil [id number] Mary Beth Gil 12/09/2021 1 *SELF PAY* Mary Beth Calderon [id number] Mary Beth Gil Notes Date Note Type Note Provider Name and Address Organization Details Recorded Time 08/03/2021 text/html 51 y/o F with PMH of Graves [...] for COVID-19. RACQUEL RASHEED [address], [place], [address], [place] [facility] 08/03/2021 19:42:06 10/09/2021 text/html 51 year old known to but new [...] illness. Lydia Gilman NP [address], [place], [address], [place] [facility] 10/09/2021 17:49:50 12/09/2021 text/html [...] other assoc sx's. RACQUEL Craig [address], [place], [address], [place] [facility] 12/09/2021 22:54:10 OBGyn Episode No OBEpisode recorded.
[2025-06-29 14:34] LABS: Metanephrine, Free 71 pg/mL (<=57); Normetanephrines, Free 207 pg/mL (<=148); Total Metanephrine, Free 278 pg/mL (<=205)
[2025-06-29 18:33] LABS: Catecholamine Frac, Total 537 pg/mL
== END 2025-06-25 13:47 | disposition home or self-care (01) ==
LOC: HO.LAB 13:46
PROVIDERS: PCP Internal Medicine; Visit Provider Student in an Organized Health Care Education/Training Program
DX: I10 Essential (primary) hypertension (principal); E03.9 Hypothyroidism, unspecified; E55.9 Vitamin D deficiency, unspecified; Z79.890 Hormone replacement therapy
CPT/HCPCS: 36415; 82306; 82384; 83835; 99212

== ENCOUNTER 2025-06-25 13:46 | Outpatient (AMB) | payer MEDICARE, SELFPAY ==
--- NOTE | 2025-06-25 13:49 | A.OFFVIS_ITS ---
Vital Signs 06/25/25 13:52 Height 5 ft 1 in Weight 99 lb 3.328 oz BMI 18.7 BP 134/78 Blood Pressure Location Rt brachial Position Sitting Pulse 74 Pulse Source Pulse Oximeter Pulse Oximetry (%) 97 Oxygen Delivery Method Room Air Intake Visit Reasons: Hyperparathyroidism, unspecified Intake Note: Patient presents here today for Hyperparathyroidism follow-up. [employer] Required: No Accompanied by: Significant Other Allergies aspirin Allergy (Intermediate, Verified 06/25/25 13:53) vomiting blood ciprofloxacin (From Cipro) Allergy (Mild, Verified 06/25/25 13:53) temporary paralysis stains Allergy (Intermediate, Uncoded 06/25/25 13:53) severe body aches fentanyl Allergy (Mild, Uncoded 06/25/25 13:53) Difficulty Breathing prenisone Allergy (Mild, Uncoded 06/25/25 13:53) Swelling Medication List - Last Reconciled 06/25/25 by Maria Del Rosario Alexander MD methadone 10 mg PO Q6-8H PRN ondansetron 4 mg PO Q8H PRN pantoprazole (Protonix) 40 mg PO DAILY sucralfate (Carafate) 1 g PO BID Synthroid (levothyroxine) 75 mcg PO DAILY NS HPI Comments Details: History of Present Illness: - The patient was diagnosed with Graves' disease and had a thyroidectomy in 1996 due to severe reactions to hyperthyroidism medications, specifically methimazole (rash). - In 2006, a thyroid scan indicated thyroid tissue regrowth. - The patient reports a history of medication challenges and is currently experiencing significant symptoms including severe fatigue, nausea, vomiting, bradycardia with pulse dropping to 42, significant weight fluctuations, brittle nails, and anxiety. - The patient reports hot intolerance, preferring colder weather as heat exace rbates symptoms. - The patient states that generic levothyroxine formulations exacerbate symptoms and prefers brand name Synthroid. - The patient was previously on 75 mcg of levothyroxine but was increased to 88 mcg about a year ago, which worsened symptoms and led to severe anxiety and heart issues. The patient self-adjusted the dose to approximately 66 mcg due to symptom severity. - The patient experiences a lump in the neck, which is painful and sometimes increases in size. - Previously on 75 mcg levothyroxine, increased to 88 mcg; currently self-dosing approximately 66 mcg due to adverse effects. - Prefers Synthroid brand over generic. Interval history 06/25/25 Patient comes to the office with concerns of persisting fluctuating blood pressure and low pulse. She reports experiencing very high blood pressure with a low pulse, with a recent measurement of 176/100 mmHg and a pulse of 41 bpm at the hospital a few days back. The patient noted that blood pressure and pulse have been fluctuating significantly. She expressed concern about these fluctuations and mentioned feeling scared, especially when the blood pressure was as low as 100/49 mmHg with a pulse of 41 bpm, leading to a sensation of nearly passing out. Additionally, the patient reported frequent urination, feeling the need to urinate every ten minutes, with output perceived to be much higher than intake. The patient mentioned running out of Synthroid and being without it for three days, and questioned the potential role of thyroid issues in the symptoms. She reported not feeling better on levothyroxine initially but noted improvement after switching to Synthroid before symptoms worsened again. The patient does not report headaches, palpitations, or sweating typical of pheochromocytoma. No new medications have been taken. Physical exam General: Alert, mildly anxious Neck: Supple, this is a small, lump in the anterior neck, mobile. Cardiac: Regular rate and rhythm, no murmurs. No edema. Lungs: Clear to auscultation bilaterally. Abdomen: Soft, non-tender, nondistended Extremities: No ulcers, no tremor of outstretched hands Neuro: Alert, oriented. Labs No recent labs after last visit [facility] Medical History Hypoventilation COPD (chronic obstructive pulmonary disease) MELISSA on CPAP Hypothyroidism Family History Father No problems noted. Mother No problems noted. Social History Patient Tobacco Use Status: Current everyday Tobacco user Cigarette Packs Per Day: 0.5 Cigarettes Per Day: 3 Physical Exam Vital Signs: Last Vital Signs Pulse 74 06/25/25 13:52 BP 134/78 06/25/25 13:52 Pulse Ox 97 06/25/25 13:52 Oxygen Delivery Method Room Air 06/25/25 13:52 BMI result Body Mass Index 18.7 Assessment & Plan Assessment & Plan (1) Hypertension: Code(s): I10 - Essential (primary) hypertension Category: Medical (2) Hypothyroidism: Code(s): E03.9 - Hypothyroidism, unspecified Category: Medical Plan Assessment Hypothyroidism due to total thyroidectomy in 1976. She currently have multiple symptoms not all seem to be related to her thyroid dysfunction, similarly to when I saw this patient first. She does report that she was probably improving with levothyroxine (Synthroid), hence I think it is reasonable to prescribe the medication and recheck labs in 6 weeks as she unfortunately run out of medication. She has now concerns for persistent intermittent hypertension, associated with bradycardia, which raises concern for possible pheochromocytoma despite not having all the classical symptoms including palpitations or headaches. Some differential diagnosis include bile reflux failure, this could happen due to autonomic dysfunction post neck surgery, although she had surgery many years ago and this seems unlikely to be happening now. Also some patients with abrupt levothyroxine discontinuation can experience bradycardia, diastolic hypertension fatigue, but this seems also unlikely as patient had both systolic and diastolic hypertension. Her symptoms of intermittent bradycardia, could be related to her methadone use (in her chart it is mentioned that she may be taking methadone 10 mg q.6 or 8 hours prn, but I did not inquire about this). Plan Restart Synthroid 75 mcg daily on empty stomach Repeat thyroid function tests in 6 weeks Discussed with the patient that some symptoms that she has presented may not be related to hypothyroidism including anxiety, increased urination, intermittent hypertension. We will screen the patient with plasma metanephrines to rule out pheochromocytoma We will follow the patient in 2 months to review her labs and adjust thyroid medications as needed Orders: Orders Catecholamines, Frac., Plasma Today I10 - Essential (primary) hypertension Metanephrines, Plasma Today I10 - Essential (primary) hypertension Medications: Refilled Synthroid (levothyroxine) 75 mcg PO DAILY 30 tabs 3RF NS Coding Level of Care Code Est Pt Level 4 (56802) Diagnoses Hypertension I10 Hypothyroidism E03.9 Time Spent (min) 30 Comment Time spent reviewing previous records, labs, imaging, provider notes; and education
[2025-06-25 13:52] VITALS: BP 134/78; PULSE 74; O2SAT 97; BMI 18.7
--- OUTSIDE RECORDS SUMMARY | 2025-06-25 19:42 | XMS_ITS | Data Portability ---
Author Organization [place] - [place] Joshua farrell, [facility]_01 [place] Address [address] [place] [address] Assessment No assessment recorded. Plan of Treatment Reminders Order Date Submit Date Provider Last Modified By Organization Details Last Modified Time Details Appointments Follow Up 2024 03:40P M Bill Fonseca MD Not available Not [...] Location Of Their Choice, 10/01/2024 16:06:29 Referral otolaryng ologist referral - [facility]a l [facility] Parag Beebe MD, [address], [address], [place], [address], 12/29/2024 02:18:38 Procedures None recorded. Surgeries None recorded. Imaging XR, thoracic spine [address] (Imaging), [address] [place] [address], [address], 03/10/2025 08:22:27 XR, lumbar spine [address] (Imaging), [address] [place] [address], [address], 03/10/2025 08:22:27 Medication Orders mirtazapi ne 7.5 mg tablet 2024 025 [facility], [address] [place] [address], [address], 11/21/2024 17:15:07 escitalop celestine 10 mg tablet 2023 024 [facility], [address] [place] [address], [address], 10/21/2024 15:16:50 Patient TargetsNo targets recorded. Patient InstructionsNo instructions recorded. Reason for Referral Practice Lead Referral fo r Mass of pharynx Chronic pharyngeal mass Referring Physician: Bill Fonseca, Internal Medicine, Encounter Date: 12/19/2024 Results Created Date Observation Date Name Description Value Unit Range Abnormal Flag Note LastModifiedBy Organization Detail LastModifiedTime 09/30/1910/01/2024 TSH+F REE T4 TSH 5.960 uIU/m L 0.450- 4.500 above high normal Not Available [facility] ([facility]) [address] [facility], [place], [address], 10/01/2024 16:06:09/30/1910/01/2024 TSH+F REE T4 T4,free(dire ct) 1.39 NG/dL 0.82-1 .77 normal Not Available [facility] ([facility]) [address] [place], [address], 10/01/2024 16:06:25 09/30/19 25 09/30/2024 CBC WITH DIFFE RENTI AL/PL ATELE T WBC 7.3 x10e3 /uL 3.4-10 .8 normal Not Available [facility] ([facility]) [address] [place], [address], 10/01/2024 16:06:27 09/30/1909/30/2024 CBC WITH DIFFE RENTI AL/PL ATELE T RBC 4.31 x10e6 /uL 3.77-5 .28 normal Not Available [facility] ([facility]) [address] [place], [address], 10/01/2024 16:06:27 09/30/1909/30/2024 CBC WITH DIFFE RENTI AL/PL ATELE T hemoglobin 13.3 g/dL 11.1-1 5.9 normal Not Available [facility] ([facility]) [address] [place], [address], 10/01/2024 16:06:27 09/30/1909/30/2024 CBC WITH DIFFE RENTI AL/PL ATELE T hematocrit 38.7 % 34.0-4 6.6 normal Not Available [facility] ([facility]) [address] [place], [address], 10/01/2024 16:06:27 09/30/1909/30/2024 CBC WITH DIFFE RENTI AL/PL ATELE T MCV 90 fL 79-97 normal Not Available [facility] ([facility]) [address] [place], [address], 10/01/2024 16:06:27 09/30/19 25 09/30/2024 CBC WITH DIFFE RENTI AL/PL ATELE T MCH 30.9 pg 26.6-3 3.0 normal Not Available [facility] ([facility]) [address] [facility], [place], [address], 10/01/2024 16:06:27 09/30/19 25 09/30/2024 CBC WITH DIFFE RENTI AL/PL ATELE T MCHC 34.4 g/dL 31.5-3 5.7 normal Not Available [facility] ([facility]) [address] [facility], [place], [address], 10/01/2024 16:06:27 09/30/19 25 09/30/2024 CBC WITH DIFFE RENTI AL/PL ATELE T RDW 12.7 % 11.7-1 5.4 Not Available [facility] ([facility]) [address] [facility], [place], [address], 10/01/2024 16:06:27 09/30/19 25 09/30/2024 CBC WITH DIFFE RENTI AL/PL ATELE T platelets 296 x10e3 /uL 150-45 0 normal Not Available [facility] ([facility]) [address] [facility], [place], [address], 10/01/2024 16:06:27 09/30/19 25 09/30/2024 CBC WITH DIFFE RENTI AL/PL ATELE T neutrophils 59 % not estab. normal Not Available [facility] ([facility]) [address] [place], [address], 10/01/2024 16:06:27 09/30/19 25 09/30/2024 CBC WITH DIFFE RENTI AL/PL ATELE T lymphs 31 % not estab. normal Not Available [facility] ([facility]) [address] [place], [address], 10/01/2024 16:06:27 09/30/19 25 09/30/2024 CBC WITH DIFFE RENTI AL/PL ATELE T monocytes 7 % not estab. normal Not Available [facility] ([facility]) [address] [facility], [place], [address], 10/01/2024 16:06:27 09/30/19 25 09/30/2024 CBC WITH DIFFE RENTI AL/PL ATELE T eos 3 % not estab. normal Not Available [facility] ([facility]) [address] [facility], [place], [address], 10/01/2024 16:06:27 09/30/19 25 09/30/2024 CBC WITH DIFFE RENTI AL/PL ATELE T basos 0 % not estab. normal Not Available [facility] ([facility]) [address] [facility], [place], [address], 10/01/2024 16:06:27 09/30/19 25 09/30/2024 CBC WITH DIFFE RENTI AL/PL ATELE T immature cells ATTORNEY RECRUITER Not Available [facility] ([facility]) [address] [place], [address], 10/01/2024 16:06:27 09/30/19 25 09/30/2024 CBC WITH DIFFE RENTI AL/PL ATELE T neutrophils (absolute) 4.2 x10e3 /uL 1.4-7. 0 normal Not Available [facility] ([facility]) [address] [place], [address], 10/01/2024 16:06:27 09/30/19 25 09/30/2024 CBC WITH DIFFE RENTI AL/PL ATELE T lymphs (absolute) 2.3 x10e3 /uL 0.7-3. 1 normal Not Available [facility] ([facility]) [address] [place], [address], 10/01/2024 16:06:27 09/30/19 25 09/30/2024 CBC WITH DIFFE RENTI AL/PL ATELE T monocytes(ab solute) 0.5 x10e3 /uL 0.1-0. 9 normal Not Available [facility] ([facility]) [address] [place], [address], 10/01/2024 16:06:27 09/30/19 25 09/30/2024 CBC WITH DIFFE RENTI AL/PL ATELE T eos (absolute) 0.3 x10e3 /uL 0.0-0. 4 normal Not Available [facility] ([facility]) [address] [place], [address], 10/01/2024 16:06:27 09/30/19 25 09/30/2024 CBC WITH DIFFE RENTI AL/PL ATELE T baso (absolute) 0.0 x10e3 /uL 0.0-0. 2 normal Not Available [facility] ([facility]) [address] [place], [address], 10/01/2024 16:06:27 09/30/19 25 09/30/2024 CBC WITH DIFFE RENTI AL/PL ATELE T immature granulocytes 0 % not estab. Not Available [facility] ([facility]) [address] [place], [address], 10/01/2024 16:06:27 09/30/19 25 09/30/2024 CBC WITH DIFFE RENTI AL/PL ATELE T immature grans (abs) 0.0 x10e3 /uL 0.0-0. 1 Not Available [facility] ([facility]) [address] [place], [address], 10/01/2024 16:06:27 09/30/19 25 09/30/2024 CBC WITH DIFFE RENTI AL/PL ATELE T NRBC ATTORNEY RECRUITER Not Available [facility] ([facility]) [address] [place], [address], 10/01/2024 16:06:27 09/30/19 25 09/30/2024 CBC WITH DIFFE BEAR AL/PL JOSE T hematology comments: ATTORNEY RECRUITER Not Available [facility] ([facility]) [address] [facility], [place], [address], 10/01/2024 16:06:27 09/30/19 25 10/01/2024 COMP. METAB OLIC PANEL (14) glucose 92 mg/dL 70-99 normal Not Available [facility] ([facility]) [address] [facility] [place], [address], 10/01/2024 16:06:28 09/30/19 25 10/01/2024 COMP. METAB OLIC PANEL (14) BUN 15 mg/dL 6-24 normal Not Available [facility] ([facility]) [address] [facility], [place], [address], 10/01/2024 16:06:28 09/30/19 25 10/01/2024 COMP. METAB OLIC PANEL (14) creatinine 0.79 mg/dL 0.57-1 .00 normal Not Available [facility] ([facility]) [address] [facility] [place], [address], 10/01/2024 16:06:28 09/30/19 25 10/01/2024 COMP. METAB OLIC PANEL (14) eGFR 88 mL/mi n/1.7 3 >59 normal Not Available [facility] ([facility]) [address] [facility] [place], [address], 10/01/2024 16:06:28 09/30/19 25 10/01/2024 COMP. METAB OLIC PANEL (14) BUN/creatini ne ratio 19 9-23 normal Not Available [facility] ([facility]) [address] [facility] [place], [address], 10/01/2024 16:06:28 09/30/19 25 10/01/2024 COMP. METAB OLIC PANEL (14) sodium 142 mmol/ L 134-14 4 normal Not Available [facility] ([facility]) [address] [place], [address], 10/01/2024 16:06:28 09/30/19 25 10/01/2024 COMP. METAB OLIC PANEL (14) potassium 4.8 mmol/ L 3.5-5. 2 normal Not Available [facility] ([facility]) [address] [place], [address], 10/01/2024 16:06:28 09/30/19 25 10/01/2024 COMP. METAB OLIC PANEL (14) chloride 104 mmol/ L 96-106 normal Not Available [facility] ([facility]) [address] [place], [address], 10/01/2024 16:06:28 09/30/19 25 10/01/2024 COMP. METAB OLIC PANEL (14) carbon dioxide, total 22 mmol/ L 20-29 normal Not Available [facility] ([facility]) [address] [place], [address], 10/01/2024 16:06:28 09/30/19 25 10/01/2024 COMP. METAB OLIC PANEL (14) calcium 9.9 mg/dL 8.7-10 .2 normal Not Available [facility] ([facility]) [address] [place], [address], 10/01/2024 16:06:28 09/30/19 25 10/01/2024 COMP. METAB OLIC PANEL (14) protein, total 6.6 g/dL 6.0-8. 5 normal Not Available [facility] ([facility]) [address] [place], [address], 10/01/2024 16:06:28 09/30/19 25 10/01/2024 COMP. METAB OLIC PANEL (14) albumin 4.2 g/dL 3.8-4. 9 normal Not Available [facility] ([facility]) [address] [place], [address], 10/01/2024 16:06:28 09/30/19 25 10/01/2024 COMP. METAB OLIC PANEL (14) globulin, total 2.4 g/dL 1.5-4. 5 Not Available [facility] ([facility]) [address] [place], [address], 10/01/2024 16:06:28 09/30/19 25 10/01/2024 COMP. METAB OLIC PANEL (14) bilirubin, total 0.3 mg/dL 0.0-1. 2 normal Not Available [facility] ([facility]) [address] [place], [address], 10/01/2024 16:06:28 09/30/19 25 10/01/2024 COMP. METAB OLIC PANEL (14) alkaline phosphatase 109 IU/L 44-121 normal Not Available [facility] ([facility]) [address] [place], [address], 10/01/2024 16:06:28 09/30/19 25 10/01/2024 COMP. METAB OLIC PANEL (14) AST (SGOT) 24 IU/L 0-40 normal Not Available [facility] ([facility]) [address] [place], [address], 10/01/2024 16:06:28 09/30/19 25 10/01/2024 COMP. METAB OLIC PANEL (14) ALT (SGPT) 17 IU/L 0-32 normal Not Available [facility] ([facility]) [address] [place], [address], 10/01/2024 16:06:28 09/30/19 25 10/01/2024 LIPID PANEL cholesterol, total 237 mg/dL 100-19 9 above high normal Not Available [facility] ([facility]) [address] [place], [address], 10/01/2024 16:06:29 01/27/20 25 10/01/2024 LIPID PANEL triglyceride s 148 mg/dL 0-149 normal Not Available [facility] ([facility]) [address] [place], [address], 10/01/2024 16:06:29 09/30/19 25 10/01/2024 LIPID PANEL HDL cholesterol 45 mg/dL >39 normal Not Available [facility] ([facility]) [address] [place], [address], 10/01/2024 16:06:29 09/30/19 25 10/01/2024 LIPID PANEL VLDL cholesterol anay 27 mg/dL 5-40 Not Available [facility] ([facility]) [address] [place], [address], 10/01/2024 16:06:29 09/30/19 25 10/01/2024 LIPID PANEL LDL chol calc ([facility]) 165 mg/dL 0-99 above high normal Not Available [facility] ([facility]) [address] [place], [address], 10/01/2024 16:06:29 09/30/1910/01/2024 LIPID PANEL LDL calc comment: ATTORNEY RECRUITER Not Available [facility] ([facility]) [address] [place], [address], 10/01/2024 16:06:29 09/30/19 25 10/01/2024 H PYLOR I BREAT H TEST H pylori breath test NEGATI VE negati ve Not Available [facility] ([facility]) [address] [place], [address], 10/01/2024 16:06:31 Result Notes None recorded. Problems Name Problem SNOMED Code Status Onset Date Resolution Date Notes Provider Name and Address Organization Details Recorded Time Fibromyal nabil 116471274 Active 2019 Fibromyalg ia affecting upper arm Not Available [facility] 3 03:03:01 Gastroeso phageal reflux disease 995278745 Active 2019 GERD (gastroeso phageal reflux disease) Not Available [facility] 3 03:03:01 Cigarette smoker 07226227 Active 2019 Smoking greater than 20 pack years Not Available [facility] 3 03:03:01 Chronic low back pain 088550140 Active 2019 Chronic bilateral low back pain with bilateral sciatica Not Available [facility] 3 03:03:01 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 779123827 Active 2020 Hypothyroi dism due to Renetta' s thyroiditi s Kinga Rodasadaircoleman null, [place] - [facility] 5 09:29:55 Bipolar I disorder 349712370 Active 2021 Bipolar 1 disorder Not Available [facility] 3 03:03:01 Migraine without aura 86219599 Active 2021 Migraine without aura or status migrainosu s Not Available [facility] 3 03:03:01 Sleep apnea 26481913 Active 2024 Bill Fonseca MD [address] [place] [address], [address] [place] [address], [phone] , [place] [facility] 5 10:29:23 Nausea 210461120 Active 2024 Crystal Epifanio null, [place] [facility] [place] 5 10:51:11 Hypothyro idism 15490588 Active 2024 Bill Fonseca MD [address] [place] [address], [address] [place] [address], [phone] , [place] - [facility] [place] 5 14:18:06 Vitamin D deficienc y 01139193 Active 2024 Bill Fonseca MD [address] [place] [address], [address] [place] [address], [phone] , [place] [facility] 5 16:30:29 Mass of pharynx Active 2024 Bill Fonseca MD [address] [place] [address], [address] [place] [address], [address] , [facility] 5 11:37:38 Numbness 23316343 Active 2024 Bill Fonseca MD [address] [place] [address], [address] [place] [address], [address] , [facility] 5 16:21:30 Intermitt ent palpitati ons 108859758 Active 2024 Bill Fonseca MD [address] [place] [address], [address] [place] [address], [address] , [facility] 5 16:57:28 Problem Notes None recorded. Medical Equipment None Reported. Allergies Allergen ID Allergen Name Allergen Category Reaction Reaction Severity Criticality Documentation Date Start Date Code Code System Note Provider Name and Address Organization Details Recorded Time 383828 Buspar medicatio n nausea Not available low 06/05/2023 83321 0 RxNorm Bill Fonseca MD [address] [place] [address], [address] [place] [address], [address] [place] [address] 0, [facility] 3 15:23:00 184281 clavulani c acid Not available vomiting Not available low 08/30/2024 64154 RxNorm Bill Fonseca MD [address] [place] [address], [address] [place] [address], [address] [place] [address] 0, [facility] 4 14:18:12 03355 aluminum aspirin Not available Not available Not available Not available 12/29/20222020 611 RxNorm Not Available [facility] 3 07:35:02 30393 ciproflox acin medicatio n Not available Not available Not available 12/29/20222020 2551 RxNorm React ion: Other (See Comme nts), sever ity: Sever e;Tem porar y paral ysis Not Available [facility] 3 07:35:02 76953 azithromy jaden medicatio n Not available Not available Not available 12/29/20222020 01514 RxNorm React ion: Diarr hea, sever ity: Sever e;Myrna ction : Nause a And Vomit ing, sever ity: Sever e Not Available [facility] 3 07:35:03 Medications Name Sig Start Date [...] Available Not Available methadone 10 mg tablet Take 1 tablet (10 mg total) by mouth every 8 (eight) hours as needed for pain (CPMRS checked) for up to 28 days. 2024 active Not Available Not Available Not Avai lable sucralfate 1 gram tablet Take 1 tablet [...] Updated DateTime 5 154.94 cm 19.8 kg/m2 36887.2 g 70 /min 99 % 99 % 116/74 mm[Hg] Haritha Nicolas CT - CT [facility] 5 16:01:04 Date Recorded Body height Body mass index (BMI) Body weight Oxygen saturation Oxygen saturation in Arterial blood by Pulse oximetry Respiratory rate Systolic And Diastolic Provider Name and Address Organization Details Last Updated DateTime 4 154.94 cm 20.8 kg/m2 08150.1 6 g 98 % 98 % 64 /min 120/68 mm[Hg] Amy smith [place] - [facility] [place] 4 14:09:43 Social History Question Answer Notes LastModified by [employer] Details LastModified Time Tobacco Smoking Status Current Every Day Smoker Not Available [facility] 12/31/2022 02:24:28 Do You Wear A Helmet [...] not available 08/30/2024 Where [facility] You [facility]? [facility] Information not available 08/30/2024 How [...] Functional Status Question Answer Note LastModified by Organizat ion Details LastModified Time Do you use [...] anxious, or unable to sleep at night)? [id number] Information not available 08/30/2024 Family History Nothing [...] preservative 9 completed Not Available [facility] 12/30/2022 07:57:04 DT (pediatric) 4 completed Not Available [facility] 12/30/2022 07:57:05 zoster recombinant 9 completed Not Available [facility] 12/30/2022 07:57:05 Tdap 9 completed Not Available [facility] 12/30/2022 07:57:05 pneumococcal polysaccharide PPV23 9 completed Not Available [facility] 12/30/2022 07:57:05 Past Encounters Encounter ID Performer Location Encounter Start Date Encounter Closed Date Diagnosis/Indication Diagnosis SNOMED-CT Code Diagnosis ICD10 Code Diagnosis IMO Codes Diagnosis Note [id number] Bill Fonseca MD [facility]_ IM_[address] [place] [address] 04/14/2023 13:56:44 04/14/2023 15:27:39 Influenza-like symptoms 256560776 R68.89 We will start patient on amoxicilli n 500 mg 3 times a day for probable infectious lesion in the mouth. Patient will check for COVID and symptomati c treatment. Advised patient to keep her fluids up so that she will get dehydrated . She will call us if COVID turns out positive. [id number] Bill Fonseca MD [facility]16 [facility] [address] [place] [address] 06/05/2023 09:32:04 06/05/2023 15:45:53 Anxiety state 834257828 F41.1 So we talked about trying something [...] recheck in a few months. ETL Palpitations 42377599 R0 0.2 We will send her for 24-hour Holter monitor and if it is normal we will send her for an echocardio gram and if it is normal we will send her for a stress test. [id number] Bill Fonseca MD [facility] [place] [address] 08/21/2024 11:11:05 08/21/2024 11:48:47 Sore throat 353408627 J02.9 Possible possible infected cyst or viral ulceration of the throat. We will treat her with Augmentin 875 mg twice a day and if she is not improving we will have to have her come in and have us check her out in person. We will also add Hibiclens gargle in case it is a cold sore. [id number] Bill Fonseca MD [facility] [address] [place] [address] 08/30/2024 13:48:03 08/30/2024 14:50:35 Adult health examination 580605360 Z00.00 Mary Beth continues to be overwhelme [...] and cholestero l panel Bipolar I disorder 99752 6008 F31.9 Strongly urged patient to start [...] . 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 Gastroesop hageal reflux disease 988369483 K21.9 Will Protonix 40 mg daily and check for H. pylori breath test. We reviewed dyspepsia diet changes again Fibromyalgia 716306696 M 79.7 Maintain methadone for her chronic pain. Cigarette smoker 3695228 7 F17.210 Which showed up she actually is able to quit smoking over the New Year's. [id number] Bill Fonseca MD [facility] [place] [address] 09/24/2024 13:40:58 09/24/2024 14:39:37 Bipolar I disorder 669630518 F31.9 Will discontinu e Lexapro since the patient does not feel that it is helping much. 46 okay thank you. Very encouraged by the patient's incentive to schedule appointmen t with therapist which I hope will be a long-term solution for her. Hypothyroidism 22515759 E03.9 Still being awaiting her repeat TSH [...] monitor in few months. ETL Cigarette smoker 1807912 7 F17.210 Hopefully she will eventually cut her smoking completely but right now she is tapering off and we are informed when she finally quit completely . [id number] MD [facility] [address] [place] [address] 10/21/2024 13:24:18 10/21/2024 15:35:24 Bipolar I disorder 122564166 F31.9 Discussed different options and would try her on mirtazapin e 7.5 mg at bedtime to help her with her insomnia as well as bipolar disorder and maybe even improve her appetite. We will follow her up in 1 month to reassess these issues. Hypothyroidism 47530466 E03.9 Seems to be doing well on levothyrox ine 88 mcg daily with normal TSH levels on that dose. Will continue present management and recheck in 6 months. Cigarette smoker 4790767 7 F17.210 Eagerly waiting sleep study but continue to encourage patient to quit smoking completely . [id number] MD ROYER [facility] _[address] [place] [address] 12/19/2024 11:24:18 12/19/2024 12:00:25 Mass of pharynx 4815970663 2108 J39.2 251619 Due to the chronicity of this mass in the posterior pharynx. We will schedule patient to see ENT for better evaluation . At the moment it is neither too painful nor is it bleeding or having any discharge so we will hold off on any management today. Bipolar I disorder 88069 6008 F31.9 Patient climbed any replacemen t for the mirtazapin e for her sleep and bipolar disorder. [id number] MD ROYER [facility]16 [address] [place] [address] 02/24/2025 15:51:39 02/24/2025 16:35:32 Numbness 95009559 R20.0 05402 Will start with an x-ray of the [...] ID Guarantor Name 02/24/2025 1 MEDICARE B-CT: [facility] Mary Beth Gil [id number] Mary Beth Stewart [place] 02/24/2025 1 MEDICARE B-MA: [employer] Mary Beth Gil [id number] Mary Beth Stewart [place] 02/24/2025 1 GENERIC COMMERCIAL - MOVED HOLD Mary Beth Stewart [place] [id number] Mary Beth Stewart [place] 02/24/2025 MEDICARE B-CT: LYN Gil [id number] Mary Beth Stewart [place] Notes Date Note Type Note Provider Name [...] this new year. Bill Fonseca MD [address] [place] [address], [address], [place], [address], [place] - [place] [facility] 08/30/2024 15:09:00 09/24/2024 text/html Virtual VisitRep orted by PatientIdentity:For patient identity verified by, patient reportsknown established patient. For i shared my identity credentials with the patient, patient reportsyes.Location:F or patient is currently located in the state of, patient reportsct(id). For patient location, patient reportshome. For provider [...] as last visit. Bill Fonseca MD [address] [place] [address], [address] [place] [address], [place], [id number], CT - CT [facility] 10/18/2024 12:26:29 10/21/2024 text/html Virtual VisitRep orted by PatientIdentity:For patient identity verified by, patient reportsknown established patient. For i shared my identity credentials with the patient, patient reportsyes.Location:F or patient is currently located in the state of, patient reportsct(id). For patient location, patient reportshome. For provider [...] new psychiatrist appointment. Bill Fonseca MD [address] [place] [address], [address], [place], [id number] 10/21/2024 15:31:34 12/19/2024 text/html Virtual VisitRep orted by PatientIdentity:For patient identity verified by, patient reportsknown established patient. For i shared my identity credentials with the patient, patient reportsyes.Location:F or patient is currently located in the state of, [facility] For patient location, patient [place]. For provider location, patient reportsi was located [...] stopped taking the medication. Bill Fonseca MD [address] [place] [address], [address] [place] [address], [id number], [place] - CT [facility] 12/19/2024 11:44:27 02/24/2025 text/html Mary Beth [...] back pain and fibromyalgia. Bill Fonseca MD [address] [place] [address], [address] [place] [address], [place], [id number], [place] - CT [facility] 02/24/2025 16:39:54 OBGyn Episode No OBEpisode recorded.
--- OUTSIDE RECORDS SUMMARY | 2025-06-25 19:42 | XMS_ITS | Clinical Summary ---
Author Organization [facility] Address [address] [place] [address] Care Team Providers Care Rehabilitation Technician Name Role Phone Bill Fonseca MD Primary Care Provider [phone] Allergies Active Allergy Reactions Criticality Noted Date [...] age to complete this topic Care Teams Rehabilitation Technician Relationship Specialty Start Date End Date Bill Fonseca MD PCP - General Internal Medicine 10/18/19
--- OUTSIDE RECORDS SUMMARY | 2025-06-25 19:42 | XMS_ITS | Clinical Summary ---
Author Organization [facility] it Address [address] [place] [address] Care Team Providers Care Passenger Brakeman Name Role Phone Bill Fonseca MD Primary Care Provider Surgical History Surgery Date Site/Laterality Comments TOTAL [...] age to complete this topic Care Teams Passenger Brakeman Relationship Specialty Start Date End Date Bill Fonseca MD PCP - General Internal Medicine 10/18/19
== END 2025-06-25 14:18 | disposition home or self-care (01) ==
LOC: HO.ENCR 13:46
PROVIDERS: PCP Internal Medicine; Visit Provider Student in an Organized Health Care Education/Training Program
DX: I10 Essential (primary) hypertension (principal); E03.9 Hypothyroidism, unspecified
CPT/HCPCS: 99214

== ENCOUNTER 2025-08-04 09:20 | Outpatient (REF) | payer MEDICARE, SELFPAY ==
--- OUTSIDE RECORDS SUMMARY | 2025-08-04 15:51 | XMS_ITS | Clinical Summary ---
Author Organization [facility] Address [address] [place] [address] Care Team Providers Care Bundle Tier And Labeler Name Role Phone Bill Fonseca MD Primary Care Provider [phone] Allergies Active Allergy Reactions Criticality Noted Date [...] age to complete this topic Care Teams Bundle Tier And Labeler Relationship Specialty Start Date End Date Bill Fonseca MD PCP - General Internal Medicine 10/18/19
--- OUTSIDE RECORDS SUMMARY | 2025-08-04 15:51 | XMS_ITS | Continuity of Care Document ---
Author Organization [place] [facility] Paigesar[facility], [id number] [place] Address [address] [place] [address] Care Team Providers Care Technical Staff Assistant Name Role Phone [facility] Endocrinolo gist Assessment No assessment recorded. Plan of Treatment Reminders Order Date Submit Date Provider Last Modified By Organization Details Last Modified Time Details Appointments Follow Up 2025 04:20P M Bill Fonseca MD Not available Not available Not available Lab metaneph rines, fraction ated, quantita tive, 24-hour urine 2024 025 [email or web address] [facility], [address] [place] [address] , SARAH Serrato, [id number], 08/04/2025 09:50:41 Referral None recorded . Procedures None recorded . Surgeries None recorded . Imaging None recorded . Medication Orders None recorded . Patient TargetsNo targets recorded. Patient Instructions Encounter Date Encounter Id Patient Instructions Last Modified By Organization Details Last Modified Time 07/25/2025 [id number] I personally spent a total of 32 minutes caring for the patient today, This includes the time I spent reviewing the medical records in preparation for the visit, performing a medically appropriate history and exam, counseling and educating the patient/family, ordering services or referrals and documenting these actions in the patient's medical record. The time excludes any services that will be billed separately including but not limited to EKG, vaccines, procedures and review of standardized screening tools. [email or web address] Not available 07/25/2025 16:27:11 Reason for Referral None Reported. Results Created Date Observation Date Name Description Value Unit Range Abnormal Flag Note LastModifiedBy Organization Detail LastModifiedTime 06/26/2011/02/2020 US, head + neck No observ ation record ed. BARCODE Not Available 2024 10:17:35 07/02/2006/23/2025 XR, chest + abdom en + pelvi s No observ ation record ed. [email or web address] Not Available 06/05 14:53:28 Result Notes None recorded. Problems Name Problem SNOMED Code Status Onset Date Resolution Date Notes Provider Name and Address Organization Details Recorded Time Fibromyal nabil 596906252 Active 2019 Fibromyalg ia affecting upper arm Not Available [facility] 3 03:03:01 Gastroeso phageal reflux disease 972005289 Active 2019 GERD (gastroeso phageal reflux disease) Not Available [facility] 3 03:03:01 Cigarette smoker 36039678 Active 2019 Smoking greater than 20 pack years Not Available [facility] 3 03:03:01 Chronic low back pain 153833920 Active 2019 Chronic bilateral low back pain with bilateral sciatica Not Available [facility] 3 03:03:01 Bipolar I disorder 636527629 Active 2021 Bipolar 1 disorder Not Available [facility] 3 03:03:01 Migraine without aura 93725944 Active 2021 Migraine without aura or status migrainosu s Not Available [facility] 3 03:03:01 Nausea 279286198 Active 2024 Crystal Laviolette null, [place] [facility] 5 10:51:11 Hypothyro idism 64052623 Active 2024 Bill Fonseca MD [address] [place] [address], [address] [place] [address], [place], [address] , [place] [facility] [place] 5 14:18:06 Vitamin D deficienc y 13206620 Active 2024 Bill Fonseca MD [address] [place] [address], [address], [place], [address] , [place] [facility] 5 16:30:29 Mass of pharynx Active 2024 Bill Fonseca MD [address] [place] [address], [address] [place] [address], [place], [address] , [facility] 5 11:37:38 Intermitt ent palpitati ons 381474399 Active 2024 Bill Fonseca MD [address] [place] [address], [address] [place] [address], [address] , [facility] 5 16:57:28 Opioid dependenc e 11725817 Active 2024 Bill Fonseca MD [address] [place] [address], [address] [place] [address], [place], [address] , [facility] 5 16:26:43 Problem Notes None recorded. Medical Equipment None Reported. Allergies Allergen ID Allergen Name Allergen Category Reaction Reaction Severity Criticality Documentation Date Start Date Code Code System Note Provider Name and Address Organization Details Recorded Time 934101 Buspar medicatio n nausea Not available low 06/05/2023 36716 0 RxNorm Bill Fonseca MD [address] [place] [address], [address] [place] [address], [place], [address], [facility] 3 15:23:00 766178 clavulani c acid Not available vomiting Not available low 08/30/2024 60633 RxNorm Bill Fonseca MD [address] [place] [address], [address] [place] [address], [place], [address], [facility] 4 14:18:12 45511 aluminum aspirin Not available Not available Not available Not available 12/29/20222020 611 RxNorm Not Available [facility] 3 07:35:02 55187 ciproflox acin medicatio n Not available Not available Not available 12/29/20222020 2551 RxNorm React ion: Other (See Comme nts), sever ity: Sever e;Tem porar y paral ysis Not Available [facility] 3 07:35:02 02728 azithromy jaden medicatio n Not available Not available Not available 12/29/20222020 65276 RxNorm React ion: Diarr hea, sever ity: Sever e;Myrna ction : Nause a And Vomit ing, sever ity: Sever e Not Available [facility] 3 07:35:03 Medications Name Sig Start Date [...] 1 tablet every day by oral route. 07/03 completed Not Available Not Available Not Available Synthroid 75 mcg tablet Take 1 tablet every day by oral route. active Not [...] TIMES A DAY NEEDED FOR ABDOMINAL PAIN 07/25 completed Not Available Not Available Not Available amoxicillin 875 mg-potassiu m clavulanate 125 [...] (BMI) Body weight Heart rate Oxygen saturation Systolic And Diastolic Provider Name and Address Organization Details Last Updated DateTime 5 154.94 cm 19.7 kg/m2 76719.6 1 g 66 /min 99 % 138/74 mm[Hg] Diane Masterson [place] [facility] 5 15:41:20 Social History Question Answer Notes LastModified by Organizat ion Details LastModified Time Tobacco Smoking Status Current Every Day Smoker Not Available [facility] 12/31/2022 02:24:28 Do You Wear A Helmet [...] not available 08/30/2024 Where Do You Live? [facility] Information not available 08/30/2024 How Long Have You Lived There? 9 Information not available 08/30/2024 What Was The Date Of Your Most Recent Tobacco Screening? 07/25/2025 [email or web address] Information not available 07/25/2025 How Many Children Do You Have? 1 [...] Sunscreen Routinely? Yes Information not available 08/30/2024 Has Tobacco Cessation Counseling Been Provided? Yes Information not available 07/25/2025 On What Date Was Tobacco Cessation Counseling Provided? 07/25/2025 [email or web address] Information not available 07/25/2025 Sex: Unknown Functional Status Question Answer Note [...] anxious, or unable to sleep at night)? [id number] Information not available 08/30/2024 Family History Nothing [...] virus, trivalent, preservative 9 completed Not Available [facility] 12/30/2022 07:57:04 DT (pediatric) 4 completed Not Available [facility] 12/30/2022 07:57:05 zoster recombinant 9 completed Not Available [facility] 12/30/2022 07:57:05 Tdap 9 completed Not Available [facility] 12/30/2022 07:57:05 pneumococcal polysaccharide PPV23 9 completed Not Available [facility] 12/30/2022 07:57:05 Past Encounters Encounter ID Performer Location Encounter Start Date Encounter Closed Date Diagnosis/Indication Diagnosis SNOMED-CT Code Diagnosis ICD10 Code Diagnosis IMO Codes Diagnosis Note [id number] Bill Fonseca MD [facility] [place] [address] [place] [address] 07/25/2025 15:37:07 07/25/2025 16:20:52 Intermittent palpitations 074115497 R00.2 [id number] Will schedule patient for a 24-hour urine metanephri ne level prior to her follow-up with endocrinol ogy. Hypothyroidism 66982622 E03.9 Seems to be doing well on Synthroid 75 mcg daily with normal TSH levels on that dose. Will continue present management and await upcoming TSH repeat test from endocrinol [facility]. Opioid dependence 455596 00 F11.20 No change in her methadone dose for her chronic back pain Cigarette smoker 8427582 7 F17.210 Continuing to talk to patient about possible to bring of and eventually stopping her smoking. Health Concerns Section Related Observation LastModified by Organization Detai ls LastModified Time None Recorded Concern Status LastModified by Organization Details LastModified Time None Recorded Payers Encounter Date Sequence Insurance Name Policy Number Policy Grewal Covered Member ID Grewal Member ID Guarantor Name 07/25/2025 1 MEDICARE B-[place]: NGS Mary Beth iGl [id number] Mary Beth Calderon Notes Date Note Type Note Provider Name and Address Organization Details Recorded Time 07/25/2025 text/html Mary Beth is seen today for follow-up of her intermittent palpitation and hypothyroidism. She has multiple questions due to the fact that she saw senior geotechnical engineer in [facility] and is getting confused. She continues to have intermittent palpitations which is making her very anxious and she truly believes that she does not have any anxiety but these are mostly physical symptoms that are causing her palpitations. She was being checked for pheochromocytoma and her initial blood test upright showed slightly elevated levels of epinephrine, norepinephrine, dopamine and catecholamines. She has been awaiting a follow-up because of a 24-hour urine metanephrine but has not been able to go back to the senior geotechnical engineer due to scheduling issues. She is also presently stable on Synthroid 75 mcg daily for hypothyroidism but apparently endocrinology felt that she had a palpable nodule and is scheduling her for a possible ultrasound of her thyroid gland. She had a bilateral thyroidectomy in the past and latest MRI of the neck showed residual nodularity of both thyroid which are not not any larger than 10 years ago. She continues to taper down on her smoking and has been seen by pulmonary medicine in the past and is unable to quit until now. Bill Fonseca MD [address] [place] [address], [address], [place], [address], [place] [facility] 07/25/2025 16:27:24 OBGyn Episode No OBEpisode recorded.
--- OUTSIDE RECORDS SUMMARY | 2025-08-04 15:51 | XMS_ITS | Clinical Summary ---
Author Organization [facility] it Address [address] [place] [address] Care Team Providers Care Business Economist Name Role Phone Bill Fonseca MD Primary Care Provider [phone] Surgical History Surgery Date Site/Laterality Comments TOTAL [...] Depression Screening 09/04/2024 COVID-19 Vaccine (1 - 2024-2 6 season) 2025 Influenza Vaccine (#1) 2025 10/08/2018 [...] age to complete this topic Care Teams Business Economist Relationship Specialty Start Date End Date Bill Fonseca MD PCP - General Internal Medicine 10/18/19
--- OUTSIDE RECORDS SUMMARY | 2025-08-04 15:51 | XMS_ITS | Data Portability ---
Author Organization [place] - [place] Joshua Nielsen cticut, [facility]_IM_01 LOVE[place] Address [address] [place] [address] Care Team Providers Care Senior Environmental Engineer Name Role Phone [facility] Endocrinolo gist Assessment No assessment recorded. Plan of Treatment Reminders Order Date Submit Date Provider Last Modified By Organization Details Last Modified Time Details Appointments Follow Up 2025 04:20P M Bill Fonseca MD Not available Not available Not available Lab metanephr jimenez, fractiona hetal, quantitat gerald, 24-hour urine 2024 025 [email or web address] [facility], [address] [place] [address] , SARAH Serrato, [address], 08/04/2025 09:50:41 Referral otolaryng ologist referral - Chronic pharyngea l mass 2024 025 [place] [address] Parag Beebe MD, [address], [address], [place], [address], 12/29/2024 02:18:38 Procedures None recorded. Surgeries None recorded. Imaging XR, thoracic spine [address] (Imaging), [address] [place] [address], [address], 03/10/2025 08:22:27 XR, lumbar spine 2024 [address] [facility] [address] [facility] [address] [place] [address], [address], 03/10/2025 08:22:27 Medication Orders mirtazapi ne 7.5 mg tablet 2024 025 [email or web address] [facility], [address] [place], [address], 11/21/2024 17:15:07 Patient TargetsNo targets recorded. Patient Instructions Encounter Date Encounter Id Patient Instructions Last Modified By Organization Details Last Modified Time 07/25/2025 [id number] I personally spent a total of 32 [...] Not available 07/25/2025 16:27:11 Reason for Referral Process Planner Referral fo r Mass of pharynx Chronic pharyngeal mass Referring Physician: Bill Fonseca, Internal Medicine, Encounter Date: 12/19/2024 Results Created Date Observation Date Name Description Value Unit Range Abnormal Flag Note LastModifiedBy Organization Detail LastModifiedTime 09/30/1910/01/2024 TSH+F REE T4 TSH 5.960 uIU/m L 0.450- 4.500 above high normal Not Available [facility] ([facility]) [address] [place], [address], 10/01/2024 16:06:25 09/30/1910/01/2024 TSH+F REE T4 T4,free(dire ct) 1.39 NG/dL 0.82-1 .77 normal Not Available [facility] ([facility]) [address] [place], [address], 10/01/2024 16:06:25 09/30/19 25 09/30/2024 CBC WITH DIFFE RENTI AL/PL ATELE T WBC 7.3 x10e3 /uL 3.4-10 .8 normal Not Available [facility] ([facility]) [address] [place], [address], 10/01/2024 16:06:27 09/30/19 25 09/30/2024 CBC WITH DIFFE RENTI AL/PL ATELE T RBC 4.31 x10e6 /uL 3.77-5 .28 normal Not Available [facility] ([facility]) [address] [place], [address], 10/01/2024 16:06:27 09/30/19 25 09/30/2024 CBC WITH DIFFE RENTI AL/PL ATELE T hemoglobin 13.3 g/dL 11.1-1 5.9 normal Not Available [facility] ([facility]) [address] [place], [address], 10/01/2024 16:06:27 09/30/19 25 09/30/2024 CBC WITH DIFFE RENTI AL/PL ATELE T hematocrit 38.7 % 34.0-4 6.6 normal Not Available [facility] ([facility]) [address] [place], [address], 10/01/2024 16:06:27 09/30/19 25 09/30/2024 CBC WITH DIFFE RENTI AL/PL ATELE T MCV 90 fL 79-97 normal Not Available [facility] ([facility]) [address] [place], [address], 10/01/2024 16:06:27 09/30/19 25 09/30/2024 CBC WITH DIFFE RENTI AL/PL ATELE T MCH 30.9 pg 26.6-3 3.0 normal Not Available [facility] ([facility]) [address] [place], [address], 10/01/2024 16:06:27 09/30/19 25 09/30/2024 CBC WITH DIFFE RENTI AL/PL ATELE T MCHC 34.4 g/dL 31.5-3 5.7 normal Not Available [facility] ([facility]) [address] [facility], [place], [address], 10/01/2024 16:06:27 09/30/19 25 09/30/2024 CBC WITH DIFFE RENTI AL/PL ATELE T RDW 12.7 % 11.7-1 5.4 Not Available [facility] ([facility]) [address] [facility], [place], [address], 10/01/2024 16:06:27 09/30/19 25 09/30/2024 CBC WITH DIFFE RENTI AL/PL ATELE T platelets 296 x10e3 /uL 150-45 0 normal Not Available [facility] ([facility]) [address] [facility], [place], [address], 10/01/2024 16:06:27 09/30/19 25 09/30/2024 CBC WITH DIFFE RENTI AL/PL ATELE T neutrophils 59 % not estab. normal Not Available [facility] ([facility]) [address] [facility], [place], [address], 10/01/2024 16:06:27 09/30/19 25 09/30/2024 CBC WITH DIFFE RENTI AL/PL ATELE T lymphs 31 % not estab. normal Not Available [facility] ([facility]) [address] [facility], [place], [address], 10/01/2024 16:06:27 09/30/19 25 09/30/2024 CBC WITH DIFFE RENTI AL/PL ATELE T monocytes 7 % not estab. normal Not Available [facility] ([facility]) [address] [facility], [place], [address], 10/01/2024 16:06:27 09/30/19 25 09/30/2024 CBC WITH DIFFE RENTI AL/PL ATELE T eos 3 % not estab. normal Not Available [facility] ([facility]) [address] [facility], [place], [address], 10/01/2024 16:06:27 09/30/19 25 09/30/2024 CBC WITH DIFFE RENTI AL/PL ATELE T basos 0 % not estab. normal Not Available [facility] ([facility]) [address] [facility], [place], [address], 10/01/2024 16:06:27 09/30/19 25 09/30/2024 CBC WITH DIFFE RENTI AL/PL ATELE T immature cells RESAW TAILER Not Available [facility] ([facility]) [address] [facility], [place], [address], 10/01/2024 16:06:27 09/30/19 25 09/30/2024 CBC WITH DIFFE RENTI AL/PL ATELE T neutrophils (absolute) 4.2 x10e3 /uL 1.4-7. 0 normal Not Available [facility] ([facility]) [address] [facility], [place], [address], 10/01/2024 16:06:27 09/30/19 25 09/30/2024 CBC WITH DIFFE RENTI AL/PL ATELE T lymphs (absolute) 2.3 x10e3 /uL 0.7-3. 1 normal Not Available [facility] ([facility]) [address] [place], [address], 10/01/2024 16:06:27 09/30/19 25 09/30/2024 CBC WITH DIFFE RENTI AL/PL ATELE T monocytes(ab solute) 0.5 x10e3 /uL 0.1-0. 9 normal Not Available [facility] ([facility]) [address] [place], [address], 10/01/2024 16:06:27 09/30/19 25 09/30/2024 CBC WITH DIFFE RENTI AL/PL ATELE T eos (absolute) 0.3 x10e3 /uL 0.0-0. 4 normal Not Available [facility] ([facility]) [address] [facility], [place], [address], 10/01/2024 16:06:27 09/30/19 25 09/30/2024 CBC WITH DIFFE RENTI AL/PL ATELE T baso (absolute) 0.0 x10e3 /uL 0.0-0. 2 normal Not Available [facility] ([facility]) [address] [facility], [place], [address], 10/01/2024 16:06:27 09/30/19 25 09/30/2024 CBC WITH DIFFE RENTI AL/PL ATELE T immature granulocytes 0 % not estab. Not Available [facility] ([facility]) [address] [facility], [place], [address], 10/01/2024 16:06:27 09/30/19 25 09/30/2024 CBC WITH DIFFE RENTI AL/PL ATELE T immature grans (abs) 0.0 x10e3 /uL 0.0-0. 1 Not Available [facility] ([facility]) [address] [facility], [place], [address], 10/01/2024 16:06:27 09/30/19 25 09/30/2024 CBC WITH DIFFE RENTI AL/PL ATELE T NRBC RESAW TAILER Not Available [facility] ([facility]) [address] [facility], [place], [address], 10/01/2024 16:06:27 09/30/19 25 09/30/2024 CBC WITH DIFFE RENTI AL/PL ATELE T hematology comments: RESAW TAILER Not Available [facility] ([facility]) [address] [facility], [place], [address], 10/01/2024 16:06:27 09/30/19 25 10/01/2024 COMP. METAB OLIC PANEL (14) glucose 92 mg/dL 70-99 normal Not Available [facility] ([facility]) [address] [place], [address], 10/01/2024 16:06:28 09/30/19 25 10/01/2024 COMP. METAB OLIC PANEL (14) BUN 15 mg/dL 6-24 normal Not Available [facility] ([facility] [address] [facility] [place], [address], 10/01/2024 16:06:28 09/30/19 25 10/01/2024 COMP. METAB OLIC PANEL (14) creatinine 0.79 mg/dL 0.57-1 .00 normal Not Available [facility] ([facility]) [address] [facility] [place], [address], 10/01/2024 16:06:28 09/30/19 25 10/01/2024 COMP. METAB OLIC PANEL (14) eGFR 88 mL/mi n/1.7 3 >59 normal Not Available [facility] ([facility]) [address] [facility] [place], [address], 10/01/2024 16:06:28 09/30/19 25 10/01/2024 COMP. METAB OLIC PANEL (14) BUN/creatini ne ratio 19 9-23 normal Not Available [facility] ([facility]) [address] [facility] [place], [address], 10/01/2024 16:06:28 09/30/19 25 10/01/2024 COMP. METAB OLIC PANEL (14) sodium 142 mmol/ L 134-14 4 normal Not Available [facility] ([facility]) [address] [facility] [place], [address], 10/01/2024 16:06:28 09/30/19 25 10/01/2024 COMP. METAB OLIC PANEL (14) potassium 4.8 mmol/ L 3.5-5. 2 normal Not Available [facility] ([facility]) [address] [facility] [place], [address], 10/01/2024 16:06:28 09/30/19 25 10/01/2024 COMP. METAB OLIC PANEL (14) chloride 104 mmol/ L 96-106 normal Not Available [facility] ([facility]) [address] [place], [address], 10/01/2024 16:06:28 09/30/19 25 10/01/2024 COMP. METAB OLIC PANEL (14) carbon dioxide, total 22 mmol/ L 20-29 normal Not Available [facility] ([facility]) [address] [place], [address], 10/01/2024 16:06:28 09/30/19 25 10/01/2024 COMP. METAB OLIC PANEL (14) calcium 9.9 mg/dL 8.7-10 .2 normal Not Available [facility] ([facility]) [address] [place], [address], 10/01/2024 16:06:28 09/30/19 25 10/01/2024 COMP. METAB OLIC PANEL (14) protein, total 6.6 g/dL 6.0-8. 5 normal Not Available [facility] ([facility]) [address] [place], [address], 10/01/2024 16:06:28 09/30/19 25 10/01/2024 COMP. METAB OLIC PANEL (14) albumin 4.2 g/dL 3.8-4. 9 normal Not Available [facility] ([facility]) [address] [place], [address], 10/01/2024 16:06:28 09/30/19 25 10/01/2024 COMP. METAB OLIC PANEL (14) globulin, total 2.4 g/dL 1.5-4. 5 Not Available [facility] ([facility]) [address] [place], [address], 10/01/2024 16:06:28 09/30/19 25 10/01/2024 COMP. METAB OLIC PANEL (14) bilirubin, total 0.3 mg/dL 0.0-1. 2 normal Not Available [facility] ([facility]) [address] [place], [address], 10/01/2024 16:06:28 09/30/19 25 10/01/2024 COMP. METAB OLIC PANEL (14) alkaline phosphatase 109 IU/L 44-121 normal Not Available [facility] ([facility]) [address] [place], [address], 10/01/2024 16:06:28 09/30/19 25 10/01/2024 COMP. METAB OLIC PANEL (14) AST (SGOT) 24 IU/L 0-40 normal Not Available [facility] ([facility]) [address] [place], [address], 10/01/2024 16:06:28 09/30/19 25 10/01/2024 COMP. METAB OLIC PANEL (14) ALT (SGPT) 17 IU/L 0-32 normal Not Available [facility] ([facility]) [address] [place], [address], 10/01/2024 16:06:28 09/30/19 25 10/01/2024 LIPID PANEL cholesterol, total 237 mg/dL 100-19 9 above high normal Not Available [facility] ([facility]) [address] [place], [address], 10/01/2024 16:06:29 09/30/19 25 10/01/2024 LIPID PANEL triglyceride s 148 mg/dL 0-149 normal Not Available [facility] ([facility]) [address] [place], [address], 10/01/2024 16:06:29 09/30/19 25 10/01/2024 LIPID PANEL HDL cholesterol 45 mg/dL >39 normal Not Available [facility] ([facility]) [address] [facility], [place], [address], 10/01/2024 16:06:29 09/30/19 25 10/01/2024 LIPID PANEL VLDL cholesterol anay 27 mg/dL 5-40 Not Available [facility] ([facility]) [address] [facility], [place], [address], 10/01/2024 16:06:29 09/30/19 25 10/01/2024 LIPID PANEL LDL chol calc ([facility]) 165 mg/dL 0-99 above high normal Not Available [facility] ([facility]) [address] [facility], [place], [address], 10/01/2024 16:06:29 09/30/19 25 10/01/2024 LIPID PANEL LDL calc comment: RESAW TAILER Not Available [facility] ([facility]) [address] [facility], [place], [address], 10/01/2024 16:06:29 09/30/19 25 10/01/2024 H PYLOR I BREAT H TEST H pylori breath test NEGATI VE negati ve Not Available [facility] ([facility]) [address] [facility], [place], [address], 10/01/2024 16:06:31 06/26/20 25 11/02/2020 US, head + neck No observ ation record ed. BARCODE Not Available 2024 10:17:35 07/02/2006/23/2025 XR, chest + abdom en + pelvi s No observ ation record ed. [email or web address] Not Available 06/05 14:53:28 Result Notes None recorded. Problems Name Problem SNOMED Code Status Onset Date Resolution Date Notes Provider Name and Address Organization Details Recorded Time Fibromyal nabil 700098450 Active 2019 Fibromyalg ia affecting upper arm Not Available [facility] 3 03:03:01 Gastroeso phageal reflux disease 108403246 Active 2019 GERD (gastroeso phageal reflux disease) Not Available [facility] 3 03:03:01 Cigarette smoker 71254085 Active 2019 Smoking greater than 20 pack years Not Available [facility] 3 03:03:01 Chronic low back pain 150535860 Active 2019 Chronic bilateral low back pain with bilateral sciatica Not Available [facility] 3 03:03:01 Bipolar I disorder 521596060 Active 2021 Bipolar 1 disorder Not Available [facility] 3 03:03:01 Migraine without aura 54268327 Active 2021 Migraine without aura or status migrainosu s Not Available [facility] 3 03:03:01 Nausea 190329020 Active 2024 Amy Amirahmick [facility], [place] [facility] 5 10:51:11 Hypothyro idism 68454432 Active 2024 Bill Fonseca MD [address] [place] [address], [address] [place] [address], [address] [place] [address] , [facility] 5 14:18:06 Vitamin D deficienc y 99824082 Active 2024 Bill Fonseca MD [address] [place] [address], [address] [place] [address], [address] [place] [address] , [place] [facility] 5 16:30:29 Mass of pharynx Active 2024 Bill Fonseca MD [address] [place] [address], [address] [place] [address], [address] [place] [address] , [place] [facility] 5 11:37:38 Intermitt ent palpitati ons 841741646 Active 2024 Bill Fonseca MD [address] [place] [address], [address] [place] [address], [address] , [place] [facility] 5 16:57:28 Opioid dependenc e 88093474 Active 2024 Bill Fonseca MD [address] [place] [address], [address] [place] [address], [address] [place] [address] , [place] [facility] 5 16:26:43 Problem Notes None recorded. Medical Equipment None Reported. Allergies Allergen ID Allergen Name Allergen Category Reaction Reaction Severity Criticality Documentation Date Start Date Code Code System Note Provider Name and Address Organization Details Recorded Time 013315 Buspar medicatio n nausea Not available low 06/05/2023 73785 0 RxNorm Bill Fonseca MD [address] [place] [address], [address], [place], [address], [place] [facility] 3 15:23:00 975072 clavulani c acid Not available vomiting Not available low 08/30/2024 38095 RxNorm Bill Fonseca MD [address] [place] [address], [address] Floor, [place], [address], [place] [facility] [place] [facility] 4 14:18:12 59892 aluminum aspirin Not available Not available Not available Not available 12/29/20222020 611 RxNorm Not Available [facility] 3 07:35:02 45948 ciproflox acin medicatio n Not available Not available Not available 12/29/20222020 2551 RxNorm React ion: Other (See Comme nts), sever ity: Sever e;Tem porar y paral ysis Not Available [facility] 3 07:35:02 00647 azithromy jaden medicatio n Not available Not available Not available 12/29/20222020 06522 RxNorm React ion: Diarr hea, sever ity: Sever e;[place] ction : Nause a And Vomit ing, sever ity: Sever e Not Available [facility] 3 07:35:03 Medications Name Sig Start Date [...] Updated DateTime 5 154.94 cm 19.8 kg/m2 01742.2 g 70 /min 99 % 116/74 mm[Hg] Haritha Nicolas [facility] 5 16:01:04 Date Recorded Body height Body mass index (BMI) Body weight Heart rate Oxygen saturation Systolic And Diastolic Provider Name and Address Organization Details Last Updated DateTime 5 154.94 cm 19.7 kg/m2 52256.6 1 g 66 /min 99 % 138/74 mm[Hg] Diane Masterson [facility] 5 15:41:20 Social History Question Answer Notes LastModified by Organizat ion Details LastModified Time Tobacco Smoking Status Current Every Day Smoker Not Available [facility] 12/31/2022 02:24:28 Do You Wear A Helmet [...] not available 08/30/2024 Where Do You Live? [facility] Information not available 08/30/2024 How Long Have You Lived There? 9 Information not available 08/30/2024 What Was The Date Of Your Most Recent Tobacco Screening? 07/25/2025 [email or web address] Information not available 07/25/2025 How Many Children [...] Date Was Tobacco Cessation Counseling Provided? 07/25/2025 [email or web address] Information not available 07/25/2025 Sex: Unknown Functional [...] anxious, or unable to sleep at night)? [id number] Information not available 08/30/2024 Family History Nothing [...] ICD10 Code Diagnosis IMO Codes Diagnosis Note [id number] MD ROYER Zuñiga_MARIA GUADALUPE_ IM_[address] [place] [address] 04/14/2023 13:56:44 04/14/2023 15:27:39 Influenza-like symptoms 872897210 R68.89 We will start patient on amoxicilli n 500 mg 3 times a day for probable infectious lesion in the mouth. Patient will check for COVID and symptomati c treatment. Advised patient to keep her fluids up so that she will get dehydrated . She will call us if COVID turns out positive. [id number] MD ADRIANA ZuñigaCTCSARAH_ IM_[address] [place] [address] 06/05/2023 09:32:04 06/05/2023 15:45:53 Anxiety state 418467107 F41.1 So we talked about trying something [...] recheck in a few months. ETL Palpitations 21700602 R0 0.2 We will send her for 24-hour Holter monitor and if it is normal we will send her for an echocardio gram and if it is normal we will send her for a stress test. [id number] Bill Fonseca MD [facility]_ IM_[address] [place] [address] 08/21/2024 11:11:05 08/21/2024 11:48:47 Sore throat 048304969 J02.9 Possible possible infected cyst or viral ulceration of the throat. We will treat her with Augmentin 875 mg twice a day and if she is not improving we will have to have her come in and have us check her out in person. We will also add Hibiclens gargle in case it is a cold sore. [id number] Bill Fonseca MD [facility]_ IM_[address] [place] [address] 08/30/2024 13:48:03 08/30/2024 14:50:35 Adult health examination 042584417 Z00.00 Mary Beth continues to be overwhelme [...] and cholestero l panel Bipolar I disorder 03728 6000 F31.9 Strongly urged patient to start looking [...] . 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 Gastroesop hageal reflux disease 485164639 K21.9 Will Protonix 40 mg daily and check for H. pylori breath test. We reviewed dyspepsia diet changes again Fibromyalgia 764056848 M 79.7 Maintain methadone for her chronic pain. Cigarette smoker 2482108 7 F17.210 Which showed up she actually is able to quit smoking over the New Year's. [id number] Bill Fonseca MD [facility] [place] [address] 09/24/2024 13:40:58 09/24/2024 14:39:37 Bipolar I disorder 299899066 F31.9 Will discontinu e Lexapro since the patient does not feel that it is helping much. 46 okay thank you. Very encouraged by the patient's incentive to schedule appointmen t with therapist which I hope will be a long-term solution for her. Hypothyroidism 78477637 E03.9 Still being awaiting her repeat TSH [...] monitor in few months. ETL Cigarette smoker 0787776 7 F17.210 Hopefully she will eventually cut her smoking completely but right now she is tapering off and we are informed when she finally quit completely . [id number] Bill Fonseca MD [facility]_ IM_[address] [place] [address] 10/21/2024 13:24:18 10/21/2024 15:35:24 Bipolar I disorder 897924690 F31.9 Discussed different options and would try her on mirtazapin e 7.5 mg at bedtime to help her with her insomnia as well as bipolar disorder and maybe even improve her appetite. We will follow her up in 1 month to reassess these issues. Hypothyroidism 61783675 E03.9 Seems to be doing well on levothyrox ine 88 mcg daily with normal TSH levels on that dose. Will continue present management and recheck in 6 months. Cigarette smoker 6770767 7 F17.210 Eagerly waiting sleep study but continue to encourage patient to quit smoking completely . [id number] Bill Fonseca MD [place]_[facility]_ _[address] [place] [address] 12/19/2024 11:24:18 12/19/2024 12:00:25 Mass of pharynx 0880268561 2108 J39.2 133932 Due to the chronicity of this mass in the posterior pharynx. We will schedule patient to see ENT for better evaluation . At the moment it is neither too painful nor is it bleeding or having any discharge so we will hold off on any management today. Bipolar I disorder 14847 6008 F31.9 Patient climbed any replacemen t for the mirtazapin e for her sleep and bipolar disorder. [id number] MD ROYER Zuñiga[facility] _[address] [place] [address] 02/24/2025 15:51:39 02/24/2025 16:35:32 Numbness 63997866 R20.0 61871 Will start with an x-ray of the TL spine which may need to be followed by an MRI to rule out spondylosi s and possible radiculopa thy. Also will need to rule out MS. [id number] MD ROYER Zuñiga_[facility]_ _[address] [place] [address] 07/25/2025 15:37:07 07/25/2025 16:20:52 Intermittent palpitations 922707525 R00.2 84397041 Will schedule patient for a 24-hour urine metanephri ne level prior to her follow-up with endocrinol ogy. Hypothyroidism 92998190 E03.9 Seems to be doing well on Synthroid 75 mcg daily with normal TSH levels on that dose. Will continue present management and await upcoming TSH repeat test from endocrinol cesar. Opioid dependence 405856 00 F11.20 No change in her methadone dose for her chronic back pain Cigarette smoker 1738121 7 F17.210 Continuing to talk to patient [...] Member ID Grewal Member ID Guarantor Name 07/15/2025 1 MEDICARE B-CT: LYN Gil [id number] Mary Beth Johnsonelvia 02/24/2025 1 MEDICARE B-[place]: [employer] Mary Beth Gil [id number] Mary Beth Johnsonelvia 02/24/2025 1 GENERIC COMMERCIAL - MOVED HOLD Mary Beth Johnsonelvia [id number] Mary Beth Johnsonelvia 02/24/2025 MEDICARE B-CT: NGS Mary Beth Gil [id number] Mary Beth Calderon Notes Date Note Type Note Provider Name and Address Organization Details Recorded Time 09/24/2024 text/html Virtual VisitRep orted by PatientIdentity:For patient identity verified by, patient reportsknown established patient. For i shared my identity credentials with the patient, patient reportsyes.Location:Fo r patient is currently located in the [place] For patient location, patient reportsdais[place]. For provider location, patient reportsi was located [...] well as last visit. Bill Fonseca MD [address] [place] [address], [address] [place], [address], [place] [facility] [facility] 10/18/2024 12:26:29 10/21/2024 text/html Virtual VisitRep orted by PatientIdentity:For patient identity verified by, patient reportsknown established patient. For i shared my identity credentials with the patient, patient reportsyes.Location:[facility] patient is currently located in the state of, patient reportshi([place]). For patient location, patient reportsdaisetta. For provider location, patient reportsi was located [...] a new psychiatrist appointment. Bill Fonseca MD [address], [address], [place], [address], [place] [facility] 10/21/2024 15:31:34 12/19/2024 text/html Virtual VisitRep orted by PatientIdentity:For patient identity verified by, patient reportsknown established patient. For i shared my identity credentials with the patient, patient reportsyes.Location:Fo r patient is currently located in the state of, patient reportsct([place]). For patient location, patient reportshome. For provider [...] stopped taking the medication. Bill Fonseca MD [address] [place] [address], [address] [place] [address], [place], [address], [place] [facility] 12/19/2024 11:44:27 02/24/2025 text/html Mary Beth [...] back pain and fibromyalgia. Bill Fonseca MD [address] [place] [address], [address] Floor, [place], [address], [place] [facility] 02/24/2025 16:39:54 07/25/2025 text/html Mary Beth is seen today for follow-up of her intermittent palpitation and hypothyroidism. She has multiple questions due to the fact that she saw cafe cook in [facility] and is getting confused. She continues to [...] been able to go back to the cafe cook due to scheduling issues. She is also [...] to quit until now. Bill Fonseca MD [address] [place] [address], [address] Floor, [place], [address], [place] [facility] 07/25/2025 16:27:24 OBGyn Episode No OBEpisode recorded.
== END 2025-08-04 09:21 | disposition home or self-care (01) ==
LOC: HO.HMGCLNP 09:20
PROVIDERS: PCP Internal Medicine; Visit Provider Internal Medicine
DX: R00.2 Palpitations (principal)
CPT/HCPCS: 83835

== ENCOUNTER 2025-08-15 13:05 | Outpatient (REF) | payer MEDICARE, SELFPAY ==
[2025-08-15 16:43] LABS: Free T4 (Free Thyroxine) 1.00 ng/dL (0.71-1.85)
--- OUTSIDE RECORDS SUMMARY | 2025-08-15 18:43 | XMS_ITS | Clinical Summary ---
Author Organization [facility] Prior to 02/01/25 Address [address] [place] [address] Care Team Providers Care Armature Balancer Name Role Phone Bill Fonseca MD Primary Care Provider [phone] Allergies Active Allergy Reactions Criticality Noted Date [...] upper arm 10/18/2019 GERD (gastroesophageal reflux disease) Smoking greater than 20 pack years 10/18/2019 [...] age to complete this topic Care Teams Armature Balancer Relationship Specialty Start Date End Date Bill Fonseca MD PCP - General Internal Medicine 10/18/19
--- OUTSIDE RECORDS SUMMARY | 2025-08-15 18:43 | XMS_ITS | Clinical Summary ---
Author Organization [facility] it Address [address] [place] [address] Care Team Providers Care Squad Leader Name Role Phone Bill Fonseca MD Primary Care Provider [phone] Surgical History Surgery Date Site/Laterality Comments TOTAL [...] on file Sexual Orientation Not on file Last Filed Vital Signs [...] (2 of 2 - PCV) 10/08/2019 10/08/2018 Cholesterol Screening (Lipid Panel) 08/07/2022 HIV Screening 08/07/2022 Hepatitis C Screening [...] age to complete this topic Care Teams Squad Leader Relationship Specialty Start Date End Date Bill Fonseca MD PCP - General Internal Medicine 10/18/19
--- OUTSIDE RECORDS SUMMARY | 2025-08-15 18:43 | XMS_ITS | Patient Health Record ---
Author Organization [facility] Address [address] [address] Care Team Providers Care Riffler Tender Name Role Phone ALIZA MARTINI MD Primary Care Provider Unavailabl e Reason For Referral No Information Plan Of Treatment No Information Insurance Providers Payer Name Payer Address Payer Phone Subscriber Number Group Number Insured Name Patient Relationship to Insured Coverage Start Date Coverage End Date MEDICARE [address] [place], [place] [id number] NYDIA OWENS Self - patient is the insured
== END 2025-08-15 13:06 | disposition home or self-care (01) ==
LOC: HO.HMGCLDS 13:05
PROVIDERS: PCP Internal Medicine; Visit Provider Student in an Organized Health Care Education/Training Program
DX: Z01.84 Encounter for antibody response examination (principal); E03.9 Hypothyroidism, unspecified
CPT/HCPCS: 36415; 84439; 84443; 86376

== ENCOUNTER 2025-08-19 15:47 | Outpatient (AMB) | payer MEDICARE, SELFPAY ==
[2025-08-19 15:52] VITALS: BP 140/102; PULSE 72; O2SAT 97; BMI 19.5
--- NOTE | 2025-08-19 15:52 | A.OFFVIS_ITS ---
Vital Signs 08/19/25 15:52 Height 5 ft 1 in Weight 102 lb 15.294 oz BMI 19.5 BP 140/102 H Blood Pressure Location Lt brachial Position Sitting Pulse 72 Pulse Source Pulse Oximeter Pulse Oximetry (%) 97 Oxygen Delivery Method Room Air Intake Visit Reasons: Hyperparathyroidism, unspecified Intake Note: Patient present today for Hyperparathyroidism, unspecified. Hazardous Substances Engineer Required: No Accompanied by: Mother Allergies aspirin Allergy (Intermediate, Verified 08/19/25 15:55) vomiting blood ciprofloxacin (From Cipro) Allergy (Mild, Verified 08/19/25 15:55) temporary paralysis stains Allergy (Intermediate, Uncoded 08/19/25 15:55) severe body aches fentanyl Allergy (Mild, Uncoded 08/19/25 15:55) Difficulty Breathing prenisone Allergy (Mild, Uncoded 08/19/25 15:55) Swelling Medication List - Last Reconciled 08/19/25 by YesLatasha Alexander MD methadone 10 mg PO Q6-8H PRN ondansetron 4 mg PO Q8H PRN pantoprazole (Protonix) 40 mg PO DAILY sucralfate (Carafate) 1 g PO BID Synthroid (levothyroxine) 75 mcg PO DAILY NS HPI Comments Details: History of Present Illness: - The patient was diagnosed with Graves' disease and had a thyroidectomy in 1996 due to severe reactions to hyperthyroidism medications, specifically methimazole (rash). - In 2006, a thyroid scan indicated thyroid tissue regrowth. - The patient reports a history of medication challenges and is currently experiencing significant symptoms including severe fatigue, nausea, vomiting, bradycardia with pulse dropping to 42, significant weight fluctuations, brittle nails, and anxiety. - The patient reports hot intolerance, preferring colder weather as heat exacerbates symptoms. - The patient states that generic levothyroxine formulations exacerbate symptoms and prefers brand name Synthroid. - The patient was previously on 75 mcg of levothyroxine but was increased to 88 mcg about a year ago, which worsened symptoms and led to severe anxiety and heart issues. The patient self-adjusted the dose to approximately 66 mcg due to symptom severity. - The patient experiences a lump in the neck, which is painful and sometimes increases in size. - Previously on 75 mcg levothyroxine, increased to 88 mcg; currently self-dosing approximately 66 mcg due to adverse effects. - Prefers Synthroid brand over generic. Interval history 10/22/25 Patient continues to report nauseas, weak, no energy taking Sinthroid 75 mcg daily She is noticed to have 3 lbs more than previous visit, but she is also wearing multiple layers due to the cold. Physical exam General: Alert, mildly anxious Neck: Supple, this is a small, lump in the anterior neck, mobile. Cardiac: Regular rate and rhythm, no murmurs. No edema. Lungs: Clear to auscultation bilaterally. Abdomen: Soft, non-tender, nondistended Extremities: No ulcers, no tremor of outstretched hands Neuro: Alert, oriented. Labs Laboratory Tests 06/25/25 08/15/25 14:44 13:30 TSH 6.41 H Free T4 1.00 Plas Tot Catecholamine 537 Dopamine 19 Epinephrine 74 Norepinephrine 444 Plasma Free Metaneph 71 H Plasma Free Normeta 207 H Plas Total Metaneph 278 H PFSH Medical History Hypoventilation COPD (chronic obstructive pulmonary disease) MELISSA on CPAP Hypothyroidism Family History Father No problems noted. Mother No problems noted. Social History Patient Tobacco Use Status: Current everyday Tobacco user Cigarette Packs Per Day: 0.5 Cigarettes Per Day: 3 Physical Exam Vital Signs: Last Vital Signs Pulse 72 08/19/25 15:52 BP 140/102 H 08/19/25 15:52 Pulse Ox 97 08/19/25 15:52 Oxygen Delivery Method Room Air 08/19/25 15:52 BMI result Body Mass Index 19.5 Assessment & Plan Assessment & Plan (1) Hypothyroidism: Code(s): E03.9 - Hypothyroidism, unspecified Category: Medical (2) Hypertension: Code(s): I10 - Essential (primary) hypertension Category: Medical (3) Labile blood pressure: Code(s): R09.89 - Other specified symptoms and signs involving the circulatory and respiratory systems Category: Medical Plan: Assessment Hypothyroidism due to total thyroidectomy in 1976. She currently have multiple symptoms not all seem to be related to her thyroid dysfunction, similarly to when I saw this patient first. She does report that she was probably improving with levothyroxine (Synthroid), hence I think it is reasonable to prescribe the medication and recheck labs in 6 weeks as she unfortunately run out of medication. She has now concerns for persistent intermittent hypertension, associated with bradycardia, which raises concern for possible pheochromocytoma despite not having all the classical symptoms including palpitations or headaches. Some differential diagnosis include bile reflux failure, this could happen due to autonomic dysfunction post neck surgery, although she had surgery many years ago and this seems unlikely to be happening now. Also some patients with abrupt levothyroxine discontinuation can experience bradycardia, diastolic hypertension fatigue, but this seems also unlikely as patient had both systolic and diastolic hypertension. Her symptoms of intermittent bradycardia, could be related to her methadone use (in her chart it is mentioned that she may be taking methadone 10 mg q.6 or 8 hours prn, but I did not inquire about this). Despite blood work not consistent with pheochromocytoma, patient insists that her symptoms and what was explain by Dr. Villagomez (her PCP) are symptoms consistent with pheochromocytoma. She is requesting that her labs be repeated. In terms of her hyperthyroidism, she reports that she has poor energy, and her labs showed mildly elevated TSH, which likely indicate the need for adjustments to her Synthroid dose. Plan Take Synthroid 75 mcg daily for 6 days and 1 1/2 tablets on the seventh day Repeat thyroid function tests in 6 weeks Discussed with the patient that some symptoms that she has presented may not be related to hypothyroidism including anxiety, increased urination, intermittent hypertension. We will screen the patient with plasma metanephrines to rule out pheochromocytoma We will follow the patient in 2 months to review her labs and adjust thyroid medications as needed Plan 30 minutes spent reviewing previous records, labs, imaging, education and documenting in the chart Orders: Orders TSH reflex Free T4 6 Weeks E03.9 - Hypothyroidism, unspecified Metanephrines, Plasma Today I10 - Essential (primary) hypertension, R09.89 - Other specified symptoms and signs involving the circulatory and respiratory systems Coding Level of Care Code Est Pt Level 4 (77189) Add On Problem Visit Only Diagnoses Hypothyroidism E03.9 Hypertension I10 Labile blood pressure R09.89
--- OUTSIDE RECORDS SUMMARY | 2025-08-19 19:51 | XMS_ITS | Continuity of Care Document ---
Author Organization [place] - [place] [email or web address] Address [address] [place] [address] Care Team Providers Care Site Auditor Name Role Phone [facility] Endocrinolo gist Assessment No assessment recorded. Plan of Treatment Reminders Order Date Submit Date Provider Last Modified By Organization Details Last Modified Time Details Appointments Follow Up 2025 04:20P M Bill Fonseca MD Not available Not available Not available Lab metaneph rines, fraction ated, quantita tive, 24-hour urine 2024 025 [email or web address] [facility], [address] [place] [address] , SAR[place] S[place], [id number], 08/04/2025 09:50:41 Referral None recorded . Procedures None recorded . Surgeries None recorded . Imaging None recorded . Medication Orders None recorded . Patient TargetsNo targets recorded. Patient Instructions Encounter Date Encounter Id Patient Instructions Last Modified By Organization Details Last Modified Time 07/25/2025 [id number] I personally spent a total of 32 [...] Address Organization Details Recorded Time Fibromyal nabil 891327806 Active 2019 Fibromyalg ia affecting upper arm Not Available [facility] 3 03:03:01 Gastroeso phageal reflux disease 646550718 Active 2019 GERD (gastroeso phageal reflux disease) Not Available [facility] 3 03:03:01 Cigarette smoker 11002511 Active 2019 Smoking greater than 20 pack years Not Available [facility] 3 03:03:01 Chronic low back pain 369245662 Active 2019 Chronic bilateral low back pain with bilateral sciatica Not Available [facility] 3 03:03:01 Bipolar I disorder 742482587 Active 2021 Bipolar 1 disorder Not Available [facility] 3 03:03:01 Migraine without aura 13208149 Active 2021 Migraine without aura or status migrainosu s Not Available [facility] 3 03:03:01 Nausea 375250801 Active 2024 Amy Godfrey null, [place] - [facility] 5 10:51:11 Vitamin D deficienc y 70600629 Active 2024 Bill Fonseca MD [address] [place] [address], [address] Floor, [place], [address] , [place] - [facility] 5 16:30:29 Mass of pharynx Active 2024 Bill Fonseca MD [address] [place] [address], [address] Floor, [place], [address] , [place] - [facility] 5 11:37:38 Intermitt ent palpitati ons 749981039 Active 2024 Bill Fonseca MD [address] [place] [address], [address] [place] [address], [place], [address] , [facility] 5 16:57:28 Opioid dependenc e 89696801 Active 2024 Bill Fonseca MD [address] [place] [address], [address] [place] [address], [address] , [facility] 5 16:26:43 Renetta thyroidit is 29614331 Active 2024 Bill Fonseca MD [address] [place] [address], [address] [place] [address], [place], [address] , [facility] 5 17:24:25 Problem Notes None recorded. Medical Equipment None Reported. Allergies Allergen ID Allergen Name Allergen Category Reaction Reaction Severity Criticality Documentation Date Start Date Code Code System Note Provider Name and Address Organization Details Recorded Time 350721 Buspar medicatio n nausea Not available low 06/05/2023 60121 0 RxNorm Bill Fonseca MD [address] [place] [address], [address] [place] [address], [place], [address], [facility] 3 15:23:00 728671 clavulani c acid Not available vomiting Not available low 08/30/2024 12668 RxNorm Bill Fonseca MD [address] [place] [address], [address] [place] [address], [place], [address], [facility] 4 14:18:12 98689 aluminum aspirin Not available Not available Not available Not available 12/29/20222020 611 RxNorm Not Available [facility] 3 07:35:02 07589 ciproflox acin medicatio n Not available Not available Not available 12/29/20222020 2551 RxNorm React ion: Other (See Comme nts), sever ity: Sever e;Tem porar y paral ysis Not Available [facility] 3 07:35:02 28774 azithromy jaden medicatio n Not available Not available Not available 12/29/20222020 60019 RxNorm React ion: Diarr hea, sever ity: Sever e;Myrna ction : Nause a And Vomit ing, sever ity: Sever e Not Available [facility] 3 07:35:03 Medications Name Sig Start [...] Updated DateTime 5 154.94 cm 19.7 kg/m2 04981.6 1 g 66 /min 99 % 138/74 mm[Hg] Diane Masterson CT - [facility] 5 15:41:20 Social History Question Answer Notes LastModified by Organizat ion Details LastModified Time Tobacco Smoking Status Current Every Day Smoker Not Available [facility] 12/31/2022 02:24:28 Do You Wear A [...] not available 08/30/2024 Where Do You Live? [facility] Information not available 08/30/2024 How Long Have You Lived There? 9 Information not available 08/30/2024 What Was The Date Of Your Most Recent Tobacco Screening? 07/25/2025 [email or web address] Information not available 07/25/2025 How Many Children [...] Has Tobacco Cessation Counseling Been Provided? Yes [email or web address] Information not available 07/25/2025 On What Date Was Tobacco Cessation Counseling Provided? 07/25/2025 [email or web address] Information not available 07/25/2025 Sex: Unknown Functional [...] anxious, or unable to sleep at night)? [id number] Information not available 08/30/2024 Family History Nothing [...] ICD10 Code Diagnosis IMO Codes Diagnosis Note [id number] Bill Fonseca MD [email or web address] [address] [place] [address] 07/25/2025 15:37:07 07/25/2025 16:20:52 Intermittent palpitations 337521433 R00.2 [id number] Will schedule patient for a 24-hour urine metanephri ne level prior to her follow-up with endocrinol ogy. 08-12-25: Reported 24-hour urine metanephri ne levels were all normal. Patient has follow-up with endocrinol ogy next week will await evaluation and management plans. ETL Hypothyroidism 89580508 E03.9 Seems to be doing well on Synthroid 75 mcg daily with normal TSH levels on that dose. Will continue present management and await upcoming TSH repeat test from endocrinselma guerrero. 08-18-25; reported TSH level elevated but patient continues to have symptoms of palpitatio ns and feeling hot and irritable so we agreed to hold Synthroid at 75 mcg daily and not increase the dose for now. ETL Opioid dependence 360140 00 F11.20 No change in her methadone dose for her chronic back pain Cigarette smoker 8915486 7 F17.210 Continuing to talk to patient [...] 07/25/2025 1 MEDICARE B-CT: NGS Mary Beth Stewartfelishaelvia [id number] Mary Beth Terry Weems Notes Date Note Type Note Provider Name and Address Organization Details Recorded Time 07/25/2025 text/html Mary Beth is seen today for follow-up of her intermittent palpitation and hypothyroidism. She has multiple questions due to the fact that she saw coffee sommelier in [facility] and is getting confused. She [...] been able to go back to the coffee sommelier due to scheduling issues. She is also [...] to quit until now. Bill Fonseca MD [address] [place] [address], [address] Floor, [place], [address], [place] - [place] [facility] 08/18/2025 17:20:25 OBGyn Episode No OBEpisode recorded.
--- OUTSIDE RECORDS SUMMARY | 2025-08-19 19:52 | XMS_ITS | Data Portability ---
Author Organization [place] - [facility] Address [address] [place] [address] Care Team Providers Care Geology Faculty Member Name Role Phone GWEN MARTINI Primary Care Provider [phone] Assessment Encounter Date Assessment Date Assessment LastModified [...] is a candidate for monoclonal antibody treatment. body recall instructor provider, Dr. Rodriguez, states she will contact [...] after care of this patient according to [facility] infection prevention protocols. Not available [...] after care of this patient according to [facility] infection prevention protocols. brenna Not [...] blood tests all collected and brought to [facility], pend Rapid mono and strep neg Strep [...] throat 2021 [facility], [address], [place], [address], 21:17:08 streptoco ccus group A, culture, throat 2021 JONATHAN [facility] (Centralized Electronic Ordering - All Locations), Patient Can Go To The Location Of Their Choice, 06:58:48 mononucle osis, heterophi le Ab, blood 2021 [facility], [address], [place], [address], 21:17:10 tiff-b arr virus (ebv) IgG + [...] Choice, 05:48:01 rapid flu (A+B) 2021 022 [facility], [address], [place], [address], 17:49:27 rapid SARS CoV 2 Ag, QL IA, respirato ry specimen 2021 022 [facility], [address], [place], [address], 2 17:49:25 rapid SARS CoV + SARS CoV 2 Ag, QL IA, respirato ry specimen 2020 021 [facility], [address], [place], [address], 19:12:26 Referral None recorded. Procedures None recorded. Surgeries None recorded. Imaging None recorded. Medication Orders None recorded. Patient TargetsNo targets recorded. Patient Instructions Encounter Date Encounter Id Patient Instructions Last Modified By Organization Details Last Modified Time 08/03/2021 [id number] [facility] you [facility] yo ur [facility]. We cannot always find the exact [...] in your condition between 8am-10pm, please call [facility] at [phone] to help navigate your care. Not available 08/03/2021 19:41:56 10/09/2021 [id number] -You were seen today for general malaise, [...] if any worsening fever, cough, vomiting, diarrhea [facility] Not available 10/09/2021 14:43:24 Reason for Referral None Reported. Results Created Date Observation Date Name Description Value Unit Range Abnormal Flag Note LastModifiedBy Organization Detail LastModifiedTime 08/03/20 21 08/03/2021 rapid SARS CoV + SARS CoV 2 Ag, QL IA, respi rator y speci men Covid-19 (ref: neg) positi ve Not Available [facility] [address] [place], [address], 08/03/2021 18:59:14 08/03/20 21 08/03/2021 rapid SARS CoV + SARS CoV 2 Ag, QL IA, respi rator y speci men Control Visual ized/V alid Not Available [facility] [address] [place], [address], 08/03/2021 18:59:14 08/03/20 21 08/03/2021 rapid SARS CoV + SARS CoV 2 Ag, QL IA, respi rator y speci men Location [facility], [facility], [address] [place] [address], [id number] [phone] Not Available [facility] [address] [place], [address], 08/03/2021 18:59:14 10/09/19 22 10/09/2021 rapid SARS CoV 2 Ag, QL IA, respi rator y speci men Covid-19 (ref: neg) negati ve Not Available [facility] [address] [place], [address], 10/09/2021 17:45:52 10/09/19 22 10/09/2021 rapid SARS CoV 2 Ag, QL IA, respi rator y speci men Control Visual ized/V alid Not Available [facility] [address] [place], [address], 10/09/2021 17:45:52 10/09/19 22 10/09/2021 rapid SARS CoV 2 Ag, QL IA, respi rator y speci men Location [facility], [address] [place] [address], [id number] [phone] Not Available [facility] - Home [address] [place] [address], [address], 10/09/2021 17:45:52 10/09/19 22 10/09/2021 rapid flu (A+B) Flu A (ref: neg) negati ve Not Available [facility] - [address], [address], 10/09/2021 17:45:29 10/09/19 22 10/09/2021 rapid flu (A+B) Flu B (ref: neg) negati ve Not Available [facility] - [address], [address], 10/09/2021 17:45:29 10/09/19 22 10/09/2021 rapid flu (A+B) Control Visual ized/V alid Not Available [facility] - [address], [address], 10/09/2021 17:45:29 10/09/19 22 10/09/2021 rapid flu (A+B) Location [facility], [address] [place] [address], [id number] [phone] Not Available [facility] - [address], [address], 10/09/2021 17:45:29 12/10/19 22 12/10/2021 COMPL ETE CBC WITH DIFF WBC 6.2 K/mm3 (4.0-1 1.0) Not Available [facility] (Centralized Electronic Ordering - All Locations) Patient Can Go To The Location Of Their Choice, [address] 12/10/2021 05:48:01 12/10/19 22 12/10/2021 COMPL ETE [...] by [facility], [address] [place] [address] Not Available [facility] (Centralized Electronic Ordering - [...] ve Not Available [facility] [address] [place], [address], 12/09/2021 20:28:40 12/10/19 22 12/09/2021 rapid strep group A, throa t Control Visual ized/V alid Not Available [facility] [address] [place], [address], 12/09/2021 20:28:40 12/10/19 22 12/09/2021 rapid strep group A, throa t Location [facility] , [address] [place] [address], [id number] Not Available [facility] [address] [place], [address], 12/09/2021 20:28:40 12/10/19 22 12/09/2021 monon ucleo sis, heter ophil e Ab, blood [place] (ref: neg) negati ve Not Available [facility] [address] [place], [address], 12/09/2021 20:20:34 12/10/19 22 12/09/2021 monon ucleo sis, heter ophil e Ab, blood Control Visual ized/V alid Not Available [facility] [address] [place], [address], 12/09/2021 20:20:34 12/10/19 22 12/09/2021 monon ucleo sis, heter ophil e Ab, blood [facility], [address] [place] [address], [id number] [phone] Not Available [facility] [address] [place], [address], 12/09/2021 20:20:34 Result Notes None recorded. Procedures Surgical History Date Name Laterality Status Provider Name and Address Organization Details Recorded Time 022 Venipuncture - DH completed RACQUEL Craig [address] [place], [address], [place] [facility] 12/09/2021 22:42:18 cholecystectomy completed RACQUEL RASHEED [address] [place], [address], [place] [facility] 08/03/2021 18:54:33 excision of cyst of breast completed RACQUEL RASHEED [address] [place], [address], [place] [facility] 08/03/2021 18:54:40 procedure on eye completed RACQUEL AVALOS [address] [place], [address], [place] [facility] 08/03/2021 18:54:48 Imaging Results None recorded. Procedure Notes None recorded. Medical Equipment None Reported. Allergies Allergen ID Allergen Name Allergen Category Reaction Reaction Severity Criticality Documentation Date Start Date Code Code System Note Provider Name and Address Organization Details Recorded Time 131282 aspirin medicatio n Not available Not available Not available 08/03/2021 1191 RxNorm RACQUEL RASHEED [address] [place], [address], [place] [facility] 18:52:05 [id number] Cipro medicatio n Not available Not available Not available 08/03/2021 57317 3 RxNorm RACQUEL RASHEED [address] [place], [address], [place] [facility] 1 18:52:30 [id number] fentanyl medicatio n Not available Not available Not available 08/03/2021 4337 RxNorm RACQUEL RASHEED [address], [place], [address], [place] [facility] 1 18:52:38 224025 Product containin g 3-hydroxy -3-methyl glutaryl- coenzyme A reductase inhibitor (product) medicatio n Not available Not available Not available 08/03/2021 90657 009 SNOMED RACQUEL RASHEED [address], [place], [address], [place] [facility] 1 18:52:47 578934 prednison e medicatio n Not available Not available Not available 08/03/2021 8640 RxNorm RACQUEL RASHEED [address], [place], [address], [place] [facility] 1 18:52:54 811983 azithromy jaden medicatio n Not available Not available Not available 12/09/2021 30716 RxNorm RACQUEL Ray [address], [place], [address], [place] [facility] [...] t Available Vitals Date Recorded Oxygen saturation Body temperature Heart rate Respiratory rate Systolic And Diastolic Provider Name and Address Organization Details Last Updated DateTime 2 97 % 98 [degF] 71 /min 18 /min 112/78 mm[Hg] Not Available [facility] 2 13:51:41 Date Recorded Oxygen saturation Respiratory rate Heart rate Body temperature Systolic And Diastolic Provider Name and Address Organization Details Last Updated DateTime 2 95 % 16 /min 84 /min 99.8 [degF] 138/74 mm[Hg] Not Available [facility] 2 20:15:51 Date Recorded Heart rate Respiratory rate Body temperature Oxygen saturation Systolic And Diastolic Provider Name and Address Organization Details Last Updated DateTime 1 62 /min 20 /min 97.9 [degF] 95 % 122/86 mm[Hg] Not Available [facility] 1 18:57:21 Social History None recorded. Functional Status [...] Details LastModified Time Father Malignant neoplastic disease [facility] Not available 10/09 13:48:39 Medical History Condition Response Diabetes N Coronary Artery Disease N CHF N Parkinson's Disease N Cancer N Stroke N Dementia N Asthma N COPD N Depression N Hypothyroidism N High Cholesterol N Rheumatoid Arthritis N Pulmonary Embolism N Hypertension N A-fib N Osteoporosis N Kidney Disease N Gynecological HistoryNo gynecological history recorded. Obstetrics History GPAL:G 0 P 0 0 0 0 Past Encounters Encounter ID Performer Location Encounter Start Date Encounter Closed Date Diagnosis/Indication Diagnosis SNOMED-CT Code Diagnosis ICD10 Code Diagnosis IMO Codes Diagnosis Note [id number] RACQUEL RASHEED [facility] [address] [place] [address] 08/03/2021 18:42:10 08/06/2021 10:47:05 Exposure to SARS-CoV-2 046552236 Z20.822 COVID-19 885163177 U07.1 History of Graves' disease 5517041161 10733 Z86.39 Cigarette smoker 7747222 7 F17.210 [id number] Lydia Gilman NP [facility] [address] [facility] [address] 10/09/2021 13:45:34 10/11/2021 11:41:46 Malaise and fatigue 678375900 R53.81 Viral syndrome 206731775 B34.9 [id number] RACQUEL Johnson [facility] [address] [place] [address] 12/09/2021 20:07:38 12/10/2021 11:06:51 Malaise and fatigue 161591868 R53.81 Pain in throat 040032041 R07.0 Health Concerns Section Related Observation LastModified by Organization Detai ls LastModified Time None Recorded Concern Status LastModified by Organization Details LastModified Time None Recorded Advance Directives Directive None Recorded Payers Insurance Date Sequence Insurance Name Policy Number Policy Grewal Covered Member ID Grewal Member ID Guarantor Name 12/09/2021 1 [place]ICARE [place]: [employer] Mary Beth Gil [id number] Mary Beth Gil 12/09/2021 1 *SELF PAY* Mary Beth Calderon [id number] Mary Beth Gil Notes Date Note Type [...] for COVID-19. RACQUEL RASHEED [address], [place], [address], [place] [facility] 08/03/2021 19:42:06 10/09/2021 text/html [...] illness. Lydia Gilman NP [address], [place], [address], [place] [facility] 10/09/2021 17:49:50 12/09/2021 text/html [...] pain. No other assoc sx's. RACQUEL Craig [address] [place] [address] [place], [place], [address], [place] [facility] 12/09/2021 22:54:10 OBGyn Episode No OBEpisode recorded.
--- OUTSIDE RECORDS SUMMARY | 2025-08-19 19:52 | XMS_ITS | Data Portability ---
Author Organization [place] - [place] Joshua Nielsen cticut, [place]_[facility]_IM_01 [place] Address [address] [place] [address] Care Team Providers Care Control Tower Radio Operator Name Role Phone [facility] Endocrinolo gist Assessment No assessment recorded. Plan of Treatment Reminders Order Date Submit Date Provider Last Modified By Organization Details Last Modified Time Details Appointments Follow Up 2025 04:20P M Bill Fonseca MD Not available Not available Not available Lab metanephr jimenez, fractiona hetal, quantitat gerald, 24-hour urine 2024 025 [email or web address] [facility], [address] [place] [address] , SARAH Serrato, [address], 08/04/2025 09:50:41 Referral otolaryng ologist referral - Chronic pharyngea l mass 2024 025 [place] [address] Parag Beebe MD, [address], [address], [place], [address], 12/29/2024 02:18:38 Procedures None recorded. Surgeries None recorded. Imaging XR, thoracic spine [address] (Imaging), [address] [place] [address], [address], 03/10/2025 08:22:27 XR, lumbar spine [address] [facility] [email or web address]), [address] [place] [address], [address], 03/10/2025 08:22:27 Medication Orders mirtazapi ne 7.5 mg tablet 2024 025 [email or web address] [id number], [address] [place], [address], 11/21/2024 17:15:07 Patient TargetsNo targets recorded. 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 Mass of pharynx Chronic pharyngeal mass Referring Physician: Bill Fonseca, Internal Medicine, Encounter Date: 12/19/2024 Results Created Date Observation Date Name Description Value Unit Range Abnormal Flag Note LastModifiedBy Organization Detail LastModifiedTime 09/30/1910/01/2024 TSH+F REE T4 TSH 5.960 uIU/m L 0.450- 4.500 above high normal Not Available [facility] ([facility]) [address] [place], [address], 10/01/2024 16:06:25 09/30/1910/01/2024 TSH+F REE T4 T4,free(dire ct) 1.39 NG/dL 0.82-1 .77 normal Not Available [facility] ([facility]) [address] [place], [address], 10/01/2024 16:06:25 09/30/19 25 09/30/2024 CBC WITH DIFFE RENTI AL/PL ATELE T WBC 7.3 x10e3 /uL 3.4-10 .8 normal Not Available [facility] ([facility]) [address] [place], [address], 10/01/2024 16:06:27 09/30/19 25 09/30/2024 CBC WITH DIFFE RENTI AL/PL ATELE T RBC 4.31 x10e6 /uL 3.77-5 .28 normal Not Available [facility] ([facility]) [address] [place], [address], 10/01/2024 16:06:27 09/30/19 25 09/30/2024 CBC WITH DIFFE RENTI AL/PL ATELE T hemoglobin 13.3 g/dL 11.1-1 5.9 normal Not Available [facility] ([facility]) [address] [place], [address], 10/01/2024 16:06:27 09/30/19 25 09/30/2024 CBC WITH DIFFE RENTI AL/PL ATELE T hematocrit 38.7 % 34.0-4 6.6 normal Not Available [facility] ([facility]) [address] [place], [address], 10/01/2024 16:06:27 09/30/19 25 09/30/2024 CBC WITH DIFFE RENTI AL/PL ATELE T MCV 90 fL 79-97 normal Not Available [facility] ([facility]) [address] [place], [address], 10/01/2024 16:06:27 09/30/19 25 09/30/2024 CBC WITH DIFFE RENTI AL/PL ATELE T MCH 30.9 pg 26.6-3 3.0 normal Not Available [facility] ([facility]) [address] [place], [address], 10/01/2024 16:06:27 09/30/19 25 09/30/2024 CBC WITH DIFFE RENTI AL/PL ATELE T MCHC 34.4 g/dL 31.5-3 5.7 normal Not Available [facility] ([facility]) [address] [facility], [place], [address], 10/01/2024 16:06:27 09/30/19 25 09/30/2024 CBC WITH DIFFE RENTI AL/PL ATELE T RDW 12.7 % 11.7-1 5.4 Not Available [facility] ([facility]) [address] [facility], [place], [address], 10/01/2024 16:06:27 09/30/19 25 09/30/2024 CBC WITH DIFFE RENTI AL/PL ATELE T platelets 296 x10e3 /uL 150-45 0 normal Not Available [facility] ([facility]) [address] [facility], [place], [address], 10/01/2024 16:06:27 09/30/19 25 09/30/2024 CBC WITH DIFFE RENTI AL/PL ATELE T neutrophils 59 % not estab. normal Not Available [facility] ([facility]) [address] [facility], [place], [address], 10/01/2024 16:06:27 09/30/19 25 09/30/2024 CBC WITH DIFFE RENTI AL/PL ATELE T lymphs 31 % not estab. normal Not Available [facility] ([facility]) [address] [facility], [place], [address], 10/01/2024 16:06:27 09/30/19 25 09/30/2024 CBC WITH DIFFE RENTI AL/PL ATELE T monocytes 7 % not estab. normal Not Available [facility] ([facility]) [address] [facility], [place], [address], 10/01/2024 16:06:27 09/30/19 25 09/30/2024 CBC WITH DIFFE RENTI AL/PL ATELE T eos 3 % not estab. normal Not Available [facility] ([facility]) [address] [facility], [place], [address], 10/01/2024 16:06:27 09/30/19 25 09/30/2024 CBC WITH DIFFE RENTI AL/PL ATELE T basos 0 % not estab. normal Not Available [facility] ([facility]) [address] [facility], [place], [address], 10/01/2024 16:06:27 09/30/19 25 09/30/2024 CBC WITH DIFFE RENTI AL/PL ATELE T immature cells [employer]LE S[employer] CONSULTANT Not Available [facility] ([facility]) [address] [facility], [place], [address], 10/01/2024 16:06:27 09/30/19 25 09/30/2024 CBC WITH DIFFE RENTI AL/PL ATELE T neutrophils (absolute) 4.2 x10e3 /uL 1.4-7. 0 normal Not Available [facility] ([facility]) [address] [facility], [place], [address], 10/01/2024 16:06:27 09/30/19 25 09/30/2024 CBC WITH DIFFE RENTI AL/PL ATELE T lymphs (absolute) 2.3 x10e3 /uL 0.7-3. 1 normal Not Available [facility] ([facility]) [address] [place], [address], 10/01/2024 16:06:27 09/30/19 25 09/30/2024 CBC WITH DIFFE RENTI AL/PL ATELE T monocytes(ab solute) 0.5 x10e3 /uL 0.1-0. 9 normal Not Available [facility] ([facility]) [address] [place], [address], 10/01/2024 16:06:27 09/30/19 25 09/30/2024 CBC WITH DIFFE RENTI AL/PL ATELE T eos (absolute) 0.3 x10e3 /uL 0.0-0. 4 normal Not Available [facility] ([facility]) [address] [facility], [place], [address], 10/01/2024 16:06:27 09/30/19 25 09/30/2024 CBC WITH DIFFE RENTI AL/PL ATELE T baso (absolute) 0.0 x10e3 /uL 0.0-0. 2 normal Not Available [facility] ([facility]) [address] [facility], [place], [address], 10/01/2024 16:06:27 09/30/19 25 09/30/2024 CBC WITH DIFFE RENTI AL/PL ATELE T immature granulocytes 0 % not estab. Not Available [facility] ([facility]) [address] [facility], [place], [address], 10/01/2024 16:06:27 09/30/19 25 09/30/2024 CBC WITH DIFFE RENTI AL/PL ATELE T immature grans (abs) 0.0 x10e3 /uL 0.0-0. 1 Not Available [facility] ([facility]) [address] [facility], [place], [address], 10/01/2024 16:06:27 09/30/19 25 09/30/2024 CBC WITH DIFFE RENTI AL/PL ATELE T NRBC [employer]ACLE SCM CONSULTANT Not Available [facility] ([facility]) [address] [facility], [place], [address], 10/01/2024 16:06:27 09/30/19 25 09/30/2024 CBC WITH DIFFE RENTI AL/PL ATELE T hematology comments: ORACLE SCM CONSULTANT Not Available [facility] ([facility]) [address] [facility], [place], [address], 10/01/2024 16:06:27 09/30/19 25 10/01/2024 COMP. METAB OLIC PANEL (14) glucose 92 mg/dL 70-99 normal Not Available [facility] ([facility]) [address] [place], [address], 10/01/2024 16:06:28 09/30/19 25 10/01/2024 COMP. METAB OLIC PANEL (14) BUN 15 mg/dL 6-24 normal Not Available [facility] ([facility]) [address] [place], [address], 10/01/2024 16:06:28 09/30/19 25 10/01/2024 COMP. METAB OLIC PANEL (14) creatinine 0.79 mg/dL 0.57-1 .00 normal Not Available [facility] ([facility]) [address] [facility] [place], [address], 10/01/2024 16:06:28 09/30/19 25 10/01/2024 COMP. METAB OLIC PANEL (14) eGFR 88 mL/mi n/1.7 3 >59 normal Not Available [facility] ([facility]) [address] [place], [address], 10/01/2024 16:06:28 09/30/19 25 10/01/2024 COMP. METAB OLIC PANEL (14) BUN/creatini ne ratio 19 9-23 normal Not Available [facility] ([facility]) [address] [place], [address], 10/01/2024 16:06:28 09/30/19 25 10/01/2024 COMP. METAB OLIC PANEL (14) sodium 142 mmol/ L 134-14 4 normal Not Available [facility] ([facility]) [address] [place], [address], 10/01/2024 16:06:28 09/30/19 25 10/01/2024 COMP. METAB OLIC PANEL (14) potassium 4.8 mmol/ L 3.5-5. 2 normal Not Available [facility] ([facility]) [address] [place], [address], 10/01/2024 16:06:28 09/30/19 25 10/01/2024 COMP. METAB OLIC PANEL (14) chloride 104 mmol/ L 96-106 normal Not Available [facility] ([facility]) [address] [place], [address], 10/01/2024 16:06:28 09/30/19 25 10/01/2024 COMP. METAB OLIC PANEL (14) carbon dioxide, total 22 mmol/ L 20-29 normal Not Available [facility] ([facility]) [address] [place], [address], 10/01/2024 16:06:28 09/30/19 25 10/01/2024 COMP. METAB OLIC PANEL (14) calcium 9.9 mg/dL 8.7-10 .2 normal Not Available [facility] ([facility]) [address] [place], [address], 10/01/2024 16:06:28 09/30/19 25 10/01/2024 COMP. METAB OLIC PANEL (14) protein, total 6.6 g/dL 6.0-8. 5 normal Not Available [facility] ([facility]) [address] [place], [address], 10/01/2024 16:06:28 09/30/19 25 10/01/2024 COMP. METAB OLIC PANEL (14) albumin 4.2 g/dL 3.8-4. 9 normal Not Available [facility] ([facility]) [address] [place], [address], 10/01/2024 16:06:28 09/30/19 25 10/01/2024 COMP. METAB OLIC PANEL (14) globulin, total 2.4 g/dL 1.5-4. 5 Not Available [facility] ([facility]) [address] [place], [address], 10/01/2024 16:06:28 09/30/19 25 10/01/2024 COMP. METAB OLIC PANEL (14) bilirubin, total 0.3 mg/dL 0.0-1. 2 normal Not Available [facility] ([facility]) [address] [place], [address], 10/01/2024 16:06:28 09/30/19 25 10/01/2024 COMP. METAB OLIC PANEL (14) alkaline phosphatase 109 IU/L 44-121 normal Not Available [facility] ([facility]) [address] [place], [address], 10/01/2024 16:06:28 09/30/19 25 10/01/2024 COMP. METAB OLIC PANEL (14) AST (SGOT) 24 IU/L 0-40 normal Not Available [facility] ([facility]) [address] [place], [address], 10/01/2024 16:06:28 09/30/19 25 10/01/2024 COMP. METAB OLIC PANEL (14) ALT (SGPT) 17 IU/L 0-32 normal Not Available [facility] ([facility]) [address] [place], [address], 10/01/2024 16:06:28 09/30/19 25 10/01/2024 LIPID PANEL cholesterol, total 237 mg/dL 100-19 9 above high normal Not Available [facility] ([facility]) [address] [place], [address], 10/01/2024 16:06:29 09/30/19 25 10/01/2024 LIPID PANEL triglyceride s 148 mg/dL 0-149 normal Not Available [facility] ([facility]) [address] [place], [address], 10/01/2024 16:06:29 09/30/19 25 10/01/2024 LIPID PANEL HDL cholesterol 45 mg/dL >39 normal Not Available [facility]) [address] [facility], [place], [address], 10/01/2024 16:06:29 09/30/19 25 10/01/2024 LIPID PANEL VLDL cholesterol anay 27 mg/dL 5-40 Not Available [facility] ([facility]) [address] [facility], [place], [address], 10/01/2024 16:06:29 09/30/19 25 10/01/2024 LIPID PANEL LDL chol calc ([facility]) 165 mg/dL 0-99 above high normal Not Available [facility] ([facility]) [address] [facility], [place], [address], 10/01/2024 16:06:29 09/30/19 25 10/01/2024 LIPID PANEL LDL calc comment: [employer]LE SCM CONSULTANT Not Available [facility] ([facility]) [address] [facility], [place], [address], 10/01/2024 16:06:29 09/30/19 25 10/01/2024 H PYLOR I BREAT H TEST H pylori breath test NEGATI VE negati ve Not Available [facility] ([facility]) [address] [facility], [place], [address], 10/01/2024 16:06:31 06/26/20 25 11/02/2020 US, head + neck No observ ation record ed. BARCODE Not Available 2024 10:17:35 07/02/2006/23/2025 XR, chest + abdom en + pelvi s No observ ation record ed. [email or web address] Not Available 06/05 14:53:28 Result Notes None recorded. Problems Name Problem SNOMED Code Status Onset Date Resolution Date Notes Provider Name and Address Organization Details Recorded Time Fibromyal nabil 729758017 Active 2019 Fibromyalg ia affecting upper arm Not Available [facility] 3 03:03:01 Gastroeso phageal reflux disease 107986479 Active 2019 GERD (gastroeso phageal reflux disease) Not Available [facility] 3 03:03:01 Cigarette smoker 62774198 Active 2019 Smoking greater than 20 pack years Not Available [facility] 3 03:03:01 Chronic low back pain 563346975 Active 2019 Chronic bilateral low back pain with bilateral sciatica Not Available [facility] 3 03:03:01 Bipolar I disorder 131890275 Active 2021 Bipolar 1 disorder Not Available [facility] 3 03:03:01 Migraine without aura 81332417 Active 2021 Migraine without aura or status migrainosu s Not Available [facility] 3 03:03:01 Nausea 141912501 Active 2024 Amy Amirahmick oseguera, [place] - [facility] 5 10:51:11 Vitamin D deficienc y 26334626 Active 2024 Bill Fonseca MD [address] [place] [address], [address] [place] [address], [address] [place] [address] , [place] [facility] 5 16:30:29 Mass of pharynx Active 2024 Bill Fonseca MD [address] [place] [address], [address] [place] [address], [address] [place] [address] , [place] - [place] [facility] 5 11:37:38 Intermitt ent palpitati ons 455655571 Active 2024 Bill Fonseca MD [address] [place] [address], [address] [place] [address], [address] [place] [address] , [place] [facility] 5 16:57:28 Opioid dependenc e 77748579 Active 2024 Bill Fonseca MD [address] [place] [address], [address] , [place] [facility] 5 16:26:43 Renetta thyroidit is 49271730 Active 2024 Bill Fonseca MD [address] [place] [address], [address] [place] [address], [address] , [place] [facility] 5 17:24:25 Problem Notes None recorded. Medical Equipment None Reported. Allergies Allergen ID Allergen Name Allergen Category Reaction Reaction Severity Criticality Documentation Date Start Date Code Code System Note Provider Name and Address Organization Details Recorded Time 127923 Buspar medicatio n nausea Not available low 06/05/2023 72752 0 RxNorm Bill Fonseca MD [address] [place] [address], [address] Floor, [place], [address], [place] - [place] [facility] 3 15:23:00 859551 clavulani c acid Not available vomiting Not available low 08/30/2024 83013 RxNorm Bill Fonseca MD [address] [place] [address], [address] Floor, [place], [address], [place] [facility] 4 14:18:12 33166 aluminum aspirin Not available Not available Not available Not available 12/29/20222020 611 RxNorm Not Available [facility] 3 07:35:02 87514 ciproflox acin medicatio n Not available Not available Not available 12/29/20222020 2551 RxNorm React ion: Other (See Comme nts), sever ity: Sever e;Tem porar y paral ysis Not Available [facility] 3 07:35:02 35375 azithromy jaden medicatio n Not available Not available Not available 12/29/20222020 42765 RxNorm React ion: Diarr hea, sever ity: Sever e;Myrna ction : Nause a And Vomit ing, sever ity: Sever e Not Available [facility] 3 07:35:03 Medications Name Sig Start [...] Updated DateTime 5 154.94 cm 19.8 kg/m2 21957.2 g 70 /min 99 % 116/74 mm[Hg] Haritha Nicolas [facility] 5 16:01:04 Date Recorded Body height Body mass index (BMI) Body weight Heart rate Oxygen saturation Systolic And Diastolic Provider Name and Address Organization Details Last Updated DateTime 5 154.94 cm 19.7 kg/m2 09408.6 1 g 66 /min 99 % 138/74 mm[Hg] Diane Masterson [facility] 5 15:41:20 Social History Question Answer [...] not available 08/30/2024 Where Do You Live? [facility] Information not available 08/30/2024 How Long Have You Lived There? 9 Information not available 08/30/2024 What Was The Date Of Your Most Recent Tobacco Screening? 07/25/2025 [email or web address] Information not available 07/25/2025 How Many Children [...] Has Tobacco Cessation Counseling Been Provided? Yes [email or web address] Information not available 07/25/2025 On What Date Was Tobacco Cessation Counseling Provided? 07/25/2025 [email or web address] Information not available 07/25/2025 Sex: Unknown Functional [...] anxious, or unable to sleep at night)? [id number] Information not available 08/30/2024 Family History Nothing [...] virus, trivalent, preservative 9 completed Not Available [facility] 12/30/2022 07:57:04 DT (pediatric) 4 completed Not Available [facility] 12/30/2022 07:57:05 zoster recombinant 9 completed Not Available [facility] 12/30/2022 07:57:05 Tdap 9 completed Not Available [facility] 12/30/2022 07:57:05 pneumococcal polysaccharide PPV23 9 completed Not Available [facility] 12/30/2022 07:57:05 Past Encounters Encounter ID Performer Location Encounter Start Date Encounter Closed Date Diagnosis/Indication Diagnosis SNOMED-CT Code Diagnosis ICD10 Code Diagnosis IMO Codes Diagnosis Note [id number] MD ROYER Zuñiga_[facility]_ IM_[address] [place] [address] 04/14/2023 13:56:44 04/14/2023 15:27:39 Influenza-like symptoms 416379640 R68.89 We will start patient on amoxicilli n 500 mg 3 times a day for probable infectious lesion in the mouth. Patient will check for COVID and symptomati c treatment. Advised patient to keep her fluids up so that she will get dehydrated . She will call us if COVID turns out positive. [id number] MD ROYER Zuñiga_[facility]_ IM_[address] [place] [address] 06/05/2023 09:32:04 06/05/2023 15:45:53 Anxiety state 303712836 F41.1 So we talked about trying something [...] recheck in a few months. ETL Palpitations 84073183 R0 0.2 We will send her for 24-hour Holter monitor and if it is normal we will send her for an echocardio gram and if it is normal we will send her for a stress test. [id number] Bill Fonseca MD [facility]_ IM_[address] [place] [address] 08/21/2024 11:11:05 08/21/2024 11:48:47 Sore throat 130751063 J02.9 Possible possible infected cyst or viral ulceration of the throat. We will treat her with Augmentin 875 mg twice a day and if she is not improving we will have to have her come in and have us check her out in person. We will also add Hibiclens gargle in case it is a cold sore. [id number] Bill Fonseca MD [facility]_ IM_[address] [place] [address] 08/30/2024 13:48:03 08/30/2024 14:50:35 Adult health examination 524778208 Z00.00 Mary Beth continues to be overwhelme [...] and cholestero l panel Bipolar I disorder 38428 6007 F31.9 Strongly urged patient to start looking [...] . 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 Gastroesop hageal reflux disease 887415910 K21.9 Will Protonix 40 mg daily and check for H. pylori breath test. We reviewed dyspepsia diet changes again Fibromyalgia 002112270 M 79.7 Maintain methadone for her chronic pain. Cigarette smoker 4334785 7 F17.210 Which showed up she actually is able to quit smoking over the New Year's. [id number] [facility]sec[facility] [address] [place] [address] 09/24/2024 13:40:58 09/24/2024 14:39:37 Bipolar I disorder 585558456 F31.9 Will discontinu e Lexapro since the patient does not feel that it is helping much. 46 okay thank you. Very encouraged by the patient's incentive to schedule appointmen t with therapist which I hope will be a long-term solution for her. Hypothyroidism 29760204 E03.9 Still being awaiting her repeat TSH [...] monitor in few months. ETL Cigarette smoker 5611838 7 F17.210 Hopefully she will eventually cut her smoking completely but right now she is tapering off and we are informed when she finally quit completely . [id number] Bill Fonseca MD [facility]_ IM_[address] [place] [address] 10/21/2024 13:24:18 10/21/2024 15:35:24 Bipolar I disorder 293138525 F31.9 Discussed different options and would try her on mirtazapin e 7.5 mg at bedtime to help her with her insomnia as well as bipolar disorder and maybe even improve her appetite. We will follow her up in 1 month to reassess these issues. Hypothyroidism 39768681 E03.9 Seems to be doing well on levothyrox ine 88 mcg daily with normal TSH levels on that dose. Will continue present management and recheck in 6 months. Cigarette smoker 1099547 7 F17.210 Eagerly waiting sleep study but continue to encourage patient to quit smoking completely . [id number] Bill Fonseca MD CT_[facility]_ _[address] [place] [address] 12/19/2024 11:24:18 12/19/2024 12:00:25 Mass of pharynx 9273831381 2108 J39.2 991664 Due to the chronicity of this mass in the posterior pharynx. We will schedule patient to see ENT for better evaluation . At the moment it is neither too painful nor is it bleeding or having any discharge so we will hold off on any management today. Bipolar I disorder 54859 6008 F31.9 Patient climbed any replacemen t for the mirtazapin e for her sleep and bipolar disorder. [id number] MD [facility] [place] [address] 02/24/2025 15:51:39 02/24/2025 16:35:32 Numbness 63160072 R20.0 66083 Will start with an x-ray of the TL spine which may need to be followed by an MRI to rule out spondylosi s and possible radiculopa thy. Also will need to rule out MS. [id number] MD ROYER [facility] _[address] [place] [address] 07/25/2025 15:37:07 07/25/2025 16:20:52 Intermittent palpitations 437273505 R00.2 [id number] Will schedule patient for a 24-hour urine metanephri ne level prior to her follow-up with endocrinol ogy. 08-12-25: Reported 24-hour urine metanephri ne levels were all normal. Patient has follow-up with endocrinol cesar next week will await evaluation and management plans. ETL Hypothyroidism 57870019 E03.9 Seems to be doing well on [...] the dose for now. ETL Opioid dependence 685194 00 F11.20 No change in her methadone dose for her chronic back pain Cigarette smoker 9014062 7 F17.210 Continuing to talk to patient [...] ID Guarantor Name 07/15/2025 1 MEDICARE B-CT: [facility] Mary Beth Gil [id number] Mary Beth Terry Weems 02/24/2025 1 MEDICARE B-MA: [facility] [employer] Mary Beth Gil [id number] Mary Beth Terry Weems 02/24/2025 1 GENERIC COMMERCIAL - MOVED HOLD Mary Beth Stewart Faustina [id number] Mary Beth Terry Weems 02/24/2025 MEDICARE B-CT: LYN Gil [id number] Mary Beth Stewart Faustina Notes Date Note Type Note Provider Name and Address Organization Details Recorded Time 09/24/2024 text/html Virtual VisitRep orted by PatientIdentity:For patient identity verified by, patient reportsknown established patient. For i shared my identity credentials with the patient, patient reportsyes.Location:Fo r patient is currently located in the state of, patient [place] For patient location, patient reportshome. For provider [...] well as last visit. Bill Fonseca MD [address] [place] [address], [address] Floor, [place], [address] CT [facility] 10/18/2024 12:26:29 10/21/2024 text/html Virtual VisitRep orted by PatientIdentity:For patient identity verified by, patient reportsknown established patient. For i shared my identity credentials with the patient, patient reportsyes.Location:Fo r patient is currently located in the state of, [facility] For patient location, patient reportsplush. For provider location, patient reportsi was located [...] a new psychiatrist appointment. Bill Fonseca MD [address] [place] [address], [facility], [place], [phone], [facility] 10/21/2024 15:31:34 12/19/2024 text/html Virtual VisitRep orted by PatientIdentity:For patient identity verified by, patient reportsknown established patient. For i shared my identity credentials with the patient, patient reportsyes.Location:[facility] patient is currently located in the state [place], [place] For patient location, patient reportshome. For provider [...] stopped taking the medication. Bill Fonseca MD [address] [place] [address], [address], [place], [id number], [facility] 12/19/2024 11:44:27 02/24/2025 text/html Mary Beth [...] back pain and fibromyalgia. Bill Fonseca MD [address] [place] [address], [address] [place] [address], [phone], [place] - [facility] 02/24/2025 16:39:54 07/25/2025 text/html Mary Beth is seen today for follow-up of her intermittent palpitation and hypothyroidism. She has multiple questions due to the fact that she saw [facility] in [facility] and is getting confused. She continues [...] been able to go back to the [facility] due to scheduling issues. She is also [...] to quit until now. Bill Fonseca MD [address] [place] [address], [address] [place] [address], [id number], [place] - [facility] 08/18/2025 17:20:25 OBGyn Episode No OBEpisode recorded.
--- OUTSIDE RECORDS SUMMARY | 2025-08-19 19:52 | XMS_ITS | Patient Health Record ---
Author Organization [facility] Address [address] [address] Care Team Providers Care Tool Salvage Worker Name Role Phone ALIZA MARTINI MD Primary Care Provider Unavailabl e Reason For Referral No Information Plan Of Treatment No Information Insurance Providers Payer Name Payer Address Payer Phone Subscriber Number Group Number Insured Name Patient Relationship to Insured Coverage Start Date Coverage End Date MEDICARE [address] [place], [place] [id number] [phone] NYDIA OWENS Self - patient is the insured
--- OUTSIDE RECORDS SUMMARY | 2025-08-19 19:52 | XMS_ITS | Clinical Summary ---
Author Organization [facility] it Address [address] [place] [address] Care Team Providers Care Water Plumber Name Role Phone Bill Fonseca MD Primary Care Provider [phone] Surgical History Surgery Date Site/Laterality Comments TOTAL [...] age to complete this topic Care Teams Water Plumber Relationship Specialty Start Date End Date Bill Fonseca MD PCP - General Internal Medicine 10/18/19
--- OUTSIDE RECORDS SUMMARY | 2025-08-19 19:52 | XMS_ITS | Clinical Summary ---
Author Organization [facility] Prior to 02/01/25 Address [address] [place] [address] Care Team Providers Care General Doc Name Role Phone Bill Fonseca MD Primary Care Provider [phone] Allergies Active Allergy Reactions Criticality Noted Date [...] age to complete this topic Care Teams General Doc Relationship Specialty Start Date End Date Bill Fonseca MD PCP - General Internal Medicine 10/18/19
== END 2025-08-19 16:31 | disposition home or self-care (01) ==
LOC: HO.ENCR 15:47
PROVIDERS: PCP Internal Medicine; Visit Provider Student in an Organized Health Care Education/Training Program
DX: E03.9 Hypothyroidism, unspecified (principal); I10 Essential (primary) hypertension; R09.89 Other specified symptoms and signs involving the circulatory and respiratory systems
CPT/HCPCS: 99214; G2211

== ENCOUNTER → 2025-08-19 15:47 | Outpatient (BNVA) | payer MEDICARE, SELFPAY | PROVIDERS: PCP Internal Medicine; Visit Provider Student in an Organized Health Care Education/Training Program | DX: I10 Essential (primary) hypertension (principal); R09.89 Other specified symptoms and signs involving the circulatory and respiratory systems; E03.9 Hypothyroidism, unspecified | CPT/HCPCS: 99212 ==